=== PATIENT | male | born 1950 | race Caucasian/White ===

== ENCOUNTER 2019-07-07 08:59 | Outpatient (CLI) | payer MEDICARE, SELFPAY ==
[2019-07-07 09:13] LABS: Basophils Absolute Auto 0.05 K/mm3 (0.00-0.10); Basophils Percent Auto 0.6 % (0.0-1.0); Eosinophils Absolute Auto 0.34 K/mm3 (0.02-0.50); Eosinophils Percent Auto 4.1 % (1.0-6.0); Hematocrit 39.9 % (37.0-46.0); Hemoglobin 13.7 g/dL (12.4-15.3); Immature Granulocyte Absolute 0.02 K/mm3 (0.00-0.00); Immature Granulocyte Percent A 0.2 % (0.0-0.0); Lymphocytes Absolute Auto 4.02 K/mm3 (1.10-4.50); Mean Corpuscular HGB Conc 34.3 g/dL (32.0-36.0); Mean Corpuscular Hemoglobin 28.6 pg (27.0-31.0); Mean Corpuscular Volume 83.3 fL (78.0-102.0); Mean Platelet Volume 9.9 fl (8.7-11.0); Monocytes Percent Auto 9.6 % (2.0-11.0); Neutrophils Absolute Auto 3.1 K/mm3 (1.7-7.2); Neutrophils Percent Auto 37.5 % (50.0-70.0); Platelet Count Result 222 K/mm3 (150-420); Red Blood Count 4.79 M/mm3 (4.70-6.10); White Blood Count 8.4 K/mm3 (4.8-10.8)
[2019-07-07 09:14] LABS: Add Urine Microscopic? YES; Appearance Urine Clear (Clear); Bilirubin Urine Negative (Negative); Blood Urine Negative (Negative); Color Urine Yellow (Yellow); Glucose Urine UA Trace (Negative); Ketones Urine Negative (Negative); Leukocyte Esterase Ur Negative (Negative); Nitrate Urine Negative (Negative); Protein Urine Negative (Negative); Specific Grav Ur >= 1.030 (1.010-1.020); Urobilinogen Urine 0.2 mg/dL (0.2-1.0); pH Urine 5.5 (5.0-8.0)
[2019-07-07 09:23] LABS: Hemoglobin A1C 8.3 % (<5.7)
[2019-07-07 09:26] LABS: RBC Urine 0-2 /hpf (0-2); WBC Urine 0-3 /hpf (0-3)
[2019-07-07 09:27] LABS: Bacteria Urine Trace /hpf; Mucus Urine Few /lpf
[2019-07-07 10:25] LABS: Microalbumin Urine Random 72.7 mg/L
[2019-07-07 10:49] LABS: Alanine Aminotransferase 55 U/L (16-63); Albumin Level 3.9 g/dL (3.4-5.0); Alkaline Phosphatase 103 U/L (46-116); Anion Gap 13.5 mmol/L (7-16); Aspartate Amino Transferase 35 U/L (15-37); Bilirubin,Total 1.1 mg/dL (0.00-1.00); Blood Urea Nitrogen 19 mg/dL (7-18); Calcium 8.8 mg/dL (8.5-10.1); Carbon Dioxide 27 mmol/L (21-32); Chloride 104 mmol/L (98-108); Cholesterol 128 mg/dL (0-200); Creatine Kinase 157 U/L (39-308); Estimated Glomerular Filt Rate > 60; Glucose 180 mg/dL (70-99); HDL Direct 34 mg/dL (40-60); LDL Cholesterol Calculated 74 mg/dL (<130); Osmolality Calculated 297 mOsm/kg (285-295); Potassium 4.5 mmol/L (3.5-5.1); Sodium 140 mmol/L (136-145); Total Protein 7.3 g/dL (6.4-8.2); Triglycerides 101 mg/dL (0-150); Uric Acid 4.6 mg/dL (3.5-7.2); Vitamin B12 1893 pg/mL (193-986)
[2019-07-10 09:29] LABS: Vitamin D 25 Hydroxy 47 ng/mL (30-100)
== END 2019-07-07 09:00 | disposition home or self-care (01) ==
LOC: CHSLAB 09:01
PROVIDERS: PCP Internal Medicine; Visit Provider Internal Medicine
DX: E78.2 Mixed hyperlipidemia (principal); E11.65 Type 2 diabetes mellitus with hyperglycemia; I10 Essential (primary) hypertension; D72.820 Lymphocytosis (symptomatic); E79.0 Hyperuricemia without signs of inflammatory arthritis and tophaceous disease; Z98.84 Bariatric surgery status; Z12.5 Encounter for screening for malignant neoplasm of prostate; E55.9 Vitamin D deficiency, unspecified
CPT/HCPCS: 36415; 80053; 80061; 81001; 82043; 82306; 82550; 82607; 83036; 84153; 84550; 85025; G0103

== ENCOUNTER 2019-07-15 07:43 | Outpatient (CLI) | payer MEDICARE, SELFPAY ==
--- NOTE | ~2019-07-15 | US_ITS ---
US arterial ankle brachial ind INDICATION: Peripheral arterial disease. TECHNIQUE: Segmental pressures and plethysmographic and Doppler waveforms of the brachial and lower e xtremity arteries were obtained. COMPARISON: None. FINDINGS: Right and left brachial artery pressures of 125 mm Hg and 124 mm Hg, respectively, are concordant (no rmal difference <= 30 mmHg). The right ankle-brachial index (SARINA) is 1.29 (normal >= 0.9-1.0). The right great toe-brachial index (TBI) is 0.72 (normal >= 0.60). The left SARINA is 1.12. The left TBI is 0.7. IMPRESSION: 1. Normal bilateral ankle and toe brachial indices. Reviewed, dictated and finalized at location A.
--- NOTE | 2019-07-15 07:55 | ECHO_ITS ---
Patient Info Name: Osvaldo Duque Age: 68 years : 1950 Gender: Male Ht: 73 in Wt: 244 lbs BSA: 2.42 m2 HR: 78 bpm BP: 124 / 53 mmHg Heart Rhythm: Sinus Rhythm Technical Quality: Good Exam Date: 07/15/2019 7:37 AM Exam Location: [facility] Patient Status: Outpatient Admit Date: 07/15/2019 Staff Ordering Physician: Yolande Soria MD Hospitalist: Tish Sanchez RDCS Attending Provider: Yolande Soria MD Referring Physician: Yang TRAN; Exam Type: CA echo doppler color flow Study Info Indications I35.0 - Nonrheumatic aortic (valve) stenosis Complete two-dimensional, color flow and Doppler transthoracic echocardiogram is performed. Strain analysis performed. History/Risk Factors Hypertension: Yes Dyslipidemia: Yes Congenital Heart Disease (CHD): No Diabetic Therapy: Oral Peripheral Arterial Disease (PAD): Yes Myocardial Infarction (MD): No Chronic Lung Disease: No Obesity: Yes Renal Disease: No Coronary Artery Disease (CAD) No Congestive Heart Failure (CHF): No Cardiomyopathy/LV Systolic Dysfunction: No Diabetes Mellitus: Yes COPD: No Tobacco Use: Never Cerebrovascular Disease: No Family History: Coronary Artery Disease, Diabetes Mellitus Deep Vein Thrombosis (DVT): None Dialysis: None Frailty Scale (CSHA): 3: Managing Well Cardiac Arrest: No Prior Interventions Pacemaker: No PCI: No CABG: No Valve Surgery: No ICD: No PV Intervention: None Heart Transplant: No Summary 1. Left ventricular chamber dimension is normal. 2. Left ventricular systolic function is normal, estimated at 55-60%. 3. There is mildly increased left ventricular wall thickness. 4. The left ventricular diastolic function is normal. 5. E/e' 9 is minimally elevated. 6. Left atrial chamber dimension is mildly enlarged. 7. There is mild aortic valve sclerosis. 8. There is trace tricuspid valve regurgitation. 9. No pulmonary hypertension, estimated pulmonary arterial systolic pressure is 23 mmHg. Recommendations * Continue medical therapy for diabetes. Left Ventricle E/e' 9 is minimally elevated. Left ventricular chamber dimension is normal. Left ventricular systolic function is normal, estimated at 55-60%. There is mildly increased left ventricular wall thickness. The left ventricular diastolic function is normal. Right Ventricle Right ventricular chamber dimension is normal. Right ventricular systolic function is normal. Left Atria Left atrial chamber dimension is mildly enlarged. Right Atria Right atrial chamber dimension is normal. Aortic Valve The aortic valve is trileaflet. There is mild aortic valve sclerosis. There is no aortic valve stenosis. There is no aortic valve regurgitation. Pulmonic Valve There is no pulmonic regurgitation. Mitral Valve There is no mitral valve stenosis. There is no mitral valve regurgitation. Tricuspid Valve There is trace tricuspid valve regurgitation. No pulmonary hypertension, estimated pulmonary arterial systolic pressure is 23 mmHg. Pericardium/Pleural There is no pericardial effusion. Inferior Vena Cava Normal inferior vena cava with >50% collapse upon inspiration consistent with normal right atrial pressure, 5 mmHg. Aorta The aortic root size at the sinus of Valsalva is normal. Left Ventricular Outflow Tract
== END 2019-07-15 07:44 | disposition home or self-care (01) ==
PROVIDERS: PCP Internal Medicine; Visit Provider Internal Medicine
DX: I35.0 Nonrheumatic aortic (valve) stenosis (principal); I73.9 Peripheral vascular disease, unspecified
CPT/HCPCS: 93306; 93922

== ENCOUNTER 2019-10-21 08:03 | Outpatient (CLI) | payer MEDICARE, SELFPAY ==
[2019-10-21 08:37] LABS: Hemoglobin A1C 8.3 % (<5.7)
[2019-10-21 08:53] LABS: Anion Gap 5 mmol/L (8-16); Blood Urea Nitrogen 12 mg/dL (7-18); Calcium 8.5 mg/dL (8.5-10.1); Carbon Dioxide 32 mmol/L (21-32); Chloride 104 mmol/L (98-108); Estimated Glomerular Filt Rate > 60; Glucose 155 mg/dL (70-99); Osmolality Calculated 294 mOsm/kg (285-295); Sodium 141 mmol/L (136-145)
== END 2019-10-21 08:04 | disposition home or self-care (01) ==
LOC: CHSLAB 08:05
PROVIDERS: PCP Internal Medicine; Visit Provider Internal Medicine
DX: E11.65 Type 2 diabetes mellitus with hyperglycemia (principal)
CPT/HCPCS: 36415; 80048; 83036

== ENCOUNTER 2019-12-07 13:00 | Outpatient (CLI) | payer MEDICARE, SELFPAY ==
[2019-12-07 13:32] LABS: Alanine Aminotransferase 62 U/L (16-63); Alkaline Phosphatase 109 U/L (46-116); Amylase 25 U/L (25-115); Anion Gap 8 mmol/L (8-16); Aspartate Amino Transferase 27 U/L (15-37); Blood Urea Nitrogen 12 mg/dL (7-18); Calcium 8.8 mg/dL (8.5-10.1); Carbon Dioxide 28 mmol/L (21-32); Chloride 100 mmol/L (98-108); Estimated Glomerular Filt Rate > 60; Glucose 344 mg/dL (70-99); Lipase 110 U/L (73-393); Osmolality Calculated 295 mOsm/kg (285-295); Potassium 4.1 mmol/L (3.5-5.1); Sodium 136 mmol/L (136-145); Total Protein 7.5 g/dL (6.4-8.2)
== END 2019-12-07 13:01 | disposition home or self-care (01) ==
LOC: CHSLAB 13:01
PROVIDERS: PCP Internal Medicine; Visit Provider Internal Medicine
DX: E11.65 Type 2 diabetes mellitus with hyperglycemia (principal)
CPT/HCPCS: 36415; 80053; 82150; 83690

== ENCOUNTER 2020-08-05 07:17 | Outpatient (CLI) | payer MEDICARE, SELFPAY ==
[2020-08-05 07:35] LABS: Basophils Absolute Auto 0.06 K/mm3 (0.00-0.10); Basophils Percent Auto 0.7 % (0.0-1.0); Eosinophils Absolute Auto 0.47 K/mm3 (0.02-0.50); Eosinophils Percent Auto 5.6 % (1.0-6.0); Hematocrit 37.8 % (37.0-46.0); Immature Granulocyte Absolute 0.03 K/mm3 (0.00-0.00); Immature Granulocyte Percent A 0.4 % (0.0-0.0); Lymphocytes Absolute Auto 3.25 K/mm3 (1.10-4.50); Lymphocytes Percent Auto 38.6 % (18.0-42.0); Mean Corpuscular HGB Conc 34.4 g/dL (32.0-36.0); Mean Corpuscular Hemoglobin 28.3 pg (27.0-31.0); Mean Corpuscular Volume 82.4 fL (78.0-102.0); Mean Platelet Volume 10.1 fl (8.7-11.0); Monocytes Absolute Auto 0.76 K/mm3 (0.10-0.90); Neutrophils Absolute Auto 3.8 K/mm3 (1.7-7.2); Neutrophils Percent Auto 45.7 % (50.0-70.0); Platelet Count Result 190 K/mm3 (150-420); Red Blood Count 4.59 M/mm3 (4.70-6.10); Red Cell Distribution Width 13.6 % (11.6-14.4); White Blood Count 8.4 K/mm3 (4.8-10.8)
[2020-08-05 07:37] LABS: Add Urine Microscopic? YES; Appearance Urine Clear (Clear); Bilirubin Urine Negative (Negative); Blood Urine Negative (Negative); Color Urine Yellow (Yellow); Glucose Urine UA Trace (Negative); Ketones Urine Negative (Negative); Leukocyte Esterase Ur Trace LEU/UL (Negative); Nitrate Urine Negative (Negative); Protein Urine Negative (Negative); Urobilinogen Urine 0.2 mg/dL (0.2-1.0)
[2020-08-05 07:43] LABS: Hemoglobin A1C 7.9 % (<5.7)
[2020-08-05 07:45] LABS: Bacteria Urine Trace /hpf; Mucus Urine Few /lpf; RBC Urine None seen /hpf (0-2)
[2020-08-05 07:47] LABS: Creatinine Urine 97.59 mg/dL (40-278); MALB Creatinine Ratio 13.6 mg/g (0-30); Microalbumin Urine Random 13.3 mg/L
[2020-08-05 08:47] LABS: Alanine Aminotransferase 116 U/L (16-63); Albumin Level 3.4 g/dL (3.4-5.0); Alkaline Phosphatase 112 U/L (46-116); Anion Gap 8 mmol/L (8-16); Aspartate Amino Transferase 53 U/L (15-37); Bilirubin,Total 0.9 mg/dL (0.00-1.00); Blood Urea Nitrogen 12 mg/dL (7-18); Calcium 8.4 mg/dL (8.5-10.1); Carbon Dioxide 31 mmol/L (21-32); Chloride 106 mmol/L (98-108); Cholesterol 122 mg/dL (0-200); Creatine Kinase 112 U/L (39-308); Estimated Glomerular Filt Rate > 60; Ferritin 95 ng/mL (26-388); Glucose 55 mg/dL (70-99); HDL Direct 32 mg/dL (40-60); Iron 83 ug/dL (65-175); LDL Cholesterol Calculated 75 mg/dL (<130); Osmolality Calculated 297 mOsm/kg (285-295); Percent Iron Saturation 27 % (12-57); Potassium 3.5 mmol/L (3.5-5.1); Sodium 145 mmol/L (136-145); Total Protein 6.6 g/dL (6.4-8.2); Triglycerides 74 mg/dL (0-150); Uric Acid 3.4 mg/dL (3.5-7.2)
== END 2020-08-05 07:18 | disposition home or self-care (01) ==
LOC: CHSLAB 07:19
PROVIDERS: PCP Internal Medicine; Visit Provider Internal Medicine
DX: E11.65 Type 2 diabetes mellitus with hyperglycemia (principal); I10 Essential (primary) hypertension; E78.5 Hyperlipidemia, unspecified; D50.9 Iron deficiency anemia, unspecified; E79.0 Hyperuricemia without signs of inflammatory arthritis and tophaceous disease
CPT/HCPCS: 36415; 80053; 80061; 81001; 82043; 82550; 82728; 83036; 83540; 83550; 84550; 85025

== ENCOUNTER 2020-08-31 09:14 | Outpatient (CLI) | payer MEDICARE, SELFPAY ==
[2020-08-31 10:08] LABS: Alanine Aminotransferase 55 U/L (16-63); Albumin Level 3.6 g/dL (3.4-5.0); Alkaline Phosphatase 115 U/L (46-116); Anion Gap 12 mmol/L (8-16); Aspartate Amino Transferase 27 U/L (15-37); Blood Urea Nitrogen 15 mg/dL (7-18); Calcium 8.4 mg/dL (8.5-10.1); Carbon Dioxide 25 mmol/L (21-32); Chloride 105 mmol/L (98-108); Estimated Glomerular Filt Rate > 60; Glucose 95 mg/dL (70-99); Osmolality Calculated 294 mOsm/kg (285-295); Potassium 3.8 mmol/L (3.5-5.1); Prostate Specific Antigen 2.3 ng/mL (< OR = 4.0); Sodium 142 mmol/L (136-145)
== END 2020-08-31 09:15 | disposition home or self-care (01) ==
LOC: CHSLAB 09:16
PROVIDERS: PCP Internal Medicine; Visit Provider Internal Medicine
DX: B18.1 Chronic viral hepatitis B without delta-agent (principal); Z12.5 Encounter for screening for malignant neoplasm of prostate
CPT/HCPCS: 36415; 80053; 84153; G0103

== ENCOUNTER 2021-02-07 07:46 | Outpatient (CLI) | payer MEDICARE, SELFPAY ==
[2021-02-07 08:04] LABS: Basophils Absolute Auto 0.06 K/mm3 (0.00-0.10); Basophils Percent Auto 0.5 % (0.0-1.0); Eosinophils Absolute Auto 0.37 K/mm3 (0.02-0.50); Eosinophils Percent Auto 3.3 % (1.0-6.0); Hematocrit 40.3 % (37.0-46.0); Hemoglobin 13.4 g/dL (12.4-15.3); Immature Granulocyte Absolute 0.03 K/mm3 (0.00-0.00); Immature Granulocyte Percent A 0.3 % (0.0-0.0); Lymphocytes Absolute Auto 4.81 K/mm3 (1.10-4.50); Lymphocytes Percent Auto 42.3 % (18.0-42.0); Mean Corpuscular HGB Conc 33.3 g/dL (32.0-36.0); Mean Corpuscular Hemoglobin 28.5 pg (27.0-31.0); Mean Corpuscular Volume 85.6 fL (78.0-102.0); Mean Platelet Volume 9.7 fl (8.7-11.0); Monocytes Absolute Auto 0.91 K/mm3 (0.10-0.90); Neutrophils Absolute Auto 5.2 K/mm3 (1.7-7.2); Neutrophils Percent Auto 45.6 % (50.0-70.0); Platelet Count Result 250 K/mm3 (150-420); Red Blood Count 4.71 M/mm3 (4.70-6.10); Red Cell Distribution Width 13.2 % (11.6-14.4); White Blood Count 11.4 K/mm3 (4.8-10.8)
[2021-02-07 08:14] LABS: Hemoglobin A1C 7.2 % (<5.7)
[2021-02-07 08:53] LABS: Alanine Aminotransferase 50 U/L (16-63); Albumin Level 3.6 g/dL (3.4-5.0); Alkaline Phosphatase 118 U/L (46-116); Anion Gap 8 mmol/L (8-16); Aspartate Amino Transferase 24 U/L (15-37); Bilirubin,Total 0.9 mg/dL (0.00-1.00); Blood Urea Nitrogen 21 mg/dL (7-18); Calcium 8.6 mg/dL (8.5-10.1); Carbon Dioxide 29 mmol/L (21-32); Chloride 107 mmol/L (98-108); Cholesterol 145 mg/dL (0-200); Creatine Kinase 77 U/L (39-308); Estimated Glomerular Filt Rate > 60; HDL Direct 31 mg/dL (40-60); LDL Cholesterol Calculated 101 mg/dL (<130); Potassium 3.6 mmol/L (3.5-5.1); Sodium 144 mmol/L (136-145); Total Protein 7.2 g/dL (6.4-8.2); Triglycerides 64 mg/dL (0-150); Uric Acid 4.5 mg/dL (3.5-7.2)
[2021-02-07 09:01] LABS: Osmolality Calculated 298 mOsm/kg (285-295)
[2021-02-07 09:14] LABS: Add Urine Microscopic? YES; Appearance Urine Clear (Clear); Bilirubin Urine Negative (Negative); Blood Urine Negative (Negative); Color Urine Yellow (Yellow); Glucose Urine UA Trace (Negative); Ketones Urine Trace (Negative); Leukocyte Esterase Ur Negative LEU/UL (Negative); Nitrate Urine Negative (Negative); Protein Urine Trace (Negative); Specific Grav Ur >= 1.030 (1.010-1.020); Urobilinogen Urine 0.2 mg/dL (0.2-1.0); pH Urine 5.5 (5.0-8.0)
[2021-02-07 09:28] LABS: Bacteria Urine Trace /hpf; Mucus Urine Moderate /lpf; RBC Urine 0-2 /hpf (0-2)
[2021-02-07 09:59] LABS: Glucose 38 mg/dL (70-99)
== END 2021-02-07 07:47 | disposition home or self-care (01) ==
LOC: CHSLAB 07:50
PROVIDERS: PCP Internal Medicine; Visit Provider Internal Medicine
DX: E11.65 Type 2 diabetes mellitus with hyperglycemia (principal); I10 Essential (primary) hypertension; E78.5 Hyperlipidemia, unspecified; E79.0 Hyperuricemia without signs of inflammatory arthritis and tophaceous disease; N39.0 Urinary tract infection, site not specified
CPT/HCPCS: 36415; 80053; 80061; 81001; 82550; 83036; 84550; 85025

== ENCOUNTER 2021-09-06 08:48 | Outpatient (CLI) | payer MEDICARE, SELFPAY ==
[2021-09-06 09:05] LABS: Basophils Absolute Auto 0.05 K/mm3 (0.00-0.10); Basophils Percent Auto 0.5 % (0.0-1.0); Eosinophils Absolute Auto 0.43 K/mm3 (0.02-0.50); Eosinophils Percent Auto 4.5 % (1.0-6.0); Hematocrit 36.4 % (37.0-46.0); Hemoglobin 12.3 g/dL (12.4-15.3); Immature Granulocyte Absolute 0.03 K/mm3 (0.00-0.00); Immature Granulocyte Percent A 0.3 % (0.0-0.0); Lymphocytes Absolute Auto 3.48 K/mm3 (1.10-4.50); Lymphocytes Percent Auto 36.3 % (18.0-42.0); Mean Corpuscular HGB Conc 33.8 g/dL (32.0-36.0); Mean Corpuscular Hemoglobin 28.4 pg (27.0-31.0); Mean Corpuscular Volume 84.1 fL (78.0-102.0); Monocytes Percent Auto 9.4 % (2.0-11.0); Neutrophils Absolute Auto 4.7 K/mm3 (1.7-7.2); Platelet Count Result 212 K/mm3 (150-420); Red Blood Count 4.33 M/mm3 (4.70-6.10); Red Cell Distribution Width 13.5 % (11.6-14.4); White Blood Count 9.6 K/mm3 (4.8-10.8)
[2021-09-06 09:08] LABS: Add Urine Microscopic? YES; Appearance Urine Clear (Clear); Bilirubin Urine Negative (Negative); Blood Urine Negative (Negative); Color Urine Yellow (Yellow); Glucose Urine UA Negative (Negative); Ketones Urine Negative (Negative); Leukocyte Esterase Ur 1+ (Negative); Nitrate Urine Negative (Negative); Protein Urine Negative (Negative); Specific Grav Ur 1.025 (1.010-1.020); Urobilinogen Urine 0.2 mg/dL (0.2-1.0)
[2021-09-06 09:16] LABS: Bacteria Urine Trace /hpf; Mucus Urine Moderate /lpf; RBC Urine None seen /hpf (0-2)
[2021-09-06 09:32] LABS: Creatinine Urine 100.64 mg/dL (40-278); MALB Creatinine Ratio 24.8 mg/g (0-30)
[2021-09-06 09:43] LABS: Hemoglobin A1C 8.2 % (<5.7)
[2021-09-06 09:48] LABS: Alanine Aminotransferase 124 U/L (16-63); Albumin Level 3.3 g/dL (3.4-5.0); Alkaline Phosphatase 117 U/L (46-116); Anion Gap 6 mmol/L (8-16); Aspartate Amino Transferase 68 U/L (15-37); Bilirubin,Total 1.1 mg/dL (0.00-1.00); Blood Urea Nitrogen 13 mg/dL (7-18); Calcium 8.5 mg/dL (8.5-10.1); Carbon Dioxide 31 mmol/L (21-32); Chloride 107 mmol/L (98-108); Creatine Kinase 96 U/L (39-308); Estimated Glomerular Filt Rate > 60; Glucose 85 mg/dL (70-99); Lipase 38 U/L (73-393); Osmolality Calculated 297 mOsm/kg (285-295); Potassium 3.3 mmol/L (3.5-5.1); Prostate Specific Antigen 1.8 ng/mL (< OR = 4.0); Sodium 144 mmol/L (136-145); Total Protein 6.9 g/dL (6.4-8.2); Uric Acid 3.8 mg/dL (3.5-7.2)
[2021-09-06 13:55] LABS: Cholesterol 77 mg/dL (0-200); HDL Direct 35 mg/dL (40-60); LDL Cholesterol Calculated 31 mg/dL (<130); Triglycerides 53 mg/dL (0-150)
== END 2021-09-06 08:49 | disposition home or self-care (01) ==
LOC: CHSLAB 08:52
PROVIDERS: PCP Internal Medicine; Visit Provider Internal Medicine
DX: E79.0 Hyperuricemia without signs of inflammatory arthritis and tophaceous disease (principal); E11.65 Type 2 diabetes mellitus with hyperglycemia; I10 Essential (primary) hypertension; Z12.5 Encounter for screening for malignant neoplasm of prostate
CPT/HCPCS: 36415; 80053; 80061; 81001; 82043; 82550; 83036; 83690; 84153; 84550; 85025; G0103

== ENCOUNTER 2021-10-05 07:07 | Outpatient (CLI) | payer MEDICARE, SELFPAY ==
--- NOTE | ~2021-10-05 | US_ITS ---
EXAMINATION: US abdomen limited DATE: 10/05/2021 08:11 INDICATION: Right upper quadrant pain TECHNIQUE: Multiple grayscale and Doppler ultrasound images of the abdomen were obtained. COMPARISON: None available FINDINGS: Bowel gas obscures visualization of the pancreas. The visualized portions of the pancreas a re unremarkable. The liver is normal with normal echogenicity and echotexture. No surface nodularity. Normal hepatopetal flow in the main portal vein. Stones are present in the nondistended gallbladder. The normal common bile duct measures 5 mm. There was no sonographic Webb sign. IMPRESSION: 1. Cholelithiasis without evidence of cholecystitis. Reviewed, dictated and finalized at location L.
== END 2021-10-05 07:08 | disposition home or self-care (01) ==
PROVIDERS: PCP Internal Medicine; Visit Provider Internal Medicine
DX: R74.8 Abnormal levels of other serum enzymes (principal); K80.20 Calculus of gallbladder without cholecystitis without obstruction
CPT/HCPCS: 76705

== ENCOUNTER 2021-12-24 08:40 | Outpatient (CLI) | payer MEDICARE, SELFPAY ==
[2021-12-24 09:22] LABS: Hemoglobin A1C 7.9 % (<5.7)
[2021-12-24 09:40] LABS: Alanine Aminotransferase 41 U/L (16-63); Albumin Level 3.1 g/dL (3.4-5.0); Alkaline Phosphatase 266 U/L (46-116); Anion Gap 7 mmol/L (8-16); Aspartate Amino Transferase 38 U/L (15-37); Bilirubin,Total 0.9 mg/dL (0.00-1.00); Blood Urea Nitrogen 16 mg/dL (7-18); Calcium 8.6 mg/dL (8.5-10.1); Carbon Dioxide 29 mmol/L (21-32); Chloride 104 mmol/L (98-108); Estimated Glomerular Filt Rate > 60; Glucose 113 mg/dL (70-99); Osmolality Calculated 292 mOsm/kg (285-295); Potassium 4.7 mmol/L (3.5-5.1); Sodium 140 mmol/L (136-145)
== END 2021-12-24 08:41 | disposition home or self-care (01) ==
LOC: CHSLAB 08:43
PROVIDERS: PCP Internal Medicine; Visit Provider Internal Medicine
DX: E11.65 Type 2 diabetes mellitus with hyperglycemia (principal)
CPT/HCPCS: 36415; 80053; 83036

== ENCOUNTER 2022-01-10 09:27 | Outpatient (CLI) | payer MEDICARE, SELFPAY ==
--- NOTE | ~2022-01-10 | US_ITS ---
US abdomen limited INDICATION: Increased liver enzymes. PROCEDURE: Realtime right upper abdominal ultrasound. COMPARISON: No prior studies for comparison. FINDINGS: The pancreas is normal without focal mass or pancreatic ductal dilation. Liver echotexture is normal without focal mass or intrahepatic biliary dilatation. There is normal directional flow i n the portal there are gallstones. No gallbladder wall thickening or pericholecystic fluid. Vein. The gallbladder is normal without stones, gallbladder wall thickening or pericholecystic fluid. Comm on bile duct measures 4 mm. No sonographic Webb's sign. IMPRESSION: 1: Cholelithiasis. Reviewed, dictated and finalized at location A. IMPRESSION: 1: Cholelithiasis.
[2022-01-10 09:44] LABS: Basophils Absolute Auto 0.08 K/mm3 (0.00-0.10); Basophils Percent Auto 0.8 % (0.0-1.0); Eosinophils Absolute Auto 0.33 K/mm3 (0.02-0.50); Eosinophils Percent Auto 3.1 % (1.0-6.0); Hematocrit 39.4 % (37.0-46.0); Immature Granulocyte Absolute 0.05 K/mm3 (0.00-0.00); Immature Granulocyte Percent A 0.5 % (0.0-0.0); Immature Reticulocyte Fraction 9.6 % (2.0-16.52); Lymphocytes Absolute Auto 3.09 K/mm3 (1.10-4.50); Lymphocytes Percent Auto 29.5 % (18.0-42.0); Mean Corpuscular Hemoglobin 27.8 pg (27.0-31.0); Mean Corpuscular Volume 84.4 fL (78.0-102.0); Mean Platelet Volume 9.6 fl (8.7-11.0); Monocytes Absolute Auto 1.07 K/mm3 (0.10-0.90); Monocytes Percent Auto 10.2 % (2.0-11.0); Neutrophils Absolute Auto 5.9 K/mm3 (1.7-7.2); Neutrophils Percent Auto 55.9 % (50.0-70.0); Platelet Count Result 252 K/mm3 (150-420); Red Blood Count 4.67 M/mm3 (4.70-6.10); Red Cell Distribution Width 14.2 % (11.6-14.4); Reticulocyte Hemoglobin Conten 31.7 pg (28.0-35.0); Reticulocytes Absolute 0.07 M/mm3 (0.02-0.1); White Blood Count 10.5 K/mm3 (4.8-10.8)
[2022-01-10 10:27] LABS: Alanine Aminotransferase 47 U/L (16-63); Albumin Level 3.2 g/dL (3.4-5.0); Alkaline Phosphatase 185 U/L (46-116); Anion Gap 7 mmol/L (8-16); Aspartate Amino Transferase 35 U/L (15-37); Bilirubin,Total 1.1 mg/dL (0.00-1.00); Blood Urea Nitrogen 21 mg/dL (7-18); Calcium 8.8 mg/dL (8.5-10.1); Carbon Dioxide 27 mmol/L (21-32); Chloride 102 mmol/L (98-108); Estimated Glomerular Filt Rate > 60; Ferritin 206 ng/mL (26-388); Free T4 Free Thyroxine 1.32 ng/dL (0.76-1.46); Glucose 105 mg/dL (70-99); Iron 77 ug/dL (65-175); Osmolality Calculated 285 mOsm/kg (285-295); Potassium 4.3 mmol/L (3.5-5.1); Sodium 136 mmol/L (136-145); Thyroid Stimulating Hormone 2.26 uIU/mL (0.36-3.74); Total Protein 8.7 g/dL (6.4-8.2); Vitamin B12 980 pg/mL (193-986)
[2022-01-13 14:23] LABS: Red Blood Cell Folate 564 ng/mL RBC (>280)
[2022-01-13 16:06] LABS: Hepatitis B DNA PCR <1.00 Log IU/mL; Hepatitis B DNA PCR <10 IU/mL
== END 2022-01-10 09:28 | disposition home or self-care (01) ==
PROVIDERS: PCP Internal Medicine; Visit Provider Internal Medicine
DX: D64.9 Anemia, unspecified (principal); B18.1 Chronic viral hepatitis B without delta-agent; R63.4 Abnormal weight loss
CPT/HCPCS: 36415; 76705; 80053; 82607; 82728; 82747; 83540; 84439; 84443; 85025; 85046; 87517

== ENCOUNTER 2022-04-25 09:37 | Outpatient (CLI) | payer MEDICARE, SELFPAY ==
[2022-04-25 10:02] LABS: Hematocrit 39.7 % (37.0-46.0); Hemoglobin 13.2 g/dL (12.4-15.3); Mean Corpuscular HGB Conc 33.2 g/dL (32.0-36.0); Mean Corpuscular Volume 81.2 fL (78.0-102.0); Mean Platelet Volume 9.6 fl (8.7-11.0); Platelet Count Result 210 K/mm3 (150-420); Red Blood Count 4.89 M/mm3 (4.70-6.10); Red Cell Distribution Width 14.9 % (11.6-14.4); White Blood Count 10.5 K/mm3 (4.8-10.8)
[2022-04-25 10:06] LABS: Add Urine Microscopic? YES; Appearance Urine Clear (Clear); Bilirubin Urine Negative (Negative); Blood Urine Negative (Negative); Color Urine Light Yellow (Yellow); Glucose Urine UA Negative (Negative); Ketones Urine Negative (Negative); Leukocyte Esterase Ur 1+ LEU/UL (Negative); Nitrate Urine Negative (Negative); Protein Urine Negative (Negative); Specific Grav Ur 1.025 (1.010-1.020); Urobilinogen Urine 0.2 mg/dL (0.2-1.0); pH Urine 5.5 (5.0-8.0)
[2022-04-25 10:19] LABS: Hemoglobin A1C 7.4 % (<5.7)
[2022-04-25 10:21] LABS: RBC Urine 0-2 /hpf (0-2); Squamous Epithelial Cell Urine Rare /hpf (Few)
[2022-04-25 10:22] LABS: Bacteria Urine Trace /hpf; Mucus Urine Moderate /lpf
[2022-04-25 10:48] LABS: Band Neutrophils Percent 1 % (0-6); Basophils Percent Manual 0 % (0-1); Eosinophils Absolute Manual 0.42 K/mm3 (0.02-0.5); Eosinophils Percent Manual 4 % (1-6); Lymphocytes Absolute Manual 5.88 K/mm3 (1.1-4.5); Lymphocytes Percent Manual 56 % (18-44); Monocytes Absolute Manual 0.31 K/mm3 (0.1-0.90); Monocytes Percent Manual 3 % (3-9); Neutrophils Absolute Manual 3.88 K/mm3 (1.3-6.7); Neutrophils Percent Manual 36 % (46-73); Total Cells Counted 100
[2022-04-25 10:49] LABS: Atypical Lymphocytes Present; Platelet Estimate Adequate (Adequate)
[2022-04-25 10:56] LABS: Alanine Aminotransferase 73 U/L (16-63); Albumin Level 3.4 g/dL (3.4-5.0); Alkaline Phosphatase 171 U/L (46-116); Anion Gap 6 mmol/L (8-16); Aspartate Amino Transferase 51 U/L (15-37); Bilirubin,Total 0.9 mg/dL (0.00-1.00); Blood Urea Nitrogen 13 mg/dL (7-18); Calcium 8.6 mg/dL (8.5-10.1); Carbon Dioxide 28 mmol/L (21-32); Chloride 100 mmol/L (98-108); Cholesterol 98 mg/dL (0-200); Creatine Kinase 54 U/L (39-308); Estimated Glomerular Filt Rate > 60; Ferritin 171 ng/mL (26-388); Free T3 2.16 pg/mL (2.18-3.98); Glucose 114 mg/dL (70-99); HDL Direct 25 mg/dL (40-60); Iron 78 ug/dL (65-175); LDL Cholesterol Calculated 55 mg/dL (<130); Osmolality Calculated 279 mOsm/kg (285-295); Potassium 4.3 mmol/L (3.5-5.1); Sodium 134 mmol/L (136-145); Thyroid Stimulating Hormone 2.32 uIU/mL (0.36-3.74); Total Protein 7.6 g/dL (6.4-8.2); Triglycerides 91 mg/dL (0-150); Vitamin B12 916 pg/mL (193-986)
== END 2022-04-25 09:38 | disposition home or self-care (01) ==
LOC: CHSLAB 09:41
PROVIDERS: PCP Internal Medicine; Visit Provider Internal Medicine
DX: E11.65 Type 2 diabetes mellitus with hyperglycemia (principal); I10 Essential (primary) hypertension; E78.2 Mixed hyperlipidemia; D64.9 Anemia, unspecified; N39.0 Urinary tract infection, site not specified; D51.9 Vitamin B12 deficiency anemia, unspecified
CPT/HCPCS: 36415; 80053; 80061; 81001; 82550; 82607; 82728; 83036; 83540; 84439; 84443; 84481; 85025; 87077; 87086; 87088

== ENCOUNTER 2022-05-01 09:01 | Outpatient (CLI) | payer MEDICARE, SELFPAY ==
[2022-05-04 11:22] LABS: Reference Lab Test Name FLOW CYTOLOGY
== END 2022-05-01 09:02 | disposition home or self-care (01) ==
PROVIDERS: PCP Internal Medicine; Visit Provider Internal Medicine
DX: D72.820 Lymphocytosis (symptomatic) (principal)
CPT/HCPCS: 36415; 88184; 88185; 88189

== ENCOUNTER 2022-06-24 11:21 | Outpatient (CLI) | payer MEDICARE, SELFPAY ==
--- NOTE | 2022-06-24 01:00 | ECHO_ITS ---
Patient Info Name: Osvaldo Duque Age: 71 years : 1950 Gender: Male Ht: 71 in Wt: 216 lbs BSA: 2.24 m2 HR: 59 bpm BP: 117 / 36 mmHg Heart Rhythm: Sinus Rhythm Technical Quality: Fair Exam Date: 06/24/2022 12:34 PM Exam Location: [facility] Patient Status: Outpatient Admit Date: 06/24/2022 Staff Ordering Physician: Yolande Soria MD Automotive Mechanic: Rubi Womack RDCS Attending Provider: Yolande Sorai MD Referring Physician: Yang TRAN; Exam Type: CA echo doppler color flow Study Info Indications - Aortic stenosis Complete two-dimensional, color flow and Doppler transthoracic echocardiogram is performed. History/Risk Factors Hypertension: Yes Dyslipidemia: Yes Congenital Heart Disease (CHD): No Diabetic Therapy: Oral Peripheral Arterial Disease (PAD): Yes Myocardial Infarction ([place]): No Chronic Lung Disease: No Obesity: Yes Renal Disease: No Coronary Artery Disease (CAD) No Congestive Heart Failure (CHF): No Cardiomyopathy/LV Systolic Dysfunction: No Diabetes Mellitus: Yes COPD: No Tobacco Use: Never Cerebrovascular Disease: No Family History: Coronary Artery Disease, Diabetes Mellitus Deep Vein Thrombosis (DVT): None Dialysis: None Frailty Scale (CSHA): 3: Managing Well Cardiac Arrest: No Prior Interventions Pacemaker: No PCI: No CABG: No Valve Surgery: No ICD: No PV Intervention: None Heart Transplant: No Summary 1. Complete two-dimensional, color flow and Doppler transthoracic echocardiogram is performed. 2. Left ventricular chamber dimension is normal. 3. Left ventricular systolic function is normal, estimated at 60-65%. 4. There is mild concentric increased left ventricular wall thickness. 5. The left ventricular diastolic function is normal. 6. E/e' 9 is minimally elevated. 7. Left atrial chamber dimension is moderately enlarged. 8. There is mild aortic valve sclerosis. 9. There is mild tricuspid valve regurgitation. 10. No pulmonary hypertension, estimated pulmonary arterial systolic pressure is 31 mmHg. Recommendations * Continue medical therapy for diabetes. Left Ventricle E/e' 9 is minimally elevated. Left ventricular chamber dimension is normal. Left ventricular systolic function is normal, estimated at 60-65%. There is mild concentric increased left ventricular wall thickness. The left ventricular diastolic function is normal. Right Ventricle Right ventricular systolic function is normal and with normal TAPSE 2.3 cm. Right ventricular chamber dimension is normal. Left Atria Left atrial chamber dimension is moderately enlarged. Right Atria Right atrial chamber dimension is normal. Aortic Valve The aortic valve is trileaflet. There is mild aortic valve sclerosis. There is no aortic valve stenosis. There is no aortic valve regurgitation. Pulmonic Valve There is no pulmonic regurgitation. Mitral Valve There is no mitral valve stenosis. There is no mitral valve regurgitation. Tricuspid Valve There is mild tricuspid valve regurgitation. No pulmonary hypertension, estimated pulmonary arterial systolic pressure is 31 mmHg. Pericardium/Pleural There is no pericardial effusion. Inferior Vena Cava Normal inferior vena cava with >50% collapse upon inspiration consistent with normal right atrial pressure, 5 mmHg. Aorta The aortic root size
[2022-06-24 12:50] LABS: Alanine Aminotransferase 91 U/L (16-63); Albumin Level 3.3 g/dL (3.4-5.0); Alkaline Phosphatase 146 U/L (46-116); Anion Gap 9 mmol/L (8-16); Aspartate Amino Transferase 61 U/L (15-37); Blood Urea Nitrogen 16 mg/dL (7-18); Calcium 8.5 mg/dL (8.5-10.1); Carbon Dioxide 27 mmol/L (21-32); Chloride 103 mmol/L (98-108); Estimated Glomerular Filt Rate > 60; Glucose 145 mg/dL (70-99); Osmolality Calculated 292 mOsm/kg (285-295); Potassium 4.5 mmol/L (3.5-5.1); Sodium 139 mmol/L (136-145); Total Protein 6.9 g/dL (6.4-8.2)
== END 2022-06-24 11:22 | disposition home or self-care (01) ==
LOC: CHSIMG 11:25
PROVIDERS: PCP Internal Medicine; Visit Provider Internal Medicine
DX: R74.01 Elevation of levels of liver transaminase levels (principal); I35.0 Nonrheumatic aortic (valve) stenosis; I07.1 Rheumatic tricuspid insufficiency
CPT/HCPCS: 36415; 80053; 93306

== ENCOUNTER 2022-08-16 10:55 | Outpatient (CLI) | payer MEDICARE, SELFPAY ==
--- NOTE | ~2022-08-16 | CT_ITS ---
EXAMINATION: CT abdomen pelvis wo con DATE: 08/16/2022 11:48 INDICATION: Left acute flank pain. Gross hematuria. History kidney stones. TECHNIQUE: Computed tomography (CT) of the abdomen and pelvis was performed without intravenous contr ast. Automated exposure control and iterative reconstruction technique were employed. Exam dose: 457 .53 mGy-cm total exam DLP. COMPARISON: 01/10/2022 Limited abdominal ultrasound examination FINDINGS: Approximately 3.5 mm and 5 mm peripheral right pulmonary nodular densities. Middle lobe and bilateral lower lobe calcified pulmonary granulomas. A calcified hepatic and multiple calcified sple david granulomas are also noted. No infiltrate or consolidation is noted in the lower included lung zones. Normal heart size. No pericardial or pleural effusion. Small sliding hiatal hernia. Status post gastric bypass surgery. Small stones are noted in the dependent aspect of the gallbladder. No gallbladder wall thickening or pericholecystic fluid or fat stranding is detected. No bile duct or pancreatic duct dilatation is not ed. No hepatic, splenic, pancreatic or adrenal space-occupying mass lesion is noted. Pinpoint nonobstructing upper pole left renal calculus. Approximately 6.7 x 11 mm right ureterovesical junction calculus is present with minimal if any hydr oureteronephrosis. 2.2 cm probable right renal cyst. There is evidence for calcification of the abdominal aorta and iliac and femoral arteries but no abdo nayana aortic aneurysm. No intraperitoneal or retroperitoneal or pelvic mass lesion or adenopathy or a scites. No evidence of appendicitis. No bowel obstruction or intraperitoneal free air is detected. Degenerative changes of the thoracic and lumbar spine. No suspicious osteolytic or osteoblastic lesio ns are noted. IMPRESSION: 6.7 x 11 mm right ureterovesical junction calculus Pinpoint nonobstructing upper pole left renal calculus 2.2 cm right renal probable cyst Cholelithiasis Status post gastric bypass surgery Small sliding hiatal hernia Reviewed, dictated and finalized at Location A. Reviewed, dictated and finalized at location []
== END 2022-08-16 10:56 | disposition home or self-care (01) ==
LOC: CHSIMG 11:04
PROVIDERS: PCP Internal Medicine; Visit Provider Nurse Practitioner Family
DX: N20.0 Calculus of kidney (principal); R31.9 Hematuria, unspecified; R10.9 Unspecified abdominal pain; K80.20 Calculus of gallbladder without cholecystitis without obstruction; Z98.84 Bariatric surgery status; K44.9 Diaphragmatic hernia without obstruction or gangrene
CPT/HCPCS: 74176

== ENCOUNTER 2022-08-22 01:39 | Day surgery (SDC) | payer MEDICARE, SELFPAY ==
[2022-08-20 12:48] VITALS: BMI 29.3
--- NOTE | 2022-08-20 12:55 | PC.NURSE ---
PREOP INSTRUCTIONS, PLEASE READ CAREFULLY Report to the Outpatient Waiting Room, entrance under the green pavilion located off [facility], at time _0730_ on date _08/22/22_. Planned Procedure Time: _0930_. Time changes happen often and if your time is changed the preop area will call you the afternoon before. - You and your visitor will be asked to self-screen and do not enter if you have any COVID symptoms. - A mask is optional within the hospital at this time. Patients may have clear liquids (water, carbonated beverages, clear teas, apple juice) until 3 hours prior to surgery (0630 AM) with a maximum of 20 ounces. - No food from midnight until time of surgery Take the following medications with a SIP of water the morning of surgery: _BUSPIRONE, CIPROFLOXACIN, SERTRALINE_ DO NOT STOP ANY OF YOUR OTHER PRESCRIPTION MEDICATIONS PRIOR TO SURGERY ?EXCEPT THE FOLLOWING Medications to discontinue per physician N/A___, Date to take last dose Please no make-up, nail surinamese, hairspray, perfume, deodorant, or body powder the day of surgery. No jewelry (including any body piercings) or valuables the day of surgery, leave them at home. Please take a shower or bath the night before, or the morning of, surgery with an antibacterial soap. Wear comfortable, loose fitting clothing. - Jewelry must be removed prior to entering the operating room. Rings and piercings that are not removed may be cut off. - The hospital will not accept responsibility for valuables. - Please leave all valuables, including medications, at home the day of surgery. If you are going home after surgery, a licensed courier delivery driver must drive you home. - NO public transportation without another adult if you receive anesthesia. - We recommend that an adult stay with you for 24 hours following discharge. - We also recommend that you do not drive, make important decision, drink alcoholic beverages, or take any drugs that were not prescribed by your health care provider for at least 24 hours after your discharge time. Follow any additional instructions given to you from your surgeon. If you or anyone in your household have experienced Covid symptoms in the past week, please notify your surgeon or the nurse liaison at the phone number below for possible testing. Telephone instructions given to _PATIENT_and asked if any additional questions and then verbalized understanding. Patient advised to call surgeon office or pre surgery nurse liaison [phone] if any additional questions.
[2022-08-22] VITALS (7 sets, daily range): BP systolic 116–169; BP diastolic 57–66; PULSE 47–58; RESP 12–16; TEMP 35.8–36.3; O2SAT 100
--- NOTE | ~2022-08-22 | XR_ITS ---
EXAMINATION: XR fluoroscopy no charge DATE: 08/22/2022 07:55 INDICATION: Right ureteral stone. TECHNIQUE: 3 intraoperative spot fluoroscopic views of the abdomen and pelvis were obtained. I was no t present. Fluoroscopy exposure time was 5 seconds. COMPARISON: CT abdomen and pelvis 08/16/2022 FINDINGS: There is no visible urolithiasis. IMPRESSION: 1. No visible urolithiasis. Reviewed, dictated and finalized at location A. IMPRESSION: 1. No visible urolithiasis.
--- NOTE | 2022-08-22 06:14 | ECG_ITS ---
Measurements Intervals [place] Rate: 45 P: 93 NV: 252 QRS: -52 QRSD: 129 T: 49 QT: 437 QTc: 382 Interpretive Statements SINUS BRADYCARDIA WITH FIRST DEGREE AV BLOCK LEFT ANTERIOR FASCICULAR BLOCK [QRS AXIS <= -45, QR IN I, RS IN II] POSSIBLE LATERAL MYOCARDIAL INFARCTION , PROBABLY OLD [30 ms Q WAVE IN I/aVL/V5/V6] NO PREVIOUS ECG AVAILABLE FOR COMPARISON Electronically Signed On 08-22-2022 13:52:35 CDT by Jeanette Vaughn M.D.
[2022-08-22] MEDS: LACTATED RINGERS 1,000 ML 30 ML IV CONT (06:45)
--- NOTE | 2022-08-22 06:53 | P.PNAN_ITS ---
Anes - Initial Pre Proc Eval Procedure: Operation Date: 08/22/22 09:30 Proposed Procedures p Cystoscopy, Right Ureteroscopy, Right Retrograde Pyelogram, Right Stone Extraction, Right Stent Placement, Possible Holmium Laser - Anthony Hermosillo MD Date/Time: 08/22/22 06:53 Surgeon: Anthony Hermosillo MD Pre Op Diagnosis: right ureteral stone Patient Data Age: 71 Gender: M Height: 1.8 m Weight: 95.45 kg Allergies Allergy/AdvReac Type Severity Reaction Status Date / Time Iodinated Contrast Media Allergy Mild Hives Verified 08/22/22 06:18 Home Medications Medication Instructions Recorded Confirmed Type allopurinol 100 mg tablet 100 mg QAM 08/20/22 08/20/22 History atorvastatin 20 mg tablet 20 mg QAM 08/20/22 08/20/22 History buspirone 5 mg tablet 5 mg BID 08/20/22 08/20/22 History ciprofloxacin HCl 500 mg tablet 500 mg BID 08/20/22 08/20/22 History ergocalciferol (vitamin D2) 1,250 50,000 unit WEEKLY 08/20/22 08/20/22 History mcg (50,000 unit) capsule insulin aspart U-100 100 unit/mL See Rx Instructions .Route .COMPLEX 08/20/22 08/20/22 History (3 mL) subcutaneous pen (Novolog FlexPen U-100 Insulin aspart) insulin glargine 100 unit/mL (3 40 unit subcut HS 08/20/22 08/20/22 History mL) subcutaneous pen (Basaglar KwikPen U-100 Insulin) lisinopril 40 mg tablet 40 mg QA 08/20/22 08/20/22 History metformin 500 mg tablet,extended 500 mg PO HS 08/20/22 08/20/22 History release 24 hr potassium chloride 20 mEq 20 meq PO DAILY 08/20/22 08/20/22 History tablet,extended release sertraline 50 mg tablet 50 mg QA 08/20/22 08/20/22 History tamsulosin 0.4 mg capsule 0.4 mg PO QAM 08/20/22 08/20/22 History Patient hx anesthesia problems: none Family hx anesthesia problems: none Results Review: All pre-operative results and documents have been reviewed as part of the pre- operative evaluation. [facility], LAT[facility] Past Medical History Medical History (Updated 08/22/22 @ 06:55 by Bradley Lawrence MD) Anxiety Depression Diabetes HTN (hypertension) Hyperlipidemia Obesity Social History Social History Smoking status: Never smoker Second hand tobacco smoke exposure: No Alcohol intake: never Substance use: never Substance use type: does not use Living arrangements: with family Spiritual care concerns: No Anes - Eval Final PreProcedure Day of Procedure 08/22/22 06:53 Patient weight: obese Heart: regular rate and rhythm Lungs: clear to auscultation and normal air movement Airway: Mallampati scale class II Neurological: alert and oriented Last oral intake: >/= 8 hours ASA classification: III Emergent: no Anesthetic plan: proceed Anesthesia type and monitoring: general LMA Results Review: All pre-operative results and documents have been reviewed as part of the pre- operative evaluation. Informed Consent: The patient's anesthetic plan and its attendant risks and benefits were discussed with the patient/family/POA. Questions were solicited and answers provided to the satisfaction of the patient/family/POA.
[2022-08-22 07:04] LABS: Glucose Point of Care 100 mg/dl (65-105)
--- NOTE | 2022-08-22 07:08 | WPDHPUPDATE1 ---
History and Physical Update Update Date/Time: 08/22/22 07:08 History and Physical has been reviewed, including an updated exam of the patient. There are NO changes in the patient's condition. Risks, benefits, and alternatives have been discussed and questions answered. Patient agrees to proceed with procedure.
--- NOTE | 2022-08-22 07:16 | WPDHPUPDATE1 ---
History and Physical Update Update Date/Time: 08/22/22 07:16 History and Physical has been reviewed, including an updated exam of the patient. There are NO changes in the patient's condition. Risks, benefits, and alternatives have been discussed and questions answered. Patient agrees to proceed with procedure.
[2022-08-22] MEDS: ceFAZolin 2 GM/D5W 50 ML 2 GM/50 ML BAG IVPB (07:18)
[2022-08-22] MEDS: LIDOCAINE HCL 2% GEL UROJET 10 ML PKG MUCOUS MEM (07:42)
--- NOTE | 2022-08-22 08:00 | W.PM.PROC2 ---
Procedure Note - Detailed Date of Procedure 08/22/22 Pre-op Diagnosis Right ureteral stone Post-op Diagnosis Same Procedure Performed Cystoscopy, right ureteroscopy with stone extraction Surgeon Anthony Hermosillo MD Anesthesia General Description of Procedure patient is brought to the operative suite was prepped draped in routine sterile fashion while in dorsal lithotomy position. 2% xylocaine jelly was introduced intraurethrally and systemic sedation is administered per the anesthesia department. Cystoscopy is undertaken with a 19 F rigid cystoscope. There was no urethral stricture. He has moderate lateral lobe hyperplasia the prostate. His bladder shows a stone in the dependent portion that is likely ureteral stone that has recently passed. Remainder of his bladder was normal without additional foreign bodies in the mucosa is is without hyperemia or neoplasm. The stone is extracted with a basket. I did place a 0.035 in glidewire performed right distal ureteroscopy with a short tapered ureteral scope. There were no additional stones. Because of the ease of this procedure opted not to place ureteral stent. Scopes and wires removed he was taken recovery room good condition. Drains No Packing No Pathology None sent Complications No immediate complications
[2022-08-22 08:07] LABS: Glucose Point of Care 113 mg/dl (65-105)
== END 2022-08-22 09:30 | disposition home or self-care (01) ==
PROVIDERS: PCP Internal Medicine; Visit Provider Urology
PROC: (CPT 52352; principal; 2022-08-22 07:30)
DX: N20.1 Calculus of ureter (principal); I10 Essential (primary) hypertension; E11.9 Type 2 diabetes mellitus without complications; E78.5 Hyperlipidemia, unspecified; F41.9 Anxiety disorder, unspecified; F32.A Depression, unspecified; E66.9 Obesity, unspecified; Z68.29 Body mass index [BMI] 29.0-29.9, adult; Z79.4 Long term (current) use of insulin; Z79.84 Long term (current) use of oral hypoglycemic drugs
CPT/HCPCS: 52352; 82365; 82948; 88300; 93005; 99199; C1769; J0690; J1100; J2405; J2704; J3010; J7120

== ENCOUNTER 2022-10-21 09:27 | Outpatient (CLI) | payer MEDICARE, SELFPAY ==
[2022-10-21 09:50] LABS: Appearance Urine Clear (Clear); Bilirubin Urine Negative (Negative); Blood Urine Negative (Negative); Color Urine Yellow (Yellow); Glucose Urine UA 2+ (Negative); Ketones Urine Negative (Negative); Leukocyte Esterase Ur Negative LEU/UL (Negative); Nitrate Urine Negative (Negative); Protein Urine Negative (Negative); Specific Grav Ur 1.025 (1.010-1.020)
[2022-10-21 09:51] LABS: Basophils Absolute Auto 0.07 K/mm3 (0.00-0.10); Basophils Percent Auto 0.7 % (0.0-1.0); Eosinophils Absolute Auto 0.29 K/mm3 (0.02-0.50); Hematocrit 35.2 % (37.0-46.0); Hemoglobin 11.8 g/dL (12.4-15.3); Immature Granulocyte Absolute 0.02 K/mm3 (0.00-0.00); Immature Granulocyte Percent A 0.2 % (0.0-0.0); Lymphocytes Absolute Auto 5.29 K/mm3 (1.10-4.50); Mean Corpuscular HGB Conc 33.5 g/dL (32.0-36.0); Mean Corpuscular Volume 83.6 fL (78.0-102.0); Mean Platelet Volume 9.7 fl (8.7-11.0); Monocytes Absolute Auto 0.83 K/mm3 (0.10-0.90); Monocytes Percent Auto 8.5 % (2.0-11.0); Neutrophils Absolute Auto 3.3 K/mm3 (1.7-7.2); Neutrophils Percent Auto 33.6 % (50.0-70.0); Platelet Count Result 230 K/mm3 (150-420); Red Blood Count 4.21 M/mm3 (4.70-6.10); Red Cell Distribution Width 13.3 % (11.6-14.4); White Blood Count 9.8 K/mm3 (4.8-10.8)
[2022-10-21 09:58] LABS: Hemoglobin A1C 8.8 % (<5.7)
[2022-10-21 10:02] LABS: Add Urine Microscopic? YES; RBC Urine None seen /hpf (0-2); WBC Urine 0-3 /hpf (0-3)
[2022-10-21 10:03] LABS: Bacteria Urine Trace /hpf; Mucus Urine Moderate /lpf; Squamous Epithelial Cell Urine Rare /hpf (Few)
[2022-10-21 10:57] LABS: Alanine Aminotransferase 54 U/L (16-63); Albumin Level 3.3 g/dL (3.4-5.0); Alkaline Phosphatase 127 U/L (46-116); Anion Gap 7 mmol/L (8-16); Aspartate Amino Transferase 37 U/L (15-37); Bilirubin,Total 1.1 mg/dL (0.00-1.00); Blood Urea Nitrogen 20 mg/dL (7-18); Calcium 8.4 mg/dL (8.5-10.1); Carbon Dioxide 30 mmol/L (21-32); Chloride 107 mmol/L (98-108); Cholesterol 88 mg/dL (0-200); Creatine Kinase 64 U/L (39-308); Estimated Glomerular Filt Rate > 60; Ferritin 115 ng/mL (26-388); Free T3 1.68 pg/mL (2.18-3.98); Free T4 Free Thyroxine 0.92 ng/dL (0.76-1.46); Glucose 62 mg/dL (70-99); HDL Direct 31 mg/dL (40-60); Iron 84 ug/dL (65-175); LDL Cholesterol Calculated 50 mg/dL (<130); Osmolality Calculated 298 mOsm/kg (285-295); Potassium 3.9 mmol/L (3.5-5.1); Sodium 144 mmol/L (136-145); Thyroid Stimulating Hormone 1.75 uIU/mL (0.36-3.74); Total Protein 6.7 g/dL (6.4-8.2); Triglycerides 37 mg/dL (0-150); Vitamin B12 605 pg/mL (193-986)
== END 2022-10-21 09:28 | disposition home or self-care (01) ==
LOC: CHSLAB 09:30
PROVIDERS: PCP Internal Medicine; Visit Provider Internal Medicine
DX: N39.0 Urinary tract infection, site not specified (principal); E78.5 Hyperlipidemia, unspecified; E11.65 Type 2 diabetes mellitus with hyperglycemia; D61.9 Aplastic anemia, unspecified; D50.9 Iron deficiency anemia, unspecified; E03.9 Hypothyroidism, unspecified
CPT/HCPCS: 36415; 80053; 80061; 81001; 82550; 82607; 82728; 83036; 83540; 84439; 84443; 84481; 85025

== ENCOUNTER 2023-01-22 07:50 | Outpatient (CLI) | payer MEDICARE, SELFPAY ==
[2023-01-22 08:07] LABS: Hematocrit 36.3 % (37.0-46.0); Hemoglobin 12.2 g/dL (12.4-15.3); Immature Reticulocyte Fraction 8.6 % (2.0-16.52); Mean Corpuscular HGB Conc 33.6 g/dL (32.0-36.0); Mean Corpuscular Hemoglobin 28.2 pg (27.0-31.0); Mean Platelet Volume 9.3 fl (8.7-11.0); Platelet Count Result 222 K/mm3 (150-420); Red Blood Count 4.32 M/mm3 (4.70-6.10); Red Cell Distribution Width 13.5 % (11.6-14.4); Reticulocyte Hemoglobin Conten 32.9 pg (28.0-35.0); Reticulocyte Percent 1.08 % (0.50-1.50); Reticulocytes Absolute 0.05 M/mm3 (0.02-0.1); White Blood Count 12.4 K/mm3 (4.8-10.8)
[2023-01-22 08:20] LABS: Hemoglobin A1C 7.7 % (<5.7)
[2023-01-22 08:39] LABS: Band Neutrophils Percent 0 % (0-6); Basophils Percent Manual 0 % (0-1); Eosinophils Absolute Manual 0.24 K/mm3 (0.02-0.5); Eosinophils Percent Manual 2 % (1-6); Lymphocytes Absolute Manual 5.58 K/mm3 (1.1-4.5); Lymphocytes Percent Manual 45 % (18-44); Monocytes Absolute Manual 0.74 K/mm3 (0.1-0.90); Monocytes Percent Manual 6 % (3-9); Neutrophils Absolute Manual 5.82 K/mm3 (1.3-6.7); Neutrophils Percent Manual 47 % (46-73); Platelet Estimate Adequate (Adequate); Total Cells Counted 100
[2023-01-22 09:09] LABS: Anion Gap 5 mmol/L (8-16); Blood Urea Nitrogen 19 mg/dL (7-18); Calcium 8.5 mg/dL (8.5-10.1); Carbon Dioxide 32 mmol/L (21-32); Chloride 104 mmol/L (98-108); Estimated Glomerular Filt Rate > 60; Glucose 60 mg/dL (70-99); Osmolality Calculated 292 mOsm/kg (285-295); Prostate Specific Antigen 1.7 ng/mL (< OR = 4.0); Sodium 141 mmol/L (136-145)
== END 2023-01-22 07:51 | disposition home or self-care (01) ==
LOC: CHSLAB 07:53
PROVIDERS: PCP Internal Medicine; Visit Provider Internal Medicine
DX: D64.9 Anemia, unspecified (principal); E11.65 Type 2 diabetes mellitus with hyperglycemia; Z12.5 Encounter for screening for malignant neoplasm of prostate
CPT/HCPCS: 36415; 80048; 83036; 84153; 85025; 85046; G0103

== ENCOUNTER 2023-02-10 13:01 | Outpatient (CLI) | payer MEDICARE, SELFPAY ==
[2023-02-10 13:13] LABS: Occult Blood Negative (Negative)
[2023-02-10 13:13] LABS: Occult Blood Negative (Negative)
[2023-02-10 13:13] LABS: Occult Blood Negative (Negative)
== END 2023-02-10 13:02 | disposition home or self-care (01) ==
LOC: CHSLAB 13:04
PROVIDERS: PCP Internal Medicine; Visit Provider Internal Medicine
DX: D64.9 Anemia, unspecified (principal)
CPT/HCPCS: 82272

== ENCOUNTER 2023-03-11 11:56 | Outpatient (CLI) | payer MEDICARE, SELFPAY ==
--- NOTE | ~2023-03-11 | XR_ITS ---
EXAM: XR abdomen/kub 1V DATE: 03/11/2023 12:23 HISTORY: RIGHT URETERAL STONE . COMPARISON: CT abdomen pelvis 08/16/2022. FINDINGS: Clear lung bases. Suture lines at the GE junction. Surgical clips over the stomach. Normal bowel gas pattern. Enlarged liver. Rounded calcifications over the right upper quadrant likely galls tones. Soft tissue calcification over the left abdomen. 5 mm calcific density over the right abdomen, not present in the prior CT, possibly representing artifact or intraluminal content. Ovoid hyperdens ity projecting over the right iliac wing more inferiorly, likely ingested tablet. Degenerative change s in the lumbar spine and bilateral hips. IMPRESSION: No radiographic evidence of nephrolithiasis. The previously described right ureteral stone is no long er visualized. Hepatomegaly. Cholelithiasis. Reviewed, dictated and finalized at location K. T AID TEACHER IMPRESSION: No radiographic evidence of nephrolithiasis. The previously described right ure teral stone is no longer visualized. Hepatomegaly. Cholelithiasis.
== END 2023-03-11 11:57 | disposition home or self-care (01) ==
PROVIDERS: PCP Internal Medicine; Visit Provider Urology
DX: N20.1 Calculus of ureter (principal); K80.20 Calculus of gallbladder without cholecystitis without obstruction
CPT/HCPCS: 74018

== ENCOUNTER 2023-04-01 12:13 | Outpatient (CLI) | payer MEDICARE, SELFPAY ==
--- NOTE | 2023-04-01 12:44 | ECG_ITS ---
Measurements Intervals [place] Rate: 55 P: 89 SD: 261 QRS: -53 QRSD: 139 T: 53 QT: 412 QTc: 396 Interpretive Statements SINUS BRADYCARDIA WITH FIRST DEGREE AV BLOCK INTRAVENTRICULAR CONDUCTION DELAY LEFT ANTERIOR FASCICULAR BLOCK CANNOT RULE OUT SEPTAL INFARCT, AGE INDETERMINATE BASELINE ARTIFACT- I, III, AVL, V3-V6 ABNORMAL ECG COMPARED TO ECG 08/22/2022 07:04:03 HEART RATE HAS INCREASED Electronically Signed On 04-01-2023 12:56:11 [employer] by Paul Bhatia D.O.
[2023-04-01 13:08] LABS: Anion Gap 7 mmol/L (8-16); Blood Urea Nitrogen 21 mg/dL (9-20); Calcium 8.6 mg/dL (8.4-10.2); Carbon Dioxide 27 mmol/L (22-30); Chloride 104 mmol/L (98-107); Estimated Glomerular Filt Rate > 60; Glucose 217 mg/dL (65-110); Potassium 4.4 mmol/L (3.4-5.0); Sodium 138 mmol/L (137-145)
== END 2023-04-01 12:14 | disposition home or self-care (01) ==
LOC: ANHSURGERY 12:18
PROVIDERS: Anesthesiology; PCP Internal Medicine; Visit Provider Urology
DX: E11.9 Type 2 diabetes mellitus without complications (principal); Z01.818 Encounter for other preprocedural examination; I45.9 Conduction disorder, unspecified; I44.0 Atrioventricular block, first degree
CPT/HCPCS: 36415; 80048; 93005

== ENCOUNTER 2023-04-03 02:08 | Day surgery (SDC) | payer MEDICARE, SELFPAY ==
--- NOTE | 2023-03-31 10:16 | PC.NURSE ---
Report to the Outpatient Waiting Room, entrance under the green pavilion located off [facility], at time __1000 on date __04/03/23 . Planned Procedure Time: _1200 . Time changes happen often and if your time is changed the preop area will call you the afternoon before. - You and your visitor will be asked to self-screen and do not enter if you have any COVID symptoms. - A mask is optional within the hospital at this time. Patients may have clear liquids (water, carbonated beverages, clear teas, apple juice) until 3 hours prior to surgery ( 9: 00 AM )with a maximum of 20 ounces. - No food from midnight until time of surgery - Infants may have breast milk until 4 hours before surgery, infant formula 6 hours prior to surgery. - Children will be allowed to drink immediately following surgery. If applicable, please bring a bottle or sippy cup to assist with drinking. Juice, water, soda, and popsicles are readily available. For infants on formula, please bring formula the day of surgery. Pacifiers are allowed. Take the following medications with a SIP of water the morning of surgery: ___BUSPIRONE,SERTRALINE DO NOT STOP ANY OF YOUR OTHER PRESCRIPTION MEDICATIONS PRIOR TO SURGERY ?EXCEPT THE FOLLOWING Medications to discontinue per physician ___ALL VITAMINS AND SUPPLEMENTS 3 DAYS PRE OP .LAST DOSE 03/30/23 Please no make-up, nail bahamian, hairspray, perfume, deodorant, or body powder the day of surgery. No jewelry (including any body piercings) or valuables the day of surgery, leave them at home. Please take a shower or bath the night before, or the morning of, surgery with an antibacterial soap. Wear comfortable, loose fitting clothing. Children are encouraged to wear pajamas. - Jewelry must be removed prior to entering the operating room. Rings and piercings that are not removed may be cut off. - The hospital will not accept responsibility for valuables. - Please leave all valuables, including medications, at home the day of surgery. If you are going home after surgery, a licensed dairy truck driver must drive you home. - NO public transportation without another adult if you receive anesthesia. - We recommend that an adult stay with you for 24 hours following discharge. - We also recommend that you do not drive, make important decision, drink alcoholic beverages, or take any drugs that were not prescribed by your health care provider for at least 24 hours after your discharge time. For Pediatric surgeries, we recommend two adults accompany the child home. Follow any additional instructions given to you from your surgeon. If you or anyone in your household have experienced Covid symptoms in the past week, please notify your surgeon or the nurse liaison at the phone number below for possible testing. Telephone instructions given to ____PATIENT and asked if any additional questions and then verbalized understanding. Patient advised to call surgeon office or pre surgery nurse liaison [phone] if any additional questions.
[2023-03-31 10:38] VITALS: BMI 31.4
--- NOTE | 2023-04-02 13:05 | WPDANESEPPF ---
Anes - Initial Pre Proc Eval Procedure: Operation Date: 04/03/23 10:30 Proposed Procedures p Cystoscopy, Bladder Biopsy, - Anthony Hermosillo MD s Possible Trans Urethral Resection Bladder Tumor - Anthony Hermosillo MD Date/Time: 04/02/23 13:05 Surgeon: Anthony Hermosillo MD Pre Op Diagnosis: bladder lesion, hematuria Patient Data Age: 72 Gender: M Height: 1.8 m Weight: 102.1 kg Allergies Allergy/AdvReac Type Severity Reaction Status Date / Time No Known Allergies Allergy Verified 04/03/23 08:31 Home Medications Medication Instructions Recorded Confirmed Type allopurinol 100 mg tablet 100 mg PO QAM 08/20/22 04/03/23 History atorvastatin 20 mg tablet 20 mg PO QAM 08/20/22 04/03/23 History buspirone 5 mg tablet 5 mg PO BID 08/20/22 04/03/23 History ergocalciferol (vitamin D2) 1,250 50,000 unit PO WEEKLY 08/20/22 04/03/23 History mcg (50,000 unit) capsule insulin aspart U-100 100 unit/mL See Rx Instructions .Route .COMPLEX 08/20/22 03/31/23 History (3 mL) subcutaneous pen (Novolog FlexPen U-100 Insulin aspart) insulin glargine 100 unit/mL (3 30 unit subcut HS 08/20/22 04/03/23 History mL) subcutaneous pen (Basaglar KwikPen U-100 Insulin) lisinopril 40 mg tablet 40 mg PO QAM 08/20/22 04/03/23 History metformin 500 mg tablet,extended 500 mg PO HS 08/20/22 04/03/23 History release 24 hr potassium chloride 20 mEq 20 meq PO DAILY 08/20/22 04/03/23 History tablet,extended release sertraline 50 mg tablet 50 mg PO QAM 08/20/22 04/03/23 History tamsulosin 0.4 mg capsule 0.4 mg PO QAM 08/20/22 04/03/23 History ascorbic acid (vitamin C) 500 mg 500 mg PO DAILY 03/31/23 04/03/23 History capsule cyanocobalamin (vitamin B-12) 1,000 mcg PO DAILY 03/31/23 04/03/23 History 1,000 mcg capsule magnesium 250 mg tablet 250 mg PO DAILY 03/31/23 04/03/23 History multivitamin 1 tablet PO DAILY 03/31/23 04/03/23 History omega 1-jcy-hll-fish oil 1,000 mg 1 cap PO DAILY 03/31/23 04/03/23 History (120 mg-180 mg) capsule (Fish Oil) Patient hx anesthesia problems: none Family hx anesthesia problems: none Results Review: All pre-operative results and documents have been reviewed as part of the pre-operative evaluation. [facility] Past Medical History Medical History (Updated 04/02/23 @ 13:06 by Jamie Betts DO) Anxiety Depression Diabetes DVT (deep venous thrombosis) HTN (hypertension) Hyperlipidemia Obesity Social History Social History Smoking status: Never smoker Second hand tobacco smoke exposure: No Alcohol intake: never Substance use: never Substance use type: does not use Living arrangements: with family Gender identity (if verbalized by the patient): Male Sexual Orientation (if Verbalized by the Patient): Straight or Heterosexual Spiritual care concerns: No Anes - Eval Final PreProcedure Day of Procedure 04/02/23 13:05 Patient weight: obese Heart: regular rate and rhythm Lungs: clear to auscultation Airway: Mallampati scale class II and special considerations (loose front tooth - patient informed of risk) poor dentition Neurological: alert and oriented Last oral intake: >/= 8 hours ASA classification: III Emergent: no Anesthetic plan: proceed Anesthesia type and monitoring: general LMA and standard monitoring Results Review: All pre-operative results and documents have been reviewed as part of the pre-operative evaluation. Informed Consent: The patient's anesthetic plan and its attendant risks and benefits were discussed with the patient/family/POA. Questions were solicited and answers provided to the satisfaction of the patient/family/POA.
[2023-04-03] VITALS (10 sets, daily range): BP systolic 138–176; BP diastolic 65–82; PULSE 50–73; RESP 10–20; TEMP 36.1–36.4; O2SAT 99–100
--- NOTE | 2023-04-03 06:41 | WPDHPUPDATE1 ---
History and Physical Update Update Date/Time: 04/03/23 06:41 History and Physical has been reviewed, including an updated exam of the patient. There are NO changes in the patient's condition. Risks, benefits, and alternatives have been discussed and questions answered. Patient agrees to proceed with procedure.
[2023-04-03] MEDS: LACTATED RINGERS 1,000 ML 30 ML IV CONT ×2 (08:45→12:01)
[2023-04-03 08:52] LABS: Glucose Point of Care 120 mg/dl (65-105)
[2023-04-03] MEDS: ceFAZolin 2 GM/D5W 50 ML 2 GM/50 ML BAG IVPB (10:17)
[2023-04-03] MEDS: LIDOCAINE HCL 2% GEL UROJET 10 ML PKG MUCOUS MEM (10:36)
--- NOTE | 2023-04-03 10:53 | W.PM.PROC2 ---
Procedure Note - Detailed Date of Procedure 04/03/23 Pre-op Diagnosis bladder lesion, hematuria Post-op Diagnosis Same Procedure Performed Trans urethral resection bladder lesion ( large, 4-5 cm) Surgeon Anthony Hermosillo MD Anesthesia General Findings Unusual, slightly raised, non-papillary hyperemic mucosa and the bladder dome extending to near the anterior bladder neck Description of Procedure Patient is brought to the operative suite was prepped draped in routine sterile fashion while in dorsal lithotomy position after the uneventful induction of a general anesthetic. I 1st had to dilate his external urethral meatus from 18-26 F in order to place a 24 F resectoscope sheath. There was no urethral stricture. He has marked lateral lobe enlargement with a small median lobe. Prostatic urethra measures 3-3.5 cm in length. Careful inspection of the bladder reveals an unusual area of bladder mucosa in the anterior bladder wall extending from the dome to near the anterior bladder neck. This is a somewhat sessile, not papillary, solid neoplastic growth that is unusual in appearance and not characteristic of a urothelial carcinoma. There were scant scattered calcifications on the surface of this unusual mucosa. I did resected its entirety which probably measured 4-5 cm in diameter. The base and periphery were extensively cauterized with both the loop and rollerball electrode. All chips were evacuated. Drains No Packing No Pathology Yes Complications No immediate complications Condition Stable Disposition PACU
[2023-04-03 11:12] LABS: Glucose Point of Care 149 mg/dl (65-105)
== END 2023-04-03 13:20 | disposition home or self-care (01) ==
PROVIDERS: PCP Internal Medicine; Visit Provider Urology
PROC: 0TBB8ZX Excision of Bladder, Via Natural or Artificial Opening Endoscopic, Diagnostic (ICD-10-PCS; CPT 52204; principal; 2023-04-03 10:30)
PROC: 0TBB8ZZ Excision of Bladder, Via Natural or Artificial Opening Endoscopic (ICD-10-PCS; CPT 52235; 2023-04-03 10:30)
DX: C67.8 Malignant neoplasm of overlapping sites of bladder (principal); E11.9 Type 2 diabetes mellitus without complications; I10 Essential (primary) hypertension; E78.5 Hyperlipidemia, unspecified; F41.9 Anxiety disorder, unspecified; F32.A Depression, unspecified; Z86.718 Personal history of other venous thrombosis and embolism; E66.9 Obesity, unspecified; Z68.31 Body mass index [BMI] 31.0-31.9, adult; Z79.4 Long term (current) use of insulin; Z79.84 Long term (current) use of oral hypoglycemic drugs
CPT/HCPCS: 52235; 82948; 88305; J0690; J3010; J7120

== ENCOUNTER 2023-05-15 01:40 | Day surgery (SDC) | payer MEDICARE, SELFPAY ==
--- NOTE | 2023-05-02 10:09 | PC.NURSE ---
Report to the Outpatient Waiting Room, entrance under the green pavilion located off [facility], at time __0630 on date _05/15/23 . Planned Procedure Time: __30 . Time changes happen often and if your time is changed the preop area will call you the afternoon before. - You and your visitor will be asked to self-screen and do not enter if you have any COVID symptoms. - A mask is optional within the hospital at this time. Patients may have clear liquids (water, carbonated beverages, clear teas, apple juice) until 3 hours prior to surgery(5:30 AM) with a maximum of 20 ounces. - No food from midnight until time of surgery - Infants may have breast milk until 4 hours before surgery, formula 6 hours prior to surgery. - Children will be allowed to drink immediately following surgery. If applicable, please bring a bottle or sippy cup to assist with drinking. Juice, water, soda, and popsicles are readily available. For infants on formula, please bring formula the day of surgery. Pacifiers are allowed. Take the following medications with a SIP of water the morning of surgery: __BUSPIRONE,SERTRALINE DO NOT STOP ANY OF YOUR OTHER PRESCRIPTION MEDICATIONS PRIOR TO SURGERY ?EXCEPT THE FOLLOWING Medications to discontinue per physician HOLD ALL VITAMINS AND SUPPLEMENTS 3_DAYS PRE OP.LAST DOSE 05/11/23 Please no make-up, nail portuguese, hairspray, perfume, deodorant, or body powder the day of surgery. No jewelry (including any body piercings) or valuables the day of surgery, leave them at home. Please take a shower or bath the night before, or the morning of, surgery with an antibacterial soap. Wear comfortable, loose fitting clothing. Children are encouraged to wear pajamas. - Jewelry must be removed prior to entering the operating room. Rings and piercings that are not removed may be cut off. - The hospital will not accept responsibility for valuables. - Please leave all valuables, including medications, at home the day of surgery. If you are going home after surgery, a licensed tower truck driver must drive you home. - NO public transportation without another adult if you receive anesthesia. - We recommend that an adult stay with you for 24 hours following discharge. - We also recommend that you do not drive, make important decision, drink alcoholic beverages, or take any drugs that were not prescribed by your health care provider for at least 24 hours after your discharge t Follow any additional instructions given to you from your surgeon. If you or anyone in your household have experienced Covid symptoms in the past week, please notify your surgeon or the nurse liaison at the phone number below for possible testing. Telephone instructions given to ___PATIENT and asked if any additional questions and then verbalized understanding. Patient advised to call surgeon office or pre surgery nurse liaison [phone] if any additional questions.
[2023-05-02 10:16] VITALS: BMI 31.4
--- NOTE | 2023-05-14 12:07 | WPDANESEPPF ---
Anes - Initial Pre Proc Eval Procedure: Operation Date: 05/15/23 08:30 Proposed Procedures p Re-Resection Bladder Tumor Base - Anthony Hermosillo MD Date/Time: 05/14/23 12:07 Surgeon: Anthony Hermosillo MD Pre Op Diagnosis: urotheliel carcinoma Patient Data Age: 72 Gender: M Height: 1.8 m Weight: 102.1 kg Allergies Allergy/AdvReac Type Severity Reaction Status Date / Time No Known Allergies Allergy Verified 05/02/23 10:04 Home Medications Medication Instructions Recorded Confirmed Type allopurinol 100 mg tablet 100 mg PO QAM 08/20/22 05/02/23 History atorvastatin 20 mg tablet 20 mg PO QAM 08/20/22 05/02/23 History buspirone 5 mg tablet 5 mg PO BID 08/20/22 05/02/23 History ergocalciferol (vitamin D2) 1,250 50,000 unit PO WEEKLY 08/20/22 05/02/23 History mcg (50,000 unit) capsule insulin aspart U-100 100 unit/mL See Rx Instructions .Route .COMPLEX 08/20/22 05/02/23 History (3 mL) subcutaneous pen (Novolog FlexPen U-100 Insulin aspart) insulin glargine 100 unit/mL (3 30 unit subcut HS 08/20/22 05/02/23 History mL) subcutaneous pen (Basaglar KwikPen U-100 Insulin) lisinopril 40 mg tablet 40 mg PO QAM 08/20/22 05/02/23 History metformin 500 mg tablet,extended 500 mg PO HS 08/20/22 05/02/23 History release 24 hr potassium chloride 20 mEq 20 meq PO DAILY 08/20/22 05/02/23 History tablet,extended release sertraline 50 mg tablet 50 mg PO QAM 08/20/22 05/02/23 History tamsulosin 0.4 mg capsule 0.4 mg PO QAM 08/20/22 05/02/23 History ascorbic acid (vitamin C) 500 mg 500 mg PO DAILY 03/31/23 05/02/23 History capsule cyanocobalamin (vitamin B-12) 1,000 mcg PO DAILY 03/31/23 05/02/23 History 1,000 mcg capsule magnesium 250 mg tablet 250 mg PO DAILY 03/31/23 05/02/23 History multivitamin 1 tablet PO DAILY 03/31/23 05/02/23 History omega 4-mzi-iby-fish oil 1,000 mg 1 cap PO DAILY 03/31/23 05/02/23 History (120 mg-180 mg) capsule (Fish Oil) hydrocodone 5 mg-acetaminophen 325 1 - 2 tablet PO Q6H PRN pain #20 04/03/23 05/02/23 Rx mg tablet tabs Patient hx anesthesia problems: none Family hx anesthesia problems: none Results Review: All pre-operative results and documents have been reviewed as part of the pre-operative evaluation. [facility] Past Medical History Medical History (Updated 05/14/23 @ 12:08 by Jamie Betts DO) Anxiety Depression Diabetes DVT (deep venous thrombosis) Gout HTN (hypertension) Hyperlipidemia Obesity JAYLEN (obstructive sleep apnea) Surgical History Surgical History (Updated 05/14/23 @ 12:08 by Jamie Betts DO) History of gastric bypass Social History Social History Smoking status: Never smoker Second hand tobacco smoke exposure: No Alcohol intake: never Substance use: never Substance use type: does not use Living arrangements: with family Gender identity (if verbalized by the patient): Male Sexual Orientation (if Verbalized by the Patient): Straight or Heterosexual Spiritual care concerns: No Anes - Eval Final PreProcedure Day of Procedure 05/14/23 12:07 Patient weight: obese Heart: regular rate and rhythm Lungs: clear to auscultation Airway: Mallampati scale class II Neurological: alert and oriented Last oral intake: >/= 8 hours ASA classification: III Emergent: no Anesthetic plan: proceed Anesthesia type and monitoring: general LMA and standard monitoring Results Review: All pre-operative results and documents have been reviewed as part of the pre-operative evaluation. Informed Consent: The patient's anesthetic plan and its attendant risks and benefits were discussed with the patient/family/POA. Questions were solicited and answers provided to the satisfaction of the patient/family/POA.
[2023-05-15] VITALS (8 sets, daily range): BP systolic 113–163; BP diastolic 56–69; PULSE 50–86; RESP 12–16; TEMP 36–36.1; O2SAT 100
--- NOTE | 2023-05-15 06:16 | WPDHPUPDATE1 ---
History and Physical Update Update Date/Time: 05/15/23 06:16 History and Physical has been reviewed, including an updated exam of the patient. There are NO changes in the patient's condition. Risks, benefits, and alternatives have been discussed and questions answered. Patient agrees to proceed with procedure.
[2023-05-15 07:29] LABS: Glucose Point of Care 131 mg/dl (65-105)
[2023-05-15] MEDS: LACTATED RINGERS 1,000 ML 30 ML IV CONT ×2 (08:00→09:12)
--- NOTE | 2023-05-15 08:04 | PM.HPGS ---
History of Present Illness History of Present Illness Consent: Risks, benefits, and alternatives have been discussed and questions answered. Patient agrees to proceed with procedure. Chief complaint: urotheliel carcinoma Narrative: Osvaldo Duque is a 72 year old male recently underwent transurethral section bladder tumor. Pathology showed invasion into the lamina propria. On upper tract imaging there was no evidence of metastatic disease. He presents for re-resection bladder tumor base. He is aware the risk including, but not limited to, adverse cardiopulmonary events, hematuria and need for additional procedures. Review of Systems Review of Systems: All systems reviewed & are unremarkable except as noted in HPI and below PMFSH Past Medical History Medical History (Updated 05/15/23 @ 08:05 by Anthony Hermosillo MD) Anxiety Depression Diabetes DVT (deep venous thrombosis) Gout HTN (hypertension) Hyperlipidemia Obesity JAYLEN (obstructive sleep apnea) Surgical History Surgical History (Updated 05/14/23 @ 12:08 by Jamie Betts DO) History of gastric bypass Social History Social History Smoking status: Never smoker Second hand tobacco smoke exposure: No Alcohol intake: never Substance use: never Substance use type: does not use Living arrangements: with family Gender identity (if verbalized by the patient): Male Sexual Orientation (if Verbalized by the Patient): Straight or Heterosexual Spiritual care concerns: No Meds Home Medications and Allergies Home Medications Medication Instructions Recorded Confirmed Type allopurinol 100 mg tablet 100 mg PO QAM 08/20/22 05/02/23 History atorvastatin 20 mg tablet 20 mg PO QAM 08/20/22 05/02/23 History buspirone 5 mg tablet 5 mg PO BID 08/20/22 05/02/23 History ergocalciferol (vitamin D2) 1,250 50,000 unit PO WEEKLY 08/20/22 05/02/23 History mcg (50,000 unit) capsule insulin aspart U-100 100 unit/mL See Rx Instructions .Route .COMPLEX 08/20/22 05/02/23 History (3 mL) subcutaneous pen (Novolog FlexPen U-100 Insulin aspart) insulin glargine 100 unit/mL (3 30 unit subcut HS 08/20/22 05/02/23 History mL) subcutaneous pen (Basaglar KwikPen U-100 Insulin) lisinopril 40 mg tablet 40 mg PO QAM 08/20/22 05/02/23 History metformin 500 mg tablet,extended 500 mg PO HS 08/20/22 05/02/23 History release 24 hr potassium chloride 20 mEq 20 meq PO DAILY 08/20/22 05/02/23 History tablet,extended release sertraline 50 mg tablet 50 mg PO QAM 08/20/22 05/02/23 History tamsulosin 0.4 mg capsule 0.4 mg PO QAM 08/20/22 05/02/23 History ascorbic acid (vitamin C) 500 mg 500 mg PO DAILY 03/31/23 05/02/23 History capsule cyanocobalamin (vitamin B-12) 1,000 mcg PO DAILY 03/31/23 05/02/23 History 1,000 mcg capsule magnesium 250 mg tablet 250 mg PO DAILY 03/31/23 05/02/23 History multivitamin 1 tablet PO DAILY 03/31/23 05/02/23 History omega 4-ett-wcw-fish oil 1,000 mg 1 cap PO DAILY 03/31/23 05/02/23 History (120 mg-180 mg) capsule (Fish Oil) hydrocodone 5 mg-acetaminophen 325 1 - 2 tablet PO Q6H PRN pain #20 04/03/23 05/02/23 Rx mg tablet tabs Allergies Allergy/AdvReac Type Severity Reaction Status Date / Time No Known Allergies Allergy Verified 05/02/23 10:04 Exam Const: General: no acute distress Resp: Effort & Inspection: normal respiratory effort GI: Inspection: non-distended GI Palp: No abdominal tenderness and No Guarding due to palpation present (GI) Auscultation: normal bowel sounds Assessment and Plan Assessment and plan (1) History of bladder cancer: Code(s): Z85.51 - Personal history of malignant neoplasm of bladder Status: Acute Assessment and Plan: Re-resection bladder tumor base
[2023-05-15] MEDS: ceFAZolin 2 GM/D5W 50 ML 2 GM/50 ML BAG IVPB (08:22)
[2023-05-15] MEDS: LIDOCAINE HCL 2% GEL UROJET 10 ML PKG MUCOUS MEM (08:38)
--- NOTE | 2023-05-15 08:40 | W.PM.PROC2 ---
Procedure Note - Detailed Date of Procedure 05/15/23 Pre-op Diagnosis History of bladder cancer Post-op Diagnosis Same Procedure Performed Re-resection bladder tumor base Surgeon Anthony Hermosillo MD Anesthesia General Findings No gross recurrent/residual cancer Description of Procedure Patient brought to the operative suite was prepped draped in routine sterile fashion while dorsal lithotomy position after the uneventful induction of a general LMA anesthetic. Twenty-four F resectoscope was placed in his bladder. He has moderate lateral lobe hyperplasia of the prostate and small median bar. Bladder shows an area of recent resection and anterior bladder wall, essentially at the dome. The remainder of the bladder mucosa is normal without hyperemia or obvious neoplasm. Using a 24F resectoscope loop I resected the bladder tumor base with an attempt made to include detrusor muscle for pathological evaluation of invasion. The base and periphery were cauterized. This was all done with preservation of the ureteral orifices. Resectoscope was removed the patient was taken recovery room in good condition Drains No Packing No Pathology Yes
[2023-05-15 09:18] LABS: Glucose Point of Care 127 mg/dl (65-105)
== END 2023-05-15 10:25 | disposition home or self-care (01) ==
PROVIDERS: PCP Internal Medicine; Visit Provider Urology
PROC: 0TBB8ZZ Excision of Bladder, Via Natural or Artificial Opening Endoscopic (ICD-10-PCS; CPT 52235; principal; 2023-05-15 08:30)
DX: C67.3 Malignant neoplasm of anterior wall of bladder (principal); N40.0 Benign prostatic hyperplasia without lower urinary tract symptoms; I10 Essential (primary) hypertension; E78.5 Hyperlipidemia, unspecified; G47.33 Obstructive sleep apnea (adult) (pediatric); E11.9 Type 2 diabetes mellitus without complications; F32.A Depression, unspecified; F41.9 Anxiety disorder, unspecified; E66.9 Obesity, unspecified; Z68.31 Body mass index [BMI] 31.0-31.9, adult; Z79.4 Long term (current) use of insulin; Z79.84 Long term (current) use of oral hypoglycemic drugs; Z79.891 Long term (current) use of opiate analgesic; Z99.89 Dependence on other enabling machines and devices; Z85.51 Personal history of malignant neoplasm of bladder; Z86.718 Personal history of other venous thrombosis and embolism
CPT/HCPCS: 52235; 82948; 88305; J0690; J1100; J2250; J2405; J2704; J3010; J7120

== ENCOUNTER 2023-05-20 09:08 | Outpatient (CLI) | payer MEDICARE, SELFPAY ==
[2023-05-20 09:47] LABS: Appearance Urine Clear (Clear); Basophils Absolute Auto 0.06 K/mm3 (0.00-0.10); Basophils Percent Auto 0.7 % (0.0-1.0); Bilirubin Urine Negative (Negative); Blood Urine 3+ (Negative); Color Urine Yellow (Yellow); Eosinophils Absolute Auto 0.36 K/mm3 (0.02-0.50); Eosinophils Percent Auto 4.5 % (1.0-6.0); Glucose Urine UA Negative (Negative); Hematocrit 37.2 % (37.0-46.0); Hemoglobin 12.2 g/dL (12.4-15.3); Immature Granulocyte Absolute 0.02 K/mm3 (0.00-0.00); Immature Granulocyte Percent A 0.2 % (0.0-0.0); Ketones Urine Negative (Negative); Leukocyte Esterase Ur Trace (Negative); Lymphocytes Absolute Auto 3.85 K/mm3 (1.10-4.50); Lymphocytes Percent Auto 47.9 % (18.0-42.0); Mean Corpuscular HGB Conc 32.8 g/dL (32.0-36.0); Mean Corpuscular Hemoglobin 26.6 pg (27.0-31.0); Mean Platelet Volume 9.6 fl (8.7-11.0); Monocytes Absolute Auto 0.62 K/mm3 (0.10-0.90); Monocytes Percent Auto 7.7 % (2.0-11.0); Neutrophils Absolute Auto 3.1 K/mm3 (1.7-7.2); Nitrate Urine Negative (Negative); Platelet Count Result 224 K/mm3 (150-420); Protein Urine 2+ (Negative); Red Blood Count 4.59 M/mm3 (4.70-6.10); Red Cell Distribution Width 14.2 % (11.6-14.4); Specific Grav Ur >= 1.030 (1.010-1.020); Urobilinogen Urine 0.2 mg/dL (0.2-1.0)
[2023-05-20 09:58] LABS: Add Urine Microscopic? YES; Bacteria Urine Trace /hpf; Mucus Urine Few /lpf; RBC Urine 21-50 /hpf (0-2)
[2023-05-20 10:22] LABS: Hemoglobin A1C 6.2 % (<5.7)
[2023-05-20 10:44] LABS: Alanine Aminotransferase 54 U/L (16-63); Albumin Level 3.4 g/dL (3.4-5.0); Alkaline Phosphatase 117 U/L (46-116); Anion Gap 8 mmol/L (8-16); Aspartate Amino Transferase 32 U/L (15-37); Blood Urea Nitrogen 17 mg/dL (7-18); Calcium 8.5 mg/dL (8.5-10.1); Carbon Dioxide 28 mmol/L (21-32); Chloride 107 mmol/L (98-108); Cholesterol 116 mg/dL (0-200); Creatine Kinase 63 U/L (39-308); Estimated Glomerular Filt Rate > 60; Free T3 2.32 pg/mL (2.18-3.98); Free T4 Free Thyroxine 1.07 ng/dL (0.76-1.46); Glucose 97 mg/dL (70-99); HDL Direct 41 mg/dL (40-60); Iron 145 ug/dL (65-175); LDL Cholesterol Calculated 64 mg/dL (<130); Osmolality Calculated 297 mOsm/kg (285-295); Potassium 4.6 mmol/L (3.5-5.1); Prostate Specific Antigen 2.2 ng/mL (< OR = 4.0); Sodium 143 mmol/L (136-145); Thyroid Stimulating Hormone 1.62 uIU/mL (0.36-3.74); Total Protein 6.9 g/dL (6.4-8.2); Triglycerides 56 mg/dL (0-150); Uric Acid 4.4 mg/dL (3.5-7.2)
[2023-05-20 11:14] LABS: MALB Creatinine Ratio 195.5 mg/g (0-30); Microalbumin Urine Random > 400.0 mg/L
[2023-05-20 11:26] LABS: Ferritin 74 ng/mL (26-388); Vitamin B12 636 pg/mL (193-986)
[2023-05-22 20:42] LABS: Red Blood Cell Folate 565 ng/mL RBC (>280)
[2023-05-24 14:12] LABS: Vitamin D 25 Hydroxy 50 ng/mL (30-100)
== END 2023-05-20 09:09 | disposition home or self-care (01) ==
LOC: CHSLAB 09:12
PROVIDERS: PCP Internal Medicine; Visit Provider Internal Medicine
DX: D64.9 Anemia, unspecified (principal); E11.65 Type 2 diabetes mellitus with hyperglycemia; E79.0 Hyperuricemia without signs of inflammatory arthritis and tophaceous disease; E78.2 Mixed hyperlipidemia; B18.1 Chronic viral hepatitis B without delta-agent; Z12.5 Encounter for screening for malignant neoplasm of prostate; E55.9 Vitamin D deficiency, unspecified
CPT/HCPCS: 36415; 80053; 80061; 81001; 82043; 82306; 82550; 82607; 82728; 82747; 83036; 83540; 84153; 84439; 84443; 84481; 84550; 85025; G0103

== ENCOUNTER 2023-07-18 09:47 | Outpatient (CLI) | payer MEDICARE, SELFPAY ==
[2023-07-18 10:08] LABS: Basophils Absolute Auto 0.04 K/mm3 (0.00-0.10); Basophils Percent Auto 0.5 % (0.0-1.0); Eosinophils Absolute Auto 0.37 K/mm3 (0.02-0.50); Eosinophils Percent Auto 4.3 % (1.0-6.0); Hematocrit 37.1 % (37.0-46.0); Hemoglobin 12.3 g/dL (12.4-15.3); Immature Granulocyte Absolute 0.02 K/mm3 (0.00-0.00); Immature Granulocyte Percent A 0.2 % (0.0-0.0); Lymphocytes Absolute Auto 3.74 K/mm3 (1.10-4.50); Lymphocytes Percent Auto 43.5 % (18.0-42.0); Mean Corpuscular HGB Conc 33.2 g/dL (32-36); Mean Corpuscular Volume 81.4 fL (78.0-102.0); Mean Platelet Volume 9.8 fl (8.7-11.0); Monocytes Absolute Auto 0.77 K/mm3 (0.10-0.90); Neutrophils Absolute Auto 3.66 K/mm3 (1.70-7.20); Neutrophils Percent Auto 42.5 % (50.0-70.0); Platelet Count Result 216 K/mm3 (150-420); Red Blood Count 4.56 M/mm3 (4.70-6.10); Red Cell Distribution Width 14.3 % (11.6-14.4); White Blood Count 8.6 K/mm3 (4.8-10.8)
[2023-07-18 10:33] LABS: Prothrombin Time 11.4 Seconds (9.50-12.1)
[2023-07-18 10:54] LABS: Anion Gap 7 mmol/L (4-12); Blood Urea Nitrogen 14 mg/dL (7-18); Calcium 8.8 mg/dL (8.5-10.1); Carbon Dioxide 30 mmol/L (21-32); Chloride 104 mmol/L (98-108); Estimated Glomerular Filt Rate > 60; Glucose 133 mg/dL (70-99); Osmolality Calculated 294 mOsm/kg (285-295); Potassium 4.7 mmol/L (3.5-5.1); Sodium 141 mmol/L (136-145)
== END 2023-07-18 09:48 | disposition home or self-care (01) ==
LOC: CHSLAB 09:51
PROVIDERS: Anesthesiology; PCP Internal Medicine; Visit Provider Surgery
DX: E11.9 Type 2 diabetes mellitus without complications (principal); Z85.51 Personal history of malignant neoplasm of bladder; Z86.718 Personal history of other venous thrombosis and embolism; R10.9 Unspecified abdominal pain
CPT/HCPCS: 36415; 80048; 85025; 85610; 85730

== ENCOUNTER 2023-07-23 01:08 | Day surgery (SDC) | payer MEDICARE, SELFPAY ==
--- NOTE | 2023-07-17 14:17 | PC.NURSE ---
Report to the Outpatient Waiting Room, entrance under the green pavilion located off [facility], at time _1:30 PM on date __07/23/23 . Planned Procedure Time: _3:30 PM . Time changes happen often and if your time is changed the preop area will call you the afternoon before. - You and your visitor will be asked to self-screen and do not enter if you have any COVID symptoms. - A mask is optional within the hospital at this time. Patients may have clear liquids (water, carbonated beverages, clear teas, apple juice) until 3 hours prior to surgery( 12:30 PM) with a maximum of 20 ounces. - No food from midnight until time of surgery - Infants may have breast milk until 4 hours before surgery, infant formula 6 hours prior to surgery. - Children will be allowed to drink immediately following surgery. If applicable, please bring a bottle or sippy cup to assist with drinking. Juice, water, soda, and popsicles are readily available. For infants on formula, please bring formula the day of surgery. Pacifiers are allowed. Take the following medications with a SIP of water the morning of surgery: __BUSPIRONE,,SERTRALINE DO NOT STOP ANY OF YOUR OTHER PRESCRIPTION MEDICATIONS PRIOR TO SURGERY ?EXCEPT THE FOLLOWING Medications to discontinue per physician HOLD ALL VITAMINS AND SUPPLEMENTS 3 DAYS PRE OP .LAST DOSE 07/19/23 Please no make-up, nail vietnamese, hairspray, perfume, deodorant, or body powder the day of surgery. No jewelry (including any body piercings) or valuables the day of surgery, leave them at home. Please take a shower or bath the night before, or the morning of, surgery with an antibacterial soap. Wear comfortable, loose fitting clothing. Children are encouraged to wear pajamas. - Jewelry must be removed prior to entering the operating room. Rings and piercings that are not removed may be cut off. - The hospital will not accept responsibility for valuables. - Please leave all valuables, including medications, at home the day of surgery. If you are going home after surgery, a licensed line haul truck driver must drive you home. - NO public transportation without another adult if you receive anesthesia. - We recommend that an adult stay with you for 24 hours following discharge. - We also recommend that you do not drive, make important decision, drink alcoholic beverages, or take any drugs that were not prescribed by your health care provider for at least 24 hours after your discharge time. For Pediatric surgeries, we recommend two adults accompany the child home. Follow any additional instructions given to you from your surgeon. If you or anyone in your household have experienced Covid symptoms in the past week, please notify your surgeon or the nurse liaison at the phone number below for possible testing. Telephone instructions given to ___PATIENT and asked if any additional questions and then verbalized understanding. Patient advised to call surgeon office or pre surgery nurse liaison [phone] if any additional questions.
[2023-07-17 14:34] VITALS: BMI 32.5
--- NOTE | ~2023-07-23 | XR_ITS ---
EXAMINATION: XR chest port-a-cath/central DATE: 07/23/2023 16:24 INDICATION: Port catheter insertion TECHNIQUE: frontal view of the chest was obtained. COMPARISON: None FINDINGS: Right internal jugular central venous port catheter with distal tip at the cephalad superior vena cav a. The lungs are clear with no focal airspace opacities, pulmonary edema, pleural effusion or pneumot horax. The cardiomediastinal silhouette is normal. IMPRESSION: 1. Right internal jugular central venous port catheter tip at the cephalad superior vena cava. 2. No acute cardiopulmonary disease. Reviewed, dictated and finalized at location A. IMPRESSION: 1. Right internal jugular central venous port catheter tip at the cephalad supe rior vena cava. 2. No acute cardiopulmonary disease.
--- NOTE | ~2023-07-23 | XR_ITS ---
EXAMINATION: XR fl guide central line place DATE: 07/23/2023 16:19 INDICATION: Port catheter insertion TECHNIQUE: 2 fluoroscopic images of the chest were obtained during procedure performed by Dr. Conley . Radiologist was not present for the imaging or procedure. The amount of fluoroscopy time used rocco g this procedure was 0.7 minutes. COMPARISON: None. FINDINGS/IMPRESSION: Right internal jugular central venous port catheter with distal tip near the superior cavoatrial junc tion. See procedure note for further detail. Reviewed, dictated and finalized at location A.
[2023-07-23 13:20] VITALS: BP 136/73; PULSE 62; RESP 18; TEMP 36.2; O2SAT 100; BMI 32.5
[2023-07-23] MEDS: LACTATED RINGERS 1,000 ML 30 ML IV CONT (13:40)
[2023-07-23] MEDS: KETOROLAC 15 MG/ML VIAL (*BKC) IV PUSH (13:50)
[2023-07-23 13:56] LABS: Glucose Point of Care 204 mg/dl (65-105)
--- NOTE | 2023-07-23 14:47 | PM.IMHP ---
H&P: HPI History of Present Illness Date/Time: 07/23/23 14:47 Chief Complaint: Bladder cancer Narrative: This is a 72-year-old man who presents for Port-A-Cath placement. He was recently found to have bladder cancer and is currently undergoing treatment. He is in need of port placement to continue chemotherapy. Review of Systems Review of Systems: All systems reviewed & are unremarkable except as noted in HPI and below Constitutional: Constitutional: Denies chills, Denies fever(s), Denies headache(s) and Denies weight loss Eyes: Eyes: Denies change in vision ENT: Denies dizziness, Denies headache(s), Denies neck mass and Denies throat swelling Cardiovascular: Cardiovascular: Denies chest pain, Denies lightheadedness and Denies dyspnea Respiratory: Respiratory: Denies cough, Denies dyspnea and Denies wheezing Gastrointestinal: Gastrointestinal: Denies abdominal pain, Denies change in bowel habits, Denies nausea and Denies vomiting Genitourinary: Genitourinary: Denies hematuria and Denies dysuria Musculoskeletal: Musculoskeletal: Reports as per HPI Integumentary/Breasts: Skin/Breast: Reports as per HPI Neurologic: Denies dizziness and Denies headache(s) Allergic/Immunologic: Allergic/Immunologic: Denies throat swelling and Denies wheezing [facility] Past Medical History Medical History (Updated 05/15/23 @ 08:05 by Anthony Hermosillo MD) Anxiety Depression Diabetes DVT (deep venous thrombosis) Gout HTN (hypertension) Hyperlipidemia Obesity JAYLEN (obstructive sleep apnea) Surgical History Surgical History (Updated 05/14/23 @ 12:08 by Jamie Betts DO) History of gastric bypass Social History Social History Smoking status: Never smoker Second hand tobacco smoke exposure: No Alcohol intake: never Substance use: never Substance use type: does not use Living arrangements: with family Gender identity (if verbalized by the patient): Male Sexual Orientation (if Verbalized by the Patient): Straight or Heterosexual Spiritual care concerns: No Meds Home Medications and Allergies Home Medications Medication Instructions Recorded Confirmed Type allopurinol 100 mg tablet 100 mg PO QAM 08/20/22 07/17/23 History atorvastatin 20 mg tablet 20 mg PO QAM 08/20/22 07/17/23 History buspirone 5 mg tablet 5 mg PO BID 08/20/22 07/23/23 History ergocalciferol (vitamin D2) 1,250 50,000 unit PO WEEKLY 08/20/22 07/23/23 History mcg (50,000 unit) capsule insulin aspart U-100 100 unit/mL See Rx Instructions .Route .COMPLEX 08/20/22 07/17/23 History (3 mL) subcutaneous pen (Novolog FlexPen U-100 Insulin aspart) insulin glargine 100 unit/mL (3 30 - 40 unit subcut HS 08/20/22 07/17/23 History mL) subcutaneous pen (Basaglar KwikPen U-100 Insulin) lisinopril 40 mg tablet 40 mg PO QAM 08/20/22 07/17/23 History metformin 500 mg tablet,extended 500 mg PO HS 08/20/22 07/17/23 History release 24 hr potassium chloride 20 mEq 20 meq PO DAILY 08/20/22 07/23/23 History tablet,extended release sertraline 50 mg tablet 50 mg PO QAM 08/20/22 07/23/23 History tamsulosin 0.4 mg capsule 0.4 mg PO QA 08/20/22 07/17/23 History ascorbic acid (vitamin C) 500 mg 500 mg PO DAILY 03/31/23 07/23/23 History capsule cyanocobalamin (vitamin B-12) 1,000 mcg PO DAILY 03/31/23 07/23/23 History 1,000 mcg capsule magnesium 250 mg tablet 250 mg PO DAILY 03/31/23 07/23/23 History multivitamin 1 tablet PO DAILY 03/31/23 07/23/23 History omega 8-dgy-ayi-fish oil 1,000 mg 1 cap PO DAILY 03/31/23 07/23/23 History (120 mg-180 mg) capsule (Fish Oil) Allergies Allergy/AdvReac Type Severity Reaction Status Date / Time No Known Allergies Allergy Verified 07/23/23 13:32 Vital Signs Vital Signs - 24 hr 07/23/23 13:20 Temperature 36.2 C L Pulse Rate 62 Respiratory Rate 18 Blood Pressure 136/73 Pulse Oximetry 100 Oxygen Delivery Room Air Exam Const: General: no acute distress an
--- NOTE | 2023-07-23 14:49 | WPDHPUPDATE1 ---
History and Physical Update Update Date/Time: 07/23/23 14:49 History and Physical has been reviewed, including an updated exam of the patient. There are NO changes in the patient's condition. Risks, benefits, and alternatives have been discussed and questions answered. Patient agrees to proceed with procedure.
--- NOTE | 2023-07-23 14:55 | SUR.PREOP ---
1455- Notified Dr. Terrazas patient's blood glucose 204 in pre-op. Per Dr. Bianchi no new orders at this time.
--- NOTE | 2023-07-23 15:05 | WPDANESEPPF ---
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 Patient Data Age: 72 Gender: M Height: 1.78 m Weight: 103.1 kg Last Vital Signs Temp 97.2 F L 07/23/23 13:20 Pulse 62 07/23/23 13:20 Resp 18 07/23/23 13:20 BP 136/73 07/23/23 13:20 Pulse Ox 100 07/23/23 13:20 O2 Del Method Room Air 07/23/23 13:20 Allergies Allergy/AdvReac Type Severity Reaction Status Date / Time No Known Allergies Allergy Verified 07/23/23 13:32 Home Medications Medication Instructions Recorded Confirmed Type allopurinol 100 mg tablet 100 mg PO QAM 08/20/22 07/17/23 History atorvastatin 20 mg tablet 20 mg PO QA 08/20/22 07/17/23 History buspirone 5 mg tablet 5 mg PO BID 08/20/22 07/23/23 History ergocalciferol (vitamin D2) 1,250 50,000 unit PO WEEKLY 08/20/22 07/23/23 History mcg (50,000 unit) capsule insulin aspart U-100 100 unit/mL See Rx Instructions .Route .COMPLEX 08/20/22 07/17/23 History (3 mL) subcutaneous pen (Novolog FlexPen U-100 Insulin aspart) insulin glargine 100 unit/mL (3 30 - 40 unit subcut 08/20/22 07/17/23 History mL) subcutaneous pen (Basaglar KwikPen U-100 Insulin) lisinopril 40 mg tablet 40 mg PO QAM 08/20/22 07/17/23 History metformin 500 mg tablet,extended 500 mg PO HS 08/20/22 07/17/23 History release 24 hr potassium chloride 20 mEq 20 meq PO DAILY 08/20/22 07/23/23 History tablet,extended release sertraline 50 mg tablet 50 mg PO QAM 08/20/22 07/23/23 History tamsulosin 0.4 mg capsule 0.4 mg PO QAM 08/20/22 07/17/23 History ascorbic acid (vitamin C) 500 mg 500 mg PO DAILY 03/31/23 07/23/23 History capsule cyanocobalamin (vitamin B-12) 1,000 mcg PO DAILY 03/31/23 07/23/23 History 1,000 mcg capsule magnesium 250 mg tablet 250 mg PO DAILY 03/31/23 07/23/23 History multivitamin 1 tablet PO DAILY 03/31/23 07/23/23 History omega 6-fuj-qpc-fish oil 1,000 mg 1 cap PO DAILY 03/31/23 07/23/23 History (120 mg-180 mg) capsule (Fish Oil) Laboratory Tests 07/23/23 13:48 POC Capillary Glucose 204 H mg/dl (65-105) Patient hx anesthesia problems: none Family hx anesthesia problems: none Results Review: All pre-operative results and documents have been reviewed as part of the pre-operative evaluation. [facility] Past Medical History Medical History Anxiety Depression Diabetes DVT (deep venous thrombosis) Gout HTN (hypertension) Hyperlipidemia Obesity JAYLEN (obstructive sleep apnea) Surgical History Surgical History History of gastric bypass Social History Social History Smoking status: Never smoker Second hand tobacco smoke exposure: No Alcohol intake: never Substance use: never Substance use type: does not use Living arrangements: with family Gender identity (if verbalized by the patient): Male Sexual Orientation (if Verbalized by the Patient): Straight or Heterosexual Spiritual care concerns: No Anes - Eval Final PreProcedure Day of Procedure 07/23/23 15:05 Patient weight: obese Heart: regular rate and rhythm Lungs: clear to auscultation Airway: Mallampati scale and special considerations (Many missing teeth, none loose per pt. ) Neurological: alert and oriented Last oral intake: >/= 8 hours ASA classification: III Emergent: no Anesthetic plan: proceed Anesthesia type and monitoring: general GIVS and standard monitoring Results Review: All pre-operative results and documents have been reviewed as part of the pre-operative evaluation. Bladder ca, hx of JAYLEN, no longer on CPAP, DM. Informed Consent: The patien
[2023-07-23] MEDS: ceFAZolin 2 GM/D5W 50 ML 2 GM/50 ML BAG IVPB (15:23)
[2023-07-23] MEDS: HEPARIN SODIUM 5,000 UNITS/ML VIAL 5000 UNITS IRRIGATION (15:44)
[2023-07-23] MEDS: LIDO 1%/EPINEPHRINE 1:100,000 50 ML VIAL INFILTRATE (15:50)
[2023-07-23] MEDS: HEPARIN SODIUM, PORCINE 10,000 UNITS/10 ML VIAL 10000 UNITS IV PUSH (15:50)
[2023-07-23 16:10] VITALS: BP 180/95; PULSE 62; RESP 14; O2SAT 99
--- NOTE | 2023-07-23 16:10 | W.PM.PROC2 ---
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 He is in need of port placement to initiate chemotherapy. Findings Right internal jugular Port-A-Cath placement was performed under ultrasound and fluoroscopic guidance. SonoSite ultrasound was used to identify the right internal jugular vein. This was visualized as a compressible vessel just lateral to the pulsatile right carotid artery. An 18 gauge introducer needle was advanced under ultrasound guidance directly into the lumen of the right internal jugular vein. Dark nonpulsatile blood was aspirated. Fluoroscopy was then used to guide advancement of the guidewire followed by the dilator and sheath. The catheter was then advanced through the sheath and the final fluoroscopic images demonstrated the catheter tip in the distal SVC and no kinks along its path. Description of Procedure Procedure as well as risks, benefits, and alternatives were discussed with patient. Written consent was obtained and placed in chart prior to procedure. Patient was brought back to surgical suite. Was placed supine on operating table. Time-out was done confirm patient procedure. IV sedation was then administered by the Anesthesia Department. The chest and neck area was prepped and draped in sterile fashion using chlorhexidine prep. Patient was placed in Trendelenburg position. SonoSite ultrasound was used to identify the right internal jugular vein. It was visualized as a compressible vessel just lateral to the carotid artery. 1% lidocaine with epinephrine was infiltrated directly over the vessel under ultrasound guidance. An 18 gauge introducer needle was then advanced under ultrasound guidance directly into the right internal jugular vein. Dark nonpulsatile blood was aspirated. A 0.035 in guidewire was then advanced through the needle under fluoroscopic guidance. The guidewire was visualized advancing all the way down into the superior vena cava. 1% lidocaine with epinephrine was then infiltrated on the right anterior chest and along the tract up to the guidewire insertion site. A 3 cm incision was made with a 15 blade scalpel, and electrocautery was then used for dissection down through the subcutaneous tissue to the pectoral fascia. A pocket was created just inferior to the incision using blunt dissection. A small cathi incision was then also made at the insertion site at the neck. The tunneler was then advanced from the chest incision up to the neck incision and the catheter tubing was brought up through this tract. The dilator and sheath were then advanced over the guidewire under fluoroscopic visualization. The dilator and guidewire were then removed leaving the sheath in place. The catheter tubing was then advanced through the sheath under fluoroscopic guidance. The sheath was unsnapped and carefully peeled away. The catheter tubing was released underneath the neck incision. Fluoroscopy was used to confirm proper placement of the catheter tubing and no kinks along its path. The catheter was then cut to proper length and secured to the port. The port was then accessed with a Johnson needle and aspirated and flushed with heparinized saline. The port function with ease. The port was then hep-locked with Hep-Lock solution. The port was then placed within the pocket that was created, and was secured to the fascia using 3 0 Prolene simple interrupted sutures. The patient was flattened out in bed. James's fascia was reapproximated using 3 0 Vicryl simple interrupted sutures. The skin of the incisions was then approximated us
[2023-07-23 16:17] LABS: Glucose Point of Care 178 mg/dl (65-105)
--- NOTE | 2023-07-23 16:35 | SUR.PHASEII ---
1615 PORTABLE CXR IN PROGRESS.
--- NOTE | 2023-07-23 16:35 | SUR.PHASEII ---
REPEAT PORTABLE CXR IN PROGRESS.
[2023-07-23 16:40] VITALS: BP 159/80; PULSE 62; O2SAT 100
== END 2023-07-23 17:20 | disposition home or self-care (01) ==
PROVIDERS: PCP Internal Medicine; Visit Provider Surgery
PROC: (CPT 36561; principal; 2023-07-23 15:30)
DX: C67.3 Malignant neoplasm of anterior wall of bladder (principal); I10 Essential (primary) hypertension; E78.5 Hyperlipidemia, unspecified; E11.9 Type 2 diabetes mellitus without complications; G47.33 Obstructive sleep apnea (adult) (pediatric); M10.9 Gout, unspecified; F41.9 Anxiety disorder, unspecified; F32.A Depression, unspecified; Z86.718 Personal history of other venous thrombosis and embolism; Z98.84 Bariatric surgery status; E66.9 Obesity, unspecified; Z68.32 Body mass index [BMI] 32.0-32.9, adult; Z79.4 Long term (current) use of insulin; Z79.84 Long term (current) use of oral hypoglycemic drugs
CPT/HCPCS: 36561; 77001; 82948; C1788; J0690; J1644; J1885; J2250; J2704; J3010; J7120

== ENCOUNTER 2023-08-08 02:08 | Emergency (ER) | payer MEDICARE, SELFPAY ==
--- NOTE | ~2023-08-08 | CT_ITS ---
Non-contrast CT scan of the Abdomen and Pelvis Clinical indication: Bilateral flank pain Technique: 2.5 mm axial scans were obtained through the abdomen and pelvis without intravenous or or al contrast. Dose reduction technique was used on this scan by utilizing automated exposure control a nd iterative reconstruction technique. The dose-length product (DLP) was 1107.63 mGy-cm. COMPARISON: 08/16/2022 Findings: Images through the lung bases reveal stable 4 mm right middle lobe pulmonary nodule. Calci fied granulomas are unchanged.. Probable 2 mm nonobstructing left renal stone present. No right renal stones seen. No ureteral stone or hydronephrosis on either side. The liver, spleen, pancreas, and adrenals appear normal. Small calcified gallstone present. There is no aortic aneurysm. There is no evidence of bowel obstruction. Evidence of prior bariatric surgery. Images through the pelvis were performed. There is no evidence of ascites or lymphadenopathy. Multipl e small bladder stones are present. Possible wall thickening of the anterior urinary bladder, similar to prior exam. Prostate gland markedly enlarged, and indents through the bladder base. Impression: 2 mm nonobstructing right renal stone. Several small urinary bladder stones. Possible wall thickening of the anterior urinary bladder, simil ar to prior exam. Cholelithiasis. Markedly enlarged prostate gland. Reviewed, dictated and finalized at [facility]. Impression: 2 mm nonobstructing right renal stone. Several small urinary bladder stones. Possible wall thickening of the anterior urinary bladder, similar to prior exam. Cholelithiasis. Markedly enlarged prostate gland.
[2023-08-08 02:11] VITALS: BP 144/68; PULSE 64; RESP 18; TEMP 36.1; O2SAT 99
--- NOTE | 2023-08-08 02:20 | ED.BACK ---
HPI - Back Pain/Injury General Chief Complaint: Back Pain/Injury Stated Complaint: abdominal pain Time Seen by Provider: 08/08/23 02:13 Source: patient and family Mode of arrival: ambulatory Limitations: no limitations History of Present Illness HPI Narrative: this is a 72 year male with a history of kidney stones history of bladder cancer being followed by Urology presents with lower back pain with no radiation of his pain no fever chills no dysuria hematuria no nausea vomiting no abdominal pain no suprapubic pain no chest pain or shortness of breath. MD elicited complaint: back pain Pertinent past history: prior back pain Onset (ago): day(s) Timing: constant Severity: moderate Pain scale (0-10): 6 Quality: dull and aching Location: lumbar spine, right lower back and left lower back Exacerbating factors: sitting upright Relieving factors: walking Related Data Home Medications Medication Instructions Recorded Confirmed allopurinol 100 mg tablet 100 mg PO QAM 08/20/22 07/17/23 atorvastatin 20 mg tablet 20 mg PO QAM 08/20/22 07/17/23 buspirone 5 mg tablet 5 mg PO BID 08/20/22 07/23/23 ergocalciferol (vitamin D2) 1,250 50,000 unit PO WEEKLY 08/20/22 07/23/23 mcg (50,000 unit) capsule insulin aspart U-100 100 unit/mL See Rx Instructions .Route .COMPLEX 08/20/22 07/17/23 (3 mL) subcutaneous pen (Novolog FlexPen U-100 Insulin aspart) insulin glargine 100 unit/mL (3 30 - 40 unit subcut HS 08/20/22 07/17/23 mL) subcutaneous pen (Basaglar KwikPen U-100 Insulin) lisinopril 40 mg tablet 40 mg PO QAM 08/20/22 07/17/23 metformin 500 mg tablet,extended 500 mg PO HS 08/20/22 07/17/23 release 24 hr potassium chloride 20 mEq 20 meq PO DAILY 08/20/22 07/23/23 tablet,extended release sertraline 50 mg tablet 50 mg PO QAM 08/20/22 07/23/23 tamsulosin 0.4 mg capsule 0.4 mg PO QAM 08/20/22 07/17/23 ascorbic acid (vitamin C) 500 mg 500 mg PO DAILY 03/31/23 07/23/23 capsule cyanocobalamin (vitamin B-12) 1,000 mcg PO DAILY 03/31/23 07/23/23 1,000 mcg capsule magnesium 250 mg tablet 250 mg PO DAILY 03/31/23 07/23/23 multivitamin 1 tablet PO DAILY 03/31/23 07/23/23 omega 7-lpb-emj-fish oil 1,000 mg 1 cap PO DAILY 03/31/23 07/23/23 (120 mg-180 mg) capsule (Fish Oil) Allergies Allergy/AdvReac Type Severity Reaction Status Date / Time No Known Allergies Allergy Verified 08/08/23 02:16 Review of Systems Review of Systems: All systems reviewed & are unremarkable except as noted in HPI and below PMFSH Past Medical History Medical History Anxiety Depression Diabetes DVT (deep venous thrombosis) Gout HTN (hypertension) Hyperlipidemia Obesity JAYLEN (obstructive sleep apnea) Surgical History Surgical History History of gastric bypass Social History Social History Smoking status: Never smoker Second hand tobacco smoke exposure: No Alcohol intake: never Substance use: never Substance use type: does not use Living arrangements: with family Gender identity (if verbalized by the patient): Male Sexual Orientation (if Verbalized by the Patient): Straight or Heterosexual Spiritual care concerns: No Exam Const: General: healthy appearing, no acute distress and alert Limitations: no limitations Chest: Chest palpation & inspection: normal inspection of the chest Resp: Effort & Inspection: normal respiratory effort Auscultation: clear to auscultation bilaterally Cardio: Rate: regular rate Rhythm: regular rhythm GI: GI Palp: Yes Soft to palpation Auscultation: normal bowel sounds : General: Yes bladder normal to palpation Back/Spine/Pelvis: Back: CVA tenderness Skin: General skin exam: normal color Neuro: General: patient oriented x3, moves all extremities and no meningeal signs Course Course Emergency Course:
[2023-08-08] MEDS: KETOROLAC 15 MG/ML VIAL (*BKC) IV PUSH (02:25)
[2023-08-08 02:36] LABS: Appearance Urine Clear (Clear); Bilirubin Urine Negative (Negative); Blood Urine Negative (Negative); Color Urine Yellow (Yellow); Glucose Urine UA 1+ (Negative); Ketones Urine Negative (Negative); Leukocyte Esterase Ur Negative LEU/UL (Negative); Nitrate Urine Negative (Negative); Protein Urine Negative (Negative); Specific Grav Ur >= 1.030 (1.010-1.020); Urobilinogen Urine 0.2 mg/dL (0.2-1.0)
[2023-08-08 02:38] LABS: Hematocrit 32.4 % (37.0-46.0); Hemoglobin 10.9 g/dL (12.4-15.3); Immature Platelet Fraction Pct 3.6 % (1.0-7.0); Mean Corpuscular HGB Conc 33.6 g/dL (32-36); Mean Corpuscular Hemoglobin 26.9 pg (27.0-31.0); Mean Platelet Volume 9.8 fl (8.7-11.0); Platelet Count Result 88 K/mm3 (150-420); Red Blood Count 4.05 M/mm3 (4.70-6.10); Red Cell Distribution Width 13.7 % (11.6-14.4); White Blood Count 12.8 K/mm3 (4.8-10.8)
[2023-08-08] MEDS: SODIUM CHLORIDE 0.9% IV 500 ML 999 ML IV CONT (02:38)
[2023-08-08 02:41] LABS: Add Urine Microscopic? NO
[2023-08-08 02:51] LABS: Alanine Aminotransferase 48 U/L (16-63); Albumin Level 3.3 g/dL (3.4-5.0); Alkaline Phosphatase 163 U/L (46-116); Anion Gap 10 mmol/L (4-12); Aspartate Amino Transferase 30 U/L (15-37); Bilirubin,Total 0.4 mg/dL (0.00-1.00); Blood Urea Nitrogen 15 mg/dL (7-18); Calcium 8.2 mg/dL (8.5-10.1); Carbon Dioxide 24 mmol/L (21-32); Chloride 105 mmol/L (98-108); Estimated CRCL calculation 92 ml/min; Estimated Glomerular Filt Rate > 60; Glucose 207 mg/dL (70-99); Osmolality Calculated 294 mOsm/kg (285-295); Potassium 3.8 mmol/L (3.5-5.1); Sodium 139 mmol/L (136-145); Total Protein 7.1 g/dL (6.4-8.2)
[2023-08-08 03:02] LABS: Band Neutrophils Percent 2 % (0-6); Lymphocytes Absolute Manual 4.99 K/mm3 (1.1-4.5); Lymphocytes Percent Manual 39 % (18-44); Monocytes Absolute Manual 0.38 K/mm3 (0.1-0.90); Monocytes Percent Manual 3 % (3-9); Neutrophils Absolute Manual 7.42 K/mm3 (1.3-6.7); Neutrophils Percent Manual 56 % (46-73); Platelet Estimate Decreased (Adequate); Schistocytes None Seen; Total Cells Counted 100
[2023-08-08 03:03] LABS: Nucleated Red Blood Cells 1 %
== END 2023-08-08 06:02 | disposition home or self-care (01) ==
PROVIDERS: Emergency Provider Emergency Medicine; PCP Internal Medicine
DX: S39.012A Strain of muscle, fascia and tendon of lower back, initial encounter (principal); X58.XXXA Exposure to other specified factors, initial encounter; I10 Essential (primary) hypertension; E78.5 Hyperlipidemia, unspecified; E11.9 Type 2 diabetes mellitus without complications; G47.33 Obstructive sleep apnea (adult) (pediatric); M10.9 Gout, unspecified; F41.9 Anxiety disorder, unspecified; F32.A Depression, unspecified; Z86.718 Personal history of other venous thrombosis and embolism; Z79.4 Long term (current) use of insulin; Z79.84 Long term (current) use of oral hypoglycemic drugs
CPT/HCPCS: 36415; 74176; 80053; 81003; 85025; 85055; 96361; 96374; 99284; J1885; J7040

== ENCOUNTER 2024-01-09 10:06 | Outpatient (CLI) | payer MEDICARE, SELFPAY ==
[2024-01-09 10:28] LABS: Basophils Absolute Auto 0.05 K/mm3 (0.00-0.10); Basophils Percent Auto 0.7 % (0.0-1.0); Eosinophils Absolute Auto 0.39 K/mm3 (0.02-0.50); Eosinophils Percent Auto 5.4 % (1.0-6.0); Hematocrit 35.1 % (37.0-46.0); Hemoglobin 11.8 g/dL (12.4-15.3); Immature Granulocyte Absolute 0.01 K/mm3 (0.00-0.00); Immature Granulocyte Percent A 0.1 % (0.0-0.0); Lymphocytes Absolute Auto 3.93 K/mm3 (1.10-4.50); Lymphocytes Percent Auto 54.2 % (18.0-42.0); Mean Corpuscular HGB Conc 33.6 g/dL (32-36); Mean Corpuscular Hemoglobin 27.6 pg (27.0-31.0); Mean Platelet Volume 9.4 fl (8.7-11.0); Monocytes Absolute Auto 0.42 K/mm3 (0.10-0.90); Monocytes Percent Auto 5.8 % (2.0-11.0); Neutrophils Absolute Auto 2.45 K/mm3 (1.70-7.20); Neutrophils Percent Auto 33.8 % (50.0-70.0); Platelet Count Result 215 K/mm3 (150-420); Red Blood Count 4.28 M/mm3 (4.70-6.10); Red Cell Distribution Width 13.4 % (11.6-14.4); White Blood Count 7.3 K/mm3 (4.8-10.8)
[2024-01-09 10:29] LABS: Add Urine Microscopic? YES; Appearance Urine Clear (Clear); Bilirubin Urine Negative (Negative); Blood Urine Negative (Negative); Color Urine Light Yellow (Yellow); Glucose Urine UA Negative (Negative); Ketones Urine Negative (Negative); Leukocyte Esterase Ur 3+ LEU/UL (Negative); Nitrate Urine Positive (Negative); Protein Urine Trace (Negative); Specific Grav Ur 1.015 (1.010-1.020); Urobilinogen Urine 0.2 mg/dL (0.2-1.0); pH Urine 6.5 (5.0-8.0)
[2024-01-09 10:38] LABS: Bacteria Urine 2+ /hpf; RBC Urine None seen /hpf (0-2); WBC Urine 21-30 /hpf (0-3)
[2024-01-09 10:53] LABS: Hemoglobin A1C 8.8 % (<5.7)
[2024-01-09 11:25] LABS: Alanine Aminotransferase 45 U/L (16-63); Albumin Level 3.3 g/dL (3.4-5.0); Alkaline Phosphatase 148 U/L (46-116); Anion Gap 12 mmol/L (4-12); Aspartate Amino Transferase 44 U/L (15-37); Bilirubin,Total 0.6 mg/dL (0.00-1.00); Blood Urea Nitrogen 29 mg/dL (7-18); Calcium 9.3 mg/dL (8.5-10.1); Carbon Dioxide 24 mmol/L (21-32); Chloride 105 mmol/L (98-108); Cholesterol 133 mg/dL (0-200); Creatine Kinase 46 U/L (39-308); Estimated Glomerular Filt Rate 60; Glucose 132 mg/dL (70-99); HDL Direct 32 mg/dL (40-60); LDL Cholesterol Calculated 68 mg/dL (<130); Osmolality Calculated 299 mOsm/kg (285-295); Potassium 4.2 mmol/L (3.5-5.1); Sodium 141 mmol/L (136-145); Total Protein 7.5 g/dL (6.4-8.2); Triglycerides 166 mg/dL (0-150)
[2024-01-09 11:26] LABS: Prostate Specific Antigen < 0.1 ng/mL (< OR = 4.0)
== END 2024-01-09 10:07 | disposition home or self-care (01) ==
LOC: CHSLAB 10:08
PROVIDERS: PCP Internal Medicine; Visit Provider Internal Medicine
DX: E11.65 Type 2 diabetes mellitus with hyperglycemia (principal); I10 Essential (primary) hypertension; E78.2 Mixed hyperlipidemia; D64.9 Anemia, unspecified; Z12.5 Encounter for screening for malignant neoplasm of prostate; N39.0 Urinary tract infection, site not specified
CPT/HCPCS: 36415; 80053; 80061; 81001; 82550; 83036; 84153; 85025; 87077; 87086; 87088; 87186; G0103

== ENCOUNTER 2024-05-04 10:48 | Outpatient (CLI) | payer MEDICARE, SELFPAY ==
[2024-05-04 11:05] LABS: Hematocrit 32.5 % (37.0-46.0); Hemoglobin 10.7 g/dL (12.4-15.3); Mean Corpuscular HGB Conc 32.9 g/dL (32-36); Mean Corpuscular Hemoglobin 26.8 pg (27.0-31.0); Mean Corpuscular Volume 81.3 fL (78.0-102.0); Mean Platelet Volume 9.3 fl (8.7-11.0); Platelet Count Result 187 K/mm3 (150-420); Red Cell Distribution Width 15.9 % (11.6-14.4); White Blood Count 6.9 K/mm3 (4.8-10.8)
[2024-05-04 11:18] LABS: Add Urine Microscopic? YES; Appearance Urine Clear (Clear); Bilirubin Urine Negative (Negative); Blood Urine Negative (Negative); Color Urine Yellow (Yellow); Glucose Urine UA Negative (Negative); Ketones Urine Negative (Negative); Leukocyte Esterase Ur 3+ (Negative); Nitrate Urine Positive (Negative); Protein Urine 1+ (Negative); Specific Grav Ur 1.015 (1.010-1.020); Urobilinogen Urine 0.2 mg/dL (0.2-1.0)
[2024-05-04 11:26] LABS: Bacteria Urine 2+ /hpf; RBC Urine None seen /hpf (0-2); Squamous Epithelial Cell Urine Few /hpf (Few); WBC Urine 21-30 /hpf (0-3)
[2024-05-04 11:49] LABS: Hemoglobin A1C 7.4 % (<5.7)
[2024-05-04 11:55] LABS: Alanine Aminotransferase 29 U/L (16-63); Albumin Level 3.4 g/dL (3.4-5.0); Alkaline Phosphatase 137 U/L (46-116); Anion Gap 11 mmol/L (4-12); Aspartate Amino Transferase 22 U/L (15-37); Bilirubin,Total 0.9 mg/dL (0.00-1.00); Blood Urea Nitrogen 18 mg/dL (7-18); Calcium 8.2 mg/dL (8.5-10.1); Carbon Dioxide 25 mmol/L (21-32); Chloride 108 mmol/L (98-108); Cholesterol 114 mg/dL (0-200); Estimated Glomerular Filt Rate > 60; Ferritin 76 ng/mL (26-388); Glucose 89 mg/dL (70-99); HDL Direct 35 mg/dL (40-60); Iron 73 ug/dL (65-175); LDL Cholesterol Calculated 61 mg/dL (<130); Osmolality Calculated 298 mOsm/kg (285-295); Potassium 3.6 mmol/L (3.5-5.1); Sodium 144 mmol/L (136-145); Total Protein 6.8 g/dL (6.4-8.2); Triglycerides 91 mg/dL (0-150); Uric Acid 4.9 mg/dL (3.5-7.2); Vitamin B12 399 pg/mL (193-986)
--- OUTSIDE RECORDS SUMMARY | 2024-05-04 12:49 | XMS_ITS | Clinical Summary ---
Author Organization [facility] Address [address] [place] [address] Care Team Providers Care Lithograph Designer Name Role Phone Yolande Soria MD Primary Care Provider [phone] Devin Tariq MD Unavailable [phone] Arnoldo Wade DO Unavailable [phone] Anthony Hermosillo MD Unavailable [phone] Allergies Active Allergy Reactions Criticality Noted Date Comments Iodinated Contrast Media Rash Medium 07/31/2018 Pt states no longer allergic Medications allopurinol (ZYLOPRIM) 100 mg tablet Take 1 tablet (100 mg total) by mouth every morning 1 9 Active busPIRone (BUSPAR) 5 mg tablet Take 1 tablet (5 mg total) by mouth 2 (two) times a day 1 9 Active lisinopriL (PRINIVIL,ZESTRI L) 40 mg tablet Take 1 tablet (40 mg total) by mouth every morning 1 9 Active metFORMIN XR (GLUCOPHAGE XR) 500 mg 24 hr tablet Take 2 tablets (1,000 mg total) by mouth 2 (two) times a day 1 9 Active sertraline (ZOLOFT) 50 mg tablet Take 1 tablet (50 mg total) by mouth every morning 0 9 Active atorvastatin (LIPITOR) 20 mg tablet Take 1 tablet (20 mg total) by mouth every morning 3 Active NovoLOG 100 unit/mL (3 mL) pen for injection Inject 20 Units under the skin 3 (three) times a day with meals 3 Active potassium Cl-calcium phos-mag 40-18-9 mg tablet Take 20 mEq by mouth once Take two tabs by mouth everyday Active FreeStyle Maria A 2 Sensor kit CHANGE EVERY 2 WEEKS 4 Active BD Ultra-Fine Short Pen Needle 31 gauge x 07/23 needle USE TO INJECT INSULIN 5 TIMES A DAY 4 Active potassium chloride ER 20 mEq CR tablet Take 1 tablet (20 mEq total) by mouth every morning 4 Active methocarbamoL (ROBAXIN) 500 mg tabletIndication s:Muscle Spasm Take 1 tablet (500 mg total) by mouth 4 (four) times a day as needed for muscle spasms 30 tablet 1 4 Active calcium carbonate (OS-BARRIE) 1,500 mg (600 mg elemental) tablet Take 1 tablet (1,500 mg total) by mouth daily 30 tablet 2 4 Active insulin glargine 100 unit/mL (3 mL) pen for injection Inject 20-40 Units under the skin nightly Active ergocalciferol (VITAMIN D) 50,000 unit capsule Take 1 capsule (50,000 Units total) by mouth once a week On Sundays Active apixaban (ELIQUIS) 2.5 mg tabletIndication s:VTE Prophylaxis Take 1 tablet (2.5 mg total) by mouth 2 (two) times a day for 14 days 28 tablet 4 Active acetaminophen 500 mg capsuleIndicatio ns:Pain Take 2 capsules (1,000 mg total) by mouth every 6 (six) hours 4 Active tenofovir disoproxil fumarate (VIREAD) 300 mg tablet TAKE 1 TABLET BY MOUTH EVERY DAY 90 tablet 3 4 Active Active Problems Problem Noted Date Diagnosed Date Bladder cancer 11/24/2023 Malignant neoplasm of overlapping sites of bladd er 10/22/2023 Encounter for person encountering health service s 07/16/2023 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 Will continue to monitor his liver function and hepatitis-B annually. Assessment & Plan (03/13/2023 12:07 PM ADMITTING MANAGER): Discussed with the patient weight loss. Continue metformin and control diabetes and weight. Assessment & Plan (09/12/2022 12:54 PM CDT): With hepatomegaly. This is risk factor for progression to cirrhosis. Patient was advised to use fish oil and also engaged in gentle exercising for loss of calories. His diabetes need to be well controlled. Chronic hepatitis B 06/14/2018 Assessment & Plan (03/22/2024 2:59 PM ADMITTING MANAGER): Patient has been dormant and no activity for long time. Continue viread. Check labs including fibro test. Schedule ultrasound of the right upper quadrant. Check hepatitis-B DNA and follow up in 1 year. Assessment & Plan (03/13/2023 12:08 PM ADMITTING MANAGER): As of last evaluation patient is in immune tolerant status. Will repeat hepatitis-B surface antigen and hepatitis-B DNA level and alpha-fetoprotein level. Will continue blood testing every 6 months. Ultrasound of the liver once per year. Tenofovir for life. Follow up in the office in 1 year. Assessment & Plan (09/12/2022 12:52 PM CDT): Patient is doing well. Most recent evaluation showed liver enzymes normal and hepatitis-B DNA undetectable. Hepatitis-B E antigen negative now and hepatitis-B E antibody was positive. These are good signs the patient has responded to his medications and going into immune tolerant state. Will continue tenofovir for life. Follow up in 6 months. Will plan repeat labs in 6 months. Assessment & Plan (08/06/2022 9:41 AM CDT): Patient did not follow for couple years. At this point will re-evaluate his the hepatitis-B status with complete serology as well as hepatitis-B DNA. Follow up in 6 weeks. Schedule ultrasound of the liver as well. Assessment & Plan (12/17/2018 4:36 PM CDT): Repeat blood testing today include alpha-fetoprotein level, hepatitis-B virus DNA level and liver enzymes. Will continue on tenofovir for the time being. Follow- up in 6 months. I would like still for him to go and have a 2nd opinion at [facility] liver our office. Overall we are seeing good but very slow progress as far as the decline in the hepatitis-B DNA level. Assessment & Plan (06/14/2018 11:16 AM CDT): Patient was chronic hepatitis-B started after an acute episode of hepatitis B without obvious risk factors about 2 years ago. His hepatitis-B core IgM is still positive. His hepatitis BE antigen is negative now with positive hepatitis BE antibody. Most recent hepatitis B DNA level is 479 at the National per mL which is a good decline in his level overall low. We will send the patient to [facility] for 2nd opinion as far as the treatment. New meanwhile will continue on his tenofovir 300 mg daily. Follow-up in my office in 6 months. We will schedule ultrasound of the liver as part of for annual imaging of his liver because of the hepatitis-B. Obesity (BMI 30-39.9) 06/14/2018 Assessment & Plan (08/06/2022 9:41 AM CDT): We discussed the low-calorie diet is the patient definitely need to get some weight loss. Will address this issue more the subsequent follow-up visits which hopefully he will maintain. Assessment & Plan (12/17/2018 4:37 PM CDT): Discussed with the patient again the importance and gone strict low-calorie diet to get some weight loss. I think weight issue may have contributed to the slow response considering the post associated fatty liver disease with a chronic hepatitis. This was conveyed to the patient hopefully he will strict 2 low-calorie diet for weight loss and will follow and our subsequent visits. Assessment & Plan (06/14/2018 11:16 AM CDT): I have discussed with the patient again the importance of maintaining low- calorie diet or seeking nutrition counseling help that she has some weight loss. I think obesity add to his liver disease 5 fatty liver contribution. Encounters Date Type Department Care Team Description 03/17/2024 11:45 AM ADMITTING MANAGER Office Visit [facility] [address] [place] [address] Arnoldo Wade DO Malignant neoplasm of anterior wall of urinary bladder (HCC) (Primary Dx); Non-alcoholic fatty liver disease; Other iron deficiency anemia; B12 deficiency; Folate deficiency; Gastric bypass status for obesity 03/17/2024 10:30 AM ADMITTING MANAGER Clinical Support [facility] at [facility] [address] [place] [address] Malignant neoplasm of anterior wall of urinary bladder (HCC) 03/17/2024 10:00 AM ADMITTING MANAGER - 03/17/2024 11:59 PM ADMITTING MANAGER Hospital Encounter [facility] Medical Office Building [address] [place] [address] Malignant neoplasm of anterior wall of urinary bladder (HCC) Discharge Disposition: Discharge to home or self care 03/11/2024 11:35 AM ADMITTING MANAGER Lab [address] Chronic hepatitis B (HCC) 03/11/2024 10:45 AM ADMITTING MANAGER Office Visit [facility] Gastroenterology at [address] [place] [address] Chaparro aVrgas MD Chronic hepatitis B (HCC) (Primary Dx); Non-alcoholic fatty liver disease 02/02/2024 10:20 AM ADMITTING MANAGER Office Visit [facility] E[facility] [address] [facility] Medical Office Building [address] [place] [address] Eder Lay MD Dysphonia from Last 3 Months Surgical History Surgery Date Site/Laterality Comments BARIATRIC SURGERY 03/10/2005 - 03/09/2006 CYSTOSCOPY W/ STONE MANIPULATION PORTACATH PLACEMENT CYSTECTOMY 11/2023 PROSTATECTOMY 11/2023 Medical History Medical History Date Comments Hypertension Hyperlipidemia Hepatitis B 03/10/2016 Diabetes mellitus (HCC) Bladder cancer (HCC) Nephrolithiasis History of DVT (deep vein thrombosis) post gastric bypass surgery, none further Family History Medical History Relation Name Comments No Known Problems Father No Known Problems Maternal Grandfather No Known Problems Maternal Grandmother Diabetes Mother No Known Problems Paternal Grandfather No Known Problems Paternal Grandmother Relation Name Status Comments Father Maternal Grandfather Maternal Grandmother Mother Paternal Grandfather Paternal Grandmother Social History Tobacco Use Types Packs/Day Years Used Date Smoking Tobacco: Never Smokeless Tobacco: Never Tobacco Cessation:Counseling Given: Not Answered Alcohol Use Standard Drinks/Week Comments Not Currently 0 (1 standard drink = 0.6 oz pur e alcohol) [facility] Utilities Answer Date Recorded In the past 12 months has e electric, gas, oil, or water company threatened to shut off services in your home? No 11/25/2023 Social Connection and Isolat ion Panel [NHANES] Answer Date Recorded In a typical week, how many times do you talk on the phone with family, friends, or neighbors? More than three times a week 11/25/2023 How often do you get togethe r with friends or relatives? Twice a week 11/25/2023 How often do you attend chur ch or oriental orthodox services? Never 11/25/2023 Do you belong to any clubs o r organizations such as sabianism groups, unions, fraternal or athletic groups, or school groups? No 11/25/2023 How often do you attend meet ings of the clubs or organizations you belong to? Never 11/25/2023 Are you , , di vorced, , never , or living with a partner? 11/25/2023 AUDIT-C Answer Date Recorded Q1: How often do you have a drink containing alcohol? Never 03/11/2024 Q2: How many drinks containi ng alcohol do you have on a typical day when you are drinking? Patient does not drink Frequency of Binge Drinking Not on file 04/2024 Overall Financial Resource Strain (CARDIA) Answe r Date Recorded How hard is it for you to pa y for the very basics like food, housing, medical care, and heating? Not hard at all 11/25/2023 Hunger Vital Sign Answer Date Recorded Within the past 12 months, y ou worried that your food would run out before you got the money to buy more. Never true 11/25/19 24 Within the past 12 months, t he food you bought just didn't last and you didn't have money to get more. Never true 11/25/2023 PRAPARE - Transportation Answer Date Re corded In the past 12 months, has l ack of transportation kept you from medical appointments or from getting medications? No 11/08 In the past 12 months, has l ack of transportation kept you from meetings, work, or from getting things needed for daily living? No 11/25/2023 Housing Stability Vital Sign Answer Sascha e Recorded In the last 12 months, was t here a time when you were not able to pay the mortgage or rent on time? No 11/25/2023 In the past 12 months, how m any times have you moved where you were living? 0 11/25/2023 At any time in the past 12 m [facility], were you homeless or living in a prison (including now)? No 11/25/2023 Personal Safety Answer Date Recorded Have you ever been in or are you currently in a harmful physical or emotional relationship or is someone making you feel afraid or unsafe? 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 Not on file Not on file Not on file Obstetrics History Last Filed Vital Signs Vital Sign Reading Time Taken Comments Blood Pressure 146/70 03/17/2024 12:01 PM ADMITTING MANAGER Pulse 50 03/17/2024 12:01 PM ADMITTING MANAGER Temperature 36.7 C (98 F) 03/17/2024 12:01 PM ADMITTING MANAGER Respiratory Rate 16 03/17/2024 12:01 PM ADMITTING MANAGER Oxygen Saturation 100% 03/17/2024 12:01 PM ADMITTING MANAGER Inhaled Oxygen Concentration - - Weight 93.3 kg (205 lb 9.6 oz) 03/17/2024 12:01 PM ADMITTING MANAGER Height 180.3 cm (5' 11 ) 03/11/2024 10:47 AM ADMITTING MANAGER Body Mass Index 28.68 03/11/2024 10:47 AM ADMITTING MANAGER Plan of Treatment Health Maintenance Due Date Last Done Comments Colon Cancer Screening-Colonoscopy 1950 Depression Screening 1950 DTaP/Tdap/Td Vaccine (1 - Tdap) 10/07/1962 Well Visit 65+ 10/07/2016 Zoster Vaccine (3 of 3) 01/19/2019 11/24/2018, 06/24 Pneumococcal vaccine 65+ (3 of 3 - PCV20 or PCV21) 09/24/2019 09/23/2014, 12/15/2013 Influenza Vaccine (#1) 2023 9, 11/27/2017, 11/04/2016, Additional history exists Fall Risk Assessment 11/28/2024 11/29/2023 Hepatitis C Screening Completed 07/25/2022, 019 Medical Devices Implanted Type Area Solar Development Engineer Device Identifier Shelf Expiration Date Model / Serial / Lot [employer] Annette 7fr 80cm Open Tip Luer Lock Adapter Guidewire Graduate Straight Latex Free 160-210 - [id number] Implanted:Qty: 2 on 11/24/2023 by Devin Tariq MD at [facility] Stent N/A: Ureter [employer] Annette 07/06/2027 [id number] / / [id number] Procedures Procedure Name Priority Date/Time Associated Diagnosis Comments EGFR Routine 03/17/2024 10:44 AM ADMITTING MANAGER Malignant neoplasm of anterior wall of urinary bladder (HCC) DIFFERENTIAL AUTO Routine 03/17/2024 10: 44 AM ADMITTING MANAGER Malignant neoplasm of anterior wall of urinary bladder (HCC) CBC WITH AUTO DIFFERENTIAL Routine 03/17/2024 10:44 AM ADMITTING MANAGER Malignant neoplasm of anterior wall of urinary bladder (HCC) COMPREHENSIVE METABOLIC PANEL Routine 03/17/2024 10:44 AM ADMITTING MANAGER Malignant neoplasm of anterior wall of urinary bladder (HCC) CT CHEST ABDOMEN PELVIS WO CONTRAST Schedule KAY, Read KAY (Appt Today, Awaiting Results) 03/17/2024 10:10 AM ADMITTING MANAGER Malignant neoplasm of anterior wall of urinary bladder (HCC) FIBRO TEST-ACTI TEST Routine 03/11/2024 11:38 AM ADMITTING MANAGER [id number], TUMOR MARKER Routine 03/11/2024 11:38 AM ADMITTING MANAGER Chronic hepatitis B (HCC) HEPATITIS B DNA, QUANTITATIVE, PCR Routine 03/11/2024 11:38 AM ADMITTING MANAGER Chronic hepatitis B (HCC) HEPATITIS PANEL, ACUTE Routine 07/25/2022 10:55 AM CDT Chronic hepatitis B (HCC) from Last 3 Months or Most Recently Relevant to Health Maintenance Results * eGFR (03/17/2024 10:44 AM ADMITTING MANAGER) eGFR >90 >=60 mL/min/1. 73 m2 Comment: Interpretive Data Reference Interval Normal >/= 90 mL/min/1.73m2 Mildly decreased* 60 - 89 mL/min/1.73m2 Mildly to moderately decreased 45 - 59 mL/min/1.73m2 Moderately to severely decreased 30 - 44 mL/min/1.73m2 Severely decreased 15 - 29 mL/min/1.73m2 Kidney Failure < 15 mL/min/1.73m2 *Relative to young adult level Estimated glomerular filtration rate is determined by the 2020 CKD-EPI equation recommended by the National Kidney Foundation (A Unifying Approach to GFR Estimation: Recommendations of the NKF-ASK Task Force on Reassessing the Inclusion of Race in Diagnosing Kidney Disease, JASN 2020). The CKD-EPI equation should not be used for patients with unstable renal function and has not been validated in children and those over 70. Current interpretive data was last reviewed 2021. Testing performed by: [facility], [address] [place] [address]., [address] Blood 03/17/2024 10:4 4 AM ADMITTING MANAGER 03/17/2024 10:46 AM ADMITTING MANAGER us Arnoldo Wade DO LAB BLOOD ORDERABLES Final R esult JOR[facility] [id number] [facility] Department [place] [address] * Differential, auto (03/17/2024 10:44 AM ADMITTING MANAGER) Neutrophil abs 2.9 1.5 - 6.5 K/cumm Comment:Testing performed by : [address] [address] Imm gran abs 0.0 0.0 - 0.1 K/cumm [facility] Comment:Testing performed by : [address] [address] Lymphocyte abs 3.0 0.8 - 3.3 K/cumm [facility] Comment:Testing performed by : [address] [address] Monocyte abs 0.6 0.2 - 0.8 K/cumm [facility] Comment:Testing performed by : [address] [address] Eosinophil abs 0.4 0.0 - 0.5 K/cumm [facility] Comment:Testing performed by : [address] [address] Basophil abs 0.1 0.0 - 0.1 K/cumm [facility] Comment:Testing performed by : [address] [address] Neutrophil pct 41.6 % [facility] Comment: Interpretive Data Percent cell count reference ranges are not reported, since discordance with absolute values may lead to misinterpretation of CBC data. Current Interpretive Data was last revised on 2017. Testing performed by: [address] [address] Imm gran pct 0.3 % [facility] Comment: Interpretive Data Percent cell count reference ranges are not reported, since discordance with absolute values may lead to misinterpretation of CBC data. Current Interpretive Data was last revised on 2017. Testing performed by: [address] [address] Lymphocyte pct 42.8 % C[facility] Comment: Interpretive Data Percent cell count reference ranges are not reported, since discordance with absolute values may lead to misinterpretation of CBC data. Current Interpretive Data was last revised on 2017. Testing performed by: [address] [address] Monocyte pct 8.4 % JORJE Comment: Interpretive Data Percent cell count reference ranges are not reported, since discordance with absolute values may lead to misinterpretation of CBC data. Current Interpretive Data was last revised on 2017. Testing performed by: [address] [address] Eosinophil pct 6.0 % JORJE Comment: Interpretive Data Percent cell count reference ranges are not reported, since discordance with absolute values may lead to misinterpretation of CBC data. Current Interpretive Data was last revised on 2017. Testing performed by: [address] [address] Basophil pct 0.9 % JORJE Comment: Interpretive Data Percent cell count reference ranges are not reported, since discordance with absolute values may lead to misinterpretation of CBC data. Current Interpretive Data was last revised on 2017. Testing performed by: [address] [address] Blood 03/17/2024 10:4 4 AM ADMITTING MANAGER 03/17/2024 10:46 AM ADMITTING MANAGER us Arnoldo Wade DO LAB BLOOD ORDERABLES Final R esult J[facility] [id number] [facility] Department [place] [address] * (ABNORMAL) CBC with auto differential (03/17/2024 10:44 AM ADMITTING MANAGER) WBC 7.1 3.8 - 9.9 K/cumm Comment:Testing performed by : [address] [address] Hgb 11.2(L) 13.0 - 17.5 g/dL JOR[facility] CHARLES Comment:Testing performed by : [address] [address] Hct 32.7(L) 38.9 - 50.3 % JORJE CHARLES Comment:Testing performed by : [address] [address] Plt 208 150 - 400 K/cumm JORJE Comment:Testing performed by : [address] [address] MPV 9.1 9.1 - 12.3 fL JORJE CHARLES Comment:Testing performed by : [address] [address] RBC 4.18(L) 4.30 - 5.80 M/cumm JORJE Comment:Testing performed by : [address] [address] MCV 78.2(L) 81.3 - 96.4 fL JORJE Comment:Testing performed by : [address] [address] MCH 26.8(L) 27.1 - 33.3 pg JORJE Comment:Testing performed by : [address] [address] MCHC 34.3 32.3 - 35.7 g/dL JORJE Comment:Testing performed by : [address] [address] RDW CV 17.3(H) 11.1 - 14.9 % JORJE Comment:Testing performed by : [address] [address] RDW SD 49.5(H) 35.7 - 48.1 fL JORJE Comment:Testing performed by : [address] [address] NRBC abs 0.00 0.00 - 0.01 K/cumm JOR[facility] Comment:Testing performed by : [address] [address] Blood 03/17/2024 10:4 4 AM ADMITTING MANAGER 03/17/2024 10:46 AM ADMITTING MANAGER Arnoldo Wade DO LAB BLOOD ORDERABLES Final R esult J[facility] [address] [facility] Department [place] [address] * (ABNORMAL) Comprehensive metabolic panel (03/17/2024 10:44 AM ADMITTING MANAGER) Sodium 137 135 - 145 mmol/L Comment:Testing performed by : [address] [address] Potassium, pl 4.2 3.3 - 4.9 mmol/L JORJE Comment:Testing performed by : [address] [address] Chloride 106 97 - 110 mmol/L JORJE Comment:Testing performed by : [address], [place]., [address] CO2 21(L) 22 - 32 mmol/L JORJE Comment:Testing performed by : [address] [address] Anion gap 10 2 - 15 mmol/L [facility] Comment:Testing performed by : [address] [address] BUN 23 6 - 25 mg/dL JORJE Comment:Testing performed by : [address] [address] Creatinine 0.90 0.80 - 1.30 mg/dL [facility] Comment:Testing performed by : [address] [address] Glucose 221(H) 70 - 199 mg/dL [facility] Comment: Interpretive Data Fasting glucose >/= 126 mg/dl is diagnostic for diabetes. Fasting is defined as no caloric intake for at least 8 hours. Fasting glucose between 100 mg/dl to 125 mg/dl is diagnostic of prediabetes. In a patient with classic symptoms of hyperglycemia or hyperglycemic crisis, a random glucose >/= 200 mg/dl is diagnostic for diabetes. In the absence of unequivocal hyperglycemia, results should be confirmed by repeat testing. The classification and Diagnosis of Diabetes Diabetes Care 202; 46: S19-S40. Current interpretive data was last revised 2022. Testing performed by: [address] [address] Calcium 8.7 8.5 - 10.3 mg/dL JOR[facility] Comment:Testing performed by : [address] [address] Bilirubin, total 0.7 0.1 - 1.2 mg/dL JORJE Comment:Testing performed by : [address] [address] Protein, pl 7.2 6.5 - 8.5 g/dL JORJE Comment:Testing performed by : [address] [address] Albumin 3.9 3.5 - 5.0 g/dL JORJE Comment:Testing performed by : [address] [address] Alk phos 149(H) 40 - 130 Units/L JORJE Comment:Testing performed by : [address] [address] ALT 30 7 - 55 Units/L JORJE Comment:Testing performed by : [address] [address] AST 31 10 - 50 Units/L J[facility] Comment:Testing performed by : [address] [address] Blood 03/17/2024 10:4 4 AM ADMITTING MANAGER 03/17/2024 10:46 AM ADMITTING MANAGER Arnoldo Wade DO LAB BLOOD ORDERABLES Final R esult Performing Organization Address City/State/[facility] Co de Phone Number [facility] Department [place] [address] * CT Chest Abdomen Pelvis WO Contrast (03/17/2024 10:10 AM ADMITTING MANAGER) Anatomical Region Laterality Modality Body N/A Computed Tomogra phy 03/17/2024 10:2 8 AM ADMITTING MANAGER Narrative 03/17/2024 10:39 AM ADMITTING MANAGER EXAM DESCRIPTION: CT CHEST ABDOMEN PELVIS WO CONTRAST REASON FOR STUDY: restaging of bladder cancer S/p bladder removal 11-24-23. Restaging bladder cancer. No complaints. Hx of prostatectomy. TECHNIQUE: CT scan of the chest, abdomen, and pelvis performed without intravenous and without oral contrast using helical scanning technique. Reconstructed coronal and sagittal MPR images reviewed. All images stored on PACS. Automated exposure control was used as a dose optimization technique for this examination. COMPARISON: 10/15/2023 FINDINGS: The sensitivity for detection of visceral lesions is diminished without the use of intravenous contrast. CHEST LUNGS: There is no definite evidence of a pneumothorax. The central airways are grossly patent. There are scattered minimal to mild subsegmental atelectasis and scarring. There is no definite evidence of focal consolidation or pleural effusion. There are scattered calcified granulomas noted. There is a subpleural 0.5 cm right middle lobe pulmonary nodule, which is grossly unchanged since 08/04/2018, and therefore likely benign. There is subtle subpleural 0.4 cm right middle lobe pulmonary nodule, which is grossly unchanged since 06/19/2023, which is nonspecific, however probably benign (axial image 56). MEDIASTINUM/NARESH: The heart size is stable. There is a small amount of pericardial fluid noted, similar to the prior study. There are atherosclerotic changes of the aorta and coronary vessels. There is no definite unenhanced CT evidence of mediastinal, hilar, or axillary lymphadenopathy. There are scattered subcentimeter mediastinal lymph nodes noted with largest measuring 0.6 cm in the paratracheal region (axial image 36). Scattered calcified mediastinal and bilateral hilar lymph nodes are noted. CORONARY ARTERY CALCIFICATION: Present. CHEST WALL: No masses. No subcutaneous air. HARDWARE/LINES/TUBES: Right-sided infusion port is noted with its distal tip in the superior vena cava. ABDOMEN/PELVIS LIVER: There is a nodular contour of the liver, which raises the concern for chronic hepatocellular disease. GALLBLADDER: There is cholelithiasis. BILE DUCTS: No intrahepatic or extrahepatic ductal dilatation. SPLEEN: The spleen is grossly normal in size and unremarkable. There are calcified granulomas noted in the spleen. PANCREAS: The pancreas has a grossly stable unenhanced CT appearance. ADRENALS: There is stable mild nonspecific nodularity of the bilateral adrenal glands. KIDNEYS/URINARY TRACT: There is a stable cyst in the posterior interpolar region of the right kidney measuring 2.4 cm, which does not require follow-up imaging. There is no definite evidence of nephrolithiasis. There is no definite evidence of hydronephrosis or hydroureter. There are interval postsurgical changes of cystoprostatectomy with right lower quadrant ileal conduit noted. There is no definite unenhanced CT evidence of local recurrence. GI: There is redemonstration of the postsurgical changes of gastric bypass with interval postsurgical changes involving the distal small bowel with small bowel small bowel anastomosis. There is no definite evidence of a bowel obstruction. The appendix is visualized without definite evidence of pericecal or periappendiceal inflammatory changes to suggest appendicitis. There are scattered colonic diverticula without definite evidence of diverticulitis. There is a [id number]-[id number] amount of retained fecal debris in the colon along with moderate amount of retained fecal debris in the rectum. There is no definite evidence of free air in the abdomen and pelvis. There is a small amount of nonspecific free fluid in the pelvis. There is no definite unenhanced CT evidence of lymphadenopathy in the abdomen and pelvis. There are scattered subcentimeter inguinal lymph nodes noted bilaterally with largest measuring 0.8 cm on the right (axial image 200) and 0.7 cm on the left (axial image 222). MUSCULOSKELETAL: There is mild osteopenia. There is mild dextroscoliotic curvature of the spine with degenerative changes. OTHER: No significant abnormality. IMPRESSION: Interval postsurgical changes of cystoprostatectomy with right lower quadrant ileal conduit. No definite unenhanced CT evidence of local recurrence or metastatic disease in the chest, abdomen, and pelvis. Grossly stable subtle subpleural 0.4 cm right middle lobe pulmonary nodule, which is overall grossly unchanged since prior CT dated 06/19/2023, and therefore probably benign. Continued attention on follow-up imaging is recommended as clinically indicated. Scattered minimal to mild subsegmental atelectasis and scarring. No definite evidence of focal consolidation. Redemonstration of the postsurgical changes of the gastric bypass with interval postsurgical changes involving the distal small bowel with small bowel small bowel anastomosis. No definite evidence of bowel obstruction. Mild to moderate amount of retained fecal debris in the colon along with moderate amount of retained fecal debris in the rectum, which is concerning for constipation and possible fecal impaction. Small amount of nonspecific free fluid in the pelvis. Scattered colonic diverticula without definite evidence of diverticulitis. Cholelithiasis. Nodular contour of the liver, which raises the concern for chronic hepatocellular disease. Clinical correlation with liver function tests is recommended as clinically indicated. Normal appendix. THIS IS AN ELECTRONICALLY VERIFIED FINAL REPORT 03/17/2024 10:39 AM - Electronically signed by Charly Cardoza D.O. PS: REESE Report ID: [id number] Reading Location: [id number] Procedure Note Charly Cardoza, DO - 03/17/2024 EXAM DESCRIPTION: CT CHEST ABDOMEN PELVIS WO CONTRAST REASON FOR STUDY: restaging of bladder cancer S/p bladder removal 11-24-23. Restaging bladder cancer. No complaints. Hxof prostatectomy. TECHNIQUE: CT scan of the chest, abdomen, and pelvis performed without intravenous and without oral contrast using helical scanning technique. Reconstructed coronal and sagittal MPR images reviewed. All images storedon PACS. Automated exposure control was used as a dose optimizationtechnique for this examination. COMPARISON: 10/15/2023 FINDINGS: The sensitivity for detection of visceral lesions is diminished without the use of intravenous contrast. CHEST LUNGS: There is no definite evidence of a pneumothorax. The centralairways are grossly patent. There are scattered minimal to mild subsegmental atelectasis and scarring. There is no definite evidence of focal consolidation or pleural effusion. There are scattered calcifiedgranulomas noted. There is a subpleural 0.5 cm right middle lobe pulmonary nodule, which is grossly unchanged since 08/04/2018, and therefore likely benign. There is subtle subpleural 0.4 cm right middle lobe pulmonary nodule, which isgrossly unchanged since 06/19/2023, which is nonspecific, however probably benign (axial image 56). MEDIASTINUM/NARESH: The heart size is stable. There is a small amount of pericardial fluid noted, similar to the prior study. There are atherosclerotic changes of the aorta and coronary vessels. There is no definite unenhanced CT evidence of mediastinal, hilar, oraxillary lymphadenopathy. There are scattered subcentimeter mediastinal lymphnodes noted with largest measuring 0.6 cm in the paratracheal region (axialimage 36). Scattered calcified mediastinal and bilateral hilar lymph nodes are noted. CORONARY ARTERY CALCIFICATION: Present. CHEST WALL: No masses. No subcutaneous air. HARDWARE/LINES/TUBES: Right-sided infusion port is noted with its distaltip in the superior vena cava. ABDOMEN/PELVIS LIVER: There is a nodular contour of the liver, which raises the concernfor chronic hepatocellular disease. GALLBLADDER: There is cholelithiasis. BILE DUCTS: No intrahepatic or extrahepatic ductal dilatation. SPLEEN: The spleen is grossly normal in size and unremarkable. Thereare calcified granulomas noted in the spleen. PANCREAS: The pancreas has a grossly stable unenhanced CT appearance. ADRENALS: There is stable mild nonspecific nodularity of the bilateral adrenal glands. KIDNEYS/URINARY TRACT: There is a stable cyst in the posteriorinterpolar region of the right kidney measuring 2.4 cm, which does not requirefollow-up imaging. There is no definite evidence of nephrolithiasis. There is no definite evidence of hydronephrosis or hydroureter. There are interval postsurgical changes of cystoprostatectomy with right lower quadrant ileal conduit noted. There is no definite unenhanced CT evidence of local recurrence. GI: There is redemonstration of the postsurgical changes of gastricbypass with interval postsurgical changes involving the distal small bowel withsmall bowel small bowel anastomosis. There is no definite evidence of a bowel obstruction. The appendix is visualized without definite evidence of pericecal or periappendiceal inflammatory changes to suggest appendicitis. There are scattered colonic diverticula without definite evidence of diverticulitis. There is a ocxc-hx-mhvkgigy amount of retained fecaldebris in the colon along with moderate amount of retained fecal debris in the rectum. There is no definite evidence of free air in the abdomen andpelvis. There is a small amount of nonspecific free fluid in the pelvis. There isno definite unenhanced CT evidence of lymphadenopathy in the abdomen andpelvis. There are scattered subcentimeter inguinal lymph nodes noted bilaterallywith largest measuring 0.8 cm on the right (axial image 200) and 0.7 cm on theleft (axial image 222). MUSCULOSKELETAL: There is mild osteopenia. There is milddextroscoliotic curvature of the spine with degenerative changes. OTHER: No significant abnormality. IMPRESSION: Interval postsurgical changes of cystoprostatectomy with right lowerquadrant ileal conduit. No definite unenhanced CT evidence of local recurrence or metastatic disease in the chest, abdomen, and pelvis. Grossly stable subtle subpleural 0.4 cm right middle lobe pulmonarynodule, which is overall grossly unchanged since prior CT dated 06/19/2023, and therefore probably benign. Continued attention on follow-up imaging is recommended as clinically indicated. Scattered minimal to mildsubsegmental atelectasis and scarring. No definite evidence of focal consolidation. Redemonstration of the postsurgical changes of the gastric bypass with interval postsurgical changes involving the distal small bowel with small bowel small bowel anastomosis. No definite evidence of bowelobstruction. Mild to moderate amount of retained fecal debris in the colon along with moderate amount of retained fecal debris in the rectum, which isconcerning for constipation and possible fecal impaction. Small amount of nonspecific free fluid in the pelvis. Scattered colonic diverticula without definite evidence ofdiverticulitis. Cholelithiasis. Nodular contour of the liver, which raises the concern for chronic hepatocellular disease. Clinical correlation with liver function tests is recommended as clinically indicated. Normal appendix. THIS IS AN ELECTRONICALLY VERIFIED FINAL REPORT 03/17/2024 10:39 AM - Electronically signed by Charly Cardoza D.O. PS: PS Report ID: [id number] Reading Location: [place] [address] Arnoldo Wade DO IMG CT PROCEDURES Final Resu lt * (ABNORMAL) Fibro Test-Acti Test (03/11/2024 11:38 AM ADMITTING MANAGER) FibroTest Score 0.68 [facility] FibroTest Stage F3 MARITZA LEMA (EMILY) FibroTest Interpretation SEE BELOW JORJE LEMA (EMILY) Comment: RESULT: advanced fibrosis FibroTest estimates liver fibrosis FibroTest Score Stage Interpretation 0.00-0.21 F0 no fibrosis 0.21-0.27 F0-F1 no fibrosis 0.27-0.31 F1 minimal fibrosis 0.31-0.48 F1-F2 minimal fibrosis 0.48-0.58 F2 moderate fibrosis 0.58-0.72 F3 advanced fibrosis 0.72-0.74 F3-F4 advanced fibrosis 0.74-1.00 F4 severe fibrosis (Cirrhosis) ActiTest Score 0.38 [facility] ([facility]) ActiTest Grade A1-A2 [facility] ([facility]) ActiTest Interpretation SEE BELOW JORJE LEMA (EMILY) Comment: RESULT: minimal activity ActiTest estimates necroinflammatory activity ActiTest Score Grade Interpretation 0.00-0.17 A0 no activity 0.17-0.29 A0-A1 no activity 0.29-0.36 A1 minimal activity 0.36-0.52 A1-A2 minimal activity 0.52-0.60 A2 significant activity 0.60-0.62 A2-A3 significant activity 0.62-1.00 A3 severe activity FibroTest-ActiTest Comment See Comment [facility] (EMILY) Comment: The reliability of results is dependent on compliance with the preanalytical and analytical conditions recommended by [facility]. The tests have to be deferred for: acute hemolysis, acute hepatitis, acute inflammation, extra hepatic cholestasis. The advice of a specialist should be sought for interpretation in chronic hemolysis and Gilbert's syndrome. The test interpretation is not validated in liver transplant patients. Isolated extreme values of one of the components should lead to caution in interpreting the results. In case of discordance between a biopsy result and a test, it is recommended to seek advice of a specialist. The causes of these discordances could be due to a flaw of the test or to a flaw in the biopsy: i.e. a liver biopsy has a 33% variability rate for one fibrosis stage. FibroTest is interpretable for chronic hepatitis B and C, alcoholic and non alcoholic steatosis. ActiTest is interpretable for chronic hepatitis B and C. ADDITIONAL INFORMATION This test was developed and its performance characteristics determined by [facility] in a manner consistent with CLIA requirements. This test has not been cleared or approved by the U.S. Food and Drug Administration. [facility] Serial Number [id number] [facility] ([facility]ILY) APOLIPOPROTEIN A1 114(L) >=120 mg/dL [facility] ([facility]) [id number]-[id number], Ser 335(H) 100 - 280 mg/dL [facility] ([facility]) Haptoglobin, S 143 30 - 200 mg/dL [facility] (EM[facility]) Alanine Aminotransferase (ALT), S 45 7 - 55 Units/L [facility] ([facility]) Gamma Glutamyltransferase (GGT), S 20 8 - 61 Units/L [facility] (EM[facility]) Bilirubin, Total, S 0.7 0.0 - 1.2 mg/dL [facility] (EMILY) Comment: Test Performed by: [facility] [address] [place] [address] Campus Administrative Assistant: Cecille Skinner Ph.D.; CLIA# [id number] Test Performed by: [facility] [address] [place] [address] Campus Administrative Assistant: Cecille Skinner Ph.D.; CLIA# [id number] Blood 03/11/2024 11:3 8 AM ADMITTING MANAGER 03/11/2024 1:43 PM ADMITTING MANAGER Chaparro Vargas MD LAB BLOOD ORDERABLES Final Result JORJE LEMA (EMILY) 1 [facility] Department [place] [address] [facility] * [id number], Tumor Marker (03/11/2024 11:38 AM ADMITTING MANAGER) alpha Fetoprotein 2.5 <=8.3 ng/mL Comment: Interpretive Data The Patrick AFP assay procedure was used. Results from different manufacturers or methods may not be comparable. Serial testing should be performed using the same method. 0-1 month. AFP concentrations may reach or exceed 100,000 ng/mL after depending on gestational age and weight. 1-3 months 50 1000 ng/ml 3-6 months 10 500 ng/ml 6-12 months 3.0 100 ng/ml >1 year 0.0 8.3 ng/ml References Dean Y. et al. J. Ped Surg 1978;13:155-156 Mike Arriaga et al. Clin Chem Lab Med 2018;57:783-797 Renee Polo et al. Clin Chem 2014;8134-9215. Current interpretive data was last revised 2021. Testing performed by: [facility], [address] [place] [address] Blood 03/11/2024 11:3 8 AM ADMITTING MANAGER 03/11/2024 4:12 PM ADMITTING MANAGER Chaparro Vargas MD LAB BLOOD ORDERABLES Final Result Performing Organization Address [facility]/ZIP Co de Phone Number JORJE LEMA ([place]) [address] [place] [address] * Hepatitis B (HBV) DNA PCR, quantitative Blood (03/11/2024 11:38 AM ADMITTING MANAGER) HBV DNA Result Not Detected [facility] Comment: The quantifiable range of this assay is 10 IU/mL to 1,000,000,000 IU/mL (1.00 log IU/mL to 9.00 log IU/mL). Testing was performed by the ASH[facility] 6800 HBV Test version 2.0 ([employer] Testing performed at [facility] Current Interpretive Data was last revised on 2020. Testing performed by: [facility], [address] [place] [address], [id number] Blood 03/11/2024 11:3 8 AM ADMITTING MANAGER 03/11/2024 6:38 PM ADMITTING MANAGER Chaparro Vargas MD LAB MICROBIOLOGY - GENERAL ORDERABLES Final Result Performing Organization Address [facility] Co de Phone Number JORJE LEMA ([place]) [address] [place] [address] [facility] * (ABNORMAL) Hepatitis panel, acute (07/25/2022 10:55 AM CDT) Pathologist [facility] Hep A IgM Nonreactive Nonreactive JORJE LEMA ([place]) Comment: Interpretive Data: If Hep A IgM Ab is reported as Equivocal, a new sample should be drawn in two weeks for testing. Current interpretive data was last revised on 19. Testing performed by: [facility], [address] [place] [address], [id number] Hep B core IgM Nonreactive Nonreactive Michele LEMA (EMILY) Comment: Interpretive Data If HepB Core IgM Ab is reported as Equivocal, a new sample should be drawn in two weeks for testing. Current interpretive data was last revised on 19. Testing performed by: [address] [address] Hep C Ab Nonreactive Nonreactive JORJE LEMA (EMILY) Comment: Interpretive Data Nonreactive: Antibodies to HCV not detected. Does NOT exclude the possibility of recent exposure to HCV. Equivocal: Equivocal for HCV antibodies. Supplemental molecular testing will be automatically performed to determine infection status in accordance with current CDC screening recommendations. Reactive: Positive for HCV antibodies. This may represent current or past HCV infection. Supplemental molecular testing will be automatically performed to determine current infection status in accordance with current CDC screening recommendations. Interpretive data was last revised on 2019. Testing performed by: [address] [address] HepBsAg Reactive(A) Nonreactive JORJE LEMA (EMILY) Comment: Critical Result Testing performed by: [address] [address] Blood 07/25/2022 10:5 5 AM CDT 07/25/2022 3:15 PM CDT Chaparro Vargas MD LAB MICROBIOLOGY - GENERAL ORDERABLES Final Result JORJE LEMA (EMILY) 1 [facility] Department [place] [address] from Last 3 Months or Most Recently Relevant to Health Maintenance Insurance MEDICARE [employer]CIAL MEDICARE COMMERCIAL GENERIC MEDICARE [employer]CIAL Advance Directives For more information, please contact: [phone] * Full Code (Latest Code Status on File) Date Activated Date Inactivated Comments 11/24/2023 5:46 PM 11/29/2023 6:22 PM Care Teams Lithograph Designer Relationship Specialty Start Date End Date Yolande Soria MD [address] [place] [address] PCP - General 07/25/16 [place] [address] [address] Surgeon Urology 07/02/23 Arnoldo Wade DO [address] [place] [address] MEDICAL ONCOLOGY, [facility] [address] [place] [address] Medical Oncologist/Hematologis t Hematology and Oncology 07/07/23 Anthony Hermosillo MD [address] [facility] [address] [facility] [address] [place] [address] Urologist Urology 07/07/23
--- OUTSIDE RECORDS SUMMARY | 2024-05-04 12:49 | XMS_ITS ---
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 Will continue to monitor his liver function and hepatitis-B annually. Assessment & Plan (03/13/2023 12:07 PM WATER TECHNICIAN): Discussed with the patient weight loss. Continue [...] 06/14/2018 Assessment & Plan (03/22/2024 2:59 PM WATER TECHNICIAN): Patient has been dormant and no activity for long time. Continue viread. Check labs including fibro test. Schedule ultrasound of the right upper quadrant. Check hepatitis-B DNA and follow up in 1 year. Assessment & Plan (03/13/2023 12:08 PM WATER TECHNICIAN): As of last evaluation patient is in [...] go and have a 2nd opinion at [facility] liver our office. Overall we are [...] low. We will send the patient to [facility] for 2nd opinion as far as the [...] his liver disease 5 fatty liver contribution. Current Treatment and Therapy Plans No current plan information found. Other Current Plans IV Maintenance Therapy Plan & Alteplase (CATHFLO ACTIVASE) - orders for occluded catheters* Plan Start Date:08/22/2023 Plan Provider:Arnoldo Wade, DO Linked [facility] Medications No medications scheduled. Past Treatment and Therapy Plans Oncology Chemotherapy Treatment Plan Name Start Date Discontinue Date Treatment Medications Discontinue Reason Plan Provider Cycles Gemcitabine / CISplatin 21 Day Cycles - Bladder 07/25/19 24 10/16/2023 CISplatin (PLATINOL) IVPB in 250 mLdexAMETHasone (DECADRON)gemcita bine IVPB in 250 mL (using 100 mg/ml gemcitabine) ([id number]) Therapy Complete Arnoldo Wade DO 4 of 4 cycles completed Treatment Summaries Malignant neoplasm of anterior wall of urinary bladder (HCC)* Images from the original note were not included. [address], [place] [address] This Survivorship Care Plan is a cancer treatment summary and follow-up plan and is provided to youto keep with your health care records and to share with your primary care provider or any of your doctors and nurses. This summary is a brief record of major aspects of your cancer treatment not a detailed or comprehensive record of your care. You should review this with your cancer provider. Treatment Summary and Survivorship Care Plan for Bladder Cancer General Information Patient name Osvaldo Duque (home) Date of 1950 Health Care Providers (Including Names, Institutions) Provider Name: Contact Information: Primary Care Physician Yolande Soria MD [phone] Surgeon Devin Tariq MD [phone] Urologist Anthony Hermosillo MD [phone] Medical Oncologist Arnoldo Wade DO [phone] Treatment Summary Cancer Diagnosis Information Diagnosis Malignant neoplasm of anterior wall of urinary bladder (HCC) Diagnosis date 03/18/2023 Staging information Cancer Staging Malignant neoplasm of anterior wall of urinary bladder (HCC) Staging form: Urinary Bladder, AJCC 8th Edition - Clinical: Stage II (cT2, cN0, cM0) - Signed by Arnoldo Wade DO on 07/17/2023 Family History Cancer Cancer-related family history is not on file. Treatment Completed Surgery date 03/18/2023 Surgical procedure Transurethral resection of bladder Surgery date 11/24/2023 Surgical procedure Robotic Assisted Radical Cystoporstatectomy Surgical procedure radical cystectomy Type of urinary diversion ileal conduit Systemic Therapy (chemotherapy, hormonal therapy, other) Gemcitabine / CISplatin 21 Day Cycles - Bladder Treatment goal [No plan goal] Status Inactive Start Date 07/25/2023 End Date 10/03/2023 Provider Arnoldo Wade, Chemotherapy CISplatin (PLATINOL) 158 mg in sodium chloride 0.9% 250 mL IVPB, 70 mg/m2 = 158 mg, intravenous, Once, 4 of 4 cycles Administration: 158 mg (07/25/2023), 157 mg (08/15/2023), 152 mg (09/26/2023), 155 mg (09/05/2023) gemCITabine (GEMZAR) 2,260 mg in sodium chloride 0.9% 250 mL IVPB, 1,000 mg/m2 = 2,260 mg, intravenous, Once, 4 of 4 cycles Administration: 2,260 mg (07/25/2023), 2,260 mg (08/01/2023), 2,240 mg (08/15/2023), 2,170 mg (09/26/2023), 2,170 mg (10/03/2023), 2,240 mg (08/22/2023), 2,210 mg (09/05/2023), 2,210 mg (09/12/2023) pegfilgrastim (NEULASTA ON-BODY) injection 6 mg, 6 mg, subcutaneous, Once, 4 of 4 cycles Administration: 6 mg (08/01/2023), 6 mg (08/22/2023), 6 mg (10/03/2023), 6 mg (09/12/2023) Lifetime Dose Tracking Lifetime Dose Tracking No doses have been documented on this patient for the following tracked chemicals: doxorubicin, epirubicin, idarubicin, daunorubicin, mitoxantrone, bleomycin, mitomycin, cyclophosphamide, carmustine,cisplatin, ifosfamide, carboplatin, fluorouracil, etoposide, doxorubicin HCl pegylated liposomal, et oposide phosphate, valrubicin, doxorubicin isotoxic equivalent (Please manually verify calculation) Research Studies Persistent symptoms or side effects that have continued after finishing treatment: None Follow-up Care Plan Your follow-up care plan is design to inform you and primary care providers regarding the recommended and required follow-up, cancer screening and routine health maintenance that is needed to maintain optimal health. Schedule of Clinical Visits Coordinating Provider When/How often Urologist: Devin Tariq MD Parres, Jeffrey A., MD Per indication by provider Oncologist: Arnoldo Wade, DO Every 3- 6 months Cancer Surveillance and Other Recommended Tests Radical Cystectomy Blood CBC and CMP every 3 to 6 months for 1 year Then CMP yearly for 5 years B12 yearly for 5 year Cystoscopy Not applicable Cytology Every 6 to 12 months for 2 years Chest Imaging (CXR or CT) Every 3 to 6 months for 2 years Then yearly for 5 years Abdominal Imaging (CT or MRI) Every 3 to 6 months for 2 years Then yearly for 5 years Then renal ultrasound yearly for 10 years For patients receiving radical cystectomy, ordered by Urology Based on urinary diversion type Possible late- and long-term effects that someone with this type of cancer and treatment may experience: Urinary symptoms Risk of second cancers Menopause or Sexual changes or symptoms of estrogen deprivation (hot flashes, sweats, vaginal discharge or dryness, painful intercourse). The desire to engage in sexual activity may lessen due to low energy, decreased sexual function and/or changes in appearance. Symptoms of menopause may cause vaginal changes and/or dryness. Your riskdepends on your age and the kind of treatment you received. Cancer diagnosis and treatment may cause existing sexual problems to be worse. Evaluation of sexual function and professional counseling may be helpful. The use of [id number] lubricants may lessen painful intercourse. Talk with your provider about sexual changes and symptoms of menopause. Promising non-hormone treatments that may include antidepressants (drugs that treat depression), dietary changes, acupuncture and exercise may h elp lessen symptoms. Bladder or Urinary problems Certain chemotherapy medications may cause damage to the urinary tract, including hemorrhagic cystitis (bleeding and inflammation) and bladder scarring leading to a decrease in the bladder capacity. Talk to your provider about the following symptoms: Blood in your urine Pain when urinating Increase in frequency of urination Psychosocial Distress (Emotional stress, worry or depression). Many patients experience distress, anxiety or depression at some point. This can include worry, difficulty sleeping or sadness and often lessens over time. Discuss this with your provider; a referralto a therapist may be helpful. Physical activity has been shown to relieve stress. Some patients may benefit from the use of medication. Please continue to see your primary care provider for all general health care recommended for a person your age, including cancer screening tests. Any symptoms should be brought to the attention of your provider: Anything that represents a brand new symptom; Anything that represents a persistent symptom; Anything you are worried about that might be related to the cancer coming back. Cancer survivors may experience issues with the areas listed below. If you have any concerns in these or other areas, please speak with your doctors or nurses to find out how you can get help with them. Anxiety and depression Emotional and mental health Fatigue Fertility Financial advice or assistance Insurance Memory or concentration loss Parenting Physical functioning School/work Sexual functioning Stopping smoking Weight changes Other A number of lifestyle/behaviors can affect your ongoing health, including the risk for the cancer coming back or developing another cancer. Discuss these recommendations with your doctor or nurse: Eat a healthy diet: focus on lean meats and proteins, more fruits, vegetables and whole grains and low in sugars and fats. Limit red meat and avoid processed meat. Maintain a healthy weight; avoid being overweight. Aim for a normal body mass index (BMI) of 18.5-24.9. Help learning to eat healthier, call the mortgage loan assistant at: [facility] [place] Have an active lifestyle, strive for 30 minutes of moderate exercise 5 times a week and strength orresistance training at least twice a week. Use broad-spectrum (UVA+UVB) sunscreen with SPF 30 or greater, is water resistant, limit time spentin the sun (10 am-4pm), wear hat, wear UV protective clothing, wear sunglasses. Never use a tanningbed. Skin that was irradiated may be more sensitive over your lifetime. Do not smoke or chew tobacco; participate in a smoking cessation program. Limit alcohol intake, 1 drink per day for a woman and 2 drinks per day for a man. Resources you may be interested in: [facility] A National Cancer [place] [facility] http://www.[facility]/ [facility] 1st floor of [facility] [phone]. Computer access, educational material, counseling services (FREE) Cancer Resources: www.cancer.net [employer] Beyond Cancer: https://survivorship.cancer.gov/ an online tool for cancer survivors andcaregivers created by the [place] Cancer Society and the National Cancer [place]. It provides: Information on dealing with side effects from cancer and treatment Caregivers with support and resources Practical advice about talking to friends and family about cancer Questions to ask their health care team Help understanding their rights in the workplace Online Resources: Australian Society of Clinical Oncology: www.cancer.net; Center for Disease Control and Prevention: www.cdc.gov/cancer/survivorship; National Cancer [place] (NCI) www.cancer.gov Australian Cancer Society Cancer Survivors Network http://csn.cancer.org/ National Coalition for Cancer Survivorship http://www.canceradvocacy.org Australian Bladder Cancer Society: https://bladdercancersupport.org/
--- OUTSIDE RECORDS SUMMARY | 2024-05-04 12:50 | XMS_ITS ---
Author Organization [facility] Address [address] [place] [address] Care Team Providers Care Workers Compensation Claims Adjuster Name Role Phone Yang PEPE, Yolande Primary Care Provider UnavailTish Darden Unavailable [phone] Migration, Provider Unavailable Unavailable REASON FOR VISIT EMR-Toni Medications Medication SIG (Take, Route, Frequency, Duration) Notes Start Date End Date Status Atorvastatin Calcium 20 MG Oral 06/26/2023 Active ULTRA-FINE SHORT PEN NEEDLE 31 gauge x 07/23 MISCELLANEOUS *Reorder from [employer] for eRx and Interaction Alerts* 06/26/2023 Active busPIRone HCl 5 MG Oral 06/26/2023 Active Basaglar KwikPen 100 UNIT/ML Subcutaneous 06/26/2023 Active Allopurinol 100 MG Oral 06/26/2023 Active metFORMIN HCl ER 500 MG Oral 06/26/2023 Active Tenofovir Disoproxil Fumarate 300 mg Oral 06/26/2023 Active Lisinopril 40 MG Oral 06/26/2023 Ac tive FreeStyle Maria A 2 [place] 06/26/2023 Active FREESTYLE MARIA A 2 SENSOR KIT *Reorder from [employer] for eRx and Interaction Alerts* 06/26/2023 Active Sertraline HCl 50 MG Oral 06/26/2023 Active Tamsulosin HCl 0.4 MG Oral 06/26/2023 Active Ergocalciferol 1.25 MG (60101 UT) Oral 06/26/2023 Active NovoLOG FlexPen ReliOn 100 UNIT/ML Subcutaneous *Reorder from [employer] for eRx and Interaction Alerts* 06/26/2023 Active Potassium Chloride ER 20 MEQ Oral 06/26/2023 Active Social History Sex Assigned At : Social History Observation Description Sex Assigned At Male Encounters Encounter Location Date Provider Diagnosis [facility] [address] [place] [address] 07/27/2023 Provider Migration Plan Of Treatment Next Appt Details Provider Name:Tish Moreno , 07/09/2024 10:45:00 AM, [address], [place], [address], Progress Notes * YVONNE PARISIDOB: 2 (73 yo M)Acc No.[id number]:07/27/2023 Patient: YVONNE CHINCHILLA :1950 A ge:72 Y S ex:Male Address:[address] [place] [address], [id number] Subjective: * Chief Complaints: * E MR-Toni * Medical History: * Surgical History: O ther 04/29/2005 * Hospitalization/Major Diagno stic Procedure: * Family History: M other: Diabetes mellitus . * Social History: M igrated Social History: M igrated Social History: Alcohol Intake: None 05/11/2018,Tobacco Years: Never smoker 09/23/2022. * Medications: T akingLisinopril 40 MG Tablet Oral FreeStyle Maria A 2 [place] NovoLOG FlexPen ReliOn 100 UNIT/ML Solution Pen-injector Subcutaneous , Notes to Pharmacist: *Reorder from [employer] for eRx and Interaction Alerts*Ergocalciferol 1.25 MG (84850 UT) Capsule Oral Tamsulosin HCl 0.4 MG Capsule Oral Potassium Chloride ER 20 MEQ Tablet Extended Release Oral metFORMIN HCl ER 500 MG Tablet Extended Release 24 Hour Oral Sertraline HCl 50 MG Tablet Oral Tenofovir Disoproxil Fumarate 300 mg Tablet Oral FREESTYLE MARIA A 2 SENSOR KIT , Notes to Pharmacist: *Reorder from [employer] for eRx and Interaction Alerts*Basaglar KwikPen 100 UNIT/ML Solution Pen-injector Subcutaneous Atorvastatin Calcium 20 MG Tablet Oral ULTRA-FINE SHORT PEN NEEDLE 31 gauge x 5/16 NEEDLE, DISPOSABLE MISCELLANEOUS , Notes to Pharmacist: *Reorder from [facility] for eRx and Interaction Alerts*busPIRone HCl 5 MG Tablet Oral Allopurinol 100 MG Tablet Oral Taking Lisinopril 40 MG Tablet Oral Taking FreeStyle Maria A 2 [place] Taking NovoLOG FlexPen ReliOn 100 UNIT/ML Solution Pen-injector Subcutaneous , Notes to Pharmacist: *Reorder from [facility] for eRx and Interaction Alerts*Taking Ergocalciferol 1.25 MG (82946 UT) Capsule Oral Taking Tamsulosin HCl 0.4 MG Capsule Oral Taking Potassium Chloride ER 20 MEQ Tablet Extended Release Oral Taking metFORMIN HCl ER 500 MG Tablet Extended Release 24 Hour Oral Taking Sertraline HCl 50 MG Tablet Oral Taking Tenofovir Disoproxil Fumarate 300 mg Tablet Oral Taking FREESTYLE MARIA A 2 SENSOR KIT , Notes to Pharmacist: *Reorder from [facility] for eRx and Interaction Alerts*Taking Basaglar KwikPen 100 UNIT/ML Solution Pen-injector Subcutaneous Taking Atorvastatin Calcium 20 MG Tablet Oral Taking ULTRA-FINE SHORT PEN NEEDLE 31 gauge x 5/16 NEEDLE, DISPOSABLE MISCELLANEOUS , Notes to Pharmacist: *Reorder from [facility] for eRx and Interaction Alerts*Taking busPIRone HCl 5 MG Tablet Oral Taking Allopurinol 100 MG Tablet Oral Objective: * Vitals: * Physical Examination: Assessment: Plan: * Treatment: * Procedure Codes: * true * Date: Generated for Nini Johnson/Leny on: 0 05/04/2024 12:49 PM CASING MAN
--- OUTSIDE RECORDS SUMMARY | 2024-05-04 12:50 | XMS_ITS | Clinical Summary ---
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 Gender Identity Not on file Sexual Orientation Not on file Plan of Treatment Health Maintenance Due Date Last Done Comments Colorectal Cancer Screening Colonoscopy (10 Years) 1950 Hepatitis C 10/07/1969 DTaP, Tdap and Td Vaccines (1 - Tdap) 10/07/1970 Annual Medicare Wellness Visit 10/07/2016 Zoster Vaccines (3 of 3) 01/19/2019 11/24/2018, 06/08 COVID-19 Vaccine (3 - season) 2023 07/19/2020, 06/21/2020 Influenza Adult (#1) 2023 01/10/2022, 02/19/2021, 11/24/2018, Additional history exists RSV Immunization or 60+ Years (1 - 1-dose 75+ series) 10/07/2026 Pneumococcal Vaccine: 65+ Years Completed 12/14/2018, 09/23/2014, 12/15/2013 Meningococcal B Vaccine Aged Out No l onger eligible based on patient's age to complete this topic Meningococcal Vaccine Aged Out No emelyn deb eligible based on patient's age to complete this topic RSV Immunizations Under 20 Months Aged Out No longer eligible based on patient's age to complete this topic Insurance MEDICARE AETNA AETNA MEDICARE [facility] FINANCIAL Care Teams Seafood Manager Relationship Specialty Start Date End Date Yolande Soria MD [address] [place] [address] PCP - General INTERNAL MEDICINE 06/19/23
--- OUTSIDE RECORDS SUMMARY | 2024-05-04 12:50 | XMS_ITS ---
Author Organization [facility] Address [address] [facility] [address] [place] [address] Care Team Providers Care Cane Packer Name Role Phone Yang PEPE, [facility] Primary Care Provider UnavailTish Darden Unavailable [phone] Allergies No Known Allergies REASON FOR VISIT Follow Up Visit, had surgery about a month ago on his bladder, related to cancer, very sore still. Medications Medication SIG (Take, Route, Frequency, Duration) Notes Start Date End Date Status Sertraline HCl 50 MG 1 tablet Oral Once a day for 90 days 06/26/2023 Active NovoLOG FlexPen ReliOn 100 UNIT/ML Subcutaneous *Reorder from Simpl[employer]fi for eRx and Interaction Alerts* 06/26/2023 Active Lisinopril 40 MG Oral 06/26/2023 Ac tive FreeStyle Maria A 2 [place] 06/26/2023 Active busPIRone HCl 5 MG 1 tablet Oral Twice a day for 90 days 06/26/2023 03/24/2024 Active Allopurinol 100 MG Oral 06/26/2023 Active Atorvastatin Calcium 20 MG Oral 06/26/2023 Active ULTRA-FINE SHORT PEN NEEDLE 31 gauge x 07/23 MISCELLANEOUS *Reorder from [employer] for eRx and Interaction Alerts* 06/26/2023 Active FREESTYLE MARIA A 2 SENSOR KIT *Reorder from Simpli[employer]fi for eRx and Interaction Alerts* 06/26/2023 Active Basaglar KwikPen 100 UNIT/ML Subcutaneous 06/26/2023 Active Potassium Chloride ER 20 MEQ Oral 06/26/2023 Active metFORMIN HCl ER 500 MG Oral 06/26/2023 Active Ergocalciferol 1.25 MG (12515 UT) Oral 06/26/2023 Active Tamsulosin HCl 0.4 MG Oral 06/26/2023 Active Tenofovir Disoproxil Fumarate 300 mg Oral 06/26/2023 Active Social History Tobacco Use: Social History Observation Description Date Details (start date - stop date) Never Smoker NA - NA Sex Assigned At : Social History Observation Description Sex Assigned At Male Household Question Answer Notes Marital status: Number of adults in household: 2 Sexual History Question Answer Notes Had sex in the past 12 months (vaginal, oral, or anal)? Yes with Women only Tobacco Control (Standard) Question Answer Notes Tobacco use: Nonsmoker Additional Findings: Tobacco non-user Current no nsmoker AUDIT-C (Standard) Question Answer Notes Did you have a drink containing alcohol in the p ast year? No Points 0 Interpretation Negative Problems Problem Type SNOMED Code ICD Code Onset Dates Problem Status W/U Status Risk Notes Problem Mild recurrent major depression (04738876) Major depressive disorder, recurrent, mild (F33.0) 4 Active confirmed Problem Generalized anxiety disorder (08246483) Generalized anxiety disorder (F41.1) Active confirmed Problem [id number] Elevated blood pressure reading (R03.0) Active confirmed Vital Signs Blood pressure systolic 131 mm Hg 12/25/19 24 Blood pressure diastolic 83 mm Hg 024 Heart Rate 69 /min 12/25/2023 Height 71.00 in 12/25/2023 Weight 195.6 lbs 12/25/2023 BMI 27.28 kg/m2 12/25/2023 Height-cm 180.34 cm 12/25/2023 Weight-kg 88.72 kg 12/25/2023 Encounters Encounter Location Date Provider Diagnosis [facility] [address] [facility] [address] [place] [address] 12/25/2023 Tish Moreno Major depressive disorder, recurrent, mild F33.0 ; Generalized anxiety disorder F41.1 and Elevated blood pressure reading R03.0 Assessments Encounter Date Diagnosis (ICD Code) Assessment Notes Treatment Notes Treatment Clinical Notes Section Notes 12/25/2023 Major depressive disorder, recurrent, mild (ICD-10 - F33.0) Depression- Sertraline 50 mg daily stable Anxiety- Buspar 5 mg twice a day stable weight loss- recent surgery- bladder, prostrate andlymph nodes removed and chemo educated on all medications, benefits, side effects and risk, and educated on depression, anxiety, and ADHD, mood d/o and educated on compliance of medications, metabolic and movement d/o education appointment is, continue therapy discussion with patient about course of treatment and patient instructions. education on serotonin syndrome SSRI/SNRI side effects discussed including but not limited to, gastric upset, nausea, vomiting, diarrhea and/or constipation, weight changes, sexual side effects including loss of libido, increased suicidal thoughts/behavior s in children and young adults, and serotonin syndrome. Patient educated on all medications including potential benefits, side effects, risks. Educated on proper dosing schedule and importance of compliance Medication Management and Follow-Up - Plan: - Schedule follow-up appointments every 1-3 months to monitor the patient's response to the medication regimen. - Reinforce the importance of avoiding recreational drug use due to potential neurotoxicity and interactions with prescribed medications. 12/25/2023 Generalized anxiety disorder (ICD-10 - F41.1) Depression- Sertraline 50 mg daily stable Anxiety- Buspar 5 mg twice a day stable weight loss- recent surgery- bladder, prostrate andlymph nodes removed and chemo educated on all medications, benefits, side effects and risk, and educated on depression, anxiety, and ADHD, mood d/o and educated on compliance of medications, metabolic and movement d/o education appointment is, continue therapy discussion with patient about course of treatment and patient instructions. education on serotonin syndrome SSRI/SNRI side effects discussed including but not limited to, gastric upset, nausea, vomiting, diarrhea and/or constipation, weight changes, sexual side effects including loss of libido, increased suicidal thoughts/behavior s in children and young adults, and serotonin syndrome. Patient educated on all medications including potential benefits, side effects, risks. Educated on proper dosing schedule and importance of compliance Medication Management and Follow-Up - Plan: - Schedule follow-up appointments every 1-3 months to monitor the patient's response to the medication regimen. - Reinforce the importance of avoiding recreational drug use due to potential neurotoxicity and interactions with prescribed medications. 12/25/2023 Elevated blood pressure reading (ICD-10 - R03.0) Depression- Sertraline 50 mg daily stable Anxiety- Buspar 5 mg twice a day stable weight loss- recent surgery- bladder, prostrate andlymph nodes removed and chemo educated on all medications, benefits, side effects and risk, and educated on depression, anxiety, and ADHD, mood d/o and educated on compliance of medications, metabolic and movement d/o education appointment is, continue therapy discussion with patient about course of treatment and patient instructions. education on serotonin syndrome SSRI/SNRI side effects discussed including but not limited to, gastric upset, nausea, vomiting, diarrhea and/or constipation, weight changes, sexual side effects including loss of libido, increased suicidal thoughts/behavior s in children and young adults, and serotonin syndrome. Patient educated on all medications including potential benefits, side effects, risks. Educated on proper dosing schedule and importance of compliance Medication Management and Follow-Up - Plan: - Schedule follow-up appointments every 1-3 months to monitor the patient's response to the medication regimen. - Reinforce the importance of avoiding recreational drug use due to potential neurotoxicity and interactions with prescribed medications. Plan Of Treatment Medication Medication Name Sig Start Date Stop Date Notes Sertraline HCl 50 MG 1 tablet Oral Once a day for 90 days 06/26/2023 busPIRone HCl 5 MG 1 tablet Oral Twice a day for 90 days 06/26/2023 03/24/2024 Next Appt Details Follow Up: 3 Months, Reason: f/u rx Provider Name:Tish Moreno , 07/09/2024 10:45:00 AM, [address] [address], [facility] [address], [place], [address], Progress Notes * YVONNE PARISIDOB: 2 (73 yo M)Acc No.[id number]:12/25/2023 Patient: KHOA CHINCHILLANON Provider: Sarthak MORENO PMHNP :1950 A ge:73 Y S ex:Male Date:12/25/2023 Address:[address] [place], [place] [id number] Pcp:Yolande Soria MD Subjective: * Chief Complaints: * 1 . Follow Up Visit, had surgery about a month ago on his bladder, related to cancer, very sore still.. * HPI: D epression Screening: MELBA-7 (2018 Edition) F eeling nervous, anxious, or on edge?Not at all, N ot being able to stop or control worrying N ot at all, W orrying too much about different things N ot at all, T rouble relaxing N ot at all, B eing so restless that it is hard to sit still N ot at all, B ecoming easily annoyed or irritable N ot at all, F eeling afraid as if something awful might happen N ot at all, T otal MELBA-7 Score 0 , I nterpretation of Total ( 0 to 4) No Anxiety. This is a 73 year old white male here to follow up depresison, anxiety chronic since last visit reported had surgery about a month ago on his bladder, related to cancer, very sore still. I am done with chemo from 07/31-10/31 and I had bladder, prostrate and lymph nodes removed 11/24/23, I am so tired and losing weight and not much appetite I can not lift anything and frustrating, I sit in backyard and watch birds, I had a tube dwn thorat and waspy voice and cancer gone and go back 04/03 for check up and PCP then and blood work I have lost 35 pounds with chemo I want to eat and things taste awful and taste is coming back, sleep been like a baby, I get worn out easy and naps. depression and anxiety I am too tired to think about it, I know will take a while, I feel I want to do things and not able, just frustrated, not sad or down I do some things around house, no hopeless or helpless, I am not restless or fidgety, no pyschosis no no delsuions, no paranoia, no antonio no SI/HI, take all rx fine, no s/e hx chemo SLUMS= 27 12/25/23 Presently on Sertraline 50 mg daily, Buspar 5 mg twice a day ETOH- denies smoking- denies labs- recently drugs-denies bladder, prostrate and lymph nodes removed 11/24/23. D epression screening: PHQ-9 L ittle interest or pleasure in doing things N ot at all, F eeling down, depressed, or hopeless N ot at all, T rouble falling or staying asleep, or sleeping too much N early every day, F eeling tired or having little energy N early every day, P oor appetite or overeating N ot at all, F eeling bad about yourself or that you are a failure, or have let yourself or your family down N ot at all, T rouble concentrating on things, such as reading the newspaper or watching television N ot at all, M oving or speaking so slowly that other people could have noticed; or the opposite, being so fidgety or restless that you have been moving around a lot more than usual N ot at all, T houghts that you would be better off or of hurting yourself in some way N ot at all, T otal Score 6, I nterpretation M ild Depression. I ntervention D epression Screening Findings P ositve, F ollow-Up for Depression E motional support education, Management of mental health treatment, S uicide Risk Assessment Performed , A dditional Evaluation for Depression P sychiatric interview and evaluation, N timur of the standardized tool used for adult depression screening: [facility] (PHQ-9). * ROS: r eports n o shortness of breath when walking but reports no chest pain, no arm pain on exertion, no shortness of breath when lying down, no palpitations, no known heart murmur, and no ankle swelling; no cough. r eports no abdominal pain, no nausea, no vomiting, no constipation, less appetite and food not taste same, no diarrhea, and no GERD; . weight loss 35 pounds since chemo r eports no headaches and no migraines but reports no loss of consciousness, no weakness, no numbness, no seizures, no dizziness, no tremor, no gait dysfunction, and no paralysis. r eports no sleep disturbances no restless sleep, and no memory loss, mild depression, feeling safe in a relationship, no alcohol abuse, mild anxiety, no hallucinations, no suicidal thoughts, no mood swings, no agitation, r eports f atigue since chemo and surgery . reports no fever, wasy voice since surgery 12/01 r eports wears glasses. reports bladder, prostrate and lumph nodes removed 12/01 - bag for bladder r eports no muscle aches, no muscle weakness, no arthralgias/joint pain, reported back pain, no swelling in the extremities, no neck pain, and no difficulty walking SLUMS= 27 12/25/23. * Medical History: P roblems: Generalized anxiety disorder, Insomnia disorder related to another mental disorder, Mild recurrent major depression, Obesity, Obsessive-compulsive disorder, Posttraumatic stress disorder, Recurrent major depressive episodes, moderate, ,. * Surgical History: O ther 04/29/2005, bladder, prostrate and lymph nodes removed 12/01- cancer bladder , gastric bypass 2005 . * Social History: T obacco Use: T obacco Control (Standard) T obacco use: N onsmoker, A dditional Findings: Tobacco non-user C urrent nonsmoker. S exual History: S exual History H ad sex in the past 12 months (vaginal, oral, or anal)? Y es, w ith W omen only. D rug/Alcohol: D rugs H ave you used drugs other than those for medical reasons in the past 12 months??No. D o you smoke marijuana?: Denies. Do you drink alcohol?: No. AUDIT-C (Standard) D id you have a drink containing alcohol in the past year? N o, P oints 0 , I nterpretation N egative. H ousehold: H ousehold M arital status: m arried, N umber of adults in household: 2 . * Medications: T aking Lisinopril 40 MG Tablet Oral , Taking FreeStyle Maria A 2 [place] , Taking NovoLOG FlexPen ReliOn 100 UNIT/ML Solution Pen-injector Subcutaneous , Notes to Pharmacist: *Reorder from Simpl[employer]fi for eRx and Interaction Alerts*, Taking Ergocalciferol 1.25 MG (38863 UT) Capsule Oral , Taking Tamsulosin HCl 0.4 MG Capsule Oral , Taking Potassium Chloride ER 20 MEQ Tablet Extended Release Oral , Taking metFORMIN HCl ER 500 MG Tablet Extended Release 24 Hour Oral , Taking Sertraline HCl 50 MG Tablet 1 tablet Oral Once a day , Taking Tenofovir Disoproxil Fumarate 300 mg Tablet Oral , Taking FREESTYLE MARIA A 2 SENSOR KIT , Notes to Pharmacist: *Reorder from Simpli[employer]fi for eRx and Interaction Alerts*, Taking Basaglar KwikPen 100 UNIT/ML Solution Pen-injector Subcutaneous , Taking Atorvastatin Calcium 20 MG Tablet Oral , Taking ULTRA-FINE SHORT PEN NEEDLE 31 gauge x 5/16 NEEDLE, DISPOSABLE MISCELLANEOUS , Notes to Pharmacist: *Reorder from [facility] for eRx and Interaction Alerts*, Taking busPIRone HCl 5 MG Tablet 1 tablet Oral Twice a day , Taking Allopurinol 100 MG Tablet Oral , Medication List reviewed and reconciled with the patient * Allergies: N .K.D.A. Objective: * Vitals: B P:131/83mm Hg, HR:69/min, Wt:195.6lbs, Wt-k.72 kg, Ht: 71.00 in, Ht-cm: 180.34 cm, BMI:27.28Index, Body Surface Area: 2.11. * Examination: N eurology: Cognition Assessment Tools Used . Assessment: * Assessment: 1. M ajor depressive disorder, recurrent, mild - F33.0 (Primary) 2 . G eneralized anxiety disorder - F41.1 3 . E levated blood pressure reading - R03.0? Depression- Sertraline 50 mg daily stable Anxiety- Buspar 5 mg twice a day stable weight loss- recent surgery- bladder, prostrate andlymph nodes removed a nd chemo educated on all medications, benefits, side effects and risk, and educated on depression, anxiety, and ADHD, mood d/o and educated on compliance of medications, metabolic and movement d/o education appointment is, continue therapy discussion with patient about course of treatment and patient instructions. education on serotonin syndrome SSRI/SNRI side effects discussed including but not limited to, gastric upset, nausea, vomiting, diarrhea and/or constipation, weight changes, sexual side effects including loss of libido, increased suicidal thoughts/behaviors in children and young adults, and serotonin syndrome. Patient educated on all medications including potential benefits, side effects, risks. Educated on proper dosing schedule and importance of compliance Medication Management and Follow-Up - Plan: - Schedule follow-up appointments every 1-3 months to monitor the patient's response to the medication regimen. - Reinforce the importance of avoiding recreational drug use due to potential neurotoxicity and interactions with prescribed medications. Plan: * Treatment: 2. G eneralized anxiety disorder Refill busPIRone HCl Tablet, 5 MG, 1 tablet, Oral, Twice a day, 90 days, 180, Refills 0. * Procedure Codes: 9 6127 BEHAV ASSMT W/SCORE & DOCD/STAND INSTRUMENT, 03309 BEHAV ASSMT W/SCORE & DOCD/STAND INSTRUMENT, G2211 VISIT COMPLEXITY INHERENT TO ONGOING CARE RELATED TO A PATIENT'S SINGLE, SERIOUS CONDITION OR A COMPLEX CONDITION, 65553 COGNITIVE TEST BY HC PRO * Preventive Medicine: Counseling: B P Management: P RE-HYPERTENSIVE FOLLOW-UP PLAN: F ollow-up 2 weeks educated on healthy b/p 120/80monitor b/p at homerefer to PCP, Urgent care/ERheart healthy diet and exciselimit salt intakelimit soda intake and caffieneincrease water, L IFESTYLE RECOMMENDATION: L ifestyle education, R EFERRAL TO ALTERNATIVE / PRIMARY CARE PROVIDER: R eferral to general physician . * Follow Up: 3 Months (Reason: f/u rx) * Billing Information: * Visit Code: 12833 OFFICE OUTPATIENT VISIT 25 MINUTES DETAILED HISTORY AND EXAM/MODERATE MEDICAL DECISION MAKING. * Procedure Codes: 98439 BEHAV ASSMT W/SCORE & DOCD/STAND INSTRUMENT. 08186 BEHAV ASSMT W/SCORE & DOCD/STAND INSTRUMENT. G2211 VISIT COMPLEXITY INHERENT TO ONGOING CARE RELATED TO A PATIENT'S SINGLE, SERIOUS CONDITION OR A COMPLEX CONDITION. 87600 COGNITIVE TEST BY HC PRO. * Sign off status: Completed true * Provider: CASIE GARCIA Date: Generated for Nini campuzano/Mary/Leny on: 0 05/04/2024 12:49 PM MULE DRIVER History and Physical Notes * HPI (History of Present Illness) Category Sub-Category Detail Notes Category Not es Depression screening PHQ-9 Little inte rest or pleasure in doing things: Not at all Feeling down, depressed, or hopeless: No t at all Trouble falling or staying asleep, or sl eeping too much: Nearly every day Feeling tired or having little energy: N early every day Poor appetite or overeating: Not at all Feeling bad about yourself o r that you are a failure, or have let yourself or your family down: Not at all Trouble concentrating on thi ngs, such as reading the newspaper or watching television: Not at all Moving or speaking so slowly that other people could have noticed; or the opposite, being so fidgety or restless that you have been moving around a lot more than usual: Not at all Thoughts that you would be b lissy off or of hurting yourself in some way: Not at all Total Score: 6 Interpretation: Mild Depression Intervention Depression Screening Findings: P rochelle Follow-Up for Depression: Em otional support education, Management of mental health treatment Suicide Risk Assessment Performed: Additional Evaluation for De pression: Psychiatric interview and evaluation Name of the standardized too l used for adult depression screening:: Patient Health Questionnaire (PHQ-9) Depression Screening MELBA-7 (2018 Edition) Feeling nervous, anxious, or on edge: Not at all This is a 73 year old white male here to follow up depresison, anxiety chronic since last visit reported had surgery about a month ago on his bladder, related to cancer, very sore still. I am done with chemo from 07/31-10/31 and I had bladder, prostrate and lymph nodes removed 11/24/23, I am so tired and losing weight and not much appetite I can not lift anything and frustrating, I sit in backyard and watch birds, I had a tube dwn thorat and waspy voice and cancer gone and go back 04/03 for check up and PCP then and blood work I have lost 35 pounds with chemo I want to eat and things taste awful and taste is coming back, sleep been like a baby, I get worn out easy and naps. depression and anxiety I am too tired to think about it, I know will take a while, I feel I want to do things and not able, just frustrated, not sad or down I do some things around house, no hopeless or helpless, I am not restless or fidgety, no pyschosis no no delsuions, no paranoia, no antonio no SI/HI, take all rx fine, no s/e hx chemo SLUMS= 27 12/25/23 Presently on Sertraline 50 mg daily, Buspar 5 mg twice a day ETOH- denies smoking- denies labs- recently drugs-denies bladder, prostrate and lymph nodes removed 11/24/23 Not being able to stop or control worryi ng: Not at all Worrying too much about different things : Not at all Trouble relaxing: Not at all Being so restless that it is hard to sit still: Not at all Becoming easily annoyed or irritable: No t at all Feeling afraid as if something awful alina ht happen: Not at all Total MELBA-7 Score: 0 Interpretation of Total: (0 to 4) No Anx iety Examination Category Sub-Category Detail Notes Category Not es Neurology Cognition Assessment Tools Used Total score SLU MS: 27
--- OUTSIDE RECORDS SUMMARY | 2024-05-04 12:50 | XMS_ITS | Clinical Summary ---
Author Organization [facility] Address [address] [place] [address] Phone Care Team Providers Care Head Bookkeeper Name Role Phone Yolande Soria MD Primary Care Provider [phone] Allergies No known active allergies Medications LISINOPRIL PO Take by mouth. Active GLIMEPIRIDE PO Take by mouth. Active ALLOPURINOL PO Take by mouth. Active METFORMIN HCL PO Take by mouth. Active PRAVASTATIN SODIUM PO Take by mouth. Active SitaGLIPtin Phosphate (JANUVIA PO) Take by mouth. Active CITALOPRAM HYDROBROMIDE PO Take by mouth. Active Active Problems No known active problems Social History Tobacco Use Types Packs/Day Years Used Date Smoking Tobacco: Never Sex and Gender Information Value Date Recorded Sex Assigned at Not on file Legal Sex Male 11:45 PM CDT Gender Identity Not on file Sexual Orientation Not on file Last Filed Vital Signs Vital Sign Reading Time Taken Comments Blood Pressure 132/78 03/18/2015 9:26 AM DIRECTOR PRIVATE Pulse 61 03/18/2015 9:26 AM DIRECTOR PRIVATE Temperature - - Respiratory Rate 12 03/18/2015 9:26 AM DIRECTOR PRIVATE Oxygen Saturation 97% 03/18/2015 9:26 AM DIRECTOR PRIVATE Inhaled Oxygen Concentration - - Weight 106.7 kg (235 lb 4.8 oz) 03/18/2015 9:26 AM DIRECTOR PRIVATE Height 181.9 cm (5' 11.6 ) 03/18/2015 9:26 AM CS T Body Mass Index 32.27 03/18/2015 9:26 AM DIRECTOR PRIVATE Plan of Treatment Health Maintenance Due Date Last Done Comments Hepatitis C Virus (HCV) Screening 1950 TdaP Immunization 1950 Colonoscopy 10/07/1996 Colorectal Cancer Screening 10/07/1996 Cologuard 10/07/2001 Immunochemical Fecal Occult Blood 10/07/2001 Pneumococcal Immunization (5 0+ years) (1 of 1 - PCV) 10/07/2001 Zoster Immunization (1 of 2) 10/07/2001 Influenza Immunization (#1) 2023 SARS-COV-2 Immunization (3 - season) 2023 07/19/2020, 06/21/2020 Respiratory Syncytial Virus (RSV) Immunization (Adult) (1 - 1-dose 75+ series) 10/07/2026 Hepatitis B Immunization Aged Out No longer eligible based on patient's age to complete this topic Meningococcal Immunization (ACWY) Aged Out No longer eligible b ased on patient's age to complete this topic Rotavirus Immunization Aged Out No lo nger eligible based on patient's age to complete this topic Care Teams Head Bookkeeper Relationship Specialty Start Date End Date Yolande Soria MD [address] [place] [address] PCP - General Internal Medicine 11/25/23
--- OUTSIDE RECORDS SUMMARY | 2024-05-04 12:50 | XMS_ITS | Referral Summary ---
Author Organization [facility] Address [address] [place] [address] Care Team Providers Care Lens Coater Name Role Phone Yolande Soria MD Primary Care Provider Devin Tariq MD Unavailable [phone] Arnoldo Wade DO Unavailable [phone] Anthony Hermosillo MD Unavailable [phone] Encounters Date Type Department Care Team Description 03/17/2024 10:30 AM TETRYL WRINGER OPERATOR Clinical Support [facility] at [address] [address] Malignant neoplasm of anterior wall of urinary bladder (HCC) 03/17/2024 10:00 AM TETRYL WRINGER OPERATOR - 03/17/2024 11:59 PM TETRYL WRINGER OPERATOR Hospital Encounter [facility] Medical Office Building [address] [place] [id number] Malignant neoplasm of anterior wall of urinary bladder (HCC) Discharge Disposition: Discharge to home or self care 03/17/2024 11:45 AM TETRYL WRINGER OPERATOR Office Visit [facility] Oncology [address] [place] [address] [address] [place] [phone] Arnoldo Wade DO Malignant neoplasm of anterior wall of urinary bladder (HCC) (Primary Dx); Non-alcoholic fatty liver disease; Other iron deficiency anemia; B12 deficiency; Folate deficiency; Gastric bypass status for obesity 03/11/2024 11:35 AM TETRYL WRINGER OPERATOR Lab [address] Chronic hepatitis B (HCC) 03/11/2024 10:45 AM TETRYL WRINGER OPERATOR Office Visit [facility] Gastroenterology at [address] [place] [address] Chaparro Vargas MD Chronic hepatitis B (HCC) (Primary Dx); Non-alcoholic fatty liver disease 02/02/2024 10:20 AM TETRYL WRINGER OPERATOR Office Visit [facility] E[facility] [address] [facility] Medical Office Building [address] [place] [address] Eder Lay MD Dysphonia from Last 3 Months Allergies Active Allergy Reactions Criticality Noted Date [...] Ultra-Fine Short Pen Needle 31 gauge x 5/16 needle USE TO INJECT INSULIN 5 TIMES [...] 09/12/2022 Assessment & Plan (03/22/2024 2:59 PM TETRYL WRINGER OPERATOR): Liver function is normal. Will continue to monitor his liver function and hepatitis-B annually. Assessment & Plan (03/13/2023 12:07 PM TETRYL WRINGER OPERATOR): Discussed with the patient weight loss. Continue [...] 06/14/2018 Assessment & Plan (03/22/2024 2:59 PM TETRYL WRINGER OPERATOR): Patient has been dormant and no activity for long time. Continue viread. Check labs including fibro test. Schedule ultrasound of the right upper quadrant. Check hepatitis-B DNA and follow up in 1 year. Assessment & Plan (03/13/2023 12:08 PM TETRYL WRINGER OPERATOR): As of last evaluation patient is in [...] go and have a 2nd opinion at [facility] liver our office. Overall we are seeing [...] low. We will send the patient to [facility] for 2nd opinion as far as the [...] his liver disease 5 fatty liver contribution. Social History Tobacco Use Types Packs/Day Years Used Date Smoking Tobacco: Never Smokeless Tobacco: Never Tobacco Cessation:Counseling Given: Not Answered Alcohol Use Standard Drinks/Week Comments Not Currently 0 (1 standard drink = 0.6 oz pur e alcohol) [facility] Utilities Answer Date Recorded In the past 12 months has th e electric, gas, oil, or water company [...] often do you attend chur ch or yazdanism services? Never 11/25/2023 Do you belong to any clubs o r organizations such as episcopalian groups, unions, fraternal or athletic groups, or [...] any time in the past 12 m [facility], were you homeless or living in a longterm (including now)? No 11/25/2023 Personal Safety Answer Date Recorded Have you ever been in or are you currently in a harmful physical or emotional relationship or is someone making you feel afraid or unsafe? 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 Not on file Not on file Not on file Last Filed Vital Signs Vital Sign Reading Time Taken Comments Blood Pressure 146/70 03/17/2024 12:01 PM TETRYL WRINGER OPERATOR Pulse 50 03/17/2024 12:01 PM TETRYL WRINGER OPERATOR Temperature 36.7 C (98 F) 03/17/2024 12:01 PM TETRYL WRINGER OPERATOR Respiratory Rate 16 03/17/2024 12:01 PM TETRYL WRINGER OPERATOR Oxygen Saturation 100% 03/17/2024 12:01 PM TETRYL WRINGER OPERATOR Inhaled Oxygen Concentration - - Weight 93.3 kg (205 lb 9.6 oz) 03/17/2024 12:01 PM TETRYL WRINGER OPERATOR Height 180.3 cm (5' 11 ) 03/11/2024 10:47 AM TETRYL WRINGER OPERATOR Body Mass Index 28.68 03/11/2024 10:47 AM TETRYL WRINGER OPERATOR Plan of Treatment Not on file Medical Devices Implanted Type Area Filter Press Tender Device Identifier Shelf Expiration Date Model / Serial / Lot [employer] Annette 7fr 80cm Open Tip Luer Lock Adapter Guidewire Graduate Straight Latex Free 160-210 - [id number] Implanted:Qty: 2 on 11/24/2023 by Devin Tariq MD at [facility] Stent N/A: Ureter [employer] Annette 07/06/2027 [id number] / / [id number] Procedures Procedure Name Priority Date/Time Associated Diagnosis Comments EGFR Routine 03/17/2024 10:44 AM TETRYL WRINGER OPERATOR Malignant neoplasm of anterior wall of urinary bladder (HCC) DIFFERENTIAL AUTO Routine 03/17/2024 10: 44 AM TETRYL WRINGER OPERATOR Malignant neoplasm of anterior wall of urinary bladder (HCC) CBC WITH AUTO DIFFERENTIAL Routine 03/17/2024 10:44 AM TETRYL WRINGER OPERATOR Malignant neoplasm of anterior wall of urinary bladder (HCC) COMPREHENSIVE METABOLIC PANEL Routine 03/17/2024 10:44 AM TETRYL WRINGER OPERATOR Malignant neoplasm of anterior wall of urinary bladder (HCC) CT CHEST ABDOMEN PELVIS WO CONTRAST Schedule KAY, Read KAY (Appt Today, Awaiting Results) 03/17/2024 10:10 AM TETRYL WRINGER OPERATOR Malignant neoplasm of anterior wall of urinary bladder (HCC) FIBRO TEST-ACTI TEST Routine 03/11/2024 11:38 AM TETRYL WRINGER OPERATOR FVHAN-[id number], TUMOR MARKER Routine 03/11/2024 11:38 AM TETRYL WRINGER OPERATOR Chronic hepatitis B (HCC) HEPATITIS B DNA, QUANTITATIVE, PCR Routine 03/11/2024 11:38 AM TETRYL WRINGER OPERATOR Chronic hepatitis B (HCC) HEPATITIS PANEL, ACUTE Routine 07/25/2022 10:55 AM CDT Chronic hepatitis B (HCC) from Last 3 Months or Most Recently Relevant to Health Maintenance Results * eGFR (03/17/2024 10:44 AM TETRYL WRINGER OPERATOR) eGFR >90 >=60 mL/min/1. 73 m2 Comment: [...] of Race in Diagnosing Kidney Disease, JASN 2021). The CKD-EPI equation should not be used for patients with unstable renal function and has not been validated in children and those over 70. Current interpretive data was last reviewed 2021. Testing performed by: [address] [address] Blood 03/17/2024 10:4 4 AM TETRYL WRINGER OPERATOR 03/17/2024 10:46 AM TETRYL WRINGER OPERATOR Arnoldo Wade DO LAB BLOOD ORDERABLES Final R esult [facility] [address] [facility] [place] [address] * Differential, auto (03/17/2024 10:44 AM TETRYL WRINGER OPERATOR) Neutrophil abs 2.9 1.5 - 6.5 K/cumm Comment:Testing performed by : [address] [address] Imm gran abs 0.0 0.0 - 0.1 K/cumm JORJE Comment:Testing performed by : [address] [address] Lymphocyte abs 3.0 0.8 - 3.3 K/cumm JORJE Comment:Testing performed by : [address] [address] Monocyte abs 0.6 0.2 - 0.8 K/cumm JORJE Comment:Testing performed by : [address] [address] Eosinophil abs 0.4 0.0 - 0.5 K/cumm JORJE Comment:Testing performed by : [address] [address] Basophil abs 0.1 0.0 - 0.1 K/cumm JORJE Comment:Testing performed by : [address] [address] Neutrophil pct 41.6 % JORJE Comment: Interpretive Data Percent cell count reference ranges are not reported, since discordance with absolute values may lead to misinterpretation of CBC data. Current Interpretive Data was last revised on 2017. Testing performed by: [address] [address] Imm gran pct 0.3 % [facility] Comment: Interpretive Data Percent cell count reference ranges are not reported, since discordance with absolute values may lead to misinterpretation of CBC data. Current Interpretive Data was last revised on 2017. Testing performed by: [address] [address] Lymphocyte pct 42.8 % [facility] Comment: Interpretive Data Percent cell count reference ranges are not reported, since discordance with absolute values may lead to misinterpretation of CBC data. Current Interpretive Data was last revised on 2017. Testing performed by: [address] [address] Monocyte pct 8.4 % [facility] Comment: Interpretive Data Percent cell count reference ranges are not reported, since discordance with absolute values may lead to misinterpretation of CBC data. Current Interpretive Data was last revised on 2017. Testing performed by: [address] [address] Eosinophil pct 6.0 % [facility] Comment: Interpretive Data Percent cell count reference ranges are not reported, since discordance with absolute values may lead to misinterpretation of CBC data. Current Interpretive Data was last revised on 2017. Testing performed by: [address] [address] Basophil pct 0.9 % [facility] Comment: Interpretive Data Percent cell count reference ranges are not reported, since discordance with absolute values may lead to misinterpretation of CBC data. Current Interpretive Data was last revised on 2017. Testing performed by: [address] [address] Blood 03/17/2024 10:4 4 AM TETRYL WRINGER OPERATOR 03/17/2024 10:46 AM TETRYL WRINGER OPERATOR us Arnoldo Wade DO LAB BLOOD ORDERABLES Final R esult JORJE [address] [facility] [place] [address] * (ABNORMAL) CBC with auto differential (03/17/2024 10:44 AM TETRYL WRINGER OPERATOR) [facility] WBC 7.1 3.8 - 9.9 K/cumm Comment:Testing performed by : [address] [address] Hgb 11.2(L) 13.0 - 17.5 g/dL JORJE Comment:Testing performed by : [address], [address] Hct 32.7(L) 38.9 - 50.3 % JORJE Comment:Testing performed by : [address], [address] Plt 208 150 - 400 K/cumm JORJE Comment:Testing performed by : [address] [address] MPV 9.1 9.1 - 12.3 fL JORJE Comment:Testing performed by : [address], [address] RBC 4.18(L) 4.30 - 5.80 M/cumm JORJE Comment:Testing performed by : [address], [address] MCV 78.2(L) 81.3 - 96.4 fL JORJE Comment:Testing performed by : [address] [address] MCH 26.8(L) 27.1 - 33.3 pg JORJE Comment:Testing performed by : [address], [address] MCHC 34.3 32.3 - 35.7 g/dL JORJE Comment:Testing performed by : [address], [address] RDW CV 17.3(H) 11.1 - 14.9 % JORJE Comment:Testing performed by : [address], [address] RDW SD 49.5(H) 35.7 - 48.1 fL JORJE Comment:Testing performed by : [address] [address] NRBC abs 0.00 0.00 - 0.01 K/cumm JORJE Comment:Testing performed by : [address] [address] Blood 03/17/2024 10:4 4 AM TETRYL WRINGER OPERATOR 03/17/2024 10:46 AM TETRYL WRINGER OPERATOR Arnoldo Wade DO LAB BLOOD ORDERABLES Final R esult [facility] [address] [facility] Department [place] [address] * (ABNORMAL) Comprehensive metabolic panel (03/17/2024 10:44 AM TETRYL WRINGER OPERATOR) Sodium 137 135 - 145 mmol/L Comment:Testing performed by : [address] [address] Potassium, pl 4.2 3.3 - 4.9 mmol/L JORJE Comment:Testing performed by : [address] [address] Chloride 106 97 - 110 mmol/L JORJE Comment:Testing performed by : [address] [address] CO2 21(L) 22 - 32 mmol/L JORJE Comment:Testing performed by : [address] [address] Anion gap 10 2 - 15 mmol/L JORJE Comment:Testing performed by : [address] [address] BUN 23 6 - 25 mg/dL JORJE Comment:Testing performed by : [address] [address] Creatinine 0.90 0.80 - 1.30 mg/dL JORJE Comment:Testing performed by : [address] [address] Glucose 221(H) 70 - 199 mg/dL JORJE Comment: Interpretive Data Fasting glucose >/= 126 [...] classification and Diagnosis of Diabetes Diabetes Care 2021; 46: S19-S40. Current interpretive data was last revised 2022. Testing performed by: [address] [address] Calcium 8.7 8.5 - 10.3 mg/dL JORJE Comment:Testing performed by : [address] [address] Bilirubin, total 0.7 0.1 - 1.2 mg/dL JORJE Comment:Testing performed by : [address] [address] Protein, pl 7.2 6.5 - 8.5 g/dL JORJE Comment:Testing performed by : [address] [address] Albumin 3.9 3.5 - 5.0 g/dL JORJE Comment:Testing performed by : [address] [address] Alk phos 149(H) 40 - 130 Units/L JORJE Comment:Testing performed by : [address] [address] ALT 30 7 - 55 Units/L JORJE Comment:Testing performed by : [address] [address] AST 31 10 - 50 Units/L JORJE Comment:Testing performed by : [address] [address] Blood 03/17/2024 10:4 4 AM TETRYL WRINGER OPERATOR 03/17/2024 10:46 AM TETRYL WRINGER OPERATOR us Arnoldo Wade DO LAB BLOOD ORDERABLES Final R esult [facility] [address] [facility] Department [place] [address] * CT Chest Abdomen Pelvis WO Contrast (03/17/2024 10:10 AM TETRYL WRINGER OPERATOR) Anatomical Region Laterality Modality Body N/A Computed Tomogra phy 03/17/2024 10:2 8 AM TETRYL WRINGER OPERATOR Narrative 03/17/2024 10:39 AM TETRYL WRINGER OPERATOR EXAM DESCRIPTION: CT CHEST ABDOMEN PELVIS WO [...] definite evidence of diverticulitis. There is a nyuz-rw-neoopjqq amount of retained fecal debris in the [...] Charly Cardoza D.O. PS: PS Report ID: [id number] Reading Location: [place] [address] Procedure Note Charly Cardoza, DO - 03/17/2024 [...] definite evidence of diverticulitis. There is a bxit-cl-hllhytbx amount of retained fecaldebris in the colon [...] Charly Cardoza D.O. PS: PS Report ID: [id number] Reading Location: [place] [address] us Arnoldo Wade DO IMG CT PROCEDURES Final Resu lt * (ABNORMAL) Fibro Test-Acti Test (03/11/2024 11:38 AM TETRYL WRINGER OPERATOR) FibroTest Score 0.68 [place] [facility] FibroTest Stage F3 CERKellie LEMA (EMILY) FibroTest Interpretation SEE BELOW JORJE LEMA (EMILY) Comment: RESULT: advanced fibrosis FibroTest estimates liver fibrosis FibroTest Score Stage Interpretation 0.00-0.21 F0 no fibrosis 0.21-0.27 F0-F1 no fibrosis 0.27-0.31 F1 minimal fibrosis 0.31-0.48 F1-F2 minimal fibrosis 0.48-0.58 F2 moderate fibrosis 0.58-0.72 F3 advanced fibrosis 0.72-0.74 F3-F4 advanced fibrosis 0.74-1.00 F4 severe fibrosis (Cirrhosis) ActiTest Score 0.38 [facility] ([place]) ActiTest Grade A1-A2 [facility] ([place]) ActiTest Interpretation SEE BELOW JORJE LEMA ([place]) Comment: RESULT: minimal activity ActiTest estimates necroinflammatory activity ActiTest Score Grade Interpretation 0.00-0.17 A0 no activity 0.17-0.29 A0-A1 no activity 0.29-0.36 A1 minimal activity 0.36-0.52 A1-A2 minimal activity 0.52-0.60 A2 significant activity 0.60-0.62 A2-A3 significant activity 0.62-1.00 A3 severe activity FibroTest-ActiTest Comment See Comment JORJE LEMA ([place]) Comment: The reliability of results is dependent on compliance with the preanalytical and analytical conditions recommended by [employer]. The tests have to be deferred for: [...] developed and its performance characteristics determined by [facility] in a manner consistent with CLIA requirements. This test has not been cleared or approved by the U.S. Food and Drug Administration. [employer] Serial Number [id number] [facility] ([facility]) APOLIPOPROTEIN A1 114(L) >=120 mg/dL [facility] ([facility]) Kcrux-3-Xfrawxhpqcuep, Ser 335(H) 100 - 280 mg/dL [facility] ([place]) Haptoglobin, S 143 30 - 200 mg/dL [facility] ([facility]) Alanine Aminotransferase (ALT), S 45 7 - 55 Units/L [facility] ([place]) Gamma Glutamyltransferase (GGT), S 20 8 - 61 Units/L [facility] ([place]) Bilirubin, Total, S 0.7 0.0 - 1.2 mg/dL [facility] ([place]) Comment: Test Performed by: [facility] [place] [address] Tuck Pointer: Cecille Skinner Ph.D.; CLIA# [id number] Test Performed by: [facility] [address] [place] [address] Tuck Pointer: Cecille Skinner Ph.D.; CLIA# [id number] Blood 03/11/2024 11:3 8 AM TETRYL WRINGER OPERATOR 03/11/2024 1:43 PM TETRYL WRINGER OPERATOR Chaparro Vargas MD LAB BLOOD ORDERABLES Final Result [facility] ([facility]) [address] [facility] Department of Laboratories [place], [place] [id number] [facility] * Nuofh-5-Gkjxjteswcm, Tumor Marker (03/11/2024 11:38 AM TETRYL WRINGER OPERATOR) alpha Fetoprotein 2.5 <=8.3 ng/mL Comment: Interpretive [...] >1 year 0.0 8.3 ng/ml References Dean Maddox et al. J. Ped Surg 1978;13:155-156 Mike Mccloud. et al. Clin Chem Lab Med 2018;57:783-797 Renee Polo et al. Clin Chem 2014;6323-4317. Current interpretive data was last revised 2021. Testing performed by: [facility], [address] [place]., [address] Blood 03/11/2024 11:3 8 AM TETRYL WRINGER OPERATOR 03/11/2024 4:12 PM TETRYL WRINGER OPERATOR Chaparro Vargas MD LAB BLOOD ORDERABLES Final Result [facility] ([place]) [address] [place] [address] Department [place] [address] * Hepatitis B (HBV) DNA PCR, quantitative Blood (03/11/2024 11:38 AM TETRYL WRINGER OPERATOR) [facility] HBV DNA Result Not Detected [facility] Comment: The quantifiable range of this assay is 10 IU/mL to 1,000,000,000 IU/mL (1.00 log IU/mL to 9.00 log IU/mL). Testing was performed by the [employer] 6800 HBV Test version 2.0 ([employer] Testing performed at [facility] Current Interpretive Data was last revised on 2020. Testing performed by: [facility], [address] [place] [address]., [address] Blood 03/11/2024 11:3 8 AM TETRYL WRINGER OPERATOR 03/11/2024 6:38 PM TETRYL WRINGER OPERATOR Chaparro Vargas MD LAB MICROBIOLOGY - GENERAL ORDERABLES Final Result Performing Organization Address City/[facility]/ZIP Co de Phone Number JORJE LEMA (EMILY) 1 [facility] [place] [address] [facility] * (ABNORMAL) Hepatitis panel, acute (07/25/2022 10:55 AM CDT) Hep A IgM Nonreactive Nonreactive JORJE LEMA (EMILY) Comment: Interpretive Data: If Hep A IgM Ab is reported as Equivocal, a new sample should be drawn in two weeks for testing. Current interpretive data was last revised on 19. Testing performed by: [address] [address] Hep B core IgM Nonreactive Nonreactive C ERNER PITA (EMILY) Comment: Interpretive Data If HepB Core IgM Ab is reported as Equivocal, a new sample should be drawn in two weeks for testing. Current interpretive data was last revised on 19. Testing performed by: [facility], [address] [place] [address]., [address] Hep C Ab Nonreactive Nonreactive JORJE LEMA [...] last revised on 2019. Testing performed by: [facility], [address] [place] [address]., [address] HepBsAg Reactive(A) Nonreactive JORJE LEMA (EMILY) Comment: Critical Result Testing performed by: [address] [address] Blood 07/25/2022 10:5 5 AM CDT 07/25/2022 3:15 PM CDT Chaparro Vargas MD LAB MICROBIOLOGY - GENERAL ORDERABLES Final Result [facility] L[facility] [place] [address] [place] [id number] from Last 3 Months or Most Recently Relevant to Health Maintenance Insurance MEDICARE [facility] FINANCIAL MEDICARE COMMERCIAL GENERIC MEDICARE [facility] Address: [address] [address] [facility] FINANCIAL Advance Directives For more information, please contact: [phone] * Full Code (Latest Code Status on File) Date Activated Date Inactivated Comments 11/24/2023 5:46 PM 11/29/2023 6:22 PM Care Teams Lens Coater Relationship Specialty Start Date End Date Yolande Soria MD [address] [place] [address] PCP - General 07/25/16 [place] [address]INTOSH [address] [place] [address] Surgeon Urology 07/02/23 Arnoldo Wade DO [facility] MEDICAL ONCOLOGY, [facility] [address] [place] [address] Medical Oncologist/Hematologis t Hematology and Oncology 07/07/23 Anthony Hermosillo MD [address] [place], [place] [id number] Urologist Urology 07/07/23
--- OUTSIDE RECORDS SUMMARY | 2024-05-04 12:50 | XMS_ITS ---
Author Organization [facility] Address [address] [facility] [address] [place] [address] Care Team Providers Care Tip Tester Name Role Phone Yang PEPE, Yolande Primary Care Provider UnavailTish Darden Unavailable [phone] Allergies No Known Allergies REASON FOR VISIT paper checkin Medications Medication SIG (Take, Route, Frequency, Duration) Notes Start Date End Date Status Sertraline HCl 50 MG 1 tablet Oral Once a day for 90 days Active ULTRA-FINE SHORT PEN NEEDLE 31 gauge x 16 MISCELLANEOUS *Reorder from [facility] for eRx and Interaction Alerts* 06/26/2023 Active Allopurinol 100 MG Oral 06/26/2023 Active Basaglar KwikPen 100 UNIT/ML Subcutaneous 06/26/2023 Active Atorvastatin Calcium 20 MG Oral 06/26/2023 Active Tenofovir Disoproxil Fumarate 300 mg Oral 06/26/2023 Active FREESTYLE MARIA A 2 SENSOR KIT *Reorder from [facility] for eRx and Interaction Alerts* 06/26/2023 Active Potassium Chloride ER 20 MEQ Oral 06/26/2023 Active metFORMIN HCl ER 500 MG Oral 06/26/2023 Active Tamsulosin HCl 0.4 MG Oral 06/26/2023 Active Ergocalciferol 1.25 MG (00519 UT) Oral 06/26/2023 Active FreeStyle Maria A 2 [place] 06/26/2023 Active busPIRone HCl 5 MG 1 tablet Oral Twice a day for 90 days 06/26/2023 Active NovoLOG FlexPen ReliOn 100 UNIT/ML Subcutaneous *Reorder from [facility] for eRx and Interaction Alerts* 06/26/2023 Active Lisinopril 40 MG Oral 06/26/2023 Ac tive Social History Tobacco Use: Social History Observation [...] ast year? No Points 0 Interpretation Negative Vital Signs Blood pressure systolic 118 mm Hg 04/12/19 25 Blood pressure diastolic 79 mm Hg 025 Heart Rate 70 /min 04/12/2024 Height 71.00 in 04/12/2024 Weight 207.6 lbs 04/12/2024 BMI 28.95 kg/m2 04/12/2024 Height-cm 180.34 cm 04/12/2024 Weight-kg 94.17 kg 04/12/2024 Encounters Encounter Location Date Provider Diagnosis [facility] [employer] [address] [address] 04/12/2024 Tish Moreno Major depressive disorder, recurrent, mild F33.0 ; Generalized anxiety disorder F41.1 and Elevated blood pressure reading R03.0 Assessments Encounter Date Diagnosis (ICD Code) Assessment Notes Treatment Notes Treatment Clinical Notes Section Notes 04/12/2024 Major depressive disorder, recurrent, mild (ICD-10 - F33.0) Depression- Sertraline 50 mg daily stable Anxiety- Buspar 5 mg twice a day stable surgery- bladder, prostrate andlymph nodes removed and hx chemo educated on all medications, benefits, side [...] potential neurotoxicity and interactions with prescribed medications. 04/12/2024 Generalized anxiety disorder (ICD-10 - F41.1) Depression- Sertraline 50 mg daily stable Anxiety- Buspar 5 mg twice a day stable surgery- bladder, prostrate andlymph nodes removed and hx chemo educated on all medications, benefits, side [...] potential neurotoxicity and interactions with prescribed medications. 04/12/2024 Elevated blood pressure reading (ICD-10 - R03.0) Depression- Sertraline 50 mg daily stable Anxiety- Buspar 5 mg twice a day stable surgery- bladder, prostrate andlymph nodes removed and hx chemo educated on all medications, benefits, side [...] Oral Once a day for 90 days busPIRone HCl 5 MG 1 tablet Oral Twice a day for 90 days 0 06/26/2023 Next Appt Details Follow Up: 3 Months, Reason: f/u rx Provider Name:Tish Moreno , 07/09/2024 10:45:00 AM, [address], [facility] [address], [place], [address], Progress Notes * YVONNE PARISIDOB: 2 (73 yo M)Acc No.[id number]:04/12/2024 Patient: Ame ASCENCIO YVONNE Provider: CASIE GARCIA :1950 A ge:73 Y S ex:Male Date:04/12/2024 Address:[address] [place], [place] [id number] Pcp:Yolande Soria MD Subjective: * Chief Complaints: * 1 . Paper checkin. * HPI: D epression Screening: MELBA-7 (2018 [...] depresison, anxiety chronic since last visit reported been doing good and going to stores today and depression and anxiety up and down but there is a reason I am getting adjusted to bag and gained little weight and better putting on bag I am learning to live with it and part my life, appetite good, I still drink protien shakes and first year I saw chemo provider and looks like cancer removed and I see him regular basis and been sick with URI and cough and getting better, sleep once asleep I am good and takes a while for mind to relax I do not want to take sleep rx I have to get up every 3 hours empty bag and hard not to relive past, I am back and forth bed adn recliner to get settle as I get older and less naps in day, I try to stay up in day and wear self out, not sad or down, n o hopeless or helpless, I am not restless or fidgety, no pyschosis no no delsuions, no paranoia, no antonio no SI/HI, take all rx fine, no s/e , I been out doing things and accept life and do things I can do. I am going back to work at [employer] in [employer]. hx chemo SLUMS= 27 12/25/23 Presently on Sertraline 50 mg daily, Buspar 5 mg twice a day ETOH- denies smoking- denies labs- recently drugs-denies bladder, prostrate and lymph nodes removed 11/24/23, surgery bladder, related to cancer chemo from 07/31-10/31 and I had bladder, prostrate and lymph nodes removed 11/24/23,. D epression screening: PHQ-9 L ittle interest or pleasure in doing things N ot at all, F eeling down, depressed, or hopeless N ot at all, T rouble falling or staying asleep, or sleeping too much N ot at all, F eeling tired or having little energy N ot at all, P oor appetite or overeating N ot [...] N ot at all, T otal Score 0 . I ntervention D epression Screening Findings P ositve, F ollow-Up for Depression E motional support education, Management of mental health treatment, S uicide Risk Assessment Performed , A dditional Evaluation for Depression P sychiatric interview and evaluation, N timur of the standardized tool used for adult depression screening: [facility] (PHQ-9). * ROS: r eports n o shortness of breath, no chest pain, , no palpitations, no known heart murmur, and no ankle swelling; reported cough. recent URI r eports no abdominal pain, no nausea, no vomiting, no constipation, appetite improved no diarrhea, and no GERD; hx weight loss 35 pounds since chemo- recent weight gain r eports no headaches and no migraines no loss of consciousness, no weakness, no numbness, no seizures, no dizziness, no tremor, no gait dysfunction, and no paralysis. r eports sleep disturbances and restless sleep, and no memory loss, mild depression, feeling safe in a relationship, no alcohol abuse, mild anxiety, no hallucinations, no suicidal thoughts, no mood swings, no agitation, r eports f atigue since chemo and surgery . reports no fever, bladder removed surgery 12/01 r eports wears glasses. reports bladder, prostrate and lumph nodes removed 12/01 - bag for bladder r eports no muscle aches, no muscle weakness, no arthralgias/joint pain, reported back pain, no swelling in the extremities, no neck pain, and no difficulty walking SLUMS= 27 12/25/23 P erformance Met: N ormal blood pressure reading documented, follow-up not required ( G8783). * Medical History: P roblems: Generalized anxiety [...] dditional Findings: Tobacco non-user C urrent nonsmoker. M igrated Social History: M igrated Social History: Alcohol Intake: None 05/11/2018,Tobacco Years: Never smoker 09/23/2022. S exual History: S exual History H [...] Oral , Taking FreeStyle Maria A 2 [place] , Taking NovoLOG FlexPen ReliOn 100 UNIT/ML Solution Pen-injector Subcutaneous , Notes to Pharmacist: *Reorder from [facility] for eRx and Interaction Alerts*, Taking Ergocalciferol 1.25 MG (06005 UT) Capsule Oral , Taking Tamsulosin HCl 0.4 MG Capsule Oral , Taking Potassium Chloride ER 20 MEQ Tablet Extended Release Oral , Taking metFORMIN HCl ER 500 MG Tablet Extended Release 24 Hour Oral , Taking Tenofovir Disoproxil Fumarate 300 mg Tablet Oral , Taking FREESTYLE MARIA A 2 SENSOR KIT , Notes to Pharmacist: *[facility]*, Taking Basaglar KwikPen 100 UNIT/ML Solution Pen-injector Subcutaneous , Taking Atorvastatin Calcium 20 MG Tablet Oral , Taking ULTRA-FINE SHORT PEN NEEDLE 31 gauge x 5/16 NEEDLE, DISPOSABLE MISCELLANEOUS , Notes to Pharmacist: *[facility]*, Taking Allopurinol 100 MG Tablet Oral , Taking Sertraline HCl 50 MG Tablet 1 tablet Oral Once a day , Medication List reviewed and reconciled with the patient * Allergies: N .K.D.A. Objective: * Vitals: B P:118/79mm Hg, HR:70/min, Wt:207.6lbs, Wt-k.17 kg, Ht: 71.00 in, Ht-cm: 180.34 cm, BMI:28.95Index, Body Surface Area: 2.17. * Examination: N eurology: Cognition Assessment Tools Used . P sychiatry: Appearance: w ell-groomed, well-nourished, appears stated age. Abnormal body movements: n one. Affect / mood: a ppropriate, full range. Aggression: l ow. Anger control: g ood. Attention: g ood. Attitude: c ooperative. Gait s teady. Homicidal ideation: n one. Suicidal ideation: n one. Memory status: n o impairment noted SLUMS= 27 12/25/23. Degree of awareness of surroundings: w ithin normal limits.? Delusions: n o. Hallucinations: n o. Impulse control: g ood. Insight: g ood. Intellectual functioning: a verage. Comprehension - Intellectual function: a verage. Judgement: g ood. Orientation: a wake, alert and oriented x 3. Perceptual disorders: n o perceptual disorder noted. Psychomotor activity: w ithin normal range. Speech / language: a ppropriate pitch/modulation, clear and coherent, normal rate, volume, and articulation (RVR), proper grammar used. Thought content: a ppropriate. Thought process: i ntact. Assessment: * Assessment: 1. M ajor depressive disorder, recurrent, mild - F33.0 (Primary) 2 . G eneralized anxiety disorder - F41.1 3 . E levated blood pressure reading - R03.0? Depression- Sertraline 50 mg daily stable Anxiety- Buspar 5 mg twice a day stable s urgery- bladder, prostrate andlymph nodes removed and hx chemo educated on all medications, benefits, side [...] 6127 BEHAV ASSMT W/SCORE & DOCD/STAND INSTRUMENT, G8783 NORMAL BP READING DOC F/U NOT RQR, G2211 VISIT COMPLEXITY INHERENT TO ONGOING CARE RELATED TO A PATIENT'S SINGLE, SERIOUS CONDITION OR A COMPLEX CONDITION * Follow Up: 3 Months (Reason: f/u rx) * Billing Information: * Visit Code: 65760 OFFICE OUTPATIENT VISIT 25 MINUTES DETAILED HISTORY AND EXAM/MODERATE MEDICAL DECISION MAKING. * Procedure Codes: 05051 BEHAV ASSMT W/SCORE & DOCD/STAND INSTRUMENT. G8783 NORMAL BP READING DOC F/U NOT RQR. G2211 VISIT COMPLEXITY INHERENT TO ONGOING CARE RELATED TO A PATIENT'S SINGLE, SERIOUS CONDITION OR A COMPLEX CONDITION. * E INSTALLER REPAIRER HELPER Sign off status: Completed true * Provider: CASIE GARCIA Date: 04/12/2024 Generated for Nini campuzano/Mary/Leny on: 0 05/04/2024 12:50 PM CABLE INSTALLER REPAIRER HELPER History and Physical Notes * HPI (History of Present Illness) Category Sub-Category Detail Notes Category Not es Depression screening PHQ-9 Little inte rest or pleasure in doing things: Not at all Feeling down, depressed, or hopeless: No t at all Trouble falling or staying asleep, or sl eeping too much: Not at all Feeling tired or having little energy: N ot at all Poor appetite or overeating: Not at all [...] some way: Not at all Total Score: 0 Intervention Depression Screening Findings: P ositve Follow-Up for Depression: Em otional support education, [...] depresison, anxiety chronic since last visit reported been doing good and going to stores today and depression and anxiety up and down but there is a reason I am getting adjusted to bag and gained little weight and better putting on bag I am learning to live with it and part my life, appetite good, I still drink protien shakes and first year I saw chemo provider and looks like cancer removed and I see him regular basis and been sick with URI and cough and getting better, sleep once asleep I am good and takes a while for mind to relax I do not want to take sleep rx I have to get up every 3 hours empty bag and hard not to relive past, I am back and forth bed adn recliner to get settle as I get older and less naps in day, I try to stay up in day and wear self out, not sad or down, no hopeless or helpless, I am not restless or fidgety, no pyschosis no no delsuions, no paranoia, no antonio no SI/HI, take all rx fine, no s/e , I been out doing things and accept life and do things I can do. I am going back to work at [employer] in [employer] hx chemo SLUMS= 27 12/25/23 Presently on Sertraline 50 mg daily, Buspar 5 mg twice a day ETOH- denies smoking- denies labs- recently drugs-denies bladder, prostrate and lymph nodes removed 11/24/23, surgery bladder, related to cancer chemo from 07/31-10/31 and I had bladder, prostrate and lymph nodes removed 11/24/23, Not being able to stop or control [...] Neurology Cognition Assessment Tools Used Total score SLUMS: 27 Psychiatry Appearance: well-groomed, we ll-nourished, appears stated age Attitude: cooperative Psychomotor activity: within normal rang e Abnormal body movements: none Attention: good Degree of awareness of surroundings: wit hin normal limits Orientation: awake, alert and tony ented x 3 Affect / mood: appropriate, full ra nge Speech / language: appropriate pitch/mo dulation, clear and coherent, normal rate, volume, and articulation (RVR), proper grammar used Insight: good Judgement: good Thought process: intact Thought content: appropriate Perceptual disorders: no perceptual diso rder noted Aggression: low Anger control: good Suicidal ideation: none Homicidal ideation: none Intellectual functioning: average Impulse control: good Memory status: no impairment noted SLUMS= 27 12/25/23 Delusions: no Hallucinations: no Comprehension - Intellectual function: a verage Gait steady
== END 2024-05-04 10:49 | disposition home or self-care (01) ==
PROVIDERS: PCP Internal Medicine; Visit Provider Internal Medicine
DX: E11.65 Type 2 diabetes mellitus with hyperglycemia (principal); E79.0 Hyperuricemia without signs of inflammatory arthritis and tophaceous disease; D64.9 Anemia, unspecified; E78.2 Mixed hyperlipidemia
CPT/HCPCS: 36415; 80053; 80061; 81001; 82607; 82728; 83036; 83540; 84550; 85027

== ENCOUNTER 2024-06-28 01:37 | Day surgery (SDC) | payer MEDICARE, SELFPAY ==
[2024-06-24 09:48] VITALS: BMI 28.5
--- NOTE | 2024-06-24 10:07 | PC.NURSE ---
Report to the Outpatient Waiting Room, entrance under the green pavilion located off [facility], at time ___11:00AM____ on date __06/28/24 . Planned Procedure Time: ___1:00PM .? Time changes happen often and if your time is changed the preop area will call you the afternoon before. - You and your visitor will be asked to self-screen and do not enter if you have any COVID symptoms. Please call surgeon if you need to reschedule. - A mask is optional within the hospital at this time. Patients may have clear liquids (water, carbonated beverages, clear teas, apple juice) until 3 hours prior to surgery with a maximum of 20 ounces. - No food from midnight until time of surgery and no smoking, or chewing tobacco (or any form of nicotine). No chewing gum, candy or mints. - Infants may have breast milk until 4 hours before surgery, formula 6 hours prior to surgery. - Children will be allowed to drink immediately following surgery.? If applicable, please bring a bottle or sippy cup to assist with drinking. Juice, water, soda, and popsicles are readily available.? For infants on formula, please bring formula the day of surgery.? Pacifiers are allowed. Take only the following medications with a SIP of water on the morning of surgery: ____BUSPIRONE, SERTRALINE, 1/2 DOSE OF AM IMSULIN DO NOT STOP ANY OF YOUR OTHER PRESCRIPTION MEDICATIONS PRIOR TO SURGERY EXCEPT THE FOLLOWING Hold all vitamins and supplements for 3 days per anesthesiologist.- LAST DOSE 06/24/24 Please no make-up, nail lithuanian, hairspray, perfume, deodorant, or body powder the day of surgery.? No jewelry (including any body piercings) or valuables the day of surgery, leave them at home.? Please take a shower or bath the night before, or the morning of, surgery with an antibacterial soap.? Wear comfortable, loose fitting clothing.? Children are encouraged to wear pajamas. - Jewelry must be removed prior to entering the operating room.? Rings and piercings that are not removed may be cut off. - The hospital will not accept responsibility for valuables.? - Please leave all valuables, including medications, at home the day of surgery. If you are going home after surgery, a licensed interstate bus driver must drive you home.? - NO public transportation without another adult if you receive anesthesia. - We recommend that an adult stay with you for 24 hours following discharge. - We also recommend that you do not drive, make important decision, drink alcoholic beverages, or take any drugs that were not prescribed by your health care provider for at least 24 hours after your discharge time. For Pediatric surgeries, we recommend two adults accompany the child home. Follow any additional instructions given to you from your surgeon. Telephone instructions given to PATIENT and asked if any additional questions and then verbalized understanding. Patient advised to call surgeon office or pre surgery nurse liaison [phone] if any additional questions.
--- OUTSIDE RECORDS SUMMARY | 2024-06-28 01:44 | XMS_ITS | Referral Summary ---
Author Organization [facility] Address [address] [place] [address] Care Team Providers Care Clean Rice Grader And Reel Tender Name Role Phone Yolande Soria MD Primary Care Provider [phone] Devin Tariq MD Unavailable [phone] Arnoldo Wade DO Unavailable [phone] Anthony Hermosillo MD Unavailable [phone] Encounters Date Type Department Care Team Description 06/17/2024 Telephone [facility] [address] [place] [address] [address] [place] [address] Eileen Jo CMA 06/16/2024 10:30 AM CDT Clinical Support [facility] at [address] [address] Malignant neoplasm of anterior wall of urinary bladder (HCC); Non-alcoholic fatty liver disease; Other iron deficiency anemia; B12 deficiency; Folate deficiency; Gastric bypass status for obesity 06/16/2024 11:30 AM CDT Office Visit [facility] [address] [place] [phone] Arnoldo Wade DO Malignant neoplasm of anterior wall of urinary bladder (HCC) (Primary Dx); Malignant neoplasm of overlapping sites of bladder (HCC); Encounter for management of implanted device 06/16/2024 9:35 AM CDT - 06/16/2024 11:59 PM CDT Hospital Encounter [facility] [address] [place], [place] [id number] Malignant neoplasm of anterior wall of urinary bladder (HCC) Discharge Disposition: Discharge to home or self care 05/12/2024 8:27 AM FINISHING INSPECTOR - 05/12/2024 11:59 PM FINISHING INSPECTOR Hospital Encounter [facility] [address] [place] [address] Chronic hepatitis B (HCC) Discharge Disposition: Discharge to home or self care from Last 3 Months Allergies Active Allergy [...] 09/12/2022 Assessment & Plan (03/22/2024 2:59 PM FINISHING INSPECTOR): Liver function is normal. Will continue to monitor his liver function and hepatitis-B annually. Assessment & Plan (03/13/2023 12:07 PM FINISHING INSPECTOR): Discussed with the patient weight loss. Continue [...] 06/14/2018 Assessment & Plan (03/22/2024 2:59 PM FINISHING INSPECTOR): Patient has been dormant and no activity for long time. Continue viread. Check labs including fibro test. Schedule ultrasound of the right upper quadrant. Check hepatitis-B DNA and follow up in 1 year. Assessment & Plan (03/13/2023 12:08 PM FINISHING INSPECTOR): As of last evaluation patient is in [...] go and have a 2nd opinion at [facility] liver our office. Overall we [...] low. We will send the patient to [facility] for 2nd opinion as far as the [...] drink = 0.6 oz pur e alcohol) [facility] Utilities Answer Date Recorded In the past 12 months has [employer], gas, oil, or water company threatened to [...] often do you attend chur ch or baptism services? Never 11/25/2023 Do you belong to any clubs o r organizations such as adventist groups, unions, fraternal or athletic groups, or [...] time in the past 12 m [facility], were you homeless or living in a [place] facility (including now)? No 11/25/2023 Personal Safety Answer Date Recorded Have you ever been in or are you currently in a harmful physical or emotional relationship or is someone making you feel afraid or unsafe? 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 Not on file Not on file Not on file Last Filed Vital Signs Vital Sign Reading Time Taken Comments Blood Pressure 126/72 06/16/2024 11:27 AM CDT Pulse 53 06/16/2024 11:27 AM CDT Temperature 36.3 C (97.4 F) 06/16/2024 11:27 AM CDT Respiratory Rate 18 06/16/2024 11:27 AM CDT Oxygen Saturation 99% 06/16/2024 11:27 AM CDT Inhaled Oxygen Concentration - - Weight 94.3 kg (208 lb) 06/16/2024 11:27 AM CDT Height 180.3 cm (5' 11 ) 03/11/2024 10:47 AM FINISHING INSPECTOR Body Mass Index 29.01 03/11/2024 10:47 AM FINISHING INSPECTOR Plan of Treatment Not on file Medical Devices Implanted Type Area Fund Accountant Device Identifier Shelf Expiration Date Model / Serial / Lot [employer] Annette 7fr 80cm Open Tip Luer Lock Adapter Guidewire Graduate Straight Latex Free 160-210 - [id number] Implanted:Qty: 2 on 11/24/2023 by Devin Tariq MD at [facility] Stent N/A: Ureter [employer] Annette 07/06/2027 [id number] / / [id number] Procedures Procedure Name Priority Date/Time Associated Diagnosis Comments EGFR Routine 06/16/2024 10:21 AM CDT Malignant neoplasm of anterior wall of urinary bladder (HCC) DIFFERENTIAL AUTO Routine 06/16/2024 10: 21 AM CDT Malignant neoplasm of anterior wall of urinary bladder (HCC) CBC WITH AUTO DIFFERENTIAL Routine 06/16/2024 10:21 AM CDT Malignant neoplasm of anterior wall of urinary bladder (HCC) COMPREHENSIVE METABOLIC PANEL Routine 06/16/2024 10:21 AM CDT Malignant neoplasm of anterior wall of urinary bladder (HCC) RETICULOCYTES Routine 06/16/2024 10:21 AM CDT Malignant neoplasm of anterior wall of urinary bladder (HCC) Non-alcoholic fatty liver disease Other iron deficiency anemia B12 deficiency Folate deficiency Gastric bypass status for obesity IRON PROFILE W/ IBC Routine 06/16/2024 1 0:21 AM CDT Malignant neoplasm of anterior wall of urinary bladder (HCC) Non-alcoholic fatty liver disease Other iron deficiency anemia B12 deficiency Folate deficiency Gastric bypass status for obesity FERRITIN Routine 06/16/2024 10:21 AM CDT Malignant neoplasm of anterior wall of urinary bladder (HCC) Non-alcoholic fatty liver disease Other iron deficiency anemia B12 deficiency Folate deficiency Gastric bypass status for obesity VITAMIN B12 Routine 06/16/2024 10:21 AM CDT Malignant neoplasm of anterior wall of urinary bladder (HCC) Non-alcoholic fatty liver disease Other iron deficiency anemia B12 deficiency Folate deficiency Gastric bypass status for obesity FOLATE Routine 06/16/2024 10:21 AM CDT Malignant neoplasm of anterior wall of urinary bladder (HCC) Non-alcoholic fatty liver disease Other iron deficiency anemia B12 deficiency Folate deficiency Gastric bypass status for obesity CT CHEST ABDOMEN PELVIS WO CONTRAST Schedule Routine, Read Routine (OP Routine) 06/16/2024 9:55 AM CDT Malignant neoplasm of anterior wall of urinary bladder (HCC) US RUQ Schedule Routine, Read Routine (OP Routine) 05/12/2024 9:20 AM FINISHING INSPECTOR Chronic hepatitis B (HCC) HEPATITIS PANEL, ACUTE Routine 07/25/2022 10:55 AM CDT Chronic hepatitis B (HCC) from Last 3 Months or Most Recently Relevant to Health Maintenance Results * eGFR (06/16/2024 10:21 AM CDT) eGFR >90 >=60 mL/min/1. 73 m2 Comment: [...] was last reviewed 2021. Testing performed by: [address] [address] Blood 06/16/2024 10:2 1 AM CDT 06/16/2024 10:26 AM CDT Rubi Granados NP LAB BLOOD ORDERABLES Final Result JORJE [address] [facility] Department [place] [address] * (ABNORMAL) Differential, auto (06/16/2024 10:21 AM CDT) Pathologist [facility] Neutrophil abs 2.84 1.50 - 6.50 K/cumm Comment:Testing performed by : [address] [address] Imm gran abs 0.01 0.00 - 0.10 K/cumm JORJE CHARLES Comment:Testing performed by : [address] [address] Lymphocyte abs 3.35(H) 0.80 - 3.30 K/cumm JORJE Comment:Testing performed by : [address] [address] Monocyte abs 0.71 0.20 - 0.80 K/cumm [facility]] Comment:Testing performed by : [address] [address] Eosinophil abs 0.28 0.00 - 0.50 K/cumm [facility] Comment:Testing performed by : [address], [place]., [address] Basophil abs 0.06 0.00 - 0.10 K/cumm [facility] Comment:Testing performed by : [address] [address] Neutrophil pct 39.2 % [facility] Comment: Interpretive Data Percent cell count reference ranges are not reported, since discordance with absolute values may lead to misinterpretation of CBC data. Current Interpretive Data was last revised on 2017. Testing performed by: [address] [address] Imm gran pct 0.1 % [facility] Comment: Interpretive Data Percent cell count reference ranges are not reported, since discordance with absolute values may lead to misinterpretation of CBC data. Current Interpretive Data was last revised on 2017. Testing performed by: [address] [address] Lymphocyte pct 46.2 % [facility] Comment: Interpretive Data Percent cell count reference ranges are not reported, since discordance with absolute values may lead to misinterpretation of CBC data. Current Interpretive Data was last revised on 2017. Testing performed by: [address] [address] Monocyte pct 9.8 % [facility] Comment: Interpretive Data Percent cell count reference ranges are not reported, since discordance with absolute values may lead to misinterpretation of CBC data. Current Interpretive Data was last revised on 2017. Testing performed by: [address] [address] Eosinophil pct 3.9 % [facility] Comment: Interpretive Data Percent cell count reference ranges are not reported, since discordance with absolute values may lead to misinterpretation of CBC data. Current Interpretive Data was last revised on 2017. Testing performed by: [address] [address] Basophil pct 0.8 % JORJE CHARLES Comment: Interpretive Data Percent cell count reference ranges are not reported, since discordance with absolute values may lead to misinterpretation of CBC data. Current Interpretive Data was last revised on 2017. Testing performed by: [address] [address] Blood 06/16/2024 10:2 1 AM CDT 06/16/2024 10:26 AM CDT Rubi Granados NP LAB BLOOD ORDERABLES Final Result Performing Organization Address [facility] de Phone Number EBENEZER[address] [employer] [place] [address] * Iron profile w/ IBC (06/16/2024 10:21 AM CDT) Pathologist [facility] Iron 93 50 - 150 mcg/dL Comment:Testing performed by : [address] [address] TIBC 305 250 - 400 mcg/dL JORJE CHARLES Comment:Testing performed by : [address] [address] Transferrin saturation 30 20 - 50 % JORJE CHARLES Comment:Testing performed by : [address] [address] Blood 06/16/2024 10:2 1 AM CDT 06/16/2024 11:39 AM CDT Rubi Granados NP LAB BLOOD ORDERABLES Final Result Performing Organization Address [facility] Co de Phone Number [address] [place] [address] * (ABNORMAL) CBC with auto differential (06/16/2024 10:21 AM CDT) WBC 7.25 3.80 - 9.90 K/cumm Comment:Testing performed by : [address], [address] Hgb 11.1(L) 13.0 - 17.5 g/dL JORJE Comment:Testing performed by : [address], [address] Hct 32.5(L) 38.9 - 50.3 % JORJE Comment:Testing performed by : [address], [address] Plt 192 150 - 400 K/cumm JORJE Comment:Testing performed by : [address], [address] MPV 9.8 9.1 - 12.3 fL JORJE Comment:Testing performed by : [address], [address] RBC 4.09(L) 4.30 - 5.80 M/cumm JORJE Comment:Testing performed by : [address], [address] MCV 79.5(L) 81.3 - 96.4 fL JORJE Comment:Testing performed by : [address], [address] MCH 27.1 27.1 - 33.3 pg JORJE Comment:Testing performed by : [address], [address] MCHC 34.2 32.3 - 35.7 g/dL JORJE Comment:Testing performed by : [address], [address] RDW CV 14.6 11.1 - 14.9 % JORJE Comment:Testing performed by : [address], [address] RDW SD 42.4 35.7 - 48.1 fL JORJE Comment:Testing performed by : [address], [address] NRBC abs 0.00 0.00 - 0.01 K/cumm JORJE Comment:Testing performed by : [address], [address] ANC Prelim 2.84 1.50 - 6.50 K/cumm JORJE Comment: Interpretive Data The rapid ANC is a preliminary automated count and may vary from the final ANC (Neut Abs) reported in the WBC differential that follows. Current interpretive data was last revised 2024. Testing performed by: [address] [address] Blood 06/16/2024 10:2 1 AM CDT 06/16/2024 10:26 AM CDT Rubi Granados NP LAB BLOOD ORDERABLES Final Result JORJE [facility] [employer] [place] [address] * Reticulocyte Count (06/16/2024 10:21 AM CDT) Pathologist [facility] Retics, absolute 34 20 - 87 K/cumm Comment:Testing performed by : [address] [address] Retics 0.8 0.4 - 2.9 % JORJE Comment:Testing performed by : [address] [address] Reticulocyte Hgb 33.2 30.5 - 38.0 pg JORJE Comment:Testing performed by : [address] [address] Blood 06/16/2024 10:2 1 AM CDT 06/16/2024 10:26 AM CDT Rubi Granados NP LAB BLOOD ORDERABLES Final Result [place] [id number] [facility] [employer] [place] [address] * Folate (06/16/2024 10:21 AM CDT) Folic acid 7.0 >=5.0 ng/mL Comment:Testing performed by : [address] [address] Blood 06/16/2024 10:2 1 AM CDT 06/16/2024 11:38 AM CDT Rubi Granados NP LAB BLOOD ORDERABLES Final Result EBENEZER[address] [address] * Ferritin (06/16/2024 10:21 AM CDT) Pathologist [facility] Ferritin 92 30 - 400 ng/mL Comment:Testing performed by : [address] [address] Blood 06/16/2024 10:2 1 AM CDT 06/16/2024 11:39 AM CDT Rubi Granados NP LAB BLOOD ORDERABLES Final Result Performing Organization Address [facility]/ZIP Co de Phone Number [address] [address] * Vitamin B12 (06/16/2024 10:21 AM CDT) Pathologist [facility] Vitamin B12 442 230 - 1,250 pg/mL Comment:Testing performed by : [address] [address] Blood 06/16/2024 10:2 1 AM CDT 06/16/2024 11:38 AM CDT Rubi Granados WINK CUTTER OPERATOR LAB BLOOD ORDERABLES Final Result Performing Organization Address City/[facility]/ZIP Co de Phone Number [address] [address] * (ABNORMAL) Comprehensive metabolic panel (06/16/2024 10:21 AM CDT) [facility] Sodium 137 135 - 145 mmol/L Comment:Testing performed by : [address] [address] Potassium, pl 4.7 3.3 - 4.9 mmol/L [facility] Comment:Testing performed by : [address] [address] Chloride 105 97 - 110 mmol/L [facility] Comment:Testing performed by : [address], [place]., [address] CO2 22 22 - 32 mmol/L [facility] Comment:Testing performed by : [address] [address] Anion gap 10 2 - 15 mmol/L [facility] Comment:Testing performed by : [address] [address] BUN 22 6 - 25 mg/dL [facility] Comment:Testing performed by : [address] [address] Creatinine 0.90 0.80 - 1.30 mg/dL [facility] Comment:Testing performed by : [address] [address] Glucose 186 70 - 199 mg/dL [facility] Comment: Interpretive Data Fasting glucose >/= 126 [...] was last revised 2022. Testing performed by: [address] [address] Calcium 9.0 8.5 - 10.3 mg/dL [facility] Comment:Testing performed by : [address] [address] Bilirubin, total 0.6 0.1 - 1.2 mg/dL [facility] Comment:Testing performed by : [address] [address] Protein, pl 7.1 6.5 - 8.5 g/dL [facility] Comment:Testing performed by : [address] [address] Albumin 4.3 3.5 - 5.0 g/dL JORJE CHARLES Comment:Testing performed by : [address] [address] Alk phos 138(H) 40 - 130 Units/L JORJE CHARLES Comment:Testing performed by : [address] [address] ALT 34 7 - 55 Units/L JORJE Comment:Testing performed by : [address] [address] AST 31 10 - 50 Units/L JORJE Comment:Testing performed by : [address] [address] Blood 06/16/2024 10:2 1 AM CDT 06/16/2024 10:26 AM CDT Rubi Granados WINK CUTTER OPERATOR LAB BLOOD ORDERABLES Final Result JORJE [address] [facility] Department [place] [address] * CT Chest Abdomen Pelvis WO Contrast (06/16/2024 9:55 AM CDT) Anatomical Region Laterality Modality Body N/A Computed Tomogra phy 06/25/2024 7:09 PM CDT Narrative 06/25/2024 7:19 PM CDT EXAM DESCRIPTION: CT CHEST ABDOMEN PELVIS WO CONTRAST REASON FOR STUDY: Bladder cancer, invasive, assess treatment response, restaging of bladder cancer 3 month bladder cancer f/u. No complaints. Hx of cystectomy, prostatectomy. TECHNIQUE: CT scan of the chest, abdomen, and pelvis performed without intravenous and without oral contrast using helical scanning technique. Reconstructed coronal and sagittal MPR images reviewed. All images stored on PACS. Automated exposure control was used as a dose optimization technique for this examination. COMPARISON: 03/17/2024 FINDINGS: The sensitivity for detection of visceral lesions is diminished without the use of intravenous contrast. CHEST LUNGS: There are small calcified granulomas bilaterally. There is atelectasis/scarring in the right lung base. PLEURA: No effusion. No pneumothorax. MEDIASTINUM/NARESH: No identified masses or abnormal nodes. There are calcified mediastinal lymph nodes. There is a small hiatal hernia. HEART: Heart size is normal with no pericardial effusion. CORONARY ARTERY CALCIFICATION: Present. VASCULATURE CHEST: No thoracic aortic aneurysm. AXILLA: No adenopathy. CHEST WALL: No masses. No subcutaneous air. There is mild bilateral gynecomastia. HARDWARE/LINES/TUBES: A right adri catheter has its tip in the superior vena cava. MUSCULOSKELETAL CHEST: No significant abnormality. There are degenerative changes in the spine. ABDOMEN/PELVIS LIVER: Normal size. The liver demonstrates a nodular contour suggesting cirrhosis. No identified cystic or solid masses. No cysts. GALLBLADDER: Cholelithiasis. BILE DUCTS: No intrahepatic or extrahepatic ductal dilatation. SPLEEN: Normal size. No focal lesions. PANCREAS: No identified cystic or solid masses. No significant calcifications. No adjacent inflammation or peripancreatic fluid collections. Pancreatic duct not dilated. ADRENALS: Normal. KIDNEYS/URINARY TRACT: Bilateral renal hypodensities are most likely cysts there is air in the left renal collecting system. This is new from the prior examination. No stones. No hydronephrosis or hydroureter. Urinary bladder is absent and there is a right lower quadrant ileal conduit. GI: The patient is status post gastric bypass. No dilated bowel loops. No obvious wall thickening. Normal appendix. Scattered diverticular disease without diverticulitis. PERITONEUM: No ascites or free air. RETROPERITONEUM: No mass or adenopathy. REPRODUCTIVE: No significant abnormality. VASCULATURE ABDOMEN: No abdominal aortic aneurysm. MUSCULOSKELETAL ABDOMEN PELVIS: No acute finding. OTHER: No significant abnormality. IMPRESSION: No evidence of metastatic disease in the chest, abdomen or pelvis. Status post cystectomy with right lower quadrant ileal conduit. Air in the left renal collecting system. This is new from the prior examination. This may be related to reflux from the ileal conduit. Cholelithiasis. Diverticulosis. Additional findings as above. THIS IS AN ELECTRONICALLY VERIFIED FINAL REPORT 06/25/2024 7:19 PM - Electronically signed by Lis Ibarra M.D. LL: SINA Report ID: [id number] Reading Location: [id number] Procedure Note Lis Ibarra MD - 06/25/2024 EXAM DESCRIPTION: CT CHEST ABDOMEN PELVIS WO CONTRAST REASON FOR STUDY: Bladder cancer, invasive, assess treatment response, restaging of bladder cancer 3 month bladder cancer f/u. No complaints. Hx of cystectomy,prostatectomy. TECHNIQUE: CT scan of the chest, abdomen, and pelvis performed without intravenous and without oral contrast using helical scanning technique. Reconstructed coronal and sagittal MPR images reviewed. All images storedon PACS. Automated exposure control was used as a dose optimizationtechnique for this examination. COMPARISON: 03/17/2024 FINDINGS: The sensitivity for detection of visceral lesions is diminished without the use of intravenous contrast. CHEST LUNGS: There are small calcified granulomas bilaterally. There is atelectasis/scarring in the right lung base. PLEURA: No effusion. No pneumothorax. MEDIASTINUM/NARESH: No identified masses or abnormal nodes. There are calcified mediastinal lymph nodes. There is a small hiatal hernia. HEART: Heart size is normal with no pericardial effusion. CORONARY ARTERY CALCIFICATION: Present. VASCULATURE CHEST: No thoracic aortic aneurysm. AXILLA: No adenopathy. CHEST WALL: No masses. No subcutaneous air. There is mild bilateral gynecomastia. HARDWARE/LINES/TUBES: A right adri catheter has its tip in the superior vena cava. MUSCULOSKELETAL CHEST: No significant abnormality. There aredegenerative changes in the spine. ABDOMEN/PELVIS LIVER: Normal size. The liver demonstrates a nodular contour suggesting cirrhosis. No identified cystic or solid masses. No cysts. GALLBLADDER: Cholelithiasis. BILE DUCTS: No intrahepatic or extrahepatic ductal dilatation. SPLEEN: Normal size. No focal lesions. PANCREAS: No identified cystic or solid masses. No significant calcifications. No adjacent inflammation or peripancreatic fluidcollections. Pancreatic duct not dilated. ADRENALS: Normal. KIDNEYS/URINARY TRACT: Bilateral renal hypodensities are most likelycysts there is air in the left renal collecting system. This is new from theprior examination. No stones. No hydronephrosis or hydroureter. Urinarybladder is absent and there is a right lower quadrant ileal conduit. GI: The patient is status post gastric bypass. No dilated bowel loops.No obvious wall thickening. Normal appendix. Scattered diverticular disease without diverticulitis. PERITONEUM: No ascites or free air. RETROPERITONEUM: No mass or adenopathy. REPRODUCTIVE: No significant abnormality. VASCULATURE ABDOMEN: No abdominal aortic aneurysm. MUSCULOSKELETAL ABDOMEN PELVIS: No acute finding. OTHER: No significant abnormality. IMPRESSION: No evidence of metastatic disease in the chest, abdomen or pelvis. Status post cystectomy with right lower quadrant ileal conduit. Air in the left renal collecting system. This is new from the prior examination. This may be related to reflux from the ileal conduit. Cholelithiasis. Diverticulosis. Additional findings as above. THIS IS AN ELECTRONICALLY VERIFIED FINAL REPORT 06/25/2024 7:19 PM - Electronically signed by Lis Ibarra M.D. LL: LL Report ID: [id number] Reading Location: [id number] us Rubi Granados NP IMG CT PROCEDURES Fi nal Result * US RUQ (05/12/2024 9:20 AM FINISHING INSPECTOR) Anatomical Region Laterality Modality Abdomen N/A Ultrasound 05/16/2024 1:09 AM FINISHING INSPECTOR Narrative 05/16/2024 1:11 AM FINISHING INSPECTOR EXAM DESCRIPTION: US RUQ REASON FOR STUDY: chronic hepatitis b, follow-up observation for hepatocellular carcinoma TECHNIQUE: Ultrasound of the right upper quadrant of the abdomen was performed with grayscale and color doppler. COMPARISON: 04/29/2023 FINDINGS: PANCREAS: Visualized portions of the pancreas are within normal limits. Portions of the pancreatic body and tail are obscured due to bowel gas. LIVER: The liver demonstrates a coarsened echotexture and surface nodularity suggesting cirrhosis. No cystic or solid mass lesions were seen within the liver. GALLBLADDER: The gallbladder contains small shadowing gallstones. There is no evidence of gallbladder wall thickening or pericholecystic fluid. BILIARY: There is no intrahepatic or extrahepatic biliary ductal dilatation. Common bile duct measures 5 mm in diameter. RIGHT KIDNEY: Normal size. Normal echogenicity. 2.6 cm right renal cyst. No hydronephrosis. Measures 10.5 cm in length. OTHER: No other significant findings. IMPRESSION: Coarsened echotexture of the liver and surface nodularity suggesting cirrhosis. No cystic or solid mass lesions were seen within the liver. Cholelithiasis. 2.6 cm right renal cyst. THIS IS AN ELECTRONICALLY VERIFIED FINAL REPORT 05/16/2024 1:11 AM - Electronically signed by Francisco Ng M.D. KT: JOHANN Report ID: [id number] Reading Location: [id number] Procedure Note Francisco Ng MD - 05/16/2024 EXAM DESCRIPTION: US RUQ REASON FOR STUDY: chronic hepatitis b, follow-up observation for hepatocellular carcinoma TECHNIQUE: Ultrasound of the right upper quadrant of the abdomen wasperformed with grayscale and color doppler. COMPARISON: 04/29/2023 FINDINGS: PANCREAS: Visualized portions of the pancreas are within normal limits. Portions of the pancreatic body and tail are obscured due to bowel gas. LIVER: The liver demonstrates a coarsened echotexture and surfacenodularity suggesting cirrhosis. No cystic or solid mass lesions were seen withinthe liver. GALLBLADDER: The gallbladder contains small shadowing gallstones. Thereis no evidence of gallbladder wall thickening or pericholecystic fluid. BILIARY: There is no intrahepatic or extrahepatic biliary ductaldilatation. Common bile duct measures 5 mm in diameter. RIGHT KIDNEY: Normal size. Normal echogenicity. 2.6 cm right renalcyst. No hydronephrosis. Measures 10.5 cm in length. OTHER: No other significant findings. IMPRESSION: Coarsened echotexture of the liver and surface nodularity suggesting cirrhosis. No cystic or solid mass lesions were seen within the liver. Cholelithiasis. 2.6 cm right renal cyst. THIS IS AN ELECTRONICALLY VERIFIED FINAL REPORT 05/16/2024 1:11 AM - Electronically signed by Francisco Ng M.D. KT: JOHANN Report ID: [id number] Reading Location: [id number] us Chaparro Vargas MD IMG US PROCEDURES Final Re sult * (ABNORMAL) Hepatitis panel, acute (07/25/2022 10:55 AM CDT) Hep A IgM Nonreactive Nonreactive JORJE LEMA (EMILY) Comment: Interpretive Data: If Hep A IgM Ab is reported as Equivocal, a new sample should be drawn in two weeks for testing. Current interpretive data was last revised on 19. Testing performed by: [facility], [address] [place] [address]., [id number] Hep B core IgM Nonreactive Nonreactive C ERNER PITA (EMILY) Comment: Interpretive Data If HepB Core IgM Ab is reported as Equivocal, a new sample should be drawn in two weeks for testing. Current interpretive data was last revised on 19. Testing performed by: [facility], [address] [place] [address]., [id number] Hep C Ab Nonreactive Nonreactive JORJE LEMA [...] revised on 2019. Testing performed by: [facility], [address] [place] [address]., [id number] HepBsAg Reactive(A) Nonreactive JORJE LEMA (EMILY) Comment: Critical Result Testing performed by: [address] [id number] Blood 07/25/2022 10:5 5 AM CDT 07/25/2022 3:15 PM CDT us Chaparro Vargas MD LAB MICROBIOLOGY - GENERAL ORDERABLES Final Result JORJE LEMA (EMILY) 1 [facility] Department [place] [address] from Last 3 Months or Most Recently Relevant to Health Maintenance Insurance MEDICARE [employer] GENERIC MEDICARE [facility] Advance Directives For more information, please contact: [phone] * Full Code (Latest Code Status on File) Date Activated Date Inactivated Comments 11/24/2023 5:46 PM 11/29/2023 6:22 PM Care Teams Clean [employer] And Reel Tender Relationship Specialty Start Date End Date Yolande Soria MD [address] [place] [address] PCP - General 07/25/16 [place] [address] [address] Surgeon Urology 07/02/23 Arnoldo Wade DO [address] [place] [address] MEDICAL ONCOLOGY, [facility] [address] [place] [address] Medical Oncologist/Hematologis t Hematology and Oncology 07/07/23 Anthony Hermosillo MD [address] [place] [id number] Urologist Urology 07/07/23
--- OUTSIDE RECORDS SUMMARY | 2024-06-28 01:44 | XMS_ITS | Patient Health Record ---
Author Organization [facility] [employer] Address [address] [place] [address] Care Team Providers Care Director Trial Name Role Phone Yolande Soria MD Primary Care Provider Tish Lindsey Unavailable [phone] Migration, Provider Unavailable Unavailable Allergies No Known Allergies Reason For Referral No Information Medications Medication SIG (Take, Route, Frequency, Duration) Notes Start Date End Date Status Tenofovir Disoproxil Fumarate 300 mg Oral 06/26/2023 Active FREESTYLE MARIA A 2 SENSOR KIT *Reorder from [employer] for eRx and Interaction Alerts* 06/26/2023 Active Sertraline HCl 50 MG 1 tablet Oral Once a day for 90 days Active Potassium Chloride ER 20 MEQ Oral 06/26/2023 Active metFORMIN HCl ER 500 MG Oral 06/26/2023 Active Ergocalciferol 1.25 MG (83633 UT) Oral 06/26/2023 Active Tamsulosin HCl 0.4 MG Oral 06/26/2023 Active FreeStyle Maria A 2 [place] 06/26/2023 Active busPIRone HCl 5 MG 1 tablet Oral Twice a day for 90 days 06/26/2023 Active NovoLOG FlexPen ReliOn 100 UNIT/ML Subcutaneous *Reorder from [employer] for eRx and Interaction Alerts* 06/26/2023 Active ULTRA-FINE SHORT PEN NEEDLE 31 gauge x 5/16 MISCELLANEOUS *Reorder from [employer] for eRx and Interaction Alerts* 06/26/2023 Active Allopurinol 100 MG Oral 06/26/2023 Active Basaglar KwikPen 100 UNIT/ML Subcutaneous 06/26/2023 Active Atorvastatin Calcium 20 MG Oral 06/26/2023 Active Lisinopril 40 MG Oral 06/26/2023 Ac tive Immunizations Vaccine Route Administration Date Status Comme nts Influenza virus vaccine, quadrivalent (IIV4), split virus, 0.25 mL dosage Unknown 12/15/2013 Administered Influenza virus vaccine, quadrivalent (IIV4), split virus, 0.25 mL dosage Unknown 11/25/2014 Administered Influenza virus vaccine, quadrivalent (IIV4), split virus, 0.25 mL dosage Unknown 12/11/2015 Administered Influenza virus vaccine, quadrivalent (IIV4), split virus, 0.25 mL dosage Unknown 12/08/2017 Administered Influenza virus vaccine, quadrivalent (IIV4), split virus, 0.25 mL dosage Unknown 12/14/2018 Administered Influenza, seasonal, injecta ble, preservative free, 3 yrs and above Unknown 11/25/2012 Administered Influenza, seasonal, injecta ble, preservative free, 3 yrs and above Unknown 11/04/2016 Administered Moderna Covid-19 Vaccine 1st dose Unknown 06/21/2020 Ad ministered Moderna Covid-19 Vaccine 1st dose Unknown 07/19/2020 Ad ministered Novel [id number], preservative free Unknown 11/27/2017 Administered Novel [id number], preservative free Unknown 11/24/2018 Administered Pneumococcal conjugate PCV 13 Unknown 09/23/2014 Admini stered Pneumococcal conjugate PCV 7 Unknown 12/14/2018 Adminis tered Pneumococcal polysaccharide PPV23 Unknown 12/15/2013 Ad ministered Pneumococcal polysaccharide PPV23 Unknown 12/14/2018 Ad ministered Zoster Unknown 06/24/2012 Administered Zoster Unknown 11/24/2018 Administered Social History Tobacco Use: Social History Observation [...] Risk Notes Problem Mild recurrent major depression (92256474) Major depressive disorder, recurrent, mild (F33.0) 4 Active confirmed Problem Generalized anxiety disorder (89405678) Generalized anxiety disorder (F41.1) 4 Active confirmed Problem [id number] Elevated blood pressure reading (R03.0) Active confirmed Vital Signs Heart Rate 70 /min 04/12/2024 Height-cm 180.34 cm 04/12/2024 Blood pressure diastolic 79 mm Hg 04/12/2024 Weight-kg 94.17 kg 04/12/2024 Height 71.00 in 04/12/2024 Blood pressure systolic 118 mm Hg 04/12/2024 Weight 207.6 lbs 04/12/2024 BMI 28.95 kg/m2 04/12/2024 Encounters Encounter Location Date Provider Diagnosis [facility] [address] [address] 12/25/2023 Tish Moreno Major depressive disorder, recurrent, mild F33.0 ; Generalized anxiety disorder F41.1 and Elevated blood pressure reading R03.0 [facility] [address] [address] 04/12/2024 Tish Moreno Major depressive disorder, recurrent, mild F33.0 ; Generalized anxiety disorder F41.1 and Elevated blood pressure reading R03.0 [facility] [address] [address] 07/26/2023 Provider Migration [facility] [address] [address] 07/27/2023 Provider Migration Assessments Encounter Date Diagnosis (ICD Code) Assessment [...] neurotoxicity and interactions with prescribed medications. 04/12/2024 Major depressive disorder, recurrent, mild (ICD-10 [...] interactions with prescribed medications. Plan Of Treatment Next Appt Details Provider Name:Tish Moreno , 07/09/2024 10:45:00 AM, [address], [facility], [place], [address], Insurance Providers Payer Name Payer Address Payer Phone Subscriber Number Group Number Insured Name Patient Relationship to Insured Coverage Start Date Coverage End Date [place] [address] [place] [address] [id number] YVONNE PARISI Self - patient is the insured [place] Insurance 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
--- OUTSIDE RECORDS SUMMARY | 2024-06-28 01:44 | XMS_ITS | Clinical Summary ---
Author Organization [facility] Address [address] [place] [address] Care Team Providers Care Tourist Home Keeper Name Role Phone Yolande Soria MD Primary Care Provider [phone] Devin Tariq MD Unavailable [phone] Arnoldo Wade DO Unavailable [phone] Anthony Hermosillo MD Unavailable [phone] Allergies Active Allergy Reactions Criticality Noted Date [...] 09/12/2022 Assessment & Plan (03/22/2024 2:59 PM SCREEN OPERATOR): Liver function is normal. Will continue to monitor his liver function and hepatitis-B annually. Assessment & Plan (03/13/2023 12:07 PM SCREEN OPERATOR): Discussed with the patient weight loss. [...] 06/14/2018 Assessment & Plan (03/22/2024 2:59 PM SCREEN OPERATOR): Patient has been dormant and no activity for long time. Continue viread. Check labs including fibro test. Schedule ultrasound of the right upper quadrant. Check hepatitis-B DNA and follow up in 1 year. Assessment & Plan (03/13/2023 12:08 PM SCREEN OPERATOR): As of last evaluation patient is [...] go and have a 2nd opinion at [facility] liver our office. Overall we are [...] low. We will send the patient to [facility] for 2nd opinion as far as the [...] Type Department Care Team Description 06/17/2024 Telephone [facility] [address] [place] [address] [phone] Eileen Jo CMA 06/16/2024 11:30 AM CDT Office Visit [facility] [address] [place] [address] [phone] Arnoldo Wade, Malignant neoplasm of anterior wall of urinary bladder (HCC) (Primary Dx); Malignant neoplasm of overlapping sites of bladder (HCC); Encounter for management of implanted device 06/16/2024 10:30 AM CDT Clinical Support [facility] at [address] [address] Malignant neoplasm of anterior wall of urinary bladder (HCC); Non-alcoholic fatty liver disease; Other iron deficiency anemia; B12 deficiency; Folate deficiency; Gastric bypass status for obesity 06/16/2024 9:35 AM CDT - 06/16/2024 11:59 PM CDT Hospital Encounter [facility] Medical Office Building [address] [address] Malignant neoplasm of anterior wall of urinary bladder (HCC) Discharge Disposition: Discharge to home or self care 05/12/2024 8:27 AM SCREEN OPERATOR - 05/12/2024 11:59 PM SCREEN OPERATOR Hospital Encounter [facility] [address] [place] [address] Chronic hepatitis B (HCC) Discharge Disposition: Discharge to home or self care from Last 3 Months Surgical History Surgery [...] drink = 0.6 oz pur e alcohol) [facility] Utilities Answer Date Recorded In the past 12 months has e [employer], gas, oil, or water [employer]...Exactly threatened to shut off services in your [...] often do you attend chur ch or jainism services? Never 11/25/2023 Do you belong to [...] any time in the past 12 m [facility], were you homeless or living in a penitentiary (including now)? No 11/25/2023 Personal Safety Answer Date Recorded Have you ever been in or are you currently in a harmful physical or emotional relationship or is someone making you feel afraid or unsafe? 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 Not on [...] cm (5' 11 ) 03/11/2024 10:47 AM SCREEN OPERATOR Body Mass Index 29.01 03/11/2024 10:47 AM SCREEN OPERATOR Plan of Treatment Health Maintenance Due Date Last Done Comments Colon Cancer Screening-Colonoscopy 1950 Depression Screening 1950 DTaP/Tdap/Td Vaccine (1 - Tdap) 10/07/1962 Well Visit 65+ 10/07/2016 Zoster Vaccine (3 of 3) 01/19/2019 11/24/2018, 06/24 Pneumococcal vaccine 65+ (3 of 3 - PCV20 or PCV21) 09/24/2019 09/23/2014, 12/15/2013 Influenza Vaccine (Season Ended) 2024 11/24/2018, 11/27/2017, 11/04/2016, Additional history exists Fall Risk Assessment 11/28/2024 11/29/2023 Hepatitis C Screening Completed 07/25/2022, 019 Medical Devices Implanted Type [employer] Director Device Identifier Shelf Expiration Date Model / Serial / Lot [employer] Annette 7fr 80cm Open Tip Luer Lock Adapter Guidewire Graduate Straight Latex Free 160-210 - [id number] Implanted:Qty: 2 on 11/24/2023 by Devin Tariq MD at [facility] Stent N/A: Ureter [employer] Annette 07/06/2027 [id number] / / [id number] Procedures Procedure Name Priority Date/Time Associated Diagnosis [...] Read Routine (OP Routine) 05/12/2024 9:20 AM SCREEN OPERATOR Chronic hepatitis B (HCC) HEPATITIS PANEL, [...] of Race in Diagnosing Kidney Disease, JASN 202). The CKD-EPI equation should not be used for patients with unstable renal function and has not been validated in children and those over 70. Current interpretive data was last reviewed 2021. Testing performed by: [address] [address] Blood 06/16/2024 10:2 1 AM CDT 06/16/2024 10:26 AM CDT Rubi Granados RECORDING ARTIST LAB BLOOD ORDERABLES Final Result JORJE [address] [facility] Department [place] [address] * (ABNORMAL) Differential, auto (06/16/2024 10:21 AM CDT) Neutrophil abs 2.84 1.50 - 6.50 K/cumm Comment:Testing performed by : [address] [address] Imm gran abs 0.01 0.00 - 0.10 K/cumm JORJE Comment:Testing performed by : [address] [address] Lymphocyte abs 3.35(H) 0.80 - 3.30 K/cumm JORJE Comment:Testing performed by : [address] [address] Monocyte abs 0.71 0.20 - 0.80 K/cumm JORJE Comment:Testing performed by : [address] [address] Eosinophil abs 0.28 0.00 - 0.50 K/cumm JORJE Comment:Testing performed by : [address] [address] Basophil abs 0.06 0.00 - 0.10 K/cumm JORJE Comment:Testing performed by : [address] [address] Neutrophil pct 39.2 % JORJE Comment: Interpretive Data Percent cell count reference ranges are not reported, since discordance with absolute values may lead to misinterpretation of CBC data. Current Interpretive Data was last revised on 2017. Testing performed by: [address] [address] Imm gran pct 0.1 % CERNER Comment: Interpretive Data Percent cell count reference ranges are not reported, since discordance with absolute values may lead to misinterpretation of CBC data. Current Interpretive Data was last revised on 2017. Testing performed by: [address] [address] Lymphocyte pct 46.2 % CERNER Comment: Interpretive Data Percent cell count reference ranges are not reported, since discordance with absolute values may lead to misinterpretation of CBC data. Current Interpretive Data was last revised on 2017. Testing performed by: [address] [address] Monocyte pct 9.8 % [facility] Comment: Interpretive Data Percent cell count reference ranges are not reported, since discordance with absolute values may lead to misinterpretation of CBC data. Current Interpretive Data was last revised on 2017. Testing performed by: [address] [address] Eosinophil pct 3.9 % [facility] Comment: Interpretive Data Percent cell count reference ranges are not reported, since discordance with absolute values may lead to misinterpretation of CBC data. Current Interpretive Data was last revised on 2017. Testing performed by: [address] [address] Basophil pct 0.8 % [facility] Comment: Interpretive Data Percent cell count reference ranges are not reported, since discordance with absolute values may lead to misinterpretation of CBC data. Current Interpretive Data was last revised on 2017. Testing performed by: [address] [address] Blood 06/16/2024 10:2 1 AM CDT 06/16/2024 10:26 AM CDT Rubi Granados RECORDING ARTIST LAB BLOOD ORDERABLES Final Result [address] [place] [address] * Iron profile w/ IBC (06/16/2024 10:21 AM CDT) [facility] Iron 93 50 - 150 mcg/dL Comment:Testing performed by : [address] [address] TIBC 305 250 - 400 mcg/dL JORJE CHARLES Comment:Testing performed by : [address] [address] Transferrin saturation 30 20 - 50 % JORJE Comment:Testing performed by : [address] [address] Blood 06/16/2024 10:2 1 AM CDT 06/16/2024 11:39 AM CDT Rubi Granados NP LAB BLOOD ORDERABLES Final Result Performing Organization Address [facility] de Phone Number [address] [place] [address] * (ABNORMAL) CBC with auto differential (06/16/2024 10:21 AM CDT) [facility] WBC 7.25 3.80 - 9.90 K/cumm Comment:Testing performed by : [address] [address] Hgb 11.1(L) 13.0 - 17.5 g/dL JORJE CHARLES Comment:Testing performed by : [address] [address] Hct 32.5(L) 38.9 - 50.3 % JORJE CHARLES Comment:Testing performed by : [address] [address] Plt 192 150 - 400 K/cumm JORJE CHARLES Comment:Testing performed by : [address] [address] MPV 9.8 9.1 - 12.3 fL JORJE CHARLES Comment:Testing performed by : [address] [address] RBC 4.09(L) 4.30 - 5.80 M/cumm JORJE Comment:Testing performed by : [address] [address] MCV 79.5(L) 81.3 - 96.4 fL JORJE Comment:Testing performed by : [address] [address] MCH 27.1 27.1 - 33.3 pg JORJE Comment:Testing performed by : [address] [address] MCHC 34.2 32.3 - 35.7 g/dL JORJE Comment:Testing performed by : [address], [address] RDW CV 14.6 11.1 - 14.9 % JORJE Comment:Testing performed by : [address], [address] RDW SD 42.4 35.7 - 48.1 fL JORJE Comment:Testing performed by : [address] [address] NRBC abs 0.00 0.00 - 0.01 K/cumm JORJE Comment:Testing performed by : [address] [address] ANC Prelim 2.84 1.50 - 6.50 K/cumm JORJE Comment: Interpretive Data The rapid ANC is a preliminary automated count and may vary from the final ANC (Neut Abs) reported in the WBC differential that follows. Current interpretive data was last revised 2024. Testing performed by: [address] [address] Blood 06/16/2024 10:2 1 AM CDT 06/16/2024 10:26 AM CDT us Rubi Granados RECORDING ARTIST LAB BLOOD ORDERABLES Final Result JORJE [address] [facility] Department [place] [address] * Reticulocyte Count (06/16/2024 10:21 AM CDT) Pathologist [facility] Retics, absolute 34 20 - 87 K/cumm Comment:Testing performed by : [facility], [address] [place] [address]., [address] Retics 0.8 0.4 - 2.9 % JORJE Comment:Testing performed by : [address] [address] Reticulocyte Hgb 33.2 30.5 - 38.0 pg JORJE Comment:Testing performed by : [address] [address] Blood 06/16/2024 10:2 1 AM CDT 06/16/2024 10:26 AM CDT Rubi Granados NP LAB BLOOD ORDERABLES Final Result [address] [place] [address] * Folate (06/16/2024 10:21 AM CDT) [facility] Folic acid 7.0 >=5.0 ng/mL Comment:Testing performed by : [address] [address] Blood 06/16/2024 10:2 1 AM CDT 06/16/2024 11:38 AM CDT Rubi Granados RECORDING ARTIST LAB BLOOD ORDERABLES Final Result [address] [address] * Ferritin (06/16/2024 10:21 AM CDT) [facility] Ferritin 92 30 - 400 ng/mL Comment:Testing performed by : [address] [address] Blood 06/16/2024 10:2 1 AM CDT 06/16/2024 11:39 AM CDT Rubi Granados NP LAB BLOOD ORDERABLES Final Result Performing Organization Address City/[facility] de Phone Number JORJE [address] [address] * Vitamin B12 (06/16/2024 10:21 AM CDT) Pathologist [facility] Vitamin B12 442 230 - 1,250 pg/mL Comment:Testing performed by : [address] [address] Blood 06/16/2024 10:2 1 AM CDT 06/16/2024 11:38 AM CDT Rubi Granados NP LAB BLOOD ORDERABLES Final Result Performing Organization Address [facility] Phone Number EBENEZER[address] [address] * (ABNORMAL) Comprehensive metabolic panel (06/16/2024 10:21 AM CDT) [facility] Sodium 137 135 - 145 mmol/L Comment:Testing performed by : [address] [address] Potassium, pl 4.7 3.3 - 4.9 mmol/L JORJE Comment:Testing performed by : [address] [address] Chloride 105 97 - 110 mmol/L JORJE Comment:Testing performed by : [address] [address] CO2 22 22 - 32 mmol/L JORJE Comment:Testing performed by : [address] [address] Anion gap 10 2 - 15 mmol/L JORJE Comment:Testing performed by : [address] [address] BUN 22 6 - 25 mg/dL JORJE Comment:Testing performed by : [address] [place]., [address] Creatinine 0.90 0.80 - 1.30 mg/dL JORJE Comment:Testing performed by : [address] [address] Glucose 186 70 - 199 mg/dL [facility] Comment: Interpretive Data Fasting glucose >/= 126 [...] was last revised 2022. Testing performed by: [address] [address] Calcium 9.0 8.5 - 10.3 mg/dL JORJE Comment:Testing performed by : [address] [address] Bilirubin, total 0.6 0.1 - 1.2 mg/dL [facility] Comment:Testing performed by : [address] [address] Protein, pl 7.1 6.5 - 8.5 g/dL [facility] Comment:Testing performed by : [address] [address] Albumin 4.3 3.5 - 5.0 g/dL [facility] Comment:Testing performed by : [address] [address] Alk phos 138(H) 40 - 130 Units/L JORJE Comment:Testing performed by : [address] [address] ALT 34 7 - 55 Units/L JORJE Comment:Testing performed by : [address] [address] AST 31 10 - 50 Units/L JORJE Comment:Testing performed by : [address] [address] Blood 06/16/2024 10:2 1 AM CDT 06/16/2024 10:26 AM CDT Rubi Granados RECORDING ARTIST LAB BLOOD ORDERABLES Final Result JORJE [address] [facility] [place] [address] * CT Chest Abdomen Pelvis WO Contrast [...] Lis Ibarra M.D. LL: SINA Report ID: [id number] Reading Location: [place] [address] Procedure Note Lis Ibarra MD - 06/25/2024 [...] Lis Ibarra M.D. LL: SINA Report ID: [id number] Reading Location: [id number] us Rubi Granados RECORDING ARTIST IMG CT PROCEDURES Fi nal Result * US RUQ (05/12/2024 9:20 AM SCREEN OPERATOR) Anatomical Region Laterality Modality Abdomen N/A Ultrasound 05/16/2024 1:09 AM SCREEN OPERATOR Narrative 05/16/2024 1:11 AM SCREEN OPERATOR EXAM DESCRIPTION: US RUQ REASON FOR STUDY: [...] Francisco Ng M.D. KT: JOHANN Report ID: [id number] Reading Location: [id number] Procedure Note Francisco Ng MD - 05/16/2024 [...] Electronically signed by Francisco Ng M.D. KT: KT Report ID: [id number] Reading Location: [place] [address] us Chaparro Vargas MD IM US PROCEDURES Final Re sult * (ABNORMAL) Hepatitis panel, acute (07/25/2022 10:55 AM CDT) Hep A IgM Nonreactive Nonreactive JORJE LEMA (EMILY) Comment: Interpretive Data: If Hep A IgM Ab is reported as Equivocal, a new sample should be drawn in two weeks for testing. Current interpretive data was last revised on 19. Testing performed by: [facility], [address] [place] [address]., [address] Hep B core IgM Nonreactive Nonreactive Michele LEMA (EMILY) Comment: Interpretive Data If HepB Core IgM Ab is reported as Equivocal, a new sample should be drawn in two weeks for testing. Current interpretive data was last revised on 19. Testing performed by: [facility], [address] [place] [address], [place]., [address] Hep C Ab Nonreactive Nonreactive JORJE [facility] (EMILY) Comment: Interpretive Data Nonreactive: Antibodies to [...] last revised on 2019. Testing performed by: [facility], [address] [place] [address]., [address] HepBsAg Reactive(A) Nonreactive JORJE [facility] (EMILY) Comment: Critical Result Testing performed by: [address] [address] Blood 07/25/2022 10:5 5 AM CDT 07/25/2022 3:15 PM CDT Chaparro Vargas MD LAB MICROBIOLOGY - GENERAL ORDERABLES Final Result JORJE LEMA (EMILY) 1 [facility] [place] [address] from Last 3 Months or Most Recently Relevant to Health Maintenance Insurance MEDICARE [facility] Address: [facility] [address] [place] [address] [facility] [employer] Member Subscriber Plan / Payer (Ef fective 2018-Present) Name:Osvaldo Duque Relation to Subscriber:Self Name:Osvaldo Duque Payer ID:[id number] Group ID:[id number] Type:COMMERCIAL Address: [place] [id number] MEDICARE COMMERCIAL GENERIC MEDICARE [facility] [employer] Advance Directives For more information, please contact: [phone] * Full Code (Latest Code Status on File) Date Activated Date Inactivated Comments 11/24/2023 5:46 PM 11/29/2023 6:22 PM Care Teams Tourist Home Keeper Relationship Specialty Start Date End Date Yolande Soria MD [address] [place] [address] PCP - General 07/25/16 [place] [address] [address] Surgeon Urology 07/02/23 Arnoldo Wade DO [address] [place] [address] MEDICAL ONCOLOGY, [address] [address] Medical Oncologist/Hematologis t Hematology and Oncology 07/07/23 Anthony Hermosillo MD [address] [facility] [address] [place] [address] Urologist Urology 07/07/23
--- OUTSIDE RECORDS SUMMARY | 2024-06-28 01:44 | XMS_ITS | Clinical Summary ---
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 Gender Identity Not on file Sexual Orientation Not on file Plan of Treatment Health Maintenance Due Date Last Done Comments Colorectal Cancer Screening Colonoscopy (10 Years) 1950 Hepatitis C 10/07/1969 DTaP, Tdap and Td Vaccines ( 1 - Tdap) 10/07/1970 Annual Medicare Wellness Visit 10/07/2016 Zoster Vaccines (3 of 3) 01/19/2019 019, 06/24/2012 COVID-19 Vaccine (3 - 2023-2 5 season) 2023 07/19/2020, 06/21/2020 RSV Immunization or 60+ Years (1 - 1-dose 75+ series) 10/07/2026 Pneumococcal Vaccine: 50+ Years Completed 12/14/2018, 09/23/2014, 12/15/2013 Meningococcal B Vaccine Aged Out No l onger eligible based on patient's age to complete this topic Meningococcal Vaccine Aged Out No emelyn deb eligible based on patient's age to complete this topic RSV Immunizations Under 20 Months Aged Out No longer eligible b ased on patient's age to complete this topic Insurance MEDICARE AETNA AETNA MEDICARE [employer] Care Teams Barrel Coater Relationship Specialty Start Date End Date Yolande Soria MD [address] [place] [address] PCP - General INTERNAL MEDICINE 06/19/23
--- OUTSIDE RECORDS SUMMARY | 2024-06-28 01:44 | XMS_ITS ---
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 Will continue to monitor his liver function and hepatitis-B annually. Assessment & Plan (03/13/2023 12:07 PM COMMUNICATIONS SENIOR ASSOCIATE): Discussed with the patient weight loss. Continue [...] 06/14/2018 Assessment & Plan (03/22/2024 2:59 PM COMMUNICATIONS SENIOR ASSOCIATE): Patient has been dormant and no activity for long time. Continue viread. Check labs including fibro test. Schedule ultrasound of the right upper quadrant. Check hepatitis-B DNA and follow up in 1 year. Assessment & Plan (03/13/2023 12:08 PM COMMUNICATIONS SENIOR ASSOCIATE): As of last evaluation patient is in [...] go and have a 2nd opinion at [facility] liver our office. Overall we are [...] low. We will send the patient to [facility] for 2nd opinion as far as [...] Wade, DO Linked Problems Encounter for person encounchi [facility] Treatment Medications No medications scheduled. Past Treatment [...] from the original note were not included. [address], [place] [address] This Survivorship Care Plan is a cancer [...] Information: Primary Care Physician Yolande Soria MD [phone] Surgeon Devin Tariq MD [phone] Urologist Anthony Hermosillo MD [phone] Medical Oncologist Arnoldo Wade DO [phone] Treatment Summary Cancer Diagnosis Information Diagnosis Malignant [...] counseling may be helpful. The use of nehq-gue-yhcyupk lubricants may lessen painful intercourse. Talk with [...] Help learning to eat healthier, call the christian science nurse at: [facility] [place] Have an active lifestyle, strive for [...] man. Resources you may be interested in: [facility] A National Cancer [facility] http://www.[facility] [place].[facility] [www.[facility].com].[facility]/ [facility] 1st floor of [place] [phone]. Computer access, educational material, counseling services (FREE) Cancer Resources: www.cancer.net Springboard Beyond Cancer: https://survivorship.cancer.gov/ an online tool for cancer survivors andcaregivers created by the [place] Cancer Society and the National Cancer [facility]. It provides: Information on dealing with side effects from cancer and treatment Caregivers with support and resources Practical advice about talking to friends and family about cancer Questions to ask their health care team Help understanding their rights in the workplace Online Resources: [place] Society of Clinical Oncology: www.cancer.net; Center for Disease Control and Prevention: www.cdc.gov/cancer/survivorship; National Cancer [facility] (NCI) www.cancer.gov [place] Cancer Society Cancer Survivors Network http://csn.cancer.org/ National Coalition for Cancer Survivorship http://www.canceradvocacy.org [place] Bladder Cancer Society: https://bladdercancersupport.org/
--- OUTSIDE RECORDS SUMMARY | 2024-06-28 01:44 | XMS_ITS | Clinical Summary ---
Author Organization [facility] Address [address] [place] [address] Phone Care Team Providers Care Candy Separator Hard Name Role Phone Yolande Soria MD Primary Care Provider [phone] Allergies No known active allergies Medications LISINOPRIL [...] Comments Blood Pressure 132/78 03/18/2015 9:26 AM HEALTH CARE FACILITIES INSPECTOR Pulse 61 03/18/2015 9:26 AM HEALTH CARE FACILITIES INSPECTOR Temperature - - Respiratory Rate 12 03/18/2015 9:26 AM HEALTH CARE FACILITIES INSPECTOR Oxygen Saturation 97% 03/18/2015 9:26 AM HEALTH CARE FACILITIES INSPECTOR Inhaled Oxygen Concentration - - Weight 106.7 kg (235 lb 4.8 oz) 03/18/2015 9:26 AM HEALTH CARE FACILITIES INSPECTOR Height 181.9 cm (5' 11.6 ) 03/18/2015 9:26 AM CS T Body Mass Index 32.27 03/18/2015 9:26 AM HEALTH CARE FACILITIES INSPECTOR Plan of Treatment Health Maintenance Due Date [...] age to complete this topic Care Teams Candy Separator Hard Relationship Specialty Start Date End Date Yolande Soria MD [address] [place] [address] PCP - General Internal Medicine 11/25/23
[2024-06-28 11:30] VITALS: BP 105/56; PULSE 43; RESP 14; TEMP 36.1; O2SAT 100; BMI 29.3
[2024-06-28] MEDS: LACTATED RINGERS 1,000 ML 30 ML IV CONT (11:30)
[2024-06-28 11:31] LABS: Glucose Point of Care 75 mg/dl (65-105)
[2024-06-28 11:44] LABS: Glucose Point of Care 73 mg/dl (65-105)
--- NOTE | 2024-06-28 11:52 | PM.IMHP ---
H&P: HPI History of Present Illness Date/Time: 06/28/24 11:52 Chief Complaint: Removal of Port-A-Cath Narrative: This is a 73-year-old man who presents for removal of a Port-A-Cath. He has a history of bladder cancer and underwent chemotherapy. His port was placed about 1 year ago and he has completed treatment and no longer is in need of the port. Review of Systems Review of Systems: All systems reviewed & are unremarkable except as noted in HPI and below Constitutional: Constitutional: Denies chills, Denies fever(s), Denies headache(s) and Denies weight loss Eyes: Eyes: Denies change in vision ENT: Denies dizziness, Denies headache(s), Denies neck mass and Denies throat swelling Cardiovascular: Cardiovascular: Denies chest pain, Denies lightheadedness and Denies dyspnea Respiratory: Respiratory: Denies cough, Denies dyspnea and Denies wheezing Gastrointestinal: Gastrointestinal: Denies abdominal pain, Denies change in bowel habits, Denies nausea and Denies vomiting Genitourinary: Genitourinary: Denies hematuria and Denies dysuria Musculoskeletal: Musculoskeletal: Reports as per HPI Integumentary/Breasts: Skin/Breast: Reports as per HPI Neurologic: Denies dizziness and Denies headache(s) Allergic/Immunologic: Allergic/Immunologic: Denies throat swelling and Denies wheezing PMFSH Past Medical History Medical History Anxiety Depression Diabetes DVT (deep venous thrombosis) Gout HTN (hypertension) Hyperlipidemia Obesity JAYLEN (obstructive sleep apnea) Surgical History Surgical History History of gastric bypass Social History Social History Smoking status: Never smoker Second hand tobacco smoke exposure: No Alcohol intake: never Substance use: never Substance use type: does not use Living arrangements: with family Additional living arrangements comments: SPOUSE Gender identity (if verbalized by the patient): Male Sexual Orientation (if Verbalized by the Patient): Straight or Heterosexual Spiritual care concerns: No Meds Home Medications and Allergies Home Medications ?Medication ?Instructions ?Recorded ?Confirmed ?Type allopurinol 100 mg tablet 100 mg PO QAM 08/20/22 06/24/24 History atorvastatin 20 mg tablet 10 mg PO QAM 08/20/22 06/24/24 History buspirone 5 mg tablet 5 mg PO BID 08/20/22 06/24/24 History ergocalciferol (vitamin D2) 1,250 50,000 unit PO WEEKLY 08/20/22 06/24/24 History mcg (50,000 unit) capsule insulin aspart U-100 100 unit/mL 1 sliding scale dose subcut BID 08/20/22 06/24/24 History (3 mL) subcutaneous pen (Novolog FlexPen U-100 Insulin aspart) insulin glargine 100 unit/mL (3 30 - 40 unit subcut HS 08/20/22 06/24/24 History mL) subcutaneous pen (Basaglar KwikPen U-100 Insulin) lisinopril 40 mg tablet 20 mg PO QAM 08/20/22 06/24/24 History metformin 500 mg tablet,extended 500 mg PO HS 08/20/22 06/24/24 History release 24 hr potassium chloride 20 mEq 20 meq PO DAILY 08/20/22 06/24/24 History tablet,extended release sertraline 50 mg tablet 50 mg PO QAM 08/20/22 06/24/24 History tamsulosin 0.4 mg capsule 0.4 mg PO QAM 08/20/22 06/24/24 History ascorbic acid (vitamin C) 500 mg 500 mg PO DAILY 03/31/23 06/24/24 History capsule cyanocobalamin (vitamin B-12) 1,000 mcg PO DAILY 03/31/23 06/24/24 History 1,000 mcg capsule magnesium 250 mg tablet 250 mg PO DAILY 03/31/23 06/24/24 History multivitamin 1 tablet PO DAILY 03/31/23 06/24/24 History Allergies Allergy/AdvReac Type Severity Reaction Status Date / Time No Known Allergies Allergy Verified 06/24/24 09:39 Exam Const: General: no acute distress and alert Orientation/consciousness: patient oriented x3 HENMT: Head: normocephalic and atraumatic Ears: hearing grossly normal bilaterally Face/Nose/Sinus: Normal nares present Mouth: Yes Normal oral and palatal mucosa present Eyes: Periorbital: periorbital findings normal Sclera: sclerae normal EOM: EOMs intact bilaterally Neck: Neck: normal visual inspection, no lymphadenopathy and trachea midline Chest: Chest palpation & inspection: normal inspection of the chest Resp: Effort & Inspection: normal respiratory effort Auscultation: clear to auscultation bilaterally Cardio: Jugular venous distension: no JVD Rate: regular rate Rhythm: regular rhythm Heart sounds: S1 normal heart sound present and S2 normal heart sound present Peripheral pulses: Peripheral pulses 2+ throughout GI: Inspection: normal to inspection GI Palp: Yes Soft to palpation, No Tenderness to palpation present (GI), No Guarding due to palpation present (GI) and No Rebound tenderness present Percussion: Yes normal to percussion Auscultation: normal bowel sounds : General: Yes no CVA tenderness Back/Spine/Pelvis: Back: no CVA tenderness Neuro: General: patient oriented x3, no focal motor deficits and CN's II-XI intact bilaterally Cognition (Neuro): normal cognition Speech: normal speech Motor exam (neuro): 5/5 motor strength present throughout Extrem: General: capillary refill normal and no clubbing, cyanosis or edema Assessment and Plan Assessment and plan (1) History of bladder cancer: Code(s): Z85.51 - Personal history of malignant neoplasm of bladder Status: Acute Assessment and Plan: I have recommended removal of Port-A-Cath. I have discussed the procedure, risks, benefits, and alternatives with the patient. All questions answered. No changes since last seen in office.
--- NOTE | 2024-06-28 11:53 | WPDHPUPDATE1 ---
History and Physical Update Update Date/Time: 06/28/24 11:53 History and Physical has been reviewed, including an updated exam of the patient. There are NO changes in the patient's condition. Risks, benefits, and alternatives have been discussed and questions answered. Patient agrees to proceed with procedure.
[2024-06-28] MEDS: DEXTROSE 50% 25 GM/50 ML SYRINGE IV PUSH ×3 (11:55→13:43)
[2024-06-28 12:42] LABS: Glucose Point of Care 67 mg/dl (65-105)
[2024-06-28 13:05] LABS: Glucose Point of Care 94 mg/dl (65-105)
[2024-06-28 13:33] LABS: Glucose Point of Care 69 mg/dl (65-105)
--- NOTE | 2024-06-28 13:36 | WPDANESEPPF ---
Anes - Initial Pre Proc Eval Procedure: Operation Date: 06/28/24 13:00 Proposed Procedures p Removal Jackie Cath - Tex Conley DO Date/Time: 06/28/24 13:36 Surgeon: Tex Conley DO Pre Op Diagnosis: Malg Neoplasm Anterior Wall of Bladder Patient Data Age: 73 Gender: M Height: 1.8 m Weight: 95.5 kg Last Vital Signs Temp 36.1 C L 06/28/24 11:30 Pulse 43 L 06/28/24 11:30 Resp 14 06/28/24 11:30 BP 105/56 L 06/28/24 11:30 Pulse Ox 100 06/28/24 11:30 Allergies Allergy/AdvReac Type Severity Reaction Status Date / Time No Known Allergies Allergy Verified 06/28/24 13:16 Home Medications ?Medication ?Instructions ?Recorded ?Confirmed ?Type allopurinol 100 mg tablet 100 mg PO QAM 08/20/22 06/24/24 History atorvastatin 20 mg tablet 10 mg PO QAM 08/20/22 06/24/24 History buspirone 5 mg tablet 5 mg PO BID 08/20/22 06/28/24 History ergocalciferol (vitamin D2) 1,250 50,000 unit PO WEEKLY 08/20/22 06/24/24 History mcg (50,000 unit) capsule insulin aspart U-100 100 unit/mL 1 sliding scale dose subcut BID 08/20/22 06/28/24 History (3 mL) subcutaneous pen (Novolog FlexPen U-100 Insulin aspart) insulin glargine 100 unit/mL (3 30 - 40 unit subcut HS 08/20/22 06/28/24 History mL) subcutaneous pen (Basaglar KwikPen U-100 Insulin) lisinopril 40 mg tablet 20 mg PO QAM 08/20/22 06/24/24 History metformin 500 mg tablet,extended 500 mg PO HS 08/20/22 06/24/24 History release 24 hr potassium chloride 20 mEq 20 meq PO DAILY 08/20/22 06/24/24 History tablet,extended release sertraline 50 mg tablet 50 mg PO QAM 08/20/22 06/28/24 History tamsulosin 0.4 mg capsule 0.4 mg PO QAM 08/20/22 06/24/24 History ascorbic acid (vitamin C) 500 mg 500 mg PO DAILY 03/31/23 06/24/24 History capsule cyanocobalamin (vitamin B-12) 1,000 mcg PO DAILY 03/31/23 06/24/24 History 1,000 mcg capsule magnesium 250 mg tablet 250 mg PO DAILY 03/31/23 06/24/24 History multivitamin 1 tablet PO DAILY 03/31/23 06/24/24 History Laboratory Tests 06/28/24 06/28/24 06/28/24 11:29 11:41 12:38 POC Capillary Glucose 75 mg/dl 73 mg/dl 67 mg/dl (65-105) (65-105) (65-105) 06/28/24 06/28/24 13:02 13:30 POC Capillary Glucose 94 mg/dl 69 mg/dl (65-105) (65-105) Patient hx anesthesia problems: none Family hx anesthesia problems: none Results Review: All pre-operative results and documents have been reviewed as part of the pre-operative evaluation. [facility] Past Medical History Medical History Anxiety Depression Diabetes DVT (deep venous thrombosis) Gout HTN (hypertension) Hyperlipidemia Obesity JAYLEN (obstructive sleep apnea) Surgical History Surgical History History of gastric bypass Social History Social History Smoking status: Never smoker Second hand tobacco smoke exposure: No Alcohol intake: never Substance use: never Substance use type: does not use Living arrangements: with family Additional living arrangements comments: SPOUSE Gender identity (if verbalized by the patient): Male Sexual Orientation (if Verbalized by the Patient): Straight or Heterosexual Spiritual care concerns: No Anes - Eval Final PreProcedure Day of Procedure 06/28/24 13:36 Patient weight: overweight Heart: regular rate and rhythm Lungs: clear to auscultation Airway: Mallampati scale class II Neurological: alert and oriented Last oral intake: >/= 8 hours ASA classification: III Emergent: no Anesthetic plan: proceed Anesthesia type and monitoring: general GIVS and standard monitoring Results Review: All pre-operative results and documents have been reviewed as part of the pre-operative evaluation. Informed Consent: The patient's anesthetic plan and its attendant risks and benefits were discussed with the patient/family/POA. Questions were solicited and answers provided to the satisfaction of the patient/family/POA.
[2024-06-28] MEDS: LIDO 1%/EPINEPHRINE 1:100,000 20 ML VIAL 30 ML INFILTRATE (13:57)
[2024-06-28 14:15] VITALS: BP 114/54; PULSE 47; RESP 16; O2SAT 98
[2024-06-28 14:22] LABS: Glucose Point of Care 85 mg/dl (65-105)
--- NOTE | 2024-06-28 14:35 | P.OP_ITS ---
Procedure Note - Detailed Date of Procedure 06/28/24 Pre-op Diagnosis Malg Neoplasm Anterior Wall of Bladder Post-op Diagnosis Same Procedure Performed Removal of Port-a-Cath Surgeon Tex Conley, DO Anesthesia MAC and Local (1% Lidocaine with epi) Indications This is a 73-year-old man who presents for Port-A-Cath removal. He has a history of bladder cancer and has undergone chemotherapy. He is no longer in need of the port. He continues to follow with his urologist and oncologist for surveillance. Findings The right internal jugular Port-A-Cath was removed. The entire port and catheter was intact. No other abnormalities were noted. Description of Procedure Procedure as well as risks, benefits, and alternatives were discussed with the patient. Written consent was obtained and placed in chart prior to procedure. Patient was brought back to surgical suite, was placed supine on operating table, and chest area was prepped and draped in sterile fashion using chlorhexidine prep. Time-out was done to confirm patient and procedure. 1% lidocaine with epinephrine was infiltrated locally directly over the port. a 3 cm transverse incision was made over the port using a 15 blade scalpel. Electr ocautery was used for hemostasis and for dissection down to the port housing. The port was carefully freed up circumferentially and sutures holding it in place were removed. This freed up the port completely and it was able to be delivered through the incision. A 3-0 Vicryl [id number] suture was placed along the catheter tract. And the catheter tubing was carefully withdrawn until it was completely removed. The port and tubing was intact. Pressure was held at the neck at the insertion site for 5 minutes. Hemostasis appeared adequate. The 3 0 Vicryl suture was tied down in place, and then the deep dermis was also reapproximated using 3 0 Vicryl simple interrupted sutures. Skin was approximated using 4 Monocryl running subcuticular suture, and Exofin glue was applied on top. The patient was transferred to recovery. Estimated Blood Loss 5 Complications No immediate complications Condition Stable Disposition Same day [facility] Billing Surgery - Charge Forward: Surgery Billing
[2024-06-28 14:45] VITALS: BP 110/66; PULSE 42; RESP 14
== END 2024-06-28 15:05 | disposition home or self-care (01) ==
PROVIDERS: PCP Internal Medicine; Visit Provider Surgery
PROC: (CPT 36589; principal; 2024-06-28 13:00)
DX: Z45.2 Encounter for adjustment and management of vascular access device (principal); E78.5 Hyperlipidemia, unspecified; E11.9 Type 2 diabetes mellitus without complications; I10 Essential (primary) hypertension; G47.33 Obstructive sleep apnea (adult) (pediatric); F41.9 Anxiety disorder, unspecified; F32.A Depression, unspecified; Z79.4 Long term (current) use of insulin; Z79.84 Long term (current) use of oral hypoglycemic drugs; Z98.890 Other specified postprocedural states; Z98.84 Bariatric surgery status; Z85.51 Personal history of malignant neoplasm of bladder; Z92.21 Personal history of antineoplastic chemotherapy; Z86.718 Personal history of other venous thrombosis and embolism
CPT/HCPCS: 36590; 82948; J2003; J2004; J2250; J2405; J2704; J3010; J7120

== ENCOUNTER 2024-08-26 09:48 | Outpatient (CLI) | payer MEDICARE, SELFPAY ==
[2024-08-26 10:09] LABS: Hematocrit 34.3 % (37.0-46.0); Hemoglobin 11.3 g/dL (12.4-15.3); Mean Corpuscular HGB Conc 32.9 g/dL (32-36); Mean Corpuscular Hemoglobin 27.8 pg (27.0-31.0); Mean Corpuscular Volume 84.3 fL (78.0-102.0); Mean Platelet Volume 9.5 fl (8.7-11.0); Platelet Count Result 215 K/mm3 (150-420); Red Blood Count 4.07 M/mm3 (4.70-6.10); Red Cell Distribution Width 14.4 % (11.6-14.4); White Blood Count 7.1 K/mm3 (4.8-10.8)
--- OUTSIDE RECORDS SUMMARY | 2024-08-26 10:23 | XMS_ITS | Referral Summary ---
Author Organization [facility] Address [address] [place] [address] Care Team Providers Care Nurses Aide Name Role Phone Yolande Soria MD Primary Care Provider [phone] Devin Tariq MD Unavailable [phone] Arnoldo Wade DO Unavailable [phone] Anthony Hermosillo MD Unavailable [phone] Encounters Date Type Department Care Team Description 06/17/2024 Telephone [facility] Oncology [address] [place] [address] [address] [place] [address] Eileen Jo CMA 06/16/2024 10:30 AM CDT Clinical Support [facility] at [address] [address] Malignant neoplasm of anterior wall of urinary bladder (HCC); Non-alcoholic fatty liver disease; Other iron deficiency anemia; B12 deficiency; Folate deficiency; Gastric bypass status for obesity 06/16/2024 11:30 AM CDT Office Visit [facility] Oncology [address] [place] [phone] Arnoldo Wade DO Malignant neoplasm of anterior wall of urinary bladder (HCC) (Primary Dx); Malignant neoplasm of overlapping sites of bladder (HCC); Encounter for management of implanted device 06/16/2024 9:35 AM CDT - 06/16/2024 11:59 PM CDT Hospital Encounter [facility] Office Building [address] [place], [place] [id number] Malignant neoplasm of anterior wall of urinary [...] two tabs by mouth everyday Active FreeStyle Mariaa 2 Sensor kit CHANGE EVERY 2 WEEKS [...] 09/12/2022 Assessment & Plan (03/22/2024 2:59 PM POKER DEALER): Liver function is normal. Will continue to monitor his liver function and hepatitis-B annually. Assessment & Plan (03/13/2023 12:07 PM POKER DEALER): Discussed with the patient weight loss. Continue [...] 06/14/2018 Assessment & Plan (03/22/2024 2:59 PM POKER DEALER): Patient has been dormant and no activity for long time. Continue viread. Check labs including fibro test. Schedule ultrasound of the right upper quadrant. Check hepatitis-B DNA and follow up in 1 year. Assessment & Plan (03/13/2023 12:08 PM POKER DEALER): As of last evaluation patient is in [...] and have a 2nd opinion at [facility] liver our office. Overall we [...] low. We will send the patient to [facility] for 2nd opinion as far [...] drink = 0.6 oz pur e alcohol) [facility] Utilities Answer Date Recorded In the past 12 months has [employer], gas, oil, or water [employer] threatened to shut off services in your [...] often do you attend chur ch or alevism services? Never 11/25/2023 Do you belong to any clubs o r organizations such as moravian groups, unions, fraternal or athletic groups, or school groups? No 11/25/2023 How often do you attend meet ings of the clubs or organizations you belong to? Never 11/25/2023 Are you , , di vorced, , never , or living with a partner? 11/25/2023 AUDIT-C Answer Date Recorded Q1: How often do you have a drink containing alc ohol? Never 03/11/2024 Average Number of Drinks Not on file Frequency of Binge Drinking Not on file [...] any time in the past 12 m [facility], were you homeless or living in a senior care (including now)? No 11/25/2023 Personal Safety Answer Date Recorded Have you ever been in or are you currently in a harmful physical or emotional relationship or is someone making you feel afraid or unsafe? 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 Not on file Not [...] 11:27 AM CDT Height 180.3 cm (5' 11) 03/11/2024 10:47 AM POKER DEALER Body Mass Index 29.01 03/11/2024 10:47 AM POKER DEALER Plan of Treatment Not on file Medical Devices Implanted Type Area Finisher Tailor Apprentice Device Identifier Shelf Expiration Date Model / Serial / Lot [employer] Annette 7fr 80cm Open Tip Luer Lock Adapter Guide[employer] Graduate Straight Latex Free 160-210 - [id number] Implanted:Qty: 2 on 11/24/2023 by Devin Tariq MD at [facility] Stent N/A: Ureter [employer] Annette 07/06/2027 [id number] / / [id number] Procedures Procedure Name Priority Date/Time Associated Diagnosis [...] of anterior wall of urinary bladder (HCC) HEPATITIS PANEL, ACUTE Routine 07/25/2022 10:55 [...] was last reviewed 2021. Testing performed by: [address] [address] Blood 06/16/2024 10:2 1 AM CDT 06/16/2024 10:26 AM CDT us Rubi Granados VICE PRESIDENT DIGITAL STRATEGIST LAB BLOOD ORDERABLES Final Result JORJE [facility] [place] [address] * (ABNORMAL) Differential, auto (06/16/2024 10:21 AM CDT) Neutrophil abs 2.84 1.50 - 6.50 K/cumm Comment:Testing performed by : [address] [address] Imm gran abs 0.01 0.00 - 0.10 K/cumm JORJE Comment:Testing performed by : [address] [address] Lymphocyte abs 3.35(H) 0.80 - 3.30 K/cumm JORJE Comment:Testing performed by : [address] [address] Monocyte abs 0.71 0.20 - 0.80 K/cumm JORJE Comment:Testing performed by : [address] [address] Eosinophil abs 0.28 0.00 - 0.50 K/cumm JORJE Comment:Testing performed by : [address] [address] Basophil abs 0.06 0.00 - 0.10 K/cumm JORJE Comment:Testing performed by : [address] [address] Neutrophil pct 39.2 % [facility] Comment: Interpretive Data Percent cell count reference ranges are not reported, since discordance with absolute values may lead to misinterpretation of CBC data. Current Interpretive Data was last revised on 2017. Testing performed by: [address] [address] Imm gran pct 0.1 % [facility] [place] Comment: Interpretive Data Percent cell count reference ranges are not reported, since discordance with absolute values may lead to misinterpretation of CBC data. Current Interpretive Data was last revised on 2017. Testing performed by: [address] [address] Lymphocyte pct 46.2 % [facility] Comment: Interpretive Data Percent cell count reference ranges are not reported, since discordance with absolute values may lead to misinterpretation of CBC data. Current Interpretive Data was last revised on 2017. Testing performed by: [address] [address] Monocyte pct 9.8 % [facility] Comment: Interpretive Data Percent cell count reference ranges are not reported, since discordance with absolute values may lead to misinterpretation of CBC data. Current Interpretive Data was last revised on 2017. Testing performed by: [address] [address] Eosinophil pct 3.9 % [facility] Comment: Interpretive Data Percent cell count reference ranges are not reported, since discordance with absolute values may lead to misinterpretation of CBC data. Current Interpretive Data was last revised on 2017. Testing performed by: [address] [address] Basophil pct 0.8 % [facility] Comment: Interpretive Data Percent cell count reference ranges are not reported, since discordance with absolute values may lead to misinterpretation of CBC data. Current Interpretive Data was last revised on 2017. Testing performed by: [address] [address] Blood 06/16/2024 10:2 1 AM CDT 06/16/2024 10:26 AM CDT Rubi Granados NP LAB BLOOD ORDERABLES Final Result Performing Organization Address [facility] Co de Phone Number JORJE [address] [facility] Department [place] [address] * Iron profile w/ IBC (06/16/2024 10:21 AM CDT) Pathologist [facility] Iron 93 50 - 150 mcg/dL Comment:Testing performed by : [address] [address] TIBC 305 250 - 400 mcg/dL JORJE CHARLES Comment:Testing performed by : [address] [address] Transferrin saturation 30 20 - 50 % JORJE CHARLES Comment:Testing performed by : [address] [address] Blood 06/16/2024 10:2 1 AM CDT 06/16/2024 11:39 AM CDT Rubi Granados NP LAB BLOOD ORDERABLES Final Result Performing Organization Address [facility] Co de Phone Number JORJE [address] [facility] Department [place] [address] * (ABNORMAL) CBC with auto differential (06/16/2024 10:21 AM CDT) Pathologist [facility] WBC 7.25 3.80 - 9.90 K/cumm Comment:Testing performed by : [address] [address] Hgb 11.1(L) 13.0 - 17.5 g/dL JORJE CHARLES Comment:Testing performed by : [address] [address] Hct 32.5(L) 38.9 - 50.3 % JORJE CHARLES Comment:Testing performed by : [address] [address] Plt 192 150 - 400 K/cumm JORJE Comment:Testing performed by : [address] [address] MPV 9.8 9.1 - 12.3 fL JORJE Comment:Testing performed by : [address] [address] RBC 4.09(L) 4.30 - 5.80 M/cumm JORJE Comment:Testing performed by : [address] [address] MCV 79.5(L) 81.3 - 96.4 fL JORJE Comment:Testing performed by : [address] [address] MCH 27.1 27.1 - 33.3 pg JORJE Comment:Testing performed by : [address] [address] MCHC 34.2 32.3 - 35.7 g/dL JORJE Comment:Testing performed by : [address] [address] RDW CV 14.6 11.1 - 14.9 % JORJE Comment:Testing performed by : [address] [address] RDW SD 42.4 35.7 - 48.1 fL JORJE Comment:Testing performed by : [address] [address] NRBC abs 0.00 0.00 - 0.01 K/cumm JORJE Comment:Testing performed by : [address] [address] ANC Prelim 2.84 1.50 - 6.50 K/cumm JORJE Comment: Interpretive Data The rapid ANC is a preliminary automated count and may vary from the final ANC (Neut Abs) reported in the WBC differential that follows. Current interpretive data was last revised 2024. Testing performed by: [address] [address] Blood 06/16/2024 10:2 1 AM CDT 06/16/2024 10:26 AM CDT Rubi Granados NP LAB BLOOD ORDERABLES Final Result JORJE [address] [place] [address] * Reticulocyte Count (06/16/2024 10:21 AM CDT) Retics, absolute 34 20 - 87 K/cumm Comment:Testing performed by : [facility], [address] [place] [address]., [address] Retics 0.8 0.4 - 2.9 % JORJE Comment:Testing performed by : [address] [address] Reticulocyte Hgb 33.2 30.5 - 38.0 pg JORJE Comment:Testing performed by : [address] [address] Blood 06/16/2024 10:2 1 AM CDT 06/16/2024 10:26 AM CDT Rubi Granados NP LAB BLOOD ORDERABLES Final Result Performing Organization Address [facility] Co de Phone Number EBENEZER[address] [address] * Folate (06/16/2024 10:21 AM CDT) Folic acid 7.0 >=5.0 ng/mL Comment:Testing performed by : [address] [address] Blood 06/16/2024 10:2 1 AM CDT 06/16/2024 11:38 AM CDT Rubi Granados NP LAB BLOOD ORDERABLES Final Result EEBNEZER[address] [place] [address] * Ferritin (06/16/2024 10:21 AM CDT) [facility] Ferritin 92 30 - 400 ng/mL Comment:Testing performed by : [address] [address] Blood 06/16/2024 10:2 1 AM CDT 06/16/2024 11:39 AM CDT Rubi Granados VICE PRESIDENT DIGITAL STRATEGIST LAB BLOOD ORDERABLES Final Result Performing Organization Address [facility] Co de Phone Number [address] [place] [address] * Vitamin B12 (06/16/2024 10:21 AM CDT) [facility] Vitamin B12 442 230 - 1,250 pg/mL Comment:Testing performed by : [address] [address] Blood 06/16/2024 10:2 1 AM CDT 06/16/2024 11:38 AM CDT Rubi Granados VICE PRESIDENT DIGITAL STRATEGIST LAB BLOOD ORDERABLES Final Result Performing Organization Address [facility] de Phone Number [address] [place] [address] * (ABNORMAL) Comprehensive metabolic panel (06/16/2024 10:21 AM CDT) [facility] Sodium 137 135 - 145 mmol/L Comment:Testing performed by : [address] [address] Potassium, pl 4.7 3.3 - 4.9 mmol/L JORJE Comment:Testing performed by : [address] [address] Chloride 105 97 - 110 mmol/L JORJE Comment:Testing performed by : [address] [address] CO2 22 22 - 32 mmol/L JORJE Comment:Testing performed by : [address] [address] Anion gap 10 2 - 15 mmol/L JORJE Comment:Testing performed by : [address] [address] BUN 22 6 - 25 mg/dL [facility] [place] Comment:Testing performed by : [address] [address] Creatinine 0.90 0.80 - 1.30 mg/dL JORJE Comment:Testing performed by : [address] [address] Glucose 186 70 - 199 mg/dL [facility] Comment: Interpretive Data Fasting glucose >/= 126 [...] was last revised 2022. Testing performed by: [address] [address] Calcium 9.0 8.5 - 10.3 mg/dL [facility] Comment:Testing performed by : [address] [address] Bilirubin, total 0.6 0.1 - 1.2 mg/dL [facility] Comment:Testing performed by : [address] [address] Protein, pl 7.1 6.5 - 8.5 g/dL [facility] Comment:Testing performed by : [address] [address] Albumin 4.3 3.5 - 5.0 g/dL [facility] Comment:Testing performed by : [address] [address] Alk phos 138(H) 40 - 130 Units/L JORJE Comment:Testing performed by : [address] [address] ALT 34 7 - 55 Units/L JORJE CHARLES Comment:Testing performed by : [facility], [address] [place] [address]., [address] AST 31 10 - 50 Units/L JORJE CHARLSE Comment:Testing performed by : [facility], [address] [place] [address]., [address] Blood 06/16/2024 10:2 1 AM CDT 06/16/2024 10:26 AM CDT Rubi Granados VICE PRESIDENT DIGITAL STRATEGIST LAB BLOOD ORDERABLES Final Result JORJE [address] [facility] [place] [address] * CT Chest Abdomen Pelvis WO Contrast [...] Lis Ibarra M.D. LL: SINA Report ID: [id number] [place] Location: [id number] Procedure Note Lis Ibarra MD - 06/25/2024 [...] Lis Ibarra M.D. LL: SINA Report ID: [id number] [place] Location: [place] [address] Rubi Granados NP IMG CT PROCEDURES Fi nal Result * (ABNORMAL) Hepatitis panel, acute (07/25/2022 10:55 AM CDT) Hep A IgM Nonreactive Nonreactive JORJE LEMA (EMILY) Comment: Interpretive Data: If Hep A IgM Ab is reported as Equivocal, a new sample should be drawn in two weeks for testing. Current interpretive data was last revised on 19. Testing performed by: [facility], [address] [place] [address]., [address] Hep B core IgM Nonreactive Nonreactive C ERNER PITA (EMILY) Comment: Interpretive Data If HepB Core IgM Ab is reported as Equivocal, a new sample should be drawn in two weeks for testing. Current interpretive data was last revised on 19. Testing performed by: [facility], [address] [place] [address]., [address] Hep C Ab Nonreactive Nonreactive JORJE LEMA [...] last revised on 2019. Testing performed by: [facility], [address] [place] [address]., [address] HepBsAg Reactive(A) Nonreactive JORJE LEMA (EMILY) Comment: Critical Result Testing performed by: [facility], [address] [place] [address]., [address] Blood 07/25/2022 10:5 5 AM CDT 07/25/2022 3:15 PM CDT Chaparro Vargas MD LAB MICROBIOLOGY - GENERAL ORDERABLES Final Result JOR[facility] ([place]) 1 [facility] Department [place] [address] from Last 3 Months or Most Recently Relevant to Health Maintenance Insurance MEDICARE [facility] FINANCIAL MEDICARE COMMERCIAL GENERIC [facility] Advance Directives For more information, please contact: [phone] * Full Code (Latest Code Status on File) Date Activated Date Inactivated Comments 11/24/2023 5:46 PM 11/29/2023 6:22 PM Care Teams Nurses Aide Relationship Specialty Start Date End Date Yolande Soria MD [address] [place] [address] PCP - General 07/25/16 [place] [address] [address] Surgeon Urology 07/02/23 Arnoldo Wade DO [facility], [facility] [address] [place] [address] Medical Oncologist/Hematologis t Hematology and Oncology 07/07/23 Anthony Hermosillo MD [address] [facility] [address] [place], [place] [id number] Urologist Urology 07/07/23
--- OUTSIDE RECORDS SUMMARY | 2024-08-26 10:23 | XMS_ITS | Clinical Summary ---
Author Organization [facility] Address [address] [place] [address] Phone Care Team Providers Care Photographic Processor Name Role Phone Yolande Soria MD Primary Care Provider [phone] Allergies No known active allergies Medications LISINOPRIL [...] Comments Blood Pressure 132/78 03/18/2015 9:26 AM SAWDUST MACHINE OPERATOR Pulse 61 03/18/2015 9:26 AM SAWDUST MACHINE OPERATOR Temperature - - Respiratory Rate 12 03/18/2015 9:26 AM SAWDUST MACHINE OPERATOR Oxygen Saturation 97% 03/18/2015 9:26 AM SAWDUST MACHINE OPERATOR Inhaled Oxygen Concentration - - Weight 106.7 kg (235 lb 4.8 oz) 03/18/2015 9:26 AM SAWDUST MACHINE OPERATOR Height 181.9 cm (5' 11.6) 03/18/2015 9:26 AM CS T Body Mass Index 32.27 03/18/2015 9:26 AM SAWDUST MACHINE OPERATOR Plan of Treatment Health Maintenance Due [...] age to complete this topic Care Teams Photographic Processor Relationship Specialty Start Date End Date Yolande Soria MD [address] [place] [address] PCP - General Internal Medicine 11/25/23
--- OUTSIDE RECORDS SUMMARY | 2024-08-26 10:23 | XMS_ITS | Clinical Summary ---
Author Organization [facility] Address [address] [place] [address] Care Team Providers Care Computer Hardware Engineer Name Role Phone Yolande Soria MD Primary Care Provider [phone] Devin Tariq MD Unavailable [phone] Arnoldo Wade DO Unavailable [phone] Anthony Hermosillo MD Unavailable [phone] Allergies Active Allergy Reactions Criticality Noted Date [...] 09/12/2022 Assessment & Plan (03/22/2024 2:59 PM AUTOMATION CONTROL TECHNICIAN): Liver function is normal. Will continue to monitor his liver function and hepatitis-B annually. Assessment & Plan (03/13/2023 12:07 PM AUTOMATION CONTROL TECHNICIAN): Discussed with the patient weight loss. [...] 06/14/2018 Assessment & Plan (03/22/2024 2:59 PM AUTOMATION CONTROL TECHNICIAN): Patient has been dormant and no activity for long time. Continue viread. Check labs including fibro test. Schedule ultrasound of the right upper quadrant. Check hepatitis-B DNA and follow up in 1 year. Assessment & Plan (03/13/2023 12:08 PM AUTOMATION CONTROL TECHNICIAN): As of last evaluation patient is [...] go and have a 2nd opinion at [facility] liver our office. Overall we are [...] low. We will send the patient to [facility] for 2nd opinion as far as [...] Type Department Care Team Description 06/17/2024 Telephone [facility] Oncology [address] [place] [address] [phone] Eileen Jo CMA 06/16/2024 11:30 AM CDT Office Visit [facility] Oncology [address] [place] [address] [phone] Arnoldo Wade, Malignant neoplasm of anterior wall of urinary bladder (HCC) (Primary Dx); Malignant neoplasm of overlapping sites of bladder (HCC); Encounter for management of implanted device 06/16/2024 10:30 AM CDT Clinical Support [facility] at [address] [address] Malignant neoplasm of anterior wall of urinary bladder (HCC); Non-alcoholic fatty liver disease; Other iron deficiency anemia; B12 deficiency; Folate deficiency; Gastric bypass status for obesity 06/16/2024 9:35 AM CDT - 06/16/2024 11:59 PM CDT Hospital Encounter [facility] Building [address] [place] [id number] Malignant neoplasm of anterior wall of urinary [...] drink = 0.6 oz pur e alcohol) [facility] Utilities Answer Date Recorded In the past [...] often do you attend chur ch or voodoo services? 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 Not [...] 180.3 cm (5' 11) 03/11/2024 10:47 AM AUTOMATION CONTROL TECHNICIAN Body Mass Index 29.01 03/11/2024 10:47 AM AUTOMATION CONTROL TECHNICIAN Plan of Treatment Health Maintenance Due Date [...] 07/25/2022, 019 Medical Devices Implanted Type Area Wire Straightener Device Identifier Shelf Expiration Date Model / Serial / Lot [employer] Annette 7fr 80cm Open Tip Luer Lock Adapter Guidewire Graduate Straight Latex Free 160-210 - [id number] Implanted:Qty: 2 on 11/24/2023 by Devin Tariq MD at [facility] Stent N/A: Ureter [employer] Annette 07/06/2027 [id number] / / [id number] Procedures Procedure Name Priority Date/Time Associated Diagnosis [...] reviewed 2021. Testing performed by: [facility], [address] [place] [address]., [address] Blood 06/16/2024 10:2 1 AM CDT 06/16/2024 10:26 AM CDT Rubi Asha Darwin RN NEW GRADUATE LAB BLOOD ORDERABLES Final Result JORJE [address] [facility] [place] [address] * (ABNORMAL) Differential, auto (06/16/2024 10:21 AM CDT) Neutrophil abs 2.84 1.50 - 6.50 K/cumm Comment:Testing performed by : [address] [address] Imm gran abs 0.01 0.00 - 0.10 K/cumm JORJE Comment:Testing performed by : [address] [address] Lymphocyte abs 3.35(H) 0.80 - 3.30 K/cumm JORJE Comment:Testing performed by : [address] [address] Monocyte abs 0.71 0.20 - 0.80 K/cumm JORJE Comment:Testing performed by : [address] [address] Eosinophil abs 0.28 0.00 - 0.50 K/cumm JORJE Comment:Testing performed by : [address] [address] Basophil abs 0.06 0.00 - 0.10 K/cumm JORJE Comment:Testing performed by : [address] [address] Neutrophil pct 39.2 % JORJE Comment: Interpretive Data Percent cell count reference ranges are not reported, since discordance with absolute values may lead to misinterpretation of CBC data. Current Interpretive Data was last revised on 2017. Testing performed by: [address] [address] Imm gran pct 0.1 % JORJE Comment: Interpretive Data Percent cell count reference ranges are not reported, since discordance with absolute values may lead to misinterpretation of CBC data. Current Interpretive Data was last revised on 2017. Testing performed by: [address] [address] Lymphocyte pct 46.2 % [facility] Comment: Interpretive Data Percent cell count reference ranges are not reported, since discordance with absolute values may lead to misinterpretation of CBC data. Current Interpretive Data was last revised on 2017. Testing performed by: [address] [address] Monocyte pct 9.8 % [facility] Comment: Interpretive Data Percent cell count reference ranges are not reported, since discordance with absolute values may lead to misinterpretation of CBC data. Current Interpretive Data was last revised on 2017. Testing performed by: [address] [address] Eosinophil pct 3.9 % [facility] Comment: Interpretive Data Percent cell count reference ranges are not reported, since discordance with absolute values may lead to misinterpretation of CBC data. Current Interpretive Data was last revised on 2017. Testing performed by: [address] [address] Basophil pct 0.8 % [facility] Comment: Interpretive Data Percent cell count reference ranges are not reported, since discordance with absolute values may lead to misinterpretation of CBC data. Current Interpretive Data was last revised on 2017. Testing performed by: [address] [address] Blood 06/16/2024 10:2 1 AM CDT 06/16/2024 10:26 AM CDT Rubi Granados RN NEW GRADUATE LAB BLOOD ORDERABLES Final Result [facility] [address] [facility] [place] [address] * Iron profile w/ IBC (06/16/2024 10:21 AM CDT) Iron 93 50 - 150 mcg/dL Comment:Testing performed by : [address] [address] TIBC 305 250 - 400 mcg/dL JORJE CHARLES Comment:Testing performed by : [address] [address] Transferrin saturation 30 20 - 50 % JORJE Comment:Testing performed by : [address] [address] Blood 06/16/2024 10:2 1 AM CDT 06/16/2024 11:39 AM CDT Rubi Granados RN NEW GRADUATE LAB BLOOD ORDERABLES Final Result JORJE [address] [facility] [place] [address] * (ABNORMAL) CBC with auto differential (06/16/2024 10:21 AM CDT) WBC 7.25 3.80 - 9.90 K/cumm Comment:Testing performed by : [address] [address] Hgb 11.1(L) 13.0 - 17.5 g/dL JORJE Comment:Testing performed by : [address] [address] Hct 32.5(L) 38.9 - 50.3 % JORJE Comment:Testing performed by : [address] [address] Plt 192 150 - 400 K/cumm JORJE Comment:Testing performed by : [address] [address] MPV 9.8 9.1 - 12.3 fL JORJE Comment:Testing performed by : [address] [address] RBC 4.09(L) 4.30 - 5.80 M/cumm JORJE Comment:Testing performed by : [address] [address] MCV 79.5(L) 81.3 - 96.4 fL JORJE Comment:Testing performed by : [address] [address] MCH 27.1 27.1 - 33.3 pg CERNER Comment:Testing performed by : [address] [address] MCHC 34.2 32.3 - 35.7 g/dL JORJE CHARLES Comment:Testing performed by : [address] [address] RDW CV 14.6 11.1 - 14.9 % JORJE Comment:Testing performed by : [address] [address] RDW SD 42.4 35.7 - 48.1 fL JORJE Comment:Testing performed by : [address] [address] NRBC abs 0.00 0.00 - 0.01 K/cumm JORJE Comment:Testing performed by : [address] [address] ANC Prelim 2.84 1.50 - 6.50 K/cumm JORJE Comment: Interpretive Data The rapid ANC is a preliminary automated count and may vary from the final ANC (Neut Abs) reported in the WBC differential that follows. Current interpretive data was last revised 2024. Testing performed by: [address] [address] Blood 06/16/2024 10:2 1 AM CDT 06/16/2024 10:26 AM CDT Rubi Granados RN NEW GRADUATE LAB BLOOD ORDERABLES Final Result [facility] [address] [facility] [place] [address] * Reticulocyte Count (06/16/2024 10:21 AM CDT) Retics, absolute 34 20 - 87 K/cumm Comment:Testing performed by : [address] [address] Retics 0.8 0.4 - 2.9 % JORJE Comment:Testing performed by : [address] [address] Reticulocyte Hgb 33.2 30.5 - 38.0 pg [facility] Comment:Testing performed by : [address] [address] Blood 06/16/2024 10:2 1 AM CDT 06/16/2024 10:26 AM CDT Rubi Granados NP LAB BLOOD ORDERABLES Final Result [address] [place] [address] * Folate (06/16/2024 10:21 AM CDT) Folic acid 7.0 >=5.0 ng/mL Comment:Testing performed by : [address] [address] Blood 06/16/2024 10:2 1 AM CDT 06/16/2024 11:38 AM CDT Rubi Granados NP LAB BLOOD ORDERABLES Final Result Performing Organization Address [facility] Co de Phone Number [address] [address] * Ferritin (06/16/2024 10:21 AM CDT) Ferritin 92 30 - 400 ng/mL Comment:Testing performed by : [address] [address] Blood 06/16/2024 10:2 1 AM CDT 06/16/2024 11:39 AM CDT Rubi Granados NP LAB BLOOD ORDERABLES Final Result [address] [address] * Vitamin B12 (06/16/2024 10:21 AM CDT) Pathologist [facility] Vitamin B12 442 230 - 1,250 pg/mL Comment:Testing performed by : [address] [address] Blood 06/16/2024 10:2 1 AM CDT 06/16/2024 11:38 AM CDT Rubi Granados NP LAB BLOOD ORDERABLES Final Result [facility] [address] [facility] [place] [address] * (ABNORMAL) Comprehensive metabolic panel (06/16/2024 10:21 AM CDT) [facility] Sodium 137 135 - 145 mmol/L Comment:Testing performed by : [address] [address] Potassium, pl 4.7 3.3 - 4.9 mmol/L JORJE Comment:Testing performed by : [address] [address] Chloride 105 97 - 110 mmol/L JORJE Comment:Testing performed by : [address] [address] CO2 22 22 - 32 mmol/L JORJE Comment:Testing performed by : [address] [address] Anion gap 10 2 - 15 mmol/L JORJE Comment:Testing performed by : [address] [address] BUN 22 6 - 25 mg/dL JORJE Comment:Testing performed by : [address] [address] Creatinine 0.90 0.80 - 1.30 mg/dL JORJE Comment:Testing performed by : [address] [address] Glucose 186 70 - 199 mg/dL JORJE Comment: Interpretive [...] last revised 2022. Testing performed by: [address] [address] Calcium 9.0 8.5 - 10.3 mg/dL JORJE Comment:Testing performed by : [address] [address] Bilirubin, total 0.6 0.1 - 1.2 mg/dL JORJE Comment:Testing performed by : [address] [address] Protein, pl 7.1 6.5 - 8.5 g/dL JORJE Comment:Testing performed by : [address] [address] Albumin 4.3 3.5 - 5.0 g/dL JORJE Comment:Testing performed by : [address] [address] Alk phos 138(H) 40 - 130 Units/L JORJE Comment:Testing performed by : [address] [address] ALT 34 7 - 55 Units/L JORJE Comment:Testing performed by : [address] [address] AST 31 10 - 50 Units/L JORJE Comment:Testing performed by : [address] [address] Blood 06/16/2024 10:2 1 AM CDT 06/16/2024 10:26 AM CDT us Rubi Granados NP LAB BLOOD ORDERABLES Final Result JORJE [address] [facility] [place] [address] * CT Chest Abdomen Pelvis WO Contrast [...] Lis Ibarra M.D. LL: LL Report ID: [id number] Reading Location: [id number] Procedure Note Lis Ibarra MD - 06/25/2024 [...] Lis Ibarra M.D. LL: SINA Report ID: [id number] Reading Location: [id number] Rubi Granados NP IMG CT PROCEDURES Fi nal Result * (ABNORMAL) Hepatitis panel, acute (07/25/2022 10:55 AM CDT) Hep A IgM Nonreactive Nonreactive JORJE LEMA (EMILY) Comment: Interpretive Data: If Hep A IgM Ab is reported as Equivocal, a new sample should be drawn in two weeks for testing. Current interpretive data was last revised on 19. Testing performed by: [facility], [address] [place] [address]., [address] Hep B core IgM Nonreactive Nonreactive C KIMBERLY LEMA (EMILY) Comment: Interpretive Data If HepB Core IgM Ab is reported as Equivocal, a new sample should be drawn in two weeks for testing. Current interpretive data was last revised on 19. Testing performed by: [facility], [address] [place] [address]., [address] Hep C Ab Nonreactive Nonreactive JORJE LEMA [...] last revised on 2019. Testing performed by: [facility], [address] [place] [address]., [address] HepBsAg Reactive(A) Nonreactive JORJE LEMA (EMILY) Comment: Critical Result Testing performed by: [address] [address] Blood 07/25/2022 10:5 5 AM CDT 07/25/2022 3:15 PM CDT Chaparro Vargas MD LAB MICROBIOLOGY - GENERAL ORDERABLES Final Result JORJE LEMA (EMILY) [address] [facility] [place] [address] from Last 3 Months or Most Recently Relevant to Health Maintenance Insurance MEDICARE [facility] FINANCIAL Member Subscriber Plan / Payer (Ef fective 2018-Present) Name:Osvaldo Duque Relation to Subscriber:Self Name:Osvaldo Duque Payer ID:[id number] Group ID:[id number] Type:COMMERCIAL Address: [place] [id number] MEDICARE COMMERCIAL GENERIC MEDICARE [facility] Address: [address] [address] [place] [address] [facility] FINANCIAL Advance Directives For more information, please contact: [phone] * Full Code (Latest Code Status on File) Date Activated Date Inactivated Comments 11/24/2023 5:46 PM 11/29/2023 6:22 PM Care Teams Computer Hardware Engineer Relationship Specialty Start Date End Date Yolande Soria MD [address] [place] [address] PCP - General 07/25/16 [place] [address] [address] Surgeon Urology 07/02/23 Arnoldo Wade DO [address] [place] [address] MEDICAL ONCOLOGY, [facility] [address] [place] [address] Medical Oncologist/Hematologis t Hematology and Oncology 07/07/23 Anthony Hermosillo MD [address] [facility] [address] [facility] [address] [place] [address] Urologist Urology 07/07/23
--- OUTSIDE RECORDS SUMMARY | 2024-08-26 10:23 | XMS_ITS ---
Author Organization [facility] Address [address] [place] [address] Care Team Providers Care Welding Process Engineer Name Role Phone Yolande Soria MD Primary Care Provider [phone] Devin Tariq MD Unavailable [phone] Arnoldo Wade DO Unavailable Anthony Hermosillo MD Unavailable Active Problems Problem [...] 09/12/2022 Assessment & Plan (03/22/2024 2:59 PM AREA FORESTER): Liver function is normal. Will continue to monitor his liver function and hepatitis-B annually. Assessment & Plan (03/13/2023 12:07 PM AREA FORESTER): Discussed with the patient weight loss. Continue [...] 06/14/2018 Assessment & Plan (03/22/2024 2:59 PM AREA FORESTER): Patient has been dormant and no activity for long time. Continue viread. Check labs including fibro test. Schedule ultrasound of the right upper quadrant. Check hepatitis-B DNA and follow up in 1 year. Assessment & Plan (03/13/2023 12:08 PM AREA FORESTER): As of last evaluation patient is in [...] low. We will send the patient to [facility] for 2nd opinion as far as [...] Wade, DO Linked Problems [facility] Medications No medications scheduled. Past Treatment [...] from the original note were not included. [address], [place] [address] This Survivorship Care Plan is a cancer [...] Information: Primary Care Physician Yolande Soria MD [phone] Surgeon Devin Tariq MD [phone] Urologist Anthony Hermosillo MD [phone] Medical Oncologist Arnoldo Wade DO [phone] Treatment Summary Cancer Diagnosis Information Diagnosis Malignant [...] counseling may be helpful. The use of [id number] lubricants may lessen painful intercourse. Talk with [...] Help learning to eat healthier, call the set up and lay out inspector at: [facility] [place] Have an active lifestyle, strive for [...] man. Resources you may be interested in: [facility] A National Cancer [place] [facility] http://www.[facility]/ [facility] & Cancer Information Center 1st floor of [place] [facility] [phone]. Computer access, educational material, counseling services (FREE) Cancer Resources: www.cancer.net [employer] Cancer: https://survivorship.cancer.gov/ an online tool for cancer survivors andcaregivers created by the [place] [employer] and the National Cancer [place]. It provides: Information on dealing with side effects from cancer and treatment Caregivers with support and resources Practical advice about talking to friends and family about cancer Questions to ask their health care team Help understanding their rights in the workplace Online Resources: [place] Society of Clinical Oncology: www.cancer.net; Center for Disease Control and Prevention: www.cdc.gov/cancer/survivorship; National Cancer [place] (NCI) www.cancer.gov [employer] Cancer Survivors Network http://csn.cancer.org/ National Coalition for Cancer Survivorship http://www.canceradvocacy.org [place] Bladder Cancer Society: https://bladdercancersupport.org/
--- OUTSIDE RECORDS SUMMARY | 2024-08-26 10:23 | XMS_ITS | Patient Health Record ---
Author Organization [facility] Address [address] [place] [address] Care Team Providers Care Development Lead Name Role Phone Yang PEPE, Yolande Primary Care Provider Tish Lindsey Unavailable [phone] Allergies No Known Allergies Reason For Referral No Information Medications Medication SIG (Take, Route, Frequency, Duration) Notes Start Date End Date Status Allopurinol 100 MG TAKE 1 TABLET BY MOUTH EVERY DAY Oral for 90 Days Active Potassium Chloride ER 20 MEQ TAKE 2 TABLETS BY ORAL ROUTE ONCE DAILY WITH FOOD Oral for 90 Days Active FreeStyle Maria A 2 Sensor - CHANGE EVERY 2 WEEKS for 28 Days Active Vitamin D (Ergocalciferol) 1.25 MG (61071 UT) TAKE 1 CAPSULE BY MOUTH ONE TIME PER WEEK Oral for 84 Days Active Tenofovir Disoproxil Fumarate 300 MG TAKE 1 TABLET BY MOUTH EVERY DAY Oral for 90 Days Active Basaglar KwikPen 100 UNIT/ML Subcutaneous 06/26/2023 Active Pantoprazole Sodium 40 MG TAKE 1 TABLET (40 MG TOTAL) BY MOUTH DAILY TAKE WHILE ON CHEMOTHERAPY Oral for 90 Days Active ULTRA-FINE SHORT PEN NEEDLE 31 gauge x 16 MISCELLANEOUS *Reorder from [employer] for eRx and Interaction Alerts* 06/26/2023 Active metFORMIN HCl ER 500 MG TAKE 1 TABLET BY MOUTH ONCE DAILY WITH THE EVENING MEAL Oral for 30 Days Active Lisinopril 40 MG TAKE 1 TABLET BY MOUTH EVERY DAY Oral for 90 Days Active Tamsulosin HCl 0.4 MG 1 capsule Oral Once a day 06/26/2023 Active Atorvastatin Calcium 20 MG TAKE 1 TABLET BY MOUTH EVERY DAY DIRECTED Oral for 90 Days Active NovoLOG FlexPen 100 UNIT/ML INJECT 10 UNITS W/ BREAKFAST, 15 UNITS W/ LUNCH , 25 UNITS W/ DINNER AND 10 UNITS WITH BEDTIME SNACK Subcutaneous for 25 Days Active Sertraline HCl 50 MG 1 tablet Oral Once a day for 90 days Active busPIRone HCl 5 MG 1 tablet Oral Twice a day for 90 days Active Immunizations Vaccine Route Administration Date Status Comme nts Zoster Unknown 06/24/2012 Administered Zoster Unknown 11/24/2018 Administered Pneumococcal polysaccharide PPV23 Unknown 12/15/2013 Ad ministered Pneumococcal polysaccharide PPV23 Unknown 12/14/2018 Ad ministered Pneumococcal conjugate PCV 7 Unknown 12/14/2018 Adminis tered Pneumococcal conjugate PCV 13 Unknown 09/23/2014 Admini stered Novel [id number], preservative free Unknown 11/27/2017 Administered Novel [id number], preservative free Unknown 11/24/2018 Administered Moderna Covid-19 Vaccine 1st dose Unknown 06/21/2020 Ad ministered Moderna Covid-19 Vaccine 1st dose Unknown 07/19/2020 Ad ministered Influenza, seasonal, injecta ble, preservative free, 3 yrs and above Unknown 11/25/2012 Administered Influenza, seasonal, injecta ble, preservative free, 3 yrs and above Unknown 11/04/2016 Administered Influenza virus vaccine, quadrivalent (IIV4), split [...] virus, 0.25 mL dosage Unknown 12/14/2018 Administered Social History Tobacco Use: Social History [...] Risk Notes Problem Mild recurrent major depression (15497249) Major depressive disorder, recurrent, mild (F33.0) 06/26/19 24 Active confirmed Problem Generalized anxiety disorder (F41.1) 06/26/19 24 Active confirmed Problem Screening for cardiovascular system disease (279683490) Encounter for screening for cardiovascular disorders (Z13.6) Active confirmed Problem [id number] Elevated blood pressure reading (R03.0) Active confirmed Problem [id number] Negative depression screening (Z13.31) Active confirmed Vital Signs Heart Rate 45 /min 07/09/2024 Respiratory Rate 18 /min 07/09/2024 Height-cm 180.34 cm 07/09/2024 Blood pressure diastolic 73 mm Hg 07/09/2024 Weight-kg 98.16 kg 07/09/2024 Height 71.00 in 07/09/2024 Blood pressure systolic 122 mm Hg 07/09/2024 Weight 216.4 lbs 07/09/2024 BMI 30.18 kg/m2 07/09/2024 Encounters Encounter Location Date Provider Diagnosis [facility] [address] [address] 12/25/2023 Tish Moreno Major depressive disorder, recurrent, mild F33.0 ; Generalized anxiety disorder F41.1 and Elevated blood pressure reading R03.[address] [facility] [address] [address] 04/12/2024 Tsih Moreno Major depressive disorder, recurrent, mild F33.0 ; Generalized anxiety disorder F41.1 and Elevated blood pressure reading R03.0 [facility] [address] [facility] [address] [place] [address] 07/09/2024 Tish Thery Major depressive disorder, recurrent, mild F33.0 ; Generalized anxiety disorder F41.1 ; Elevated blood pressure reading R03.0 ; Negative depression screening Z13.31 and Encounter for screening for cardiovascular disorders Z13.6 Assessments Encounter Date Diagnosis (ICD Code) Assessment [...] effects including loss of libido, increased suicidal thoughts/behavio rs in children and young adults, and serotonin [...] effects including loss of libido, increased suicidal thoughts/behavio rs in children and young adults, and serotonin [...] effects including loss of libido, increased suicidal thoughts/behavio rs in children and young adults, and serotonin [...] potential neurotoxicity and interactions with prescribed medications. 07/09/2024 Major depressive disorder, recurrent, mild (ICD-10 - [...] effects including loss of libido, increased suicidal thoughts/behavio rs in children and young adults, and serotonin [...] potential neurotoxicity and interactions with prescribed medications. 07/09/2024 Generalized anxiety disorder (ICD-10 - F41.1) Depression- [...] effects including loss of libido, increased suicidal thoughts/behavio rs in children and young adults, and serotonin [...] effects including loss of libido, increased suicidal thoughts/behavio rs in children and young adults, and serotonin [...] effects including loss of libido, increased suicidal thoughts/behavio rs in children and young adults, and serotonin [...] effects including loss of libido, increased suicidal thoughts/behavio rs in children and young adults, and serotonin [...] potential neurotoxicity and interactions with prescribed medications. 07/09/2024 Elevated blood pressure reading (ICD-10 - R03.0) [...] effects including loss of libido, increased suicidal thoughts/behavio rs in children and young adults, and serotonin [...] potential neurotoxicity and interactions with prescribed medications. 07/09/2024 Negative depression screening (ICD-10 - Z13.31) Depression- Sertraline 50 mg daily stable Anxiety- [...] effects including loss of libido, increased suicidal thoughts/behavio rs in children and young adults, and serotonin [...] potential neurotoxicity and interactions with prescribed medications. 07/09/2024 Encounter for screening for cardiovascular disorders (ICD-10 - Z13.6) Depression- Sertraline 50 mg daily stable Anxiety- [...] effects including loss of libido, increased suicidal thoughts/behavio rs in children and young adults, and serotonin [...] Next Appt Details Provider Name:Tish Moreno , 10/15/2024 09:45:00 AM, [address], [facility] [address], [place], [address], Insurance Providers Payer Name Payer Address Payer Phone Subscriber Number Group Number Insured Name Patient Relationship to Insured Coverage Start Date Coverage End Date [place] [address] [facility] [place] [address] [id number] YVONNE PARISI Self - patient is the insured [facility] [address] [address] [place] [address] [id number] YVONNE PARISI Self - patient is the [...]
[2024-08-26 10:27] LABS: Hemoglobin A1C 7.6 % (<5.7)
[2024-08-26 10:42] LABS: Alanine Aminotransferase 49 U/L (6-50); Albumin Level 3.9 g/dL (3.5-5.1); Alkaline Phosphatase 111 U/L (38-126); Anion Gap 4 mmol/L (4-12); Aspartate Amino Transferase 45 U/L (17-59); Bilirubin,Total 0.7 mg/dL (0.2-1.3); Blood Urea Nitrogen 18 mg/dL (9-20); Calcium 8.6 mg/dL (8.4-10.2); Carbon Dioxide 24 mmol/L (22-30); Chloride 111 mmol/L (98-107); Estimated Glomerular Filt Rate > 60; Glucose 190 mg/dL (65-110); Iron 80 ug/dL (49-181); Osmolality Calculated 294 mOsm/kg (285-295); Potassium 4.5 mmol/L (3.4-5.0); Sodium 139 mmol/L (137-145); Total Protein 6.6 g/dL (6.3-8.2)
== END 2024-08-26 09:49 | disposition home or self-care (01) ==
LOC: CHSLAB 09:51
PROVIDERS: PCP Internal Medicine; Visit Provider Internal Medicine
DX: E11.65 Type 2 diabetes mellitus with hyperglycemia (principal); E78.2 Mixed hyperlipidemia; I10 Essential (primary) hypertension; D64.9 Anemia, unspecified
CPT/HCPCS: 36415; 80053; 82607; 82728; 83036; 83540; 85027

== ENCOUNTER 2024-10-26 01:06 | Day surgery (SDC) | payer MEDICARE, SELFPAY ==
[2024-10-14 09:23] VITALS: BMI 30.1
--- OUTSIDE RECORDS SUMMARY | 2024-10-26 01:09 | XMS_ITS ---
Author Organization [facility] Address [address] [place] [address] Care Team Providers Care Pattern Ruler Name Role Phone Yolande Soria MD Primary Care Provider [phone] Devin Tariq MD Unavailable Arnoldo Wade DO Unavailable Anthony Hermosillo MD [...] 09/12/2022 Assessment & Plan (03/22/2024 2:59 PM APPLICATION ARCHITECT): Liver function is normal. Will continue to monitor his liver function and hepatitis-B annually. Assessment & Plan (03/13/2023 12:07 PM APPLICATION ARCHITECT): Discussed with the patient weight loss. 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 Continue viread. Check labs including fibro test. Schedule ultrasound of the right upper quadrant. Check hepatitis-B DNA and follow up in 1 year. Assessment & Plan (03/13/2023 12:08 PM APPLICATION ARCHITECT): As of last evaluation patient is in [...] go and have a 2nd opinion at [facility] liver our office. Overall [...] low. We will send the patient to [facility] for 2nd opinion as far as the [...] Therapy Plans No current plan information found. Past Treatment and Therapy Plans Oncology Chemotherapy Treatment Plan Name Start Date Discontinue Date Treatment Medications Discontinue Reason Plan Provider Cycles Gemcitabine / CISplatin 21 Day Cycles - Bladder 07/25/19 24 10/16/2023 CISplatin (PLATINOL) IVPB in 250 mLdexAMETHasone (DECADRON)gemcita bine IVPB in 250 mL (using 100 mg/ml gemcitabine) ([id number]) Therapy Complete Arnoldo Wade, DO 4 of 4 cycles completed Treatment Summaries Malignant neoplasm of anterior wall of urinary bladder (HCC)* Images from the original note were not included. [address], [place] [address] This Survivorship Care Plan is a cancer [...] Information: Primary Care Physician Yolande Soria MD [phone] Surgeon Devin Tariq MD [phone] Urologist Anthony Hremosillo MD [phone] Medical Oncologist Arnoldo Wade DO [phone] Treatment Summary Cancer Diagnosis Information Diagnosis Malignant [...] Date 07/25/2023 End Date 10/03/2023 Provider Arnoldo Wade DO Chemotherapy CISplatin (PLATINOL) 158 mg in sodium [...] counseling may be helpful. The use of [id number] lubricants may lessen painful intercourse. Talk with [...] Help learning to eat healthier, call the hourly manager at: [facility] [place] Have an active lifestyle, strive for [...] man. Resources you may be interested in: [facility] [place] http://www.[facility].peak behavioral health services/ [facility] 1st floor of [facility] [phone]. Computer access, educational material, counseling services (FREE) Cancer Resources: www.cancer.net [employer]: https://survivorship.cancer.gov/ an online tool for cancer survivors andcaregivers created by the [place] [employer] and the National Cancer [place]. It provides: Information on dealing with side effects from cancer and treatment Caregivers with support and resources Practical advice about talking to friends and family about cancer Questions to ask their health care team Help understanding their rights in the workplace Online Resources: [place] [employer] Clinical Oncology: www.cancer.net; Center for Disease Control and Prevention: www.cdc.gov/cancer/survivorship; National Cancer [place] (NCI) www.cancer.gov [employer] [employer] Cancer Survivors Network http://csn.cancer.org/ National Coalition for Cancer Survivorship http://www.canceradvocacy.org [place] [employer] Cancer Society: https://bladdercancersupport.org/
--- OUTSIDE RECORDS SUMMARY | 2024-10-26 01:09 | XMS_ITS | Clinical Summary ---
Author Organization [facility] Address [address] [place] [address] Care Team Providers Care Supervisor Fabrication And Assembly Name Role Phone Yolande Soria MD Primary Care Provider [phone] Devin Tariq MD Unavailable [phone] Arnoldo Wade DO Unavailable [phone] Anthony Hermosillo MD Unavailable [phone] Allergies Active Allergy Reactions Criticality Noted Date [...] 09/12/2022 Assessment & Plan (03/22/2024 2:59 PM FORMULA BOTTLER): Liver function is normal. Will continue to monitor his liver function and hepatitis-B annually. Assessment & Plan (03/13/2023 12:07 PM FORMULA BOTTLER): Discussed with the patient weight loss. 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 Continue viread. Check labs including fibro test. Schedule ultrasound of the right upper quadrant. Check hepatitis-B DNA and follow up in 1 year. Assessment & Plan (03/13/2023 12:08 PM FORMULA BOTTLER): As of last evaluation patient is in [...] go and have a 2nd opinion at [facility] liver our office. Overall we are seeing [...] low. We will send the patient to [facility] for 2nd opinion as far as [...] Encounters Date Type Department Care Team Description 09/15/2024 11:15 AM CDT Office Visit [facility] Physicians [facility] Oncology [address] [place] [address] Arnoldo Wade, Malignant neoplasm of anterior wall of urinary bladder (HCC) (Primary Dx); Malignant neoplasm of overlapping sites of bladder (HCC) 09/15/2024 10:45 AM CDT Lab [facility] at [address] [address] Malignant neoplasm of anterior wall of urinary bladder (HCC); Malignant neoplasm of overlapping sites of bladder (HCC) 09/15/2024 9:49 AM CDT - 09/15/2024 11:59 PM CDT Hospital Encounter [facility] [address] [place] [address] Malignant neoplasm of anterior wall of urinary bladder (HCC); Malignant neoplasm of overlapping sites of bladder (HCC) Discharge Disposition: Discharge to home [...] drink = 0.6 oz pur e alcohol) [facility] Utilities Answer Date Recorded In the past 12 months has th e electric, gas, oil, or water company threatened to shut off services in your home? No 11/25/2023 Social Connection and Isolation Panel Answer Date Recorded In a typical week, how many times do you talk on the phone with family, friends, or neighbors? More than three times a week 11/25/2023 How often do you get togethe r with friends or relatives? Twice a week 11/25/2023 How often do you attend chur ch or mosque services? Never 11/25/2023 Do you belong to any clubs o r organizations such as protestant groups, unions, fraternal or athletic groups, or [...] time in the past 12 m [facility], were you homeless or living in a mcc (including now)? No 11/25/2023 Personal Safety Answer Date Recorded Have you ever been in or are you currently in a harmful physical or emotional relationship or is someone making you feel afraid or unsafe? 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 Not on file Not on file Not on file Obstetrics History Last Filed Vital Signs Vital Sign Reading Time Taken Comments Blood Pressure 124/63 09/15/2024 12:17 PM CDT Pulse 49 09/15/2024 12:17 PM CDT Temperature 36.4 C (97.5 F) 09/15/2024 12:17 PM CDT Respiratory Rate 16 09/15/2024 12:1 7 PM CDT Oxygen Saturation 100% 09/15/2024 12: 17 PM CDT Inhaled Oxygen Concentration - - Weight 97.4 kg (214 lb 11.7 oz) 025 12:17 PM CDT Height 180 cm (5' 10.87) 09/15/2024 12 :17 PM CDT w shoes Body Mass Index 30.06 09/15/2024 12:17 PM CDT Plan of Treatment Health Maintenance Due Date Last Done Comments Colon Cancer Screening-Colonoscopy 1950 Depression Screening 1950 DTaP/Tdap/Td Vaccine (1 - Tdap) 10/07/1962 Well Visit 65+ 10/07/2016 Zoster Vaccine (3 of 3) 01/19/2019 11/24/2018, 06/24 Influenza Vaccine (#1) 2024 9, 11/24/2018, 12/08/2017, Additional history exists Fall Risk Assessment 11/28/2024 11/29/2023 Pneumococcal vaccine 65+ Completed 019, 12/14/2018, 09/23/2014, Additional history exists Hepatitis C Screening Completed 07/25/2022, 019 Medical Devices Implanted Type Area Triage Technician Device Identifier Shelf Expiration Date Model / Serial / Lot [employer] Annette 7fr 80cm Open Tip Luer Lock Adapter Guidewire Graduate Straight Latex Free 160-210 - [id number] Implanted:Qty: 2 on 11/24/2023 by Devin Tariq MD at [facility] Stent N/A: Ureter [employer] Annette 07/06/2027 [id number] / / [id number] Procedures Procedure Name Priority Date/Time Associated Diagnosis Comments EGFR Routine 09/15/2024 10:08 AM CDT Malignant neoplasm of anterior wall of urinary bladder (HCC) Malignant neoplasm of overlapping sites of bladder (HCC) DIFFERENTIAL AUTO Routine 09/15/2024 10: 08 AM CDT Malignant neoplasm of anterior wall of urinary bladder (HCC) Malignant neoplasm of overlapping sites of bladder (HCC) CBC WITH AUTO DIFFERENTIAL Routine 09/15/2024 10:08 AM CDT Malignant neoplasm of anterior wall of urinary bladder (HCC) Malignant neoplasm of overlapping sites of bladder (HCC) COMPREHENSIVE METABOLIC PANEL Routine 09/15/2024 10:08 AM CDT Malignant neoplasm of anterior wall of urinary bladder (HCC) Malignant neoplasm of overlapping sites of bladder (HCC) CT CHEST ABDOMEN PELVIS WO CONTRAST Schedule Routine, Read Routine (OP Routine) 09/15/2024 9:58 AM CDT Malignant neoplasm of anterior wall of urinary bladder (HCC) Malignant neoplasm of overlapping sites of bladder (HCC) HEPATITIS PANEL, ACUTE Routine 07/25/2022 10:55 AM CDT Chronic hepatitis B (HCC) from Last 3 Months or Most Recently Relevant to Health Maintenance Results * eGFR (09/15/2024 10:08 AM CDT) eGFR 80 >=60 mL/min/1. 73 m2 Comment: Interpretive Data [...] was last reviewed 2021. Testing performed by: [address] [address] Blood 09/15/2024 10:0 8 AM CDT 09/15/2024 10:11 AM CDT Arnoldo Wade DO LAB BLOOD ORDERABLES Final R esult JORJE [address] [facility] Department of Laboratories [place], [place] [id number] * (ABNORMAL) Differential, auto (09/15/2024 10:08 AM CDT) Neutrophil abs 2.85 1.50 - 6.50 K/cumm Comment:Testing performed by : [address] [address] Imm gran abs 0.02 0.00 - 0.10 K/cumm JORJE Comment:Testing performed by : [address] [address] Lymphocyte abs 3.93(H) 0.80 - 3.30 K/cumm JORJE Comment:Testing performed by : [address] [address] Monocyte abs 0.74 0.20 - 0.80 K/cumm JORJE Comment:Testing performed by : [address] [address] Eosinophil abs 0.48 0.00 - 0.50 K/cumm JORJE Comment:Testing performed by : [address] [address] Basophil abs 0.05 0.00 - 0.10 K/cumm JORJE Comment:Testing performed by : [address] [address] Neutrophil pct 35.4 % [facility] Comment: Interpretive Data Percent cell count reference ranges are not reported, since discordance with absolute values may lead to misinterpretation of CBC data. Current Interpretive Data was last revised on 2017. Testing performed by: [address] [address] Imm gran pct 0.2 % [facility] Comment: Interpretive Data Percent cell count reference ranges are not reported, since discordance with absolute values may lead to misinterpretation of CBC data. Current Interpretive Data was last revised on 2017. Testing performed by: [address] [address] Lymphocyte pct 48.7 % [facility] Comment: Interpretive Data Percent cell count reference ranges are not reported, since discordance with absolute values may lead to misinterpretation of CBC data. Current Interpretive Data was last revised on 2017. Testing performed by: [address] [address] Monocyte pct 9.2 % [facility] Comment: Interpretive Data Percent cell count reference ranges are not reported, since discordance with absolute values may lead to misinterpretation of CBC data. Current Interpretive Data was last revised on 2017. Testing performed by: [address] [address] Eosinophil pct 5.9 % [facility] Comment: Interpretive Data Percent cell count reference ranges are not reported, since discordance with absolute values may lead to misinterpretation of CBC data. Current Interpretive Data was last revised on 2017. Testing performed by: [address] [address] Basophil pct 0.6 % [facility] Comment: Interpretive Data Percent cell count reference ranges are not reported, since discordance with absolute values may lead to misinterpretation of CBC data. Current Interpretive Data was last revised on 2017. Testing performed by: [address] [address] Blood 09/15/2024 10:0 8 AM CDT 09/15/2024 10:11 AM CDT us Arnoldo Wade DO LAB BLOOD ORDERABLES Final [facility] esult [facility] [address] [facility] Department [place] [address] * (ABNORMAL) CBC with auto differential (09/15/2024 10:08 AM CDT) WBC 8.07 3.80 - 9.90 K/cumm Comment:Testing performed by : [address] [address] Hgb 10.7(L) 13.0 - 17.5 g/dL JORJE Comment:Testing performed by : [address] [address] Hct 31.6(L) 38.9 - 50.3 % JORJE Comment:Testing performed by : [address] [address] Plt 217 150 - 400 K/cumm JORJE Comment:Testing performed by : [address] [address] MPV 9.0(L) 9.1 - 12.3 fL JORJE Comment:Testing performed by : [address] [address] RBC 3.88(L) 4.30 - 5.80 M/cumm JORJE Comment:Testing performed by : [address] [address] MCV 81.4 81.3 - 96.4 fL JORJE CHARLES Comment:Testing performed by : [address] [address] MCH 27.6 27.1 - 33.3 pg JORJE CHARLES Comment:Testing performed by : [address] [address] MCHC 33.9 32.3 - 35.7 g/dL JORJE CHARLES Comment:Testing performed by : [address] [address] RDW CV 14.4 11.1 - 14.9 % JORJE CHARLES Comment:Testing performed by : [address] [address] RDW SD 42.1 35.7 - 48.1 fL JORJE CHARLES Comment:Testing performed by : [address] [address] NRBC abs 0.00 0.00 - 0.01 K/cumm JORJE Comment:Testing performed by : [address] [address] ANC Prelim 2.85 1.50 - 6.50 K/cumm JORJE Comment: Interpretive Data The rapid ANC is a preliminary automated count and may vary from the final ANC (Neut Abs) reported in the WBC differential that follows. Current interpretive data was last revised 2024. Testing performed by: [address] [address] Blood 09/15/2024 10:0 8 AM CDT 09/15/2024 10:11 AM CDT us Arnoldo Wade DO LAB BLOOD ORDERABLES Final R esult JORJE [address] [facility] Department [place] [address] * Comprehensive metabolic panel (09/15/2024 10:08 AM CDT) Sodium 139 135 - 145 mmol/L Comment:Testing performed by : [address] [address] Potassium, pl 4.6 3.3 - 4.9 mmol/L JORJE CHARLES Comment:Testing performed by : [address] [address] Chloride 106 97 - 110 mmol/L JORJE CHARLES Comment:Testing performed by : [address] [address] CO2 22 22 - 32 mmol/L JORJE Comment:Testing performed by : [address] [address] Anion gap 11 2 - 15 mmol/L JORJE Comment:Testing performed by : [address], [place]., [address] BUN 17 6 - 25 mg/dL JORJE Comment:Testing performed by : [address], [place]., [address] Creatinine 1.00 0.80 - 1.30 mg/dL [facility] Comment:Testing performed by : [address], [place]., [address] Glucose 138 70 - 199 mg/dL [facility] Comment: Interpretive Data Fasting glucose >/= [...] was last revised 2022. Testing performed by: [address] [address] Calcium 8.9 8.5 - 10.3 mg/dL [facility] Comment:Testing performed by : [address] [address] Bilirubin, total 0.7 0.1 - 1.2 mg/dL [facility] Comment:Testing performed by : [address] [address] Protein, pl 7.1 6.5 - 8.5 g/dL JORJE Comment:Testing performed by : [address] [address] Albumin 4.1 3.5 - 5.0 g/dL JORJE Comment:Testing performed by : [address] [address] Alk phos 130 40 - 130 Units/L JORJE CHARLES Comment:Testing performed by : [address] [address] ALT 33 7 - 55 Units/L JORJE CHARLES Comment:Testing performed by : [address] [address] AST 26 10 - 50 Units/L JORJE CHARLES Comment:Testing performed by : [address] [address] Blood 09/15/2024 10:0 8 AM CDT 09/15/2024 10:11 AM CDT us Arnoldo Wade DO LAB BLOOD ORDERABLES Final R esult JORJE CHARLES [address] [facility] Department [place] [address] * CT Chest Abdomen Pelvis WO Contrast (09/15/2024 9:58 AM CDT) Anatomical Region Laterality Modality Body N/A Computed Tomogra phy 09/25/2024 10:0 1 PM CDT Narrative 09/25/2024 10:24 PM CDT EXAM DESCRIPTION: CT CHEST ABDOMEN PELVIS WO CONTRAST REASON FOR STUDY: Bladder cancer, invasive, assess treatment response 3 month bladder cancer f/u. No complaints. Hx of cystectomy, prostatectomy. TECHNIQUE: CT scan of the chest, abdomen, and pelvis performed without intravenous and without oral contrast using helical scanning technique. Reconstructed coronal and sagittal MPR images reviewed. All images stored on PACS. Automated exposure control was used as a dose optimization technique for this examination. COMPARISON: 06/16/2024 , 06/19/2023 FINDINGS: The sensitivity for detection of visceral lesions is diminished without the use of intravenous contrast. CHEST LUNGS: Unchanged 2 mm noncalcified pulmonary nodule in the right middle lobe at slice position 59. Unchanged noncalcified 7 mm pulmonary nodule in the right middle lobe at slice position 70. Calcified pulmonary granulomas are present. Mild scattered subsegmental atelectasis in both lungs. Pulmonary parenchymal consolidation or pulmonary edema. PLEURA: No pleural effusion. No pneumothorax. MEDIASTINUM/NARESH: No identified masses or lymphadenopathy. Calcified mediastinal and hilar lymph nodes due to old healed granulomatous disease. No supraclavicular lymphadenopathy. The esophagus is within normal limits. HEART: Heart size is normal with no pericardial effusion. CORONARY ARTERY CALCIFICATION: Present VASCULATURE CHEST: No thoracic aortic aneurysm. AXILLA: No adenopathy. CHEST WALL: No masses. No subcutaneous air. Mild bilateral gynecomastia. HARDWARE/LINES/TUBES: None. MUSCULOSKELETAL CHEST: No acute fractures or aggressive osseous lesions. ABDOMEN/PELVIS LIVER: Normal size. No discrete focal hepatic lesions on this noncontrast CT examination. There is hepatic surface nodularity which could reflect hepatic cirrhosis. Calcified hepatic granulomas. GALLBLADDER: Cholelithiasis. BILE DUCTS: No intrahepatic or extrahepatic ductal dilatation. SPLEEN: Normal size. No focal lesions. Calcified splenic granulomas. PANCREAS: Unchanged pancreatic atrophy. No identified cystic or solid masses. No significant calcifications. No adjacent inflammation or peripancreatic fluid collections. Pancreatic duct not dilated. ADRENALS: Normal. KIDNEYS/URINARY TRACT/ REPRODUCTIVE: Lower pole right renal cyst measures 26 mm. Punctate calcification in the upper pole of the left kidney is unchanged. Tiny locule of gas within the upper pole left renal panchito is present with extent decreased compared to prior study on 06/16/2024 and could be due to reflux from the ileal conduit. No hydronephrosis or hydroureter. Postsurgical changes of cystoprostatectomy with right lower quadrant ventral abdominal wall ileal conduit formation. 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 There is no small bowel or colonic obstruction, inflammation or perforation. Redemonstration of right lower quadrant ileal conduit formation. PERITONEUM: No ascites or free air. No lymphadenopathy. Calcified pericaval station lymph node due to old healed granulomatous disease, unchanged. RETROPERITONEUM: No mass or adenopathy. VASCULATURE ABDOMEN: No abdominal aortic aneurysm. MUSCULOSKELETAL ABDOMEN PELVIS: No acute fractures or aggressive bone lesions. IMPRESSION: 1. History of bladder cancer with prior cystoprostatectomy and ileal conduit formation. No CT evidence of metastases in the chest, abdomen or pelvis. THIS IS AN ELECTRONICALLY VERIFIED FINAL REPORT 09/25/2024 10:24 PM - Electronically signed by Maury Pryor M.D. AT: AT Report ID: [id number] Reading Location: [id number] Procedure Note Maury Pryor MD - 09/25/2024 EXAM DESCRIPTION: CT CHEST ABDOMEN PELVIS WO CONTRAST REASON FOR STUDY: Bladder cancer, invasive, assess treatment response 3 month bladder cancer f/u. No complaints. Hx of cystectomy,prostatectomy. TECHNIQUE: CT scan of the chest, abdomen, and pelvis performed without intravenous and without oral contrast using helical scanning technique. Reconstructed coronal and sagittal MPR images reviewed. All images storedon PACS. Automated exposure control was used as a dose optimizationtechnique for this examination. COMPARISON: 06/16/2024 , 06/19/2023 FINDINGS: The sensitivity for detection of visceral lesions is diminished without the use of intravenous contrast. CHEST LUNGS: Unchanged 2 mm noncalcified pulmonary nodule in the right middlelobe at slice position 59. Unchanged noncalcified 7 mm pulmonary nodule in the right middle lobe at slice position 70. Calcified pulmonary granulomasare present. Mild scattered subsegmental atelectasis in both lungs.Pulmonary parenchymal consolidation or pulmonary edema. PLEURA: No pleural effusion. No pneumothorax. MEDIASTINUM/NARESH: No identified masses or lymphadenopathy. Calcified mediastinal and hilar lymph nodes due to old healed granulomatous disease.No supraclavicular lymphadenopathy. The esophagus is within normal limits. HEART: Heart size is normal with no pericardial effusion. CORONARY ARTERY CALCIFICATION: Present VASCULATURE CHEST: No thoracic aortic aneurysm. AXILLA: No adenopathy. CHEST WALL: No masses. No subcutaneous air. Mild bilateralgynecomastia. HARDWARE/LINES/TUBES: None. MUSCULOSKELETAL CHEST: No acute fractures or aggressive osseous lesions. ABDOMEN/PELVIS LIVER: Normal size. No discrete focal hepatic lesions on thisnoncontrast CT examination. There is hepatic surface nodularity which could reflect hepatic cirrhosis. Calcified hepatic granulomas. GALLBLADDER: Cholelithiasis. BILE DUCTS: No intrahepatic or extrahepatic ductal dilatation. SPLEEN: Normal size. No focal lesions. Calcified splenic granulomas. PANCREAS: Unchanged pancreatic atrophy. No identified cystic or solid masses. No significant calcifications. No adjacent inflammation or peripancreatic fluid collections. Pancreatic duct not dilated. ADRENALS: Normal. KIDNEYS/URINARY TRACT/ REPRODUCTIVE: Lower pole right renal cystmeasures 26 mm. Punctate calcification in the upper pole of the left kidney is unchanged. Tiny locule of gas within the upper pole left renal panchito is present with extent decreased compared to prior study on 06/16/2024 andcould be due to reflux from the ileal conduit. No hydronephrosis or hydroureter. Postsurgical changes of cystoprostatectomy with right lower quadrantventral abdominal wall ileal conduit formation. 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 Thereis no small bowel or colonic obstruction, inflammation or perforation. Redemonstration of right lower quadrant ileal conduit formation. PERITONEUM: No ascites or free air. No lymphadenopathy. Calcified pericaval station lymph node due to old healed granulomatous disease, unchanged. RETROPERITONEUM: No mass or adenopathy. VASCULATURE ABDOMEN: No abdominal aortic aneurysm. MUSCULOSKELETAL ABDOMEN PELVIS: No acute fractures or aggressive bone lesions. IMPRESSION: 1. History of bladder cancer with prior cystoprostatectomyand ileal conduit formation. No CT evidence of metastases in the chest,abdomen or pelvis. THIS IS AN ELECTRONICALLY VERIFIED FINAL REPORT 09/25/2024 10:24 PM - Electronically signed by Maury Pryor M.D. AT: AT Report ID: [id number] Reading Location: [id number] Arnoldo Wade DO IMG CT PROCEDURES Final Resu lt * (ABNORMAL) Hepatitis panel, acute (07/25/2022 10:55 AM CDT) Hep A IgM Nonreactive Nonreactive JORJE LEMA (EMILY) Comment: Interpretive Data: If Hep A IgM Ab is reported as Equivocal, a new sample should be drawn in two weeks for testing. Current interpretive data was last revised on 19. Testing performed by: [facility], [address] [place] [address], [place]., [address] Hep B core IgM Nonreactive Nonreactive Michele LEMA (EMILY) Comment: Interpretive Data If HepB Core IgM Ab is reported as Equivocal, a new sample should be drawn in two weeks for testing. Current interpretive data was last revised on 19. Testing performed by: [facility], [address] [place] [address], [place]., [address] Hep C Ab Nonreactive Nonreactive JORJE LEMA [...] last revised on 2019. Testing performed by: [facility], [address] [place] [address]., [address] HepBsAg Reactive(A) Nonreactive JORJE LEMA (EMILY) Comment: Critical Result Testing performed by: [facility], [address] [place] [address]., [address] Blood 07/25/2022 10:5 5 AM CDT 07/25/2022 3:15 PM CDT Chaparro Vargas MD LAB MICROBIOLOGY - GENERAL ORDERABLES Final Result JORJE LEMA (EMILY) 1 [facility] Department [place] [address] from Last 3 Months or Most Recently Relevant to Health Maintenance Insurance MEDICARE [facility] FINANCIAL Member Subscriber Plan / Payer (Ef fective 2018-Present) Name:Osvaldo Duque Relation to Subscriber:Self Name:Osvaldo Duque Payer ID:[id number] Group ID:[id number] Type:COMMERCIAL Address: [place] [id number] MEDICARE COMMERCIAL GENERIC MEDICARE [facility] FIN[facility]CIAL Advance Directives For more information, please contact: [phone] * Full Code (Latest Code Status on File) Date Activated Date Inactivated Comments 11/24/2023 5:46 PM 11/29/2023 6:22 PM Care Teams Supervisor Fabrication And Assembly Relationship Specialty Start Date End Date Yolande Soria MD [address] [place] [address] PCP - General 07/25/16 [place] [address] [address] Surgeon Urology 07/02/23 Arnoldo Wade DO [address] [place] [address] MEDICAL ONCOLOGY, [facility] [address] [place] [address] Medical Oncologist/Hematologis t Hematology and Oncology 07/07/23 Anthony Hermosillo MD [address] [facility] [address] [place], [place] [id number] Urologist Urology 07/07/23
--- OUTSIDE RECORDS SUMMARY | 2024-10-26 01:09 | XMS_ITS | Clinical Summary ---
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
--- OUTSIDE RECORDS SUMMARY | 2024-10-26 01:09 | XMS_ITS | Clinical Summary ---
Author Organization [facility] Address [address] [place] [address] Phone Care Team Providers Care Reporting Developer Name Role Phone Yolande Soria MD Primary Care Provider [phone] Allergies No known active allergies Medications LISINOPRIL [...] Comments Blood Pressure 132/78 03/18/2015 9:26 AM FOUNDATION COORDINATOR Pulse 61 03/18/2015 9:26 AM FOUNDATION COORDINATOR Temperature - - Respiratory Rate 12 03/18/2015 9:26 AM FOUNDATION COORDINATOR Oxygen Saturation 97% 03/18/2015 9:26 AM FOUNDATION COORDINATOR Inhaled Oxygen Concentration - - Weight 106.7 kg (235 lb 4.8 oz) 03/18/2015 9:26 AM FOUNDATION COORDINATOR Height 181.9 cm (5' 11.6) 03/18/2015 9:26 AM CS T Body Mass Index 32.27 03/18/2015 9:26 AM FOUNDATION COORDINATOR Plan of Treatment Health Maintenance Due Date Last Done Comments Hepatitis C Virus (HCV) Screening 1950 TdaP Immunization 1950 Cologuard 10/07/1996 Colonoscopy 10/07/1996 Colorectal Cancer Screening 10/07/1996 Immunochemical Fecal Occult Blood 10/07/1996 Pneumococcal Immunization (5 0+ years) (1 of 1 - PCV) 10/07/2001 Zoster Immunization (1 of 2) 10/07/2001 SARS-COV-2 Immunization (3 - season) 2023 07/19/2020, 06/21/2020 Influenza Immunization (#1) 2024 Respiratory Syncytial Virus (RSV) Immunization (Adult) (1 - 1-dose 75+ series) 10/07/2026 Hepatitis B Immunization Aged Out No longer eligible based on patient's age to complete this topic Human Papillomavirus (HPV) Immunization Aged Out No longer eligible b ased on patient's age to complete this topic Meningococcal Immunization (ACWY) Aged Out No longer eligible b ased on patient's age to complete this topic Rotavirus Immunization Aged Out No lo nger eligible based on patient's age to complete this topic Care Teams Reporting Developer Relationship Specialty Start Date End Date Yolande Soria MD [address] [place] [address] PCP - General Internal Medicine 11/25/23
--- OUTSIDE RECORDS SUMMARY | 2024-10-26 01:09 | XMS_ITS | Patient Health Record ---
Author Organization [facility] Address [address] [facility] [address] [place] [address] Care Team Providers Care Sign Letterer Name Role Phone Yang PEPE, Yolande Primary Care Provider Tish Lindsey Unavailable [phone] Allergies No Known Allergies Reason For Referral No Information Medications Medication SIG (Take, Route, Frequency, Duration) Notes Start Date End Date Status busPIRone HCl 5 MG Tablet 1 tablet Oral Twice a day; Duration: 90 days Active Allopurinol 100 MG Tablet TAKE 1 TABLET BY MOUTH EVERY DAY Oral; Duration: 90 Days Active Sertraline HCl 50 MG Tablet 1 tablet Oral Once a day; Duration: 90 days Active Vitamin D (Ergocalciferol) 1.25 MG (16196 UT) Capsule TAKE 1 CAPSULE BY MOUTH ONE TIME PER WEEK Oral; Duration: 84 Days Active NovoLOG FlexPen 100 UNIT/ML Solution Pen-injector INJECT 10 UNITS W/ BREAKFAST, 15 UNITS W/ LUNCH , 25 UNITS W/ DINNER AND 10 UNITS WITH BEDTIME SNACK Subcutaneous; Duration: 25 Days Active Potassium Chloride ER 20 MEQ Tablet Extended Release TAKE 2 TABLETS BY ORAL ROUTE ONCE DAILY WITH FOOD Oral; Duration: 90 Days Active Basaglar KwikPen 100 UNIT/ML Solution Pen-injector Subcutaneous 06/26/2023 Active Tenofovir Disoproxil Fumarate 300 MG Tablet TAKE 1 TABLET BY MOUTH EVERY DAY Oral; Duration: 90 Days Active Tamsulosin HCl 0.4 MG Capsule 1 capsule Oral Once a day 06/26/2023 Active metFORMIN HCl ER 500 MG Tablet Extended Release 24 Hour TAKE 1 TABLET BY MOUTH ONCE DAILY WITH THE EVENING MEAL Oral; Duration: 30 Days Active FreeStyle Maria A 2 Sensor - Miscellaneous CHANGE EVERY 2 WEEKS; Duration: 28 Days Active busPIRone HCl 5 MG Tablet TAKE 1 TABLET BY MOUTH TWICE A DAY; Duration: 90 Active ULTRA-FINE SHORT PEN NEEDLE 31 gauge x 5/16 NEEDLE, DISPOSABLE MISCELLANEOUS *Reorder from PASSNFLYJobool for eRx and Interaction Alerts* 06/26/2023 Active Sertraline HCl 50 MG Tablet TAKE 1 TABLET BY MOUTH EVERY DAY FOR 90 DAYS; Duration: 90 Active Atorvastatin Calcium 20 MG Tablet TAKE 1 TABLET BY MOUTH EVERY DAY DIRECTED Oral; Duration: 90 Days Active Lisinopril 40 MG Tablet TAKE 1 TABLET BY MOUTH EVERY DAY Oral; Duration: 90 Days Active Pantoprazole Sodium 40 MG Tablet Delayed Release TAKE 1 TABLET (40 MG TOTAL) BY MOUTH DAILY TAKE WHILE ON CHEMOTHERAPY Oral; Duration: 90 Days Active Immunizations Vaccine Route Administration Date Status [...] 1st dose Unknown 07/19/2020 Ad ministered Novel [id number], preservative free Unknown 11/27/2017 Administered Novel [id number], preservative free Unknown 11/24/2018 Administered Pneumococcal conjugate [...] History Observation Description Sex Assigned At Male Social History Sexual History: Social Info Question Answer Notes Sexual History Had sex in the past 12 months (vaginal, oral, or anal)? Yes with Women only Household: Social Info Question Answer Notes Household Marital status: Number of adults in household: 2 Drug/Alcohol: Social Info Question Answer Notes Drugs Have you used drugs other than those for medical reasons in the past 12 months? No AUDIT-C (Standard) Did you have a drink containing alcohol in the past year? No Points 0 Interpretation Negative Tobacco Use: Social Info Question Answer Notes Tobacco Control (Standard) Tobacco use: Nonsmoker Additional Findings: Tobacco non-user Current no nsmoker Additional Details Category Social Info Options Details Migrated Social History Migrated Social History Alcohol Intake: None 05/11/2018,Tobacco Years: Never smoker 09/23/2022 Drug/Alcohol: Do you smoke marijuana? Den ies Do you drink alcohol? No Problems Problem Type SNOMED Code ICD Code Onset Dates Problem Status W/U Status Risk Notes Problem Mild recurrent major depression (83047010) Major depressive disorder, recurrent, mild (F33.0) 06/26/19 24 Active confirmed Problem Generalized anxiety disorder (31199644) Generalized anxiety disorder (F41.1) 06/26/19 24 Active confirmed Problem Screening for cardiovascular system disease (557321949) Encounter for screening for cardiovascular disorders (Z13.6) Active confirmed Problem Elevated blood-pressure reading without diagnosis of hypertension (516097722) Elevated blood pressure reading (R03.0) Active confirmed Problem Depression screening negative (967763551268767) Negative depression screening (Z13.31) Active confirmed Vital Signs Heart Rate 50 /min 10/15/2024 Respiratory Rate 18 /min 07/09/2024 Height-cm 180.34 cm 10/15/2024 Blood pressure diastolic 59 mm Hg 10/15/2024 Weight-kg 96.34 kg 10/15/2024 Height 71.00 in 10/15/2024 Blood pressure systolic 105 mm Hg 10/15/2024 Weight 212.4 lbs 10/15/2024 BMI 29.62 kg/m2 10/15/2024 Encounters Encounter Location Date Provider Diagnosis [facility] [address] [place] [address] 12/25/2023 Tish Moreno Major depressive disorder, recurrent, mild F33.0 ; Generalized anxiety disorder F41.1 and Elevated blood pressure reading R03.0 [facility] [place] [id number] [facility] [address] [facility] [address] [place] [address] 04/12/2024 Tish Moreno Major depressive disorder, recurrent, mild F33.0 ; Generalized anxiety disorder F41.1 and Elevated blood pressure reading R03.0 [facility] [address] [facility] [address] [place] [address] 07/09/2024 Tish Moreno Major depressive disorder, recurrent, mild F33.0 ; Generalized anxiety disorder F41.1 ; Elevated blood pressure reading R03.0 ; Negative depression screening Z13.31 and Encounter for screening for cardiovascular disorders Z13.6 [facility] [place] [address] [facility] [address] [facility] [address] [place] [address] 10/15/2024 Tish Moreno Major depressive disorder, recurrent, mild [...] potential neurotoxicity and interactions with prescribed medications. 10/15/2024 Major depressive disorder, recurrent, mild (ICD-10 - [...] potential neurotoxicity and interactions with prescribed medications. 10/15/2024 Generalized anxiety disorder (ICD-10 - F41.1) Depression- [...] potential neurotoxicity and interactions with prescribed medications. 10/15/2024 Elevated blood pressure reading (ICD-10 - R03.0) [...] potential neurotoxicity and interactions with prescribed medications. 10/15/2024 Negative depression screening (ICD-10 - Z13.31) Depression- [...] potential neurotoxicity and interactions with prescribed medications. 10/15/2024 Encounter for screening for cardiovascular disorders (ICD-10 [...] Next Appt Details Provider Name:Tish Moreno , 01/07/2025 09:45:00 AM, [address], [address], [place], [address], Insurance Providers Payer Name Payer Address Payer Phone Subscriber Number Group Number Insured Name Patient Relationship to Insured Coverage Start Date Coverage End Date [place] [address] [place] [address] [id number] YVONNE PARISI Self - patient is the insured [facility] [address] [address] [place] [address] [id number] YVONNE PARISI Self - patient is the [...]
[2024-10-26 10:03] VITALS: BP 114/60; PULSE 56; RESP 18; TEMP 36.7; O2SAT 100
--- NOTE | 2024-10-26 10:06 | SUR.PREOP ---
Patients dexcome statese blood sugar 278- [place] notified and no new orders at this time
--- NOTE | 2024-10-26 10:18 | WPDANESEPPF ---
Anes - Initial Pre Proc Eval Procedure: Operation Date: 10/26/24 13:30 Proposed Procedures p Screening Colonoscopy - Tex Conley DO Date/Time: 10/26/24 10:18 Surgeon: Tex Conley DO Pre Op Diagnosis: Screening for malignant neoplasm of colon Patient Data Age: 74 Gender: M Height: 1.8 m Weight: 93 kg Last Vital Signs Temp 36.7 C 10/26/24 10:03 Pulse 56 L 10/26/24 10:03 Resp 18 10/26/24 10:03 BP 114/60 10/26/24 10:03 Pulse Ox 100 10/26/24 10:03 O2 Del Method Room Air 10/26/24 10:03 Allergies Allergy/AdvReac Type Severity Reaction Status Date / Time No Known Allergies Allergy Verified 10/14/24 09:16 Home Medications ?Medication ?Instructions ?Recorded ?Confirmed ?Type allopurinol 100 mg tablet 100 mg PO QAM 08/20/22 10/26/24 History atorvastatin 20 mg tablet 10 mg PO QAM 08/20/22 10/26/24 History buspirone 5 mg tablet 5 mg PO BID 08/20/22 10/26/24 History ergocalciferol (vitamin D2) 1,250 50,000 unit PO WEEKLY 08/20/22 10/26/24 History mcg (50,000 unit) capsule insulin aspart U-100 100 unit/mL 1 sliding scale dose subcut BID 08/20/22 10/26/24 History (3 mL) subcutaneous pen (Novolog FlexPen U-100 Insulin aspart) insulin glargine 100 unit/mL (3 30 - 40 unit subcut HS 08/20/22 10/26/24 History mL) subcutaneous pen (Basaglar KwikPen U-100 Insulin) lisinopril 40 mg tablet 20 mg PO QAM 08/20/22 10/26/24 History metformin 500 mg tablet,extended 500 mg PO HS 08/20/22 10/26/24 History release 24 hr potassium chloride 20 mEq 20 meq PO DAILY 08/20/22 10/26/24 History tablet,extended release sertraline 50 mg tablet 50 mg PO QAM 08/20/22 10/26/24 History tamsulosin 0.4 mg capsule 0.4 mg PO QAM 08/20/22 10/26/24 History ascorbic acid (vitamin C) 500 mg 500 mg PO DAILY 03/31/23 10/26/24 History capsule cyanocobalamin (vitamin B-12) 1,000 mcg PO DAILY 03/31/23 10/26/24 History 1,000 mcg capsule multivitamin 1 tablet PO DAILY 03/31/23 10/26/24 History Patient hx anesthesia problems: none Family hx anesthesia problems: none Results Review: All pre-operative results and documents have been reviewed as part of the pre-operative evaluation. [facility] Past Medical History Medical History (Updated 10/25/24 @ 11:54 by Jamie Betts DO) Urothelial cancer Gout JAYLEN (obstructive sleep apnea) DVT (deep venous thrombosis) Diabetes Depression Anxiety Hyperlipidemia HTN (hypertension) Obesity Surgical History Surgical History History of gastric bypass Social History Social History Smoking status: Never smoker Second hand tobacco smoke exposure: No Alcohol intake: never Substance use: never Substance use type: does not use Living arrangements: with family Additional living arrangements comments: SPOUSE Gender identity (if verbalized by the patient): Male Sexual Orientation (if Verbalized by the Patient): Straight or Heterosexual Spiritual care concerns: No Anes - Eval Final PreProcedure Day of Procedure 10/26/24 10:18 Patient weight: overweight Heart: regular rate and rhythm Lungs: clear to auscultation Airway: Mallampati scale class II Neurological: alert and oriented Last oral intake: >/= 8 hours ASA classification: III Emergent: no Anesthetic plan: proceed Anesthesia type and monitoring: general GIVS and standard monitoring Results Review: All pre-operative results and documents have been reviewed as part of the pre-operative evaluation. Informed Consent: The patient's anesthetic plan and its attendant risks and benefits were discussed with the patient/family/POA. Questions were solicited and answers provided to the satisfaction of the patient/family/POA.
--- NOTE | 2024-10-26 11:42 | PM.IMHP ---
H&P: HPI History of Present Illness Date/Time: 10/26/24 11:42 Chief Complaint: screening for colorectal cancer Narrative: this is a 74-year-old man who presents for colonoscopy. His last colonoscopy was about 10 years ago. He denies any hematochezia or melena. He denies any change in bowel habits. He denies family history of colon cancer. Review of Systems Review of Systems: All systems reviewed & are unremarkable except as noted in HPI and below Constitutional: Constitutional: Denies chills, Denies fever(s), Denies headache(s) and Denies weight loss Eyes: Eyes: Denies change in vision ENT: Denies dizziness, Denies headache(s), Denies neck mass and Denies throat swelling Cardiovascular: Cardiovascular: Denies chest pain, Denies lightheadedness and Denies dyspnea Respiratory: Respiratory: Denies cough, Denies dyspnea and Denies wheezing Gastrointestinal: Gastrointestinal: Denies abdominal pain, Denies change in bowel habits, Denies nausea and Denies vomiting Genitourinary: Genitourinary: Denies hematuria and Denies dysuria Musculoskeletal: Musculoskeletal: Reports as per HPI Integumentary/Breasts: Skin/Breast: Reports as per HPI Neurologic: Denies dizziness and Denies headache(s) Allergic/Immunologic: Allergic/Immunologic: Denies throat swelling and Denies wheezing PMFSH Past Medical History Medical History (Updated 10/26/24 @ 11:42 by Tex Conley DO) Urothelial cancer Gout JAYLEN (obstructive sleep apnea) DVT (deep venous thrombosis) Diabetes Depression Anxiety Hyperlipidemia HTN (hypertension) Obesity Surgical History Surgical History History of gastric bypass Social History Social History Smoking status: Never smoker Second hand tobacco smoke exposure: No Alcohol intake: never Substance use: never Substance use type: does not use Living arrangements: with family Additional living arrangements comments: SPOUSE Gender identity (if verbalized by the patient): Male Sexual Orientation (if Verbalized by the Patient): Straight or Heterosexual Spiritual care concerns: No Meds Home Medications and Allergies Home Medications ?Medication ?Instructions ?Recorded ?Confirmed ?Type allopurinol 100 mg tablet 100 mg PO QAM 08/20/22 10/26/24 History atorvastatin 20 mg tablet 10 mg PO QAM 08/20/22 10/26/24 History buspirone 5 mg tablet 5 mg PO BID 08/20/22 10/26/24 History ergocalciferol (vitamin D2) 1,250 50,000 unit PO WEEKLY 08/20/22 10/26/24 History mcg (50,000 unit) capsule insulin aspart U-100 100 unit/mL 1 sliding scale dose subcut BID 08/20/22 10/26/24 History (3 mL) subcutaneous pen (Novolog FlexPen U-100 Insulin aspart) insulin glargine 100 unit/mL (3 30 - 40 unit subcut HS 08/20/22 10/26/24 History mL) subcutaneous pen (Basaglar KwikPen U-100 Insulin) lisinopril 40 mg tablet 20 mg PO QAM 08/20/22 10/26/24 History metformin 500 mg tablet,extended 500 mg PO HS 08/20/22 10/26/24 History release 24 hr potassium chloride 20 mEq 20 meq PO DAILY 08/20/22 10/26/24 History tablet,extended release sertraline 50 mg tablet 50 mg PO QAM 08/20/22 10/26/24 History tamsulosin 0.4 mg capsule 0.4 mg PO QAM 08/20/22 10/26/24 History ascorbic acid (vitamin C) 500 mg 500 mg PO DAILY 03/31/23 10/26/24 History capsule cyanocobalamin (vitamin B-12) 1,000 mcg PO DAILY 03/31/23 10/26/24 History 1,000 mcg capsule multivitamin 1 tablet PO DAILY 03/31/23 10/26/24 History Allergies Allergy/AdvReac Type Severity Reaction Status Date / Time No Known Allergies Allergy Verified 10/14/24 09:16 Vital Signs Vital Signs - 24 hr 10/26/24 10:03 Temperature 98.0 F Pulse Rate 56 L Respiratory Rate 18 Blood Pressure 114/60 Pulse Oximetry 100 Oxygen Delivery Room Air Exam Const: General: no acute distress and alert Orientation/consciousness: patient oriented x3 HENMT: Head: normocephalic and atraumatic Ears: hearing grossly normal bilaterally Face/Nose/Sinus: Normal nares present Mouth: Yes Normal oral and palatal mucosa present Eyes: Periorbital: periorbital findings normal Sclera: sclerae normal EOM: EOMs intact bilaterally Neck: Neck: normal visual inspection, no lymphadenopathy and trachea midline Chest: Chest palpation & inspection: normal inspection of the chest Resp: Effort & Inspection: normal respiratory effort Auscultation: clear to auscultation bilaterally Cardio: Jugular venous distension: no JVD Rate: regular rate Rhythm: regular rhythm Heart sounds: S1 normal heart sound present and S2 normal heart sound present Peripheral pulses: Peripheral pulses 2+ throughout GI: Inspection: normal to inspection GI Palp: Yes Soft to palpation, No Tenderness to palpation present (GI), No Guarding due to palpation present (GI) and No Rebound tenderness present Percussion: Yes normal to percussion Auscultation: normal bowel sounds : General: Yes no CVA tenderness Back/Spine/Pelvis: Back: no CVA tenderness Neuro: General: patient oriented x3, no focal motor deficits and CN's II-XI intact bilaterally Cognition (Neuro): normal cognition Speech: normal speech Motor exam (neuro): 5/5 motor strength present throughout Extrem: General: capillary refill normal and no clubbing, cyanosis or edema Assessment and Plan Assessment and plan (1) Screening for colorectal cancer: Code(s): Z12.11 - Encounter for screening for malignant neoplasm of colon; Z12.12 - Encounter for screening for malignant neoplasm of rectum Status: Acute Assessment and Plan: I have recommended colonoscopy. I have discussed the procedure, risks, benefits, and alternatives. Questions were answered. Patient is agreeable to proceed.
[2024-10-26] MEDS: LACTATED RINGERS 1,000 ML 150 ML IV CONT (12:30)
[2024-10-26 13:24] VITALS: BP 79/40; PULSE 65; RESP 14; O2SAT 100
[2024-10-26 13:34] VITALS: BP 102/45; PULSE 55; RESP 19; O2SAT 100
[2024-10-26 13:44] VITALS: BP 105/47; PULSE 44; RESP 20; O2SAT 100
== END 2024-10-26 13:52 | disposition home or self-care (01) ==
PROVIDERS: PCP Internal Medicine; Visit Provider Surgery
PROC: 0DJD8ZZ Inspection of Lower Intestinal Tract, Via Natural or Artificial Opening Endoscopic (ICD-10-PCS; CPT 45378; principal; 2024-10-26 13:30)
DX: Z12.11 Encounter for screening for malignant neoplasm of colon (principal); K57.30 Diverticulosis of large intestine without perforation or abscess without bleeding; E78.5 Hyperlipidemia, unspecified; E11.9 Type 2 diabetes mellitus without complications; I10 Essential (primary) hypertension; G47.33 Obstructive sleep apnea (adult) (pediatric); F32.A Depression, unspecified; F41.9 Anxiety disorder, unspecified; Z79.4 Long term (current) use of insulin; Z79.84 Long term (current) use of oral hypoglycemic drugs; Z98.84 Bariatric surgery status; Z85.51 Personal history of malignant neoplasm of bladder; Z86.718 Personal history of other venous thrombosis and embolism
CPT/HCPCS: G0105; 82948; J2003; J2704; J7120

== ENCOUNTER 2024-11-09 12:45 | Outpatient (CLI) | payer MEDICARE, SELFPAY ==
--- OUTSIDE RECORDS SUMMARY | 2024-11-09 12:54 | XMS_ITS ---
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 Will continue to monitor his liver function and hepatitis-B annually. Assessment & Plan (03/13/2023 12:07 PM LABORATORY SPECIALIST): Discussed with the patient weight loss. Continue [...] 06/14/2018 Assessment & Plan (03/22/2024 2:59 PM LABORATORY SPECIALIST): Patient has been dormant and no activity for long time. Continue viread. Check labs including fibro test. Schedule ultrasound of the right upper quadrant. Check hepatitis-B DNA and follow up in 1 year. Assessment & Plan (03/13/2023 12:08 PM LABORATORY SPECIALIST): As of last evaluation patient is in [...] go and have a 2nd opinion at [facility] liver our office. Overall we are [...] low. We will send the patient to [facility] for 2nd opinion as far [...] from the original note were not included. [address], [place] [address] This Survivorship Care Plan is a cancer [...] Information: Primary Care Physician Yolande Soria MD [phone] Surgeon Devin Tariq MD [phone] Urologist Anthony Hermosillo MD [phone] Medical Oncologist Arnoldo Wade DO [phone] Treatment Summary Cancer Diagnosis Information Diagnosis Malignant [...] counseling may be helpful. The use of [id number] lubricants may lessen painful intercourse. Talk with [...] Help learning to eat healthier, call the tension machine operator at: [facility] [place] Have an active lifestyle, strive for [...] man. Resources you may be interested in: [facility] http://www.[facility]/ [facility] 1st floor of [facility] [phone]. Computer access, educational material, counseling services (FREE) Cancer Resources: www.cancer.net [employer] Cancer: https://survivorship.cancer.gov/ an online tool for cancer survivors andcaregivers created by the [place] [employer] Society and the National Cancer Jackson. It provides: Information on dealing with side effects from cancer and treatment Caregivers with support and resources Practical advice about talking to friends and family about cancer Questions to ask their health care team Help understanding their rights in the workplace Online Resources: [place] Society of Clinical Oncology: www.cancer.net; Center for Disease Control and Prevention: www.cdc.gov/cancer/survivorship; National Cancer Jackson (NCI) www.cancer.gov [employer] [employer] Cancer Survivors Network http://csn.cancer.org/ National Coalition for Cancer Survivorship http://www.canceradvocacy.org [place] [employer] Cancer Society: https://bladdercancersupport.org/
--- OUTSIDE RECORDS SUMMARY | 2024-11-09 12:54 | XMS_ITS | Clinical Summary ---
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
--- OUTSIDE RECORDS SUMMARY | 2024-11-09 12:54 | XMS_ITS | Clinical Summary ---
Author Organization [facility] Address [address] [place] [address] Care Team Providers Care Tool Supervisor Name Role Phone Yolande Soria MD Primary Care Provider [phone] Devin Tariq MD Unavailable [phone] Arnoldo Wade DO Unavailable Anthony Hermosillo MD Unavailable [phone] Allergies Active Allergy Reactions Criticality Noted Date [...] 09/12/2022 Assessment & Plan (03/22/2024 2:59 PM FABRICATOR INDUSTRIAL FURNACE): Liver function is normal. Will continue to monitor his liver function and hepatitis-B annually. Assessment & Plan (03/13/2023 12:07 PM FABRICATOR INDUSTRIAL FURNACE): Discussed with the patient weight loss. 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 Continue viread. Check labs including fibro test. Schedule ultrasound of the right upper quadrant. Check hepatitis-B DNA and follow up in 1 year. Assessment & Plan (03/13/2023 12:08 PM FABRICATOR INDUSTRIAL FURNACE): As of last evaluation patient is in [...] go and have a 2nd opinion at [facility] liver our office. Overall [...] the patient to [facility] for 2nd opinion as far as the [...] Description 09/15/2024 11:15 AM CDT Office Visit [facility] [address] [place] [address] Arnoldo Wade, Malignant neoplasm of anterior wall of urinary bladder (HCC) (Primary Dx); Malignant neoplasm of overlapping sites of bladder (HCC) 09/15/2024 10:45 AM CDT Lab [facility] at [address] [address] Malignant neoplasm of anterior wall of urinary bladder (HCC); Malignant neoplasm of overlapping sites of bladder (HCC) 09/15/2024 9:49 AM CDT - 09/15/2024 11:59 PM CDT Hospital Encounter [facility] [address] [place] [address] Malignant neoplasm of anterior wall of urinary [...] drink = 0.6 oz pur e alcohol) [facility] Utilities Answer Date Recorded In the [...] often do you attend chur ch or latter-day services? Never 11/25/2023 Do you belong to any clubs o r organizations such as yazidism groups, unions, fraternal or athletic groups, or [...] any time in the past 12 m [facility], were you homeless or living in a assisted (including now)? No 11/25/2023 Personal Safety Answer Date Recorded Have you ever been in or are you currently in a harmful physical or emotional relationship or is someone making you feel afraid or unsafe? 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 Stent N/A: Ureter [employer] Annette 07/06/2027 [id number] / / [id number] Procedures Procedure Name Priority Date/Time Associated Diagnosis [...] was last reviewed 2021. Testing performed by: [address] [address] Blood 09/15/2024 10:0 8 AM CDT 09/15/2024 10:11 AM CDT Arnoldo Wade DO LAB BLOOD ORDERABLES Final R esult JORJE [facility] Department of Laboratories [place], [place] [id number] * (ABNORMAL) Differential, auto (09/15/2024 10:08 AM CDT) Neutrophil abs 2.85 1.50 - 6.50 K/cumm Comment:Testing performed by : [address] [address] Imm gran abs 0.02 0.00 - 0.10 K/cumm JORJE Comment:Testing performed by : [address] [address] Lymphocyte abs 3.93(H) 0.80 - 3.30 K/cumm JORJE Comment:Testing performed by : [address] [address] Monocyte abs 0.74 0.20 - 0.80 K/cumm JORJE Comment:Testing performed by : [address] [address] Eosinophil abs 0.48 0.00 - 0.50 K/cumm EBENEZERJAXSON Comment:Testing performed by : [address] [address] Basophil abs 0.05 0.00 - 0.10 K/cumm JORJE Comment:Testing performed by : [address] [address] Neutrophil pct 35.4 % [facility] Comment: Interpretive Data Percent cell count reference ranges are not reported, since discordance with absolute values may lead to misinterpretation of CBC data. Current Interpretive Data was last revised on 2017. Testing performed by: [address] [address] Imm gran pct 0.2 % [facility] Comment: Interpretive Data Percent cell count reference ranges are not reported, since discordance with absolute values may lead to misinterpretation of CBC data. Current Interpretive Data was last revised on 2017. Testing performed by: [address] [address] Lymphocyte pct 48.7 % [facility] Comment: Interpretive Data Percent cell count reference ranges are not reported, since discordance with absolute values may lead to misinterpretation of CBC data. Current Interpretive Data was last revised on 2017. Testing performed by: [address] [address] Monocyte pct 9.2 % [facility] Comment: Interpretive Data Percent cell count reference ranges are not reported, since discordance with absolute values may lead to misinterpretation of CBC data. Current Interpretive Data was last revised on 2017. Testing performed by: [address] [address] Eosinophil pct 5.9 % [facility] Comment: Interpretive Data Percent cell count reference ranges are not reported, since discordance with absolute values may lead to misinterpretation of CBC data. Current Interpretive Data was last revised on 2017. Testing performed by: [address] [address] Basophil pct 0.6 % [facility] Comment: Interpretive Data Percent cell count reference ranges are not reported, since discordance with absolute values may lead to misinterpretation of CBC data. Current Interpretive Data was last revised on 2017. Testing performed by: [address] [address] Blood 09/15/2024 10:0 8 AM CDT 09/15/2024 10:11 AM CDT Arnoldo Wade DO LAB BLOOD ORDERABLES Final R esult JORJE 2898 [facility] Department [place] [address] * (ABNORMAL) CBC with auto differential (09/15/2024 10:08 AM CDT) WBC 8.07 3.80 - 9.90 K/cumm Comment:Testing performed by : [address] [address] Hgb 10.7(L) 13.0 - 17.5 g/dL JORJE Comment:Testing performed by : [address] [address] Hct 31.6(L) 38.9 - 50.3 % JORJE Comment:Testing performed by : [address] [address] Plt 217 150 - 400 K/cumm JORJE Comment:Testing performed by : [address] [address] MPV 9.0(L) 9.1 - 12.3 fL JORJE Comment:Testing performed by : [address] [address] RBC 3.88(L) 4.30 - 5.80 M/cumm JORJE Comment:Testing performed by : [address] [address] MCV 81.4 81.3 - 96.4 fL JORJE Comment:Testing performed by : [address] [address] MCH 27.6 27.1 - 33.3 pg JORJE CHARLES Comment:Testing performed by : [address] [address] MCHC 33.9 32.3 - 35.7 g/dL JORJE CHARLES Comment:Testing performed by : [address] [address] RDW CV 14.4 11.1 - 14.9 % JORJE CHARLES Comment:Testing performed by : [address] [address] RDW SD 42.1 35.7 - 48.1 fL JORJE CHARLES Comment:Testing performed by : [address] [address] NRBC abs 0.00 0.00 - 0.01 K/cumm JORJE Comment:Testing performed by : [address] [address] ANC Prelim 2.85 1.50 - 6.50 K/cumm JORJE Comment: Interpretive Data The rapid ANC is a preliminary automated count and may vary from the final ANC (Neut Abs) reported in the WBC differential that follows. Current interpretive data was last revised 2024. Testing performed by: [address] [address] Blood 09/15/2024 10:0 8 AM CDT 09/15/2024 10:11 AM CDT us Arnoldo Wade DO LAB BLOOD ORDERABLES Final R esult JORJE 2141 [facility] Department [place] [address] * Comprehensive metabolic panel (09/15/2024 10:08 AM CDT) Sodium 139 135 - 145 mmol/L Comment:Testing performed by : [address] [address] Potassium, pl 4.6 3.3 - 4.9 mmol/L JORJE CHARLES Comment:Testing performed by : [address] [address] Chloride 106 97 - 110 mmol/L JORJE CHARLES Comment:Testing performed by : [address] [address] CO2 22 22 - 32 mmol/L JORJE Comment:Testing performed by : [address] [address] Anion gap 11 2 - 15 mmol/L [facility] Comment:Testing performed by : [address], [place]., [address] BUN 17 6 - 25 mg/dL [facility] Comment:Testing performed by : [address], [place]., [address] Creatinine 1.00 0.80 - 1.30 mg/dL [facility] Comment:Testing performed by : [address], [place]., [address] Glucose 138 70 - 199 mg/dL [facility] Comment: Interpretive Data Fasting glucose >/= [...] was last revised 2022. Testing performed by: [address] [address] Calcium 8.9 8.5 - 10.3 mg/dL [facility] Comment:Testing performed by : [address] [address] Bilirubin, total 0.7 0.1 - 1.2 mg/dL [facility] Comment:Testing performed by : [address] [address] Protein, pl 7.1 6.5 - 8.5 g/dL [facility] Comment:Testing performed by : [address] [address] Albumin 4.1 3.5 - 5.0 g/dL JORJE Comment:Testing performed by : [address] [address] Alk phos 130 40 - 130 Units/L JORJE CHARLES Comment:Testing performed by : [address] [address] ALT 33 7 - 55 Units/L JORJE CHARLES Comment:Testing performed by : [address] [address] AST 26 10 - 50 Units/L JORJE CHARLES Comment:Testing performed by : [address] [address] Blood 09/15/2024 10:0 8 AM CDT 09/15/2024 10:11 AM CDT us Arnoldo Wade DO LAB BLOOD ORDERABLES Final R esult JORJE CHARLES [address] [facility] Department [place] [address] * CT Chest Abdomen Pelvis WO Contrast [...] Maury Pryor M.D. AT: AT Report ID: [id number] Reading Location: [id number] Procedure Note Maury Pryor MD - 09/25/2024 [...] Maury Pryor M.D. AT: AT Report ID: [id number] Reading Location: [place] [address] Arnoldo Wade DO IMG CT PROCEDURES Final Resu lt * (ABNORMAL) Hepatitis panel, acute (07/25/2022 10:55 AM CDT) Hep A IgM Nonreactive Nonreactive JORJE LEMA (EMILY) Comment: Interpretive Data: If Hep A IgM Ab is reported as Equivocal, a new sample should be drawn in two weeks for testing. Current interpretive data was last revised on 19. Testing performed by: [facility], [address] [place] [address], [place]., [address] Hep B core IgM Nonreactive Nonreactive Michele LEMA (EMILY) Comment: Interpretive Data If HepB Core IgM Ab is reported as Equivocal, a new sample should be drawn in two weeks for testing. Current interpretive data was last revised on 19. Testing performed by: [facility], [address] [place] [address], [place]., [address] Hep C Ab Nonreactive Nonreactive JORJE LEMA [...] revised on 2019. Testing performed by: [facility], [address] [place] [address]., [address] HepBsAg Reactive(A) Nonreactive JORJE PITA (EMILY) Comment: Critical Result Testing performed by: [facility], [address] [place] [address]., [address] Blood 07/25/2022 10:5 5 AM CDT 07/25/2022 3:15 PM CDT Chaparro Vargas MD LAB MICROBIOLOGY - GENERAL ORDERABLES Final Result JORJE LEMA (EMILY) 1 [facility] [place] [address] from Last 3 Months or Most Recently Relevant to Health Maintenance Insurance MEDICARE [facility] FINANCIAL Member Subscriber Plan / Payer (Ef fective 2018-Present) Name:Osvaldo Duque Relation to Subscriber:Self Name:Osvaldo Duque Payer ID:[id number] Group ID:[id number] Type:COMMERCIAL Address: [place] [id number] MEDICARE COMMERCIAL GENERIC [facility] Advance Directives For more information, please contact: [phone] * Full Code (Latest Code Status on File) Date Activated Date Inactivated Comments 11/24/2023 5:46 PM 11/29/2023 6:22 PM Care Teams Tool Supervisor Relationship Specialty Start Date End Date Yolande Soria MD [address] [place] [address] PCP - General 07/25/16 [place] [address] [address] Surgeon Urology 07/02/23 Arnoldo Wade DO [address] [place] [address] MEDICAL ONCOLOGY, [facility] [address] [place] [address] Medical Oncologist/Hematologis t Hematology and Oncology 07/07/23 Anthony Hermosillo MD [address] [facility] [address] [place] [address] Urologist Urology 07/07/23
--- OUTSIDE RECORDS SUMMARY | 2024-11-09 12:54 | XMS_ITS | Clinical Summary ---
Author Organization [facility] Address [address] [place] [address] Phone Care Team Providers Care Partridge Farmer Name Role Phone Yolande Soria MD Primary Care Provider [phone] Allergies No known active allergies Medications LISINOPRIL [...] Comments Blood Pressure 132/78 03/18/2015 9:26 AM CRUDE OIL DRIVER Pulse 61 03/18/2015 9:26 AM CRUDE OIL DRIVER Temperature - - Respiratory Rate 12 03/18/2015 9:26 AM CRUDE OIL DRIVER Oxygen Saturation 97% 03/18/2015 9:26 AM CRUDE OIL DRIVER Inhaled Oxygen Concentration - - Weight 106.7 kg (235 lb 4.8 oz) 03/18/2015 9:26 AM CRUDE OIL DRIVER Height 181.9 cm (5' 11.6) 03/18/2015 9:26 AM CS T Body Mass Index 32.27 03/18/2015 9:26 AM CRUDE OIL DRIVER Plan of Treatment Health Maintenance Due Date [...] age to complete this topic Care Teams Partridge Farmer Relationship Specialty Start Date End Date Yolande Soria MD [address] [place] [address] PCP - General Internal Medicine 11/25/23
--- NOTE | 2024-11-09 13:00 | ECHO_ITS ---
Patient Info Name: Osvaldo Duque Age: 74 years : 1950 Gender: Male Ht: 71 in Wt: 210 lbs BSA: 2.21 m2 HR: 70 bpm BP: 128 / 87 mmHg Technical Quality: Good Exam Date: 11/09/2024 12:55 PM Patient Status: O Admit Date: 11/09/2024 Exam Type: CA echo doppler color flow Complete two-dimensional, color flow and Doppler transthoracic echocardiogram is performed. Senior Project Controls Specialist: Alyse Vasquez Attending Provider: Yolande Soria MD Summary 1. Complete two-dimensional, color flow and Doppler transthoracic echocardiogram is performed. 2. Left ventricular chamber dimension is normal. 3. Left ventricular systolic function is normal, estimated at 60-65. 4. The left ventricular diastolic function is abnormal. 5. E/e' 10 is mildly elevated. 6. Left atrial chamber dimension is moderately enlarged. 7. There is mild aortic valve sclerosis. 8. There is trace tricuspid valve regurgitation. 9. No pulmonary hypertension, estimated pulmonary arterial systolic pressure is 32 mmHg. Left Ventricle E/e' 10 is mildly elevated. Left ventricular chamber dimension is normal. Left ventricular systolic function is normal, estimated at 60-65. The left ventricular diastolic function is abnormal. Right Ventricle Right ventricular chamber dimension is normal. Right ventricular systolic function is normal and with normal TAPSE 2.0 cm. Left Atria Left atrial chamber dimension is moderately enlarged. Right Atria Right atrial chamber dimension is normal. Aortic Valve The aortic valve is probable trileaflet. There is mild aortic valve sclerosis. There is no aortic valve stenosis. There is no aortic valve regurgitation. Pulmonic Valve There is no pulmonic regurgitation. Mitral Valve There is no mitral valve stenosis. There is no mitral valve regurgitation. Tricuspid Valve There is trace tricuspid valve regurgitation. No pulmonary hypertension, estimated pulmonary arterial systolic pressure is 32 mmHg. Pericardium/Pleural There is no pericardial effusion. Inferior Vena Cava Normal inferior vena cava with >50% collapse upon inspiration consistent with normal right atrial pressure, 5 mmHg. Aorta The aortic root size at the sinus of Valsalva is normal. Left Ventricular Outflow Tract Name Value Normal LVOT 2D LVOT Diameter 2.0 cm LVOT Doppler LVOT Peak Velocity 158 cm/s LVOT Peak Gradient 10 mmHg LVOT Mean Gradient 5 mmHg LVOT VTI 39 cm LVOT VTI/AV VTI Ratio 0.7 LVOT Stroke Volume 125 ml LVOT CO 14.3 l/min LVOT CI 6.5 l/min/m2 Pulmonic Valve Name Value Normal RVOT Doppler RVOT Peak Velocity 88 cm/s RVOT Peak Gradient 3 mmHg PV Doppler PV Peak Velocity 120 cm/s PV Peak Gradient 6 mmHg Mitral Valve Name Value Normal MV Diastolic Function MV E Peak Velocity 100 cm/s MV A Peak Velocity 58 cm/s MV E/A 1.7 MV Decel Time (PW) 182 ms MV Annular TDI MV E/e' (Septal) 11.3 MV E/e' (Lateral) 9.4 MV E/e' (Average) 10.4 Tricuspid Valve Name Value Normal TV Regurgitation Doppler TR Peak Velocity 260 cm/s TR Peak Gradient 27 mmHg Estimated PAP/RSVP RA Pressure 5 mmHg <=5 PA Systolic Pressure 32 mmHg <36 RV Systolic Pressure 32 mmHg <36 Aortic Valve Name Value Normal AV Doppler AV Peak Velocity 226 cm/s AV Peak Gradient 17 mmHg AV Mean Gradient 9 mmHg AV VTI 54 cm AV Area (Cont Eq VTI) 2.3 cm2 >=3.0 AV Area (Cont Eq Zbigniew) 2.2 cm2 AV DI (Zbigniew) 0.70 AV Regurgitation 2D LVOT Area 3.2 cm2 Ventricles Name Value Normal LV Dimensions 2D/MM IVS Diastolic Thickness (2D) 0.8 cm 0.6-1.0 LVID Diastole (2D) 4.7 cm 4.2-5.8 LVIW Diastolic Thickness (2D) 1.3 cm 0.6-1.0 LVID Systole (2D) 3.3 cm 2.5-4.0 LVOT Diameter 2.0 cm LV Mass (2D Cubed) 178.13 g 88.00-224.00 LV Mass Index (2D Cubed) 81 g/m2 49-115 Relative Wall Thickness (2D) 0.56 <=0.42 LV Fractional Shortening/Ejection Fraction 2D/MM LV Fractional Shortening (2D) 29 % 25-43 LV EF (2D Teichholz) 56 % LV Diastolic Volume (4C MOD) 167 ml LV EF (4C MOD) 63 % LV Diastolic Volume (2C MOD) 183 ml LV EF (2C MOD) 67 % LV Diastolic Volume (BP MOD) 177 ml 62-150 LV Diastolic Volume Index (BP MOD) 80 ml/m2 34-74 LV Systolic Volume (BP MOD) 63 ml 21-61 LV Systolic Volume Index (BP MOD) 29 ml/m2 11-31 LV EF (BP MOD) 64 % 52-72 LV Diastolic Length (4C) 9.9 cm LV Systolic Length (4C) 7.6 cm LV Stroke Volume (4C MOD) 105 ml Atria Name Value Normal LA Dimensions LA Volume (4C A-L) 80 ml LA Volume (BP A-L) 89 ml RA Dimensions RA Systolic Major [place] Length (4C) 6.0 cm 2.1-2.7 RA Area (4C) 16.8 cm2 <=18.0 Report Signatures
== END 2024-11-09 12:46 | disposition home or self-care (01) ==
LOC: CHSIMG 12:46
PROVIDERS: PCP Internal Medicine; Visit Provider Internal Medicine
DX: I35.0 Nonrheumatic aortic (valve) stenosis (principal); I50.30 Unspecified diastolic (congestive) heart failure; I51.7 Cardiomegaly; I35.8 Other nonrheumatic aortic valve disorders
CPT/HCPCS: 93306

== ENCOUNTER 2025-02-26 08:37 | Outpatient (CLI) | payer MEDICARE, SELFPAY ==
--- OUTSIDE RECORDS SUMMARY | 2025-02-26 08:41 | XMS_ITS ---
Author Organization [facility] Address [address] [place] [address] Care Team Providers Care Automated Cutting Machine Operator Name Role Phone Yolande Soria MD Primary Care Provider [phone] Devin Tariq MD Unavailable [phone] Arnoldo Wade DO Unavailable [phone] Anthony Hermosillo MD Unavailable Active Problems Problem [...] 09/12/2022 Assessment & Plan (03/22/2024 2:59 PM CORPORATE STRATEGIST): Liver function is normal. Will continue to monitor his liver function and hepatitis-B annually. Assessment & Plan (03/13/2023 12:07 PM CORPORATE STRATEGIST): Discussed with the patient weight loss. 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 Continue viread. Check labs including fibro test. Schedule ultrasound of the right upper quadrant. Check hepatitis-B DNA and follow up in 1 year. Assessment & Plan (03/13/2023 12:08 PM CORPORATE STRATEGIST): As of last evaluation patient is in [...] low. We will send the patient to [facility] for 2nd opinion as far as [...] from the original note were not included. [address], [place] [address] This Survivorship Care Plan is a cancer [...] Information: Primary Care Physician Yolande Soria MD [phone] Surgeon Devin Tariq MD [phone] Urologist Anthony Hermosillo MD [phone] Medical Oncologist Arnoldo Wade DO [phone] Treatment Summary Cancer Diagnosis Information Diagnosis Malignant [...] counseling may be helpful. The use of wewt-iti-ociqqst lubricants may lessen painful intercourse. Talk with [...] Help learning to eat healthier, call the casino operations supervisor at: [facility] [place] Have an active lifestyle, strive for [...] man. Resources you may be interested in: [facility] http://www.[facility]/ [facility] 1st floor of [facility] [phone]. Computer access, educational material, counseling services (FREE) Cancer Resources: www.cancer.net [employer] Beyond Cancer: https://survivorship.cancer.gov/ an online tool for cancer survivors andcaregivers created by the [employer] and the National Cancer [place]. It provides: Information on dealing with side effects from cancer and treatment Caregivers with support and resources Practical advice about talking to friends and family about cancer Questions to ask their health care team Help understanding their rights in the workplace Online Resources: [employer] Society of Clinical Oncology: www.cancer.net; Center for Disease Control and Prevention: www.cdc.gov/cancer/survivorship; National Cancer [place] (NCI) www.cancer.gov [employer] Cancer Survivors Network http://csn.cancer.org/ National Coalition for Cancer Survivorship http://www.canceradvocacy.org [employer] Bladder Cancer Society: https://bladdercancersupport.org/
--- OUTSIDE RECORDS SUMMARY | 2025-02-26 08:42 | XMS_ITS | Clinical Summary ---
Author Organization [facility] Address [address] [place] [address] Care Team Providers Care Food Mixer Assembler Name Role Phone Yolande Soria MD Primary Care Provider [phone] Social History Tobacco Use Types Packs/Day Years Used Date Smoking Tobacco: Never Assessed Sex and Gender Information Value Date Recorded Sex Assigned at Not on file Legal Sex Male 11:04 PM COMPUTER TYPESETTER KEYLINER Gender Identity Not on file Sexual Orientation Not on file Plan of Treatment Health Maintenance Due Date Last Done Comments Colorectal Cancer Screening Colonoscopy (10 Years) 1950 Hepatitis C 10/07/1969 DTaP, Tdap and Td Vaccines (1 - Tdap) 10/07/1970 Annual Medicare Wellness Visit 10/07/2016 Zoster Vaccines (3 of 3) 01/19/2019 11/24/2018, 06/08 COVID-19 Vaccine (3 - season) 2024 07/19/2020, 06/21/2020 Influenza Adult (#1) 2024 01/10/2022, 02/19/2021, 11/24/2018, Additional history exists RSV Immunization or 60+ Years (1 - 1-dose 75+ series) 10/07/2026 Pneumococcal Vaccine: 50+ Years Completed 12/14/2018, 09/23/2014, 12/15/2013 Hepatitis A Vaccines Aged Out No long er eligible based on patient's age to complete this topic Meningococcal B Vaccine Aged Out No l onger eligible based on patient's age to complete this topic Meningococcal Vaccine Aged Out No emelyn deb eligible based on patient's age to complete this topic RSV Immunizations Under 20 Months Aged Out No longer eligible based on patient's age to complete this topic Insurance MEDICARE AETNA A[facility]NA [facility] Care Teams Food Mixer Assembler Relationship Specialty Start Date End Date Yolande Soria MD [address] [place] [address] PCP - General INTERNAL MEDICINE 06/19/23
--- OUTSIDE RECORDS SUMMARY | 2025-02-26 08:42 | XMS_ITS | Clinical Summary ---
Author Organization [facility] Address [address] [place] [address] Care Team Providers Care Pet Sitting Name Role Phone Yolande Soria MD Primary Care Provider [phone] Devin Tariq MD Unavailable [phone] Arnoldo Wade DO Unavailable [phone] Anthony Hermosillo MD Unavailable [phone] Allergies Active Allergy Reactions Criticality Noted Date [...] times a day with meals 3 Active FreeStyle Maria A 2 Sensor kit CHANGE EVERY 2 WEEKS 4 Active BD Ultra-Fine Short Pen Needle 31 gauge x 16 needle USE TO INJECT INSULIN 5 TIMES [...] for 14 days 28 tablet 4 Active Additional Information Patient not taking.Reported on 12/15/2024 acetaminophen 500 mg capsuleIndicatio ns:Pain Take 2 capsules (1,000 mg total) by mouth every 6 (six) hours 4 Active tenofovir disoproxil fumarate (VIREAD) 300 mg tablet Take 1 tablet (300 mg total) by mouth daily 90 tablet 3 5 Active ascorbic acid, vitamin C, 500 mg capsule Take 500 mg by mouth 4 Active cyanocobalamin, vitamin B-12, 1,000 mcg capsule Take 1,000 mcg by mouth 4 Active tamsulosin (FLOMAX) 0.4 mg extended release capsule 1 capsule (0.4 mg total) daily 4 Active Active Problems Problem Noted Date Diagnosed Date Bladder cancer 11/24/2023 Malignant neoplasm of overlapping sites of bladd er 10/22/2023 Encounter for person encountering health service s 07/16/2023 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 Will continue to monitor his liver function and hepatitis-B annually. Assessment & Plan (03/13/2023 12:07 PM DRILLER OPERATOR): Discussed with the patient weight loss. [...] 06/14/2018 Assessment & Plan (03/22/2024 2:59 PM DRILLER OPERATOR): Patient has been dormant and no activity for long time. Continue viread. Check labs including fibro test. Schedule ultrasound of the right upper quadrant. Check hepatitis-B DNA and follow up in 1 year. Assessment & Plan (03/13/2023 12:08 PM DRILLER OPERATOR): As of last evaluation patient is [...] and have a 2nd opinion at [facility] liver our office. Overall we are seeing [...] low. We will send the patient to [facility] for 2nd opinion as far as [...] Encounters Date Type Department Care Team Description 12/15/2024 11:00 AM CDT Office Visit Health system Medicine [facility] [facility] [address] [place] [address] Arnoldo Wade, Malignant neoplasm of anterior wall of urinary bladder (HCC) (Primary Dx) 12/15/2024 10:30 AM CDT Lab [facility] at [address] [address] Malignant neoplasm of anterior wall of urinary bladder (HCC) 12/15/2024 10:00 AM CDT - 12/15/2024 11:59 PM CDT Hospital Encounter [facility] Medical Office Building [address] [place] [id number] Malignant neoplasm of anterior wall of urinary bladder (HCC) Discharge Disposition: Discharge to home or self care from Last 3 Months Surgical History Surgery Date Site/Laterality Comments BARIATRIC SURGERY 03/10/2005 - 03/09/2006 CYSTOSCOPY W/ STONE MANIPULATION PORTACATH PLACEMENT CYSTECTOMY 11/2023 PROSTATECTOMY 11/2023 Medical History Medical History Date Comments Hypertension Hyperlipidemia Hepatitis B 03/10/2016 Diabetes mellitus Bladder cancer (HCC) Nephrolithiasis History of DVT [...] drink = 0.6 oz pur e alcohol) [facility] Utilities Answer Date Recorded In [...] often do you attend chur ch or restorationist services? Never 11/25/2023 Do you belong to any clubs o r organizations such as anglican groups, unions, fraternal or athletic groups, or [...] any time in the past 12 m [facility], were you homeless or living in a custodial (including now)? No 11/25/2023 Personal Safety Answer Date Recorded Have you ever been in or are you currently in a harmful physical or emotional relationship or is someone making you feel afraid or unsafe? 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 Not on file Not on file Not on file Last Filed Vital Signs Vital Sign Reading Time Taken Comments Blood Pressure 143/75 12/15/2024 11:16 AM CDT Pulse 50 12/15/2024 11:16 AM CDT Temperature 36.6 C (97.8 F) 12/15/2024 11:16 AM CDT Respiratory Rate 18 12/15/2024 11:1 6 AM CDT Oxygen Saturation 100% 12/15/2024 11: 16 AM CDT Inhaled Oxygen Concentration - - Weight 94.8 kg (208 lb 15.9 oz) 025 11:16 AM CDT with shoes Height 180 cm (5' 10.87) 09/15/2024 12 :17 PM CDT w shoes Body Mass Index 29.26 09/15/2024 12:17 PM CDT Plan of Treatment Health Maintenance Due Date Last Done Comments Colon Cancer Screening-Colonoscopy 1950 Depression Screening 1950 DTaP/Tdap/Td Vaccine (1 - Tdap) 10/07/1962 Well Visit 65+ 10/07/2016 Zoster Vaccine (3 of 3) 01/19/2019 11/24/2018, 06/24 Influenza Vaccine (#1) 2024 2, 02/19/2021, 12/14/2018, Additional history exists Fall Risk Assessment 11/28/2024 11/29/2023 Pneumococcal vaccine 65+ Completed 019, 12/14/2018, 09/23/2014, Additional history exists Hepatitis C Screening Completed 07/25/2022, Medical Devices Implanted Type Area Machine Specialist Device Identifier Shelf Expiration Date Model / Serial / Lot [employer] Annette 7fr 80cm Open Tip Luer Lock Adapter Guidewire Graduate Straight Latex Free 160-210 - [id number] Implanted:Qty: 2 on 11/24/2023 by Devin Tariq MD at [facility] Stent N/A: Ureter [employer] Annette 07/06/2027 [id number] / / [id number] Procedures Procedure Name Priority Date/Time Associated Diagnosis Comments EGFR Routine 12/15/2024 10:26 AM CDT Malignant neoplasm of anterior wall of urinary bladder (HCC) DIFFERENTIAL AUTO Routine 12/15/2024 10: 26 AM CDT Malignant neoplasm of anterior wall of urinary bladder (HCC) CBC WITH AUTO DIFFERENTIAL Routine 12/15/2024 10:26 AM CDT Malignant neoplasm of anterior wall of urinary bladder (HCC) COMPREHENSIVE METABOLIC PANEL Routine 12/15/2024 10:26 AM CDT Malignant neoplasm of anterior wall of urinary bladder (HCC) CT CHEST ABDOMEN PELVIS WO CONTRAST Schedule Routine, Read Routine (OP Routine) 12/15/2024 10:13 AM CDT Malignant neoplasm of anterior wall of urinary bladder (HCC) HEPATITIS PANEL, ACUTE Routine 07/25/2022 10:55 AM CDT Chronic hepatitis B (HCC) from Last 3 Months or Most Recently Relevant to Health Maintenance Results * eGFR (12/15/2024 10:26 AM CDT) eGFR 79 >=60 mL/min/1. 73 m2 Comment: Interpretive Data [...] was last reviewed 2021. Testing performed by: [address] [address] Blood 12/15/2024 10:2 6 AM CDT 12/15/2024 10:27 AM CDT Arnoldo Wade DO LAB BLOOD ORDERABLES Final R esult JORJE [facility] [place] [address] * Differential, auto (12/15/2024 10:26 AM CDT) Neutrophil abs 2.56 1.50 - 6.50 K/cumm Comment:Testing performed by : [address] [address] Imm gran abs 0.01 0.00 - 0.10 K/cumm JORJE Comment:Testing performed by : [address] [address] Lymphocyte abs 2.95 0.80 - 3.30 K/cumm JORJE Comment:Testing performed by : [address] [address] Monocyte abs 0.72 0.20 - 0.80 K/cumm JORJE Comment:Testing performed by : [address] [address] Eosinophil abs 0.32 0.00 - 0.50 K/cumm JORJE Comment:Testing performed by : [address] [place]., [address] Basophil abs 0.06 0.00 - 0.10 K/cumm JORJE Comment:Testing performed by : [address] [address] Neutrophil pct 38.6 % [facility] Comment: Interpretive Data Percent cell count reference ranges are not reported, since discordance with absolute values may lead to misinterpretation of CBC data. Current Interpretive Data was last revised on 2017. Testing performed by: [address] [address] Imm gran pct 0.2 % [facility] Comment: Interpretive Data Percent cell count reference ranges are not reported, since discordance with absolute values may lead to misinterpretation of CBC data. Current Interpretive Data was last revised on 2017. Testing performed by: [address] [address] Lymphocyte pct 44.6 % [facility] Comment: Interpretive Data Percent cell count reference ranges are not reported, since discordance with absolute values may lead to misinterpretation of CBC data. Current Interpretive Data was last revised on 2017. Testing performed by: [address] [address] Monocyte pct 10.9 % [facility] Comment: Interpretive Data Percent cell count reference ranges are not reported, since discordance with absolute values may lead to misinterpretation of CBC data. Current Interpretive Data was last revised on 2017. Testing performed by: [address] [address] Eosinophil pct 4.8 % [facility] Comment: Interpretive Data Percent cell count reference ranges are not reported, since discordance with absolute values may lead to misinterpretation of CBC data. Current Interpretive Data was last revised on 2017. Testing performed by: [address] [address] Basophil pct 0.9 % [facility] Comment: Interpretive Data Percent cell count reference ranges are not reported, since discordance with absolute values may lead to misinterpretation of CBC data. Current Interpretive Data was last revised on 2017. Testing performed by: [address] [address] Blood 12/15/2024 10:2 6 AM CDT 12/15/2024 10:27 AM CDT Arnoldo Wade DO LAB BLOOD ORDERABLES Final R esult [facility] [address] [facility] Department [place] [address] * (ABNORMAL) CBC with auto differential (12/15/2024 10:26 AM CDT) WBC 6.62 3.80 - 9.90 K/cumm Comment:Testing performed by : [address] [address] Hgb 10.9(L) 13.0 - 17.5 g/dL JORJE Comment:Testing performed by : [address] [address] Hct 31.3(L) 38.9 - 50.3 % JORJE Comment:Testing performed by : [address] [address] Plt 207 150 - 400 K/cumm JORJE Comment:Testing performed by : [address] [address] MPV 9.5 9.1 - 12.3 fL JORJE Comment:Testing performed by : [address] [address] RBC 3.89(L) 4.30 - 5.80 M/cumm JORJE Comment:Testing performed by : [address] [address] MCV 80.5(L) 81.3 - 96.4 fL JORJE Comment:Testing performed by : [address] [address] MCH 28.0 27.1 - 33.3 pg JORJE CHARLES Comment:Testing performed by : [address] [address] MCHC 34.8 32.3 - 35.7 g/dL JORJE Comment:Testing performed by : [address] [address] RDW CV 14.6 11.1 - 14.9 % JORJE CHARLES Comment:Testing performed by : [address] [address] RDW SD 42.5 35.7 - 48.1 fL JORJE CHARLES Comment:Testing performed by : [address] [address] NRBC abs 0.00 0.00 - 0.01 K/cumm JORJE CHARLES Comment:Testing performed by : [address] [address] ANC Prelim 2.56 1.50 - 6.50 K/cumm JORJE CHARLES Comment: Interpretive Data The rapid ANC is a preliminary automated count and may vary from the final ANC (Neut Abs) reported in the WBC differential that follows. Current interpretive data was last revised 2024. Testing performed by: [address] [address] Blood 12/15/2024 10:2 6 AM CDT 12/15/2024 10:27 AM CDT Arnoldo Wade DO LAB BLOOD ORDERABLES Final R esult JORJE CHARLES [address] [facility] Department of Laboratories [place], [place] [id number] * (ABNORMAL) Comprehensive metabolic panel (12/15/2024 10:26 AM CDT) Sodium 136 135 - 145 mmol/L Comment:Testing performed by : [address] [address] Potassium, pl 4.1 3.3 - 4.9 mmol/L JORJE CHARLES Comment:Testing performed by : [address] [address] Chloride 105 97 - 110 mmol/L JORJE CHARLES Comment:Testing performed by : [address] [address] CO2 20(L) 22 - 32 mmol/L JORJE CHARLES Comment:Testing performed by : [address] [address] Anion gap 11 2 - 15 mmol/L JORJE Comment:Testing performed by : [address] [address] BUN 20 6 - 25 mg/dL JORJE Comment:Testing performed by : [address] [address] Creatinine 1.00 0.80 - 1.30 mg/dL JORJE Comment:Testing performed by : [address] [address] Glucose 116 70 - 199 mg/dL JORJE Comment: Interpretive [...] was last revised 2022. Testing performed by: [address] [address] Calcium 8.6 8.5 - 10.3 mg/dL JORJE Comment:Testing performed by : [address] [address] Bilirubin, total 0.6 0.1 - 1.2 mg/dL JORJE Comment:Testing performed by : [address] [address] Protein, pl 7.2 6.5 - 8.5 g/dL JORJE Comment:Testing performed by : [address] [address] Albumin 4.1 3.5 - 5.0 g/dL JORJE Comment:Testing performed by : [address] [address] Alk phos 133(H) 40 - 130 Units/L JORJE Comment:Testing performed by : [address] [address] ALT 25 7 - 55 Units/L JORJE CHARLES Comment:Testing performed by : [address] [address] AST 26 10 - 50 Units/L JORJE CHARLES Comment:Testing performed by : [address] [address] Blood 12/15/2024 10:2 6 AM CDT 12/15/2024 10:27 AM CDT us Arnoldo Wade DO LAB BLOOD ORDERABLES Final R esult JORJE [address] [facility] Department [place] [address] * CT Chest Abdomen Pelvis WO Contrast (12/15/2024 10:13 AM CDT) Anatomical Region Laterality Modality Body N/A Computed Tomogra phy 12/16/2024 8:03 AM CDT Narrative 12/16/2024 8:11 AM CDT EXAM DESCRIPTION: CT CHEST ABDOMEN PELVIS WO CONTRAST REASON FOR STUDY: restaging of bladder cancer 3 month bladder cancer f/u. No complaints. Hx of cystectomy, prostatectomy. TECHNIQUE: CT scan of the chest, abdomen, and pelvis performed without intravenous and without oral contrast using helical scanning technique. Reconstructed coronal and sagittal MPR images reviewed. All images stored on PACS. Automated exposure control was used as a dose optimization technique for this examination. COMPARISON: 09/15/2024 FINDINGS: The sensitivity for detection of visceral lesions is diminished without the use of intravenous contrast. CHEST LUNGS: There is no definite evidence of a pneumothorax. The central airways are grossly patent. There is no definite evidence of focal consolidation or pleural effusion. There are scattered calcified granulomas noted. There is a stable subpleural 0.2 cm pulmonary nodule in the lateral right middle lobe (axial image 56). There is a stable subpleural 0.7 cm pulmonary nodule in the anterolateral right middle lobe, which is grossly unchanged since 08/04/2018, and therefore likely benign (axial image 67). MEDIASTINUM/NARESH: The heart size is normal. There is no definite evidence of pericardial effusion. There are atherosclerotic changes of the coronary vessels and aorta. There is no definite unenhanced CT evidence of mediastinal, hilar, or axillary lymphadenopathy. Scattered calcified mediastinal and bilateral hilar lymph nodes are noted. CORONARY ARTERY CALCIFICATION: Present. CHEST WALL: There is mild bilateral gynecomastia. HARDWARE/LINES/TUBES: None. ABDOMEN/PELVIS LIVER: There is a mildly nodular contour of the liver, which raises the concern for chronic hepatocellular disease. GALLBLADDER: There is cholelithiasis. BILE DUCTS: No intrahepatic or extrahepatic ductal dilatation. SPLEEN: The spleen is grossly stable in size and unremarkable. PANCREAS: The pancreas has a grossly stable unenhanced CT appearance. ADRENALS: The bilateral adrenal glands are grossly stable and unremarkable. KIDNEYS/URINARY TRACT: There is a grossly stable simple appearing cyst in the lower pole of the right kidney measuring 2.6 cm, which does not require follow-up imaging. There is no definite evidence of nephrolithiasis. There is no definite evidence of hydronephrosis or hydroureter. Postsurgical changes of cystoprostatectomy with right lower quadrant ileal conduit are noted. There is no definite evidence of local recurrence. GI: Postsurgical changes of gastric bypass are noted. There is no definite evidence of a bowel obstruction. The appendix is visualized without definite evidence of pericecal or periappendiceal inflammatory changes to suggest appendicitis. There are a few scattered colonic diverticula without definite evidence of diverticulitis. There is diastasis recti containing a few nonobstructed loops of small bowel. There is no definite evidence of free air or fluid in the abdomen and pelvis. There is no definite unenhanced CT evidence of lymphadenopathy in the abdomen and pelvis. MUSCULOSKELETAL: There is mild osteopenia. There is a mild dextroscoliotic curvature of the spine with degenerative changes. OTHER: No significant abnormality. IMPRESSION: 1. Grossly stable postsurgical changes of cystoprostatectomy with right lower quadrant ileal conduit. No definite unenhanced CT evidence of local recurrence or metastatic disease in the chest, abdomen, and pelvis. 2. No definite evidence of focal consolidation. 3. No definite evidence of bowel obstruction. 4. Few scattered colonic diverticula without definite evidence of diverticulitis. 5. Cholelithiasis. 6. Mildly nodular contour of the liver, which raises the concern for chronic hepatocellular disease. Clinical correlation with liver function tests is recommended as clinically indicated. 7. Normal appendix. THIS IS AN ELECTRONICALLY VERIFIED FINAL REPORT 12/16/2024 8:11 AM - Electronically signed by Charly Cardoza D.O. PS: PS Report ID: [id number] Reading Location: [place] [address] Procedure Note Charly Cardoza, DO - 12/16/2024 EXAM DESCRIPTION: CT CHEST ABDOMEN PELVIS WO CONTRAST REASON FOR STUDY: restaging of bladder cancer 3 month bladder cancer f/u. No complaints. Hx of cystectomy,prostatectomy. TECHNIQUE: CT scan of the chest, abdomen, and pelvis performed without intravenous and without oral contrast using helical scanning technique. Reconstructed coronal and sagittal MPR images reviewed. All images storedon PACS. Automated exposure control was used as a dose optimizationtechnique for this examination. COMPARISON: 09/15/2024 FINDINGS: The sensitivity for detection of visceral lesions is diminished without the use of intravenous contrast. CHEST LUNGS: There is no definite evidence of a pneumothorax. The centralairways are grossly patent. There is no definite evidence of focal consolidationor pleural effusion. There are scattered calcified granulomas noted. There is a stable subpleural 0.2 cm pulmonary nodule in the lateral right middle lobe (axial image 56). There is a stable subpleural 0.7 cmpulmonary nodule in the anterolateral right middle lobe, which is grossly unchanged since 08/04/2018, and therefore likely benign (axial image 67). MEDIASTINUM/NARESH: The heart size is normal. There is no definiteevidence of pericardial effusion. There are atherosclerotic changes of thecoronary vessels and aorta. There is no definite unenhanced CT evidence of mediastinal, hilar, oraxillary lymphadenopathy. Scattered calcified mediastinal and bilateral hilarlymph nodes are noted. CORONARY ARTERY CALCIFICATION: Present. CHEST WALL: There is mild bilateral gynecomastia. HARDWARE/LINES/TUBES: None. ABDOMEN/PELVIS LIVER: There is a mildly nodular contour of the liver, which raises the concern for chronic hepatocellular disease. GALLBLADDER: There is cholelithiasis. BILE DUCTS: No intrahepatic or extrahepatic ductal dilatation. SPLEEN: The spleen is grossly stable in size and unremarkable. PANCREAS: The pancreas has a grossly stable unenhanced CT appearance. ADRENALS: The bilateral adrenal glands are grossly stable andunremarkable. KIDNEYS/URINARY TRACT: There is a grossly stable simple appearing cystin the lower pole of the right kidney measuring 2.6 cm, which does notrequire follow-up imaging. There is no definite evidence of nephrolithiasis.There is no definite evidence of hydronephrosis or hydroureter. Postsurgical changes of cystoprostatectomy with right lower quadrant ileal conduit are noted. There is no definite evidence of local recurrence. GI: Postsurgical changes of gastric bypass are noted. There is nodefinite evidence of a bowel obstruction. The appendix is visualized withoutdefinite evidence of pericecal or periappendiceal inflammatory changes to suggest appendicitis. There are a few scattered colonic diverticula withoutdefinite evidence of diverticulitis. There is diastasis recti containing a few nonobstructed loops of small bowel. There is no definite evidence of freeair or fluid in the abdomen and pelvis. There is no definite unenhanced CT evidence of lymphadenopathy in the abdomen and pelvis. MUSCULOSKELETAL: There is mild osteopenia. There is a milddextroscoliotic curvature of the spine with degenerative changes. OTHER: No significant abnormality. IMPRESSION: 1. Grossly stable postsurgical changes of cystoprostatectomy with right lower quadrant ileal conduit. No definite unenhanced CT evidence of local recurrence or metastatic disease in the chest, abdomen, and pelvis. 2. No definite evidence of focal consolidation. 3. No definite evidence of bowel obstruction. 4. Few scattered colonic diverticula without definite evidence of diverticulitis. 5. Cholelithiasis. 6. Mildly nodular contour of the liver, which raises the concern forchronic hepatocellular disease. Clinical correlation with liver function tests is recommended as clinically indicated. 7. Normal appendix. THIS IS AN ELECTRONICALLY VERIFIED FINAL REPORT 12/16/2024 8:11 AM - Electronically signed by Charly Cardoza D.O. PS: PS Report ID: [id number] Reading Location: [id number] us Arnoldo Wade DO IMG CT PROCEDURES Final Resu lt * (ABNORMAL) Hepatitis panel, acute (07/25/2022 10:55 AM CDT) Hep A IgM Nonreactive Nonreactive JORJE LEMA (EMILY) Comment: Interpretive Data: If Hep A IgM Ab is reported as Equivocal, a new sample should be drawn in two weeks for testing. Current interpretive data was last revised on 19. Testing performed by: [facility], [address] [place] [address]., [address] Hep B core IgM Nonreactive Nonreactive Michele HUGHESER PITA (EMILY) Comment: Interpretive Data If HepB Core IgM Ab is reported as Equivocal, a new sample should be drawn in two weeks for testing. Current interpretive data was last revised on 19. Testing performed by: [facility], [address] [place] [address]., [address] Hep C Ab Nonreactive Nonreactive JORJE LEMA [...] last revised on 2019. Testing performed by: [facility], [address] [place] [address]., [address] HepBsAg Reactive(A) Nonreactive JORJE LEMA (EMILY) Comment: Critical Result Testing performed by: [address] [address] Blood 07/25/2022 10:5 5 AM CDT 07/25/2022 3:15 PM CDT us Chaparro Vargas MD LAB MICROBIOLOGY - GENERAL ORDERABLES Final Result JORJE LEMA (EMILY) [address] [facility] Department [place] [address] from Last 3 Months or Most Recently Relevant to Health Maintenance Insurance [facility] Member Subscriber Plan / Payer (Ef fective 2018-Present) Name:Osvaldo Duque Relation to Subscriber:Self Name:Osvaldo Duque Payer ID:[id number] Group ID:[id number] Type:COMMERCIAL Address: [place] [id number] MEDICARE COMMERCIAL GENERIC MEDICARE [facility] FINANCIAL Advance Directives For more information, please contact: [phone] * Full Code (Latest Code Status on File) Date Activated Date Inactivated Comments 11/24/2023 5:46 PM 11/29/2023 6:22 PM Care Teams Pet Sitting Relationship Specialty Start Date End Date Yolande Soria MD [address] [place] [address] PCP - General 07/25/16 [place] [address] [address] [facility] [email or web address]] [address] [place] [address] Surgeon Urology 07/02/23 Arnoldo Wade DO [address] [place] [address] MEDICAL ONCOLOGY, [address] [address] Medical Oncologist/Hematologis t Hematology and Oncology 07/07/23 Anthony Hermosillo MD [address] [address] [facility] [[email or web address]] [address] [place] [address] Urologist Urology 07/07/23
--- OUTSIDE RECORDS SUMMARY | 2025-02-26 08:42 | XMS_ITS | Clinical Summary ---
Author Organization [facility] Address [address] [place] [address] Phone Care Team Providers Care Sheet Heater Name Role Phone Yolande Soria MD Primary Care Provider Allergies No known active allergies Medications LISINOPRIL [...] Comments Blood Pressure 132/78 03/18/2015 9:26 AM [facility] Pulse 61 03/18/2015 9:26 AM [facility] Temperature - - Respiratory Rate 12 03/18/2015 9:26 AM [facility] Oxygen Saturation 97% 03/18/2015 9:26 AM [facility] Inhaled Oxygen Concentration - - Weight 106.7 kg (235 lb 4.8 oz) 03/18/2015 9:26 AM [facility] Height 181.9 cm (5' 11.6) 03/18/2015 9:26 AM CS T Body Mass Index 32.27 03/18/2015 9:26 AM [facility] Plan of Treatment Health Maintenance Due Date Last Done Comments Hepatitis C Virus (HCV) Screening 1950 TdaP Immunization 1950 Cologuard 10/07/1996 Colonoscopy 10/07/1996 Colorectal Cancer Screening 10/07/1996 Immunochemical Fecal Occult Blood 10/07/1996 Pneumococcal Immunization (5 0+ years) (1 of 1 - PCV) 10/07/2001 Zoster Immunization (1 of 2) 10/07/2001 Influenza Immunization (#1) 2024 SARS-COV-2 Immunization (3 - season) 2024 07/19/2020, 06/21/2020 Respiratory Syncytial Virus (RSV) Immunization [...] age to complete this topic Care Teams Sheet Heater Relationship Specialty Start Date End Date Yolande Soria MD [address] [place] [address] PCP - General Internal Medicine 11/25/23
[2025-02-26 09:00] LABS: Hematocrit 34.8 % (37.0-46.0); Hemoglobin 11.5 g/dL (12.4-15.3); Mean Corpuscular HGB Conc 33.0 g/dL (32-36); Mean Corpuscular Hemoglobin 28.0 pg (27.0-31.0); Mean Corpuscular Volume 84.9 fL (78.0-102.0); Platelet Count Result 226 K/mm3 (150-420); Red Blood Count 4.10 M/mm3 (4.70-6.10); White Blood Count 7.0 K/mm3 (4.8-10.8)
[2025-02-26 09:08] LABS: Add Urine Microscopic? YES; Appearance Urine Cloudy (Clear); Glucose Urine UA Negative (Negative); Leukocyte Esterase Ur 3+ LEU/UL (Negative); Nitrate Urine Positive (Negative); Specific Grav Ur 1.015 (1.010-1.020)
[2025-02-26 09:32] LABS: Hemoglobin A1C 8.4 % (<5.7)
[2025-02-26 09:33] LABS: Alanine Aminotransferase 31 U/L (6-50); Albumin Level 4.0 g/dL (3.5-5.1); Alkaline Phosphatase 113 U/L (38-126); Anion Gap 8 mmol/L (4-12); Aspartate Amino Transferase 41 U/L (17-59); Bilirubin,Total 0.8 mg/dL (0.2-1.3); Blood Urea Nitrogen 15 mg/dL (9-20); Calcium 8.9 mg/dL (8.4-10.2); Carbon Dioxide 22 mmol/L (22-30); Chloride 111 mmol/L (98-107); Cholesterol 108 mg/dL (0-200); Creatine Kinase 82 U/L (55-170); Estimated Glomerular Filt Rate > 60; Glucose 124 mg/dL (65-110); HDL Direct 39 mg/dL; Iron 85 ug/dL (49-181); Osmolality Calculated 293 mOsm/kg (285-295); Potassium 4.3 mmol/L (3.4-5.0); Sodium 141 mmol/L (137-145); Total Protein 6.9 g/dL (6.3-8.2); Triglycerides 109 mg/dL (<150); Uric Acid 4.9 mg/dL (3.5-8.5)
[2025-02-26 09:36] LABS: MALB Creatinine Ratio 120.5 mg/g (0-30)
[2025-02-26 10:07] LABS: Ferritin 27.30 ng/mL (11.1-264)
[2025-02-26 10:21] LABS: Vitamin B12 510.0 pg/mL (239-931)
== END 2025-02-26 08:38 | disposition home or self-care (01) ==
LOC: CHSLAB 08:39
PROVIDERS: PCP Internal Medicine; Visit Provider Internal Medicine
DX: D64.9 Anemia, unspecified (principal); I10 Essential (primary) hypertension; E79.0 Hyperuricemia without signs of inflammatory arthritis and tophaceous disease; E11.65 Type 2 diabetes mellitus with hyperglycemia; Z98.84 Bariatric surgery status; R82.90 Unspecified abnormal findings in urine; K90.9 Intestinal malabsorption, unspecified
CPT/HCPCS: 36415; 80053; 80061; 81001; 82043; 82550; 82607; 82728; 83036; 83540; 84550; 84590; 84630; 85027; 87077; 87086; 87088; 87186